=== PATIENT | male | born 1945 | race Caucasian/White ===

== ENCOUNTER → 2022-02-10 | Outpatient (CLI) | payer MEDICARE, SELFPAY ==
--- NOTE | 2022-02-10 10:10 | RAD_ITS ---
STUDY: X-RAY - LUMBAR SPINE REASON FOR EXAM: Male, 77 years old. RADICULOPATHY, LUMBAR REGION TECHNIQUE: 2 view(s) of the lumbar spine were obtained. COMPARISON: None FINDINGS: Normal lumbar lordosis. There is no substantial scoliosis. 2 mm of anterolisthesis of L3 on L4. There is multilevel endplate spondylosis of the lumbar vertebrae. There is multi-level degenerative disc disease with multi-level disc space narrowing. Facet hypertrophy in the lower lumbar spine. The soft tissue structures are unremarkable. RAD/Lumbar Spine 2 or 3 Views IMPRESSION: Degenerative changes of the spine, as detailed above. MRI would be useful. Electronically Signed: Curt Natarajan MD at 16:59 EDT ,
== END | disposition home or self-care (01) ==
PROVIDERS: PCP Internal Medicine; Visit Provider Anesthesiology Pain Medicine
DX: M47.26 Other spondylosis with radiculopathy, lumbar region (principal); M46.96 Unspecified inflammatory spondylopathy, lumbar region; M51.16 Intervertebral disc disorders with radiculopathy, lumbar region; M48.061 Spinal stenosis, lumbar region without neurogenic claudication
CPT/HCPCS: 72100

== ENCOUNTER → 2022-02-25 | Outpatient (CLI) | payer MEDICARE, SELFPAY ==
--- NOTE | 2022-02-25 16:12 | MRI_ITS ---
EXAM: MR LUMBAR SPINE WITHOUT INTRAVENOUS CONTRAST CLINICAL INDICATION: RADICULOPATHY, LUMBAR REGION TECHNIQUE: Multiplanar and multisequence MR images of the lumbar spine without intravenous contrast. Magnetic field strength 1.5 T. This report was created using [employer] report [employer] technology. COMPARISON: None. FINDINGS: VERTEBRAE: Unremarkable. Vertebral body heights are preserved. Normal vertebral bodies and posterior elements. Normal alignment. No spondylolisthesis. There is preservation of the normal lumbar lordosis. SPINAL CORD: Unremarkable. Normal position and signal intensity of the conus medullaris. SOFT TISSUES: Unremarkable. DISCS/SPINAL CANAL/NEURAL FORAMINA: L1-L2: Mild loss of disc height and disc signal. Mild generalized disc bulge. No spinal canal, foraminal, or lateral recess stenosis. L2-L3: Mild loss of disc height and disc signal. Mild generalized disc bulge. No spinal canal, foraminal, or lateral recess stenosis. L3-L4: Mild loss of disc signal. Mild generalized disc bulge. No spinal canal, foraminal, or lateral recess stenosis. Moderate facet arthropathy bilaterally. L4-L5: Mild loss of disc height and disc signal. Moderate generalized disc bulge. No spinal canal, foraminal, or lateral recess stenosis. AP diameter of the canal measures 11 mm. Moderate facet arthropathy bilaterally. L5-S1: Moderate loss of disc height and disc signal. Mild generalized disc bulge. No spinal canal, foraminal, or lateral recess stenosis. MRI/Spine Lumbar (Routine) IMPRESSION: 1. Diffuse spondylitic changes. No spinal stenosis or nerve root impingement. 2. Moderate bilateral facet arthropathy L3-4 and L4-5. Electronically Signed: Connor Gould MD at 17:03 EDT ,
== END | disposition home or self-care (01) ==
LOC: MRI 15:56
PROVIDERS: PCP Internal Medicine; Visit Provider Anesthesiology Pain Medicine
DX: M47.26 Other spondylosis with radiculopathy, lumbar region (principal); M46.96 Unspecified inflammatory spondylopathy, lumbar region
CPT/HCPCS: 72148

== ENCOUNTER 2025-07-14 02:11 | Observation (INO) | payer MEDICARE, OTHER, SELFPAY ==
[2025-07-14] VITALS (11 sets, daily range): BP systolic 132–160; BP diastolic 64–85; PULSE 62–70; RESP 13–22; TEMP 36.5–36.7; O2SAT 95–99; BMI 29.8; BMI 29.5
--- NOTE | 2025-07-14 02:17 | EKG12_ITS ---
Test Reason : NEURO Blood Pressure : */* mmHG Vent. Rate : 73 BPM Atrial Rate : 73 BPM P-R Int : 176 ms QRS Dur : 96 ms QT Int : 390 ms P-R-T Axes : 61 84 44 degrees QTcB Int : 429 ms Normal sinus rhythm Nonspecific ST abnormality Abnormal ECG Confirmed by Connor Rodarte ([id number]), photograph editor CHETAN MMCILLAN ([id number]) on 07/14/2025 8:35:58 AM Referred By: Confirmed By: Connor Rodarte
--- NOTE | 2025-07-14 02:17 | CT_ITS ---
PROCEDURE: STROKE CTA HEAD AND NECK W/CON 07/13/2025 REASON FOR EXAM: NEURO DEFICIT, ACUTE, STROKE SUSPECTED TECHNIQUE: Procedure Code: CTCTA.ST.HN Modality: CT Procedure: STROKE CTA HEAD AND NECK W/CON Multiplanar Sagittal and Coronal images were obtained. CONTRAST: 100 cc of Isovue 370 One or more dose reduction techniques were used (e.g., Automated exposure control, adjustment of the mA and/or kV according to patient size, use of iterative reconstruction technique). COMPARISON: Same-day CT head FINDINGS: Aortic Arch: Normal size and branching pattern. No significant atherosclerotic plaque. Brachiocephalic and Subclavians: Unremarkable RIGHT Carotid: Right CCA: Unremarkable. Right ICA: Unremarkable. Maximum stenosis (NASCET): n/a Right ECA: Unremarkable. LEFT Carotid: Left CCA: Unremarkable. Left ICA: Unremarkable. Maximum stenosis (NASCET): n/a Left ECA: Unremarkable. Vertebrals: Codominant. Arise from the subclavians. Both vertebrals form the basilar. RIGHT Vertebral: Unremarkable. LEFT Vertebral: Unremarkable. Anatomy: [place] anatomy is normal. Aneurysm or avm: No intracranial aneurysms or large vascular malformations are identified. Anterior cerebral arteries: Unremarkable: Middle cerebral arteries: Unremarkable. Basilar artery: Unremarkable. Posterior cerebral arteries: Unremarkable. Other major branches of the posterior circulation: Unremarkable. Major venous structures: Unremarkable. Other findings: Neck: No lymphadenopathy. Lungs: Lung apices are clear. Bones: Bones are unremarkable. CT/STROKE CTA Head AND Neck W/Con IMPRESSION: Unremarkable CT angiogram of the head and neck with evidence of stenosis or occ lusion. Reading [facility]
--- NOTE | 2025-07-14 02:17 | CT_ITS ---
PROCEDURE: STROKE BRAIN/HEAD WITHOUT CONT N/A REASON FOR EXAM: NEURO DEFICIT, ACUTE, STROKE SUSPECTED TECHNIQUE: Procedure Code: CTBR.ST Modality: CT Procedure: STROKE BRAIN/HEAD WITHOUT CONT Coronal and Sagittal reconstruction series were provided. One or more dose reduction techniques were used (e.g., Automated exposure control, adjustment of the mA and/or kV according to patient size, use of iterative reconstruction technique. COMPARISON: None available. FINDINGS: There is no extra-axial or intra-axial intracranial hemorrhage. No mass effect or midline shift is seen. Generalized intracranial volume loss and findings compatible with chronic microvascular white matter ischemia. Isodense extra-axial lesion abutting the high right anterior falx measuring 1.9 x 2.9 x 1.6 cm may represent a meningioma. There is normal echeverria-white matter differentiation. The posterior fossa is grossly unremarkable. The skull is unremarkable. Visualized paranasal sinuses are clear. The mastoid air cells show normal translucency. CT/STROKE Brain/Head without Cont IMPRESSION: 1. No intracranial hemorrhage. No mass effect or midline shift. 2. Chronic involutional and ischemic gliotic white matter changes. 3. Possible high right meningioma abutting the anterior falx. Further evaluati on with contrast-enhanced MRI would be more helpful. 4. CT is insensitive for early evaluation of acute stroke. If there is clinical concern for acute ischemia, an MRI may be considered. Stroke Alert: The critical findings in the findings and impression above were relayed directl y by me by telephone to Sulaiman Robison on 07/14/2025 at 2:42 am with readback verification. Reading [facility]
--- NOTE | 2025-07-14 02:19 | ED.VIS.STROK ---
HPI History of Present Illness Chief Complaint: Stroke Alert Detail of Chief Complaint: Left leg weakness and numbness. Informant: patient and spouse/S.O. Onset/Context/Timing Onset: Today Context: - (Awoke with the symptoms.) Timing: Continuous Quality and Location: Positive for Left Leg Parasthesia and Left Leg Weakness Current Severity: Moderate Maximum Severity: Moderate Associated Symptoms Associated Symptoms: Negative for Headache, Nausea, Vomiting or Chest Pain Narrative Narrative: Healthy 80-year-old male history of diabetes and hypertension. Went to bed around 20:45 Monday night. Patient states he felt fine when he went to bed. He got up around 1 AM. Went to go to the bathroom his left leg was weak and numb. He fell. Denies any injury. He has never had a stroke or mini stroke. He denies a headache or head trauma he is on no blood thinners. He denies any new visual change or change in his speech. He denies any numbness or weakness to his arms. Prior similar symptoms: No Recent Illness[facility] Medical History (Updated 07/14/25 @ 02:[address] Sulaiman Robison MD) Brain tumor Diabetes Hypertension Hyperlipidemia Home Medications ?Medication ?Instructions ?Recorded ?Last Taken ?Type ascorbic acid (vitamin C) 500 mg 500 mg PO DAILY@0800 01/26/16 01/26/16 History tablet (Vitamin C) lovastatin 40 mg tablet 40 mg PO QHS 01/26/16 01/25/16 History pantoprazole 40 mg tablet,delayed 40 mg PO DAILY PRN gerd 01/26/16 01/26/16 History release lisinopril 20 mg tablet 20 mg PO DAILY ##30 01/27/16 Unknown Rx meclizine 25 mg tablet 25 mg PO 4X/DAY PRN PRN Vertigo 01/27/16 Unknown Rx ##12 metformin 500 mg tablet 500 mg PO DAILY 07/14/25 Unknown History Allergy/AdvReac Type Severity Reaction Status Date / Time amoxicillin Allergy Rash Verified 07/14/25 02:26 ampicillin Allergy Rash Verified 07/14/25 02:26 Social History Smoking Status: Former smoker ROS ROS ED ROS Narrative Denies recent illness. Constitutional Constitutional ED: Denies chills or fever(s) Eyes Eyes: Denies blurry vision ENT ENT ED: Denies ear pain Cardiovascular Cardiovascular: Denies chest pain Respiratory/Chest Respiratory/Chest: Denies cough or dyspnea Gastrointestinal Gastrointestinal: Denies abdominal pain Genitourinary Genitourinary ED: Denies dysuria or hematuria Musculoskeletal Musculoskeletal: Denies arthralgias Integumentary Denies abscess Neurologic Neurologic: Denies headache(s) Psychiatric Psychiatric: Denies anxiety or depression Endocrine Endocrinology: Denies polydipsia Hematologic/Lymphatic Hematologic/Lymphatic: Denies easy bleeding Allergic/Immunologic Allergic/Immunologic ED: Denies mouth swelling EXAM Physical Exam Narrative Exam Narrative: Well-appearing 80-year-old male. Vital signs stable and afebrile. He does not look septic or toxic. at bedside. H EENT exam pupils round react light. Extra motions are intact. No facial droop. Normal speech. No trauma. Nontender. Neck nontender. Lungs clear to auscultation bilaterally. Heart regular rhythm no murmur. Chest wall ribs nontender. Abdomen soft nontender. No pulsatile mass. Moving all 4 extremities. 5-5 fluid designer strength. Bilaterally. Equal symmetrical. Equal radial pulses. Left leg is significantly weak but he can lift it off the bed but has a definite drift. Has decreased dorsi and plantarflexion about 3 out of 5. Right leg is normal strength. No drift. 5 out of 5 dorsi plantarflexion. There is no reproducible leg tenderness. He complains of numbness in his left leg but he does have sensation to touch. NIH score is 3. For weakness of the left leg, drift and left leg ataxia. Const Vital Signs: 07/14/25 02:11 07/14/25 02:11 07/14/25 02:17 Temperature 98.1 F Temperature Source Oral Pulse Rate 64 70 Respiratory Rate 18 18 Blood Pressure 132/76 H 135/72 H Blood Pressure Mean 94 93 Pulse Ox 99 95 98 Oxygen Delivery Method Room Air Room Air Room Air 07/14/25 02:17 07/14/25 02:46 Temperature Temperature Source Pulse Rate 70 69 Respiratory Rate 18 22 H Blood Pressure 135/72 H 144/84 H Blood Pressure Mean 93 104 Pulse Ox 95 96 Oxygen Delivery Method Room Air Room Air MDM MDM MDM Narrative Medical decision making narrative: 80-year-old male onset of left leg weakness and subjective numbness but has sensation. NIH score 3 with left leg weakness, drift and ataxia. Patient was made a stroke team. Onset of his symptoms was when he awoke with the symptoms. He went to bed around 8:45 PM Monday night awoke and had the symptoms around 1 PM. Patient was made a stroke team and has been made stroke team protocol. He will have a CT and CTA head and neck. [facility] neurology will be contacted. Patient is aware and his is aware at bedside. Repeat exam patient is doing well at 2:45 AM. He is awake and alert. We discussed his CAT scan results. We discussed he is not a TNK candidate. He is getting strength back in his left leg. On repeat exam he has a palpable DP pulse. His dorsi and plantarflexion is now about 4 out of 5 and he can lift it off the bed and hold it for 3 seconds. He does not have normal strength there is probably a 4 out of 5 now initially was a 3 out of 5. He is definitely showing improvement. Once his labs are all back I will speak to the hospitalist for admission. Patient doing well at 3:09 AM. I spoke to the hospitalist he will be admitted to PCU. History & Record Review Discussion w/independent historian: Patient and Family Lab Data Attestation: I reviewed the patient's lab results. Lab results narrative: Radiologist called me about his CAT scan of his brain there was no acute abnormality. Potentially a meningioma. No bleed. I also spoke to the [facility] neurologist who reviewed his CT brain and CTA head and neck and they do not see any acute bleed or large vessel occlusion. He is not a TNK candidate after discussion with the neurologist. Further discussion with the patient he does have a known meningioma. CBC unremarkable. White count of 7. H&H 15 and 44. Platelets 268. PT, INR and PTT are 13, 1 and 29. Chemistries unremarkable. Gap 14. BUN and creatinine 25 and 1.2. Glucose 115. Initial troponin 13. Labs: Laboratory Results - last 24 hr 07/14/25 07/14/25 02:17 02:20 WBC 7.9 RBC 4.72 Hgb 15.4 Hct 44.4 MCV 94.1 H MCH 32.6 H MCHC 34.7 RDW Std Deviation 40.2 RDW Coeff of Omid 11.6 Plt Count 268 MPV 8.8 Immature Gran % (Auto) 0.300 Neut % (Auto) 49.9 Lymph % (Auto) 31.3 [place] % (Auto) 11.1 H Eos % (Auto) 6.6 H Baso % (Auto) 0.8 Absolute Neuts (auto) 3.9 Absolute Lymphs (auto) 2.46 Nucleated RBC % 0 PT 13.4 INR 1.0 APTT 29.8 Sodium 142 Potassium 3.9 Chloride 104 Carbon Dioxide 23.0 Anion Gap 14 BUN 25 H Creatinine 1.20 Estim Creat Clear Calc 58.53 Est GFR (MDRD) Non-Af 62 BUN/Creatinine Ratio 20.8 H Glucose 115 H Calcium 9.7 Troponin T High Sens 13 POC Glucose 111 H Radiography Diagnostic Testing: Clinical Impression(s) from Imaging Studies Brain CT 07/14/25 02:17 IMPRESSION: 1. No intracranial hemorrhage. No mass effect or midline shift. 2. Chronic involutional and ischemic gliotic white matter changes. 3. Possible high right meningioma abutting the anterior falx. Further evaluation with contrast-enhanced MRI would be more helpful. 4. CT is insensitive for early evaluation of acute stroke. If there is clinical concern for acute ischemia, an MRI may be considered. Stroke Alert: The critical findings in the findings and impression above were relayed directly by me by telephone to Sulaiman Robison on 07/14/2025 at 2:42 am with readback verification. Reading Location: [facility] Rhythm Strip Rhythm Strip: Sinus Rhythm Rate: 73 Ectopy: None EKG Initial EKG: Attestation: I personally reviewed and interpreted this EKG as follows: Interpretation: Sinus Rhythm and No Acute Injury Pattern Comments: Normal sinus rhythm rate of 73 no acute signs of DE or ischemia. No dysrhythmia. Critical Care Time Critical Care Time: Yes Critical care time (excluding procedures): 30-74 minutes, Including time spent:, Discussing w/Patient &/or Family/Manufacturing Shift Supervisor, Discussing w/Consultants, Arranging Admission or Transfer, Performing Direct Patient Care at Bedside and - (34 minutes.) Discharge Plan Dx/Rx/DC Orders Clinical Impression: Brain TIA, Left leg weakness, History of diabetes mellitus, History of hypertension Disposition Disposition: Acute Care Hospital [facility] NIHSS NIHSS 1a. Level of Consciousness: 0 - Alert; keenly responsive 1b. LOC Questions: 0 - Answers BOTH questions correctly 1c. LOC Commands: 0 - Performs BOTH tasks correctly 2. Best Gaze: 0 - Normal 3. Visual: 0 - No visual loss 4. Facial Palsy: 0 - Normal symmetrical movements 5a. Left Arm: 0 - No drift; arm holds 90 (or 45) degrees for full 10 seconds 5b. Right Arm: 0 - No drift; arm holds 90 (or 45) degrees for full 10 seconds 6a. Left Le - Some effort against gravity; 6b. Right Le - No drift; leg holds 30-degree position for full 5 seconds 7. Limb Ataxia: 1 - Present in 1 limb 8. Sensory: 0 - Normal; no sensory loss 9. Best Language: 0 - No aphasia; normal 11. Extinction and Inattention: 0 - No abnormality Total: 3 Stroke Questions Stroke Team Activated: Yes Reviewed Inclusion/Exclusion criteria: Yes
--- OUTSIDE RECORDS SUMMARY | 2025-07-14 02:26 | XMS RPT_ITS | CCD ---
Author Organization [facility] Care Team Providers Care Miniature Model Maker Name Role Phone Dr. Lora Martinez Primary Care Provider Dr. Lora Martinez Referring Provider JEFF Rubin Attending Provider Lora Martinez MD Primary Care Provider Francisco Frank MD Unavailable Naeem OGDEN MD, Gerald Unavailable Lora Martinez MD Primary Care Provider Francisco Frank MD Unavailable Naeem OGDEN MD, Marlaung Unavailable Lora Martinez MD Primary Care Provider Francisco Frank MD Unavailable Naeem OGDEN MD, Everardoesung Unavailable Lora Martinez MD Primary Care Provider Naeem OGDEN, Gerald Unavailable ALEXANDRANENOI Referring Unavailable JOAQUINAMPHEATHER LORA Zack Primary Care Unavailable ALEXANDRA MINH Referring Unavailable ORIANA MARTINEZA Zack Primary Care Unavailable Alexandra PATENT LAW SPECIALIST.CLASSIFICATION OFFICER, Minh Unavailable Naomie PATENT LAW SPECIALIST.LAN SUPPORT SPECIALIST, Soco Unavailable Naomie PATENT LAW SPECIALIST.LAN SUPPORT SPECIALIST, Soco Unavailable Alexandra PATENT LAW SPECIALIST.CLASSIFICATION OFFICER, Minh Unavailable GERALD HARTLEY Referring Unavailable LORA MARTINEZ Primary Care Unavailable GERALD HARTLEY Attending Unavailable TALAMPAS, LORA D Primary Care Unavailable TALAMPAS, LORA D Referring Unavailable TALAMPAS, LORA D Primary Care Unavailable MINH ALEXANDRA Attending Unavailable TALAMPAS, LORA D Primary Care Unavailable ALXEANDRAMINH Referring Unavailable TALAMPAS, LORA D Primary Care Unavailable TALAMPAS, LORA D Attending Unavailable TALAMPAS, LORA D Primary Care Unavailable Allergies Allergy Classification Reported Allergen(s) Allergy Type Date of Onset Reaction(s) Facility (20 sources) Amoxicillin; Translations: [AMOXICILLIN] Drug Allergy 04-26-2005 Rash [facility] Work Phone: (20 sources) Ampicillin; Translations: [AMPICILLIN] Drug Allergy 07-18-2005 Rash [facility] Work Phone: (20 sources) Lisinopril; Translations: [LISINOPRIL] Drug Allergy 08-22-2016 Cough [facility] Work Phone: Medications Current Medications Medication Drug Class(es) Dates Sig (Normalized) Sig (Original) aluminum chloride 200 mg/ml topical solution (13 sources) Start: 08-30-2022 End: 11-28-2022 aluminum chloride (DRYSOL) 20 % external solution Apply to affected area daily at bedtime. 35 mL 2 08/30/2022 Active Comment on above: Apply to affected ar ea daily at bedtime. ascorbic acid 500 mg oral tablet (2 sources) Vitamin C Start: 01-26-2016 take 1 tablet by mouth once daily Ascorbic Acid (Vitamin C) (Vitamin C) 500 MG tablet Active 500 MG PO DAILY@0800 January 26, 2016 12:00am cholecalciferol 0.025 mg oral capsule (20 sources) Vitamin D Start: 03-06-2012 take 1 capsule by mouth once daily Cholecalciferol, Vitamin D3, 1,000 unit cap Take 1 capsule by mouth once daily. 0 03/06/2012 Active Comment on above: Take 1 capsule by [facility] once daily. ciclopirox 80 mg/ml topical solution (10 sources) Start: 04-30-2024 Ciclopirox (CICLODAN) 8 % solution Apply to affected area daily at bedtime. Apply to affected fingernail(s) and/or toenail(s) and adjacent skin once daily in combination with weekly nail trimming and periodic nail debridement. Remove with alcohol every 7 days.Do for up to 48 weeks 6.6 mL 3 04/30/2024 Active DAILY MULTIVITAMIN TAB (20 sources) Start: 04-21-2006 DAILY MULTIVITAMIN TAB Take one(1) tablet daily. 0 04/21/2006 Active Comment on above: Take one(1) tablet d aily. enteric contrast (will be provided with radiology test) (1 source) Start: 05-24-2024 End: 05-24-2024 take 1 dose by mouth once, then take 1 dose by mouth once enteric contrast (will be provided with radiology test) Take 1 Each by mouth one time only for [address] ABD/PEL WO Routine order Administer, As Directed One Time Only, via Oral, Rectal, both Oral and Rectal, Enteric Tube, Stoma or Indwelling Catheter, Enteric Contrast as designated per enteric contrast guidelines 1 Each 05/24/2024 05/24/2024 Active ibuprofen 200 mg oral tablet (20 sources) Nonsteroidal Anti-inflammatory Drug take 3 tablets by mouth every six hours as needed ibuprofen (MOTRIN) 200 mg tablet Take 600 mg by mouth every 6 hours as needed for Pain. Active Comment on above: Take 600 mg by mouth every 6 hours as needed for Pain. lisinopril 20 mg oral tablet (2 sources) Angiotensin Converting Enzyme Inhibitor Start: 01-27-2016 take 20 mg by mouth once daily Lisinopril Active 20 MG PO DAILY January 27, 2016 12:00am losartan potassium 50 mg oral tablet (20 sources) Angiotensin 2 Receptor Jay Start: 06-22-2023 End: 04-30-2024 take 1 tablet by mouth once daily losartan (COZAAR) 50 mg tablet Take 1 tablet by mouth once daily. 90 tablet 3 04/30/2024 Active Start: 06-29-2021 End: 07-06-2022 take 1 tablet by mouth once daily losartan (COZAAR) 50 mg tablet Take 1 tablet by mouth once daily. 90 tablet 3 07/06/2022 Active Comment on above: Take 1 tablet by wood th once daily. lovastatin 40 mg oral tablet (20 sources) HMG-CoA Reductase Inhibitor Start: 01-26-20 End: 04-30-20 24 take 1 tablet by mouth once daily at bedtime lovastatin 40 mg tablet Indications: Mixed hyperlipidemia Take 1 tablet by mouth daily at bedtime. 90 tablet 3 04/30/2024 Active Comment on above: Take 1 tablet by wood th daily at bedtime. meclizine hydrochloride 25 mg oral tablet (2 sources) Antiemetic Start: 01-27-20 16 take 25 mg by mouth four times daily as needed Meclizine Active 25 MG PO 4 TIMES DAILY NEEDED January 27, 2016 12:00am metFORMIN hydrochloride 500 mg oral tablet (20 sources) Biguanide Start: 10-30-19 25 take 1 tablet by mouth twice daily at mealtime for diabetes mellitus metFORMIN (GLUCOPHAGE) 500 mg tablet Indications: Type 2 diabetes mellitus without complication, without long-term current use of insulin (HCC) Take 1 tablet by mouth two times a day with meals. For blood sugar/diabetes. Do not take if not eating 180 tablet 3 10/29/2024 Active Start: 08-30-2022 End: 10-29-2024 take 1 tablet by mouth once daily at breakfast for diabetes mellitus metFORMIN (GLUCOPHAGE) 500 mg tablet Indications: Type 2 diabetes mellitus without complication, without long-term current use of insulin (HCC) Take 1 tablet by mouth daily with breakfast. For blood sugar/diabetes. Do not take if not eating 90 tablet 3 04/30/2024 10/29/2024 Discontinued Comment on above: Take 1 tablet by wood th daily with breakfast. For blood sugar/diabetes. Do not take if not eating mometasone furoate 1 mg/ml topical cream (20 sources) Corticosteroid Start: End: mometasone (ELOCON) 0.1 % cream Indications: Seborrheic dermatitis of scalp Apply 1 application to affected area once daily as needed. To affected skin in scalp as directed. 15 g 10/24/2023 Active Comment on above: Apply 1 application to affected area once daily as needed. To affected skin in scalp as directed. nirmatrelvir tablet 150 mg and ritonavir tablet 100 mg in a dose pack (PAXLOVID) (1 source) Start: End: nirmatrelvir tablet 150 mg and ritonavir tablet 100 mg in a dose pack (PAXLOVID) Administer TWO pink nirmatrelvir 150 mg tablets and ONE white ritonavir 100 mg tablet for a total of three tablets twice daily. 30 tablet 0 03/02/2022 03/07/2022 Active Comment on above: Administer TWO pink nirmatrelvir 150 mg tablets and ONE white ritonavir 100 mg tablet for a total of three tablets twice daily. OMEGA-3 FATTY ACIDS CAP (20 sources) Start: 008 OMEGA-3 FATTY ACIDS CAP Indications: Other and unspecified hyperlipidemia Fish oil capsule once daily 0 10/31/2007 Active Comment on above: Fish oil capsule onc e daily pantoprazole 40 mg delayed release oral tablet (20 sources) Proton Pump Inhibitor Start: 023 End: 024 take 1 tablet by mouth once daily pantoprazole DR (PROTONIX) 40 mg tablet Indications: Gastroesophageal reflux disease without esophagitis Take 1 tablet by mouth once daily. 180 tablet 1 05/24/2024 Active Start: 01-26-2016 End: 07-06-2022 take 1 tablet by mouth once daily pantoprazole DR (PROTONIX) 40 mg tablet Indications: Gastroesophageal reflux disease without esophagitis Take 1 tablet by mouth once daily. 90 tablet 3 07/06/2022 Active Comment on above: Take 1 tablet by wood th once daily. polyethylene glycol 3350 [id number] mg / potassium chloride 2970 mg / sodium bicarbonate 6740 mg / sodium chloride 5860 mg / sodium sulfate 68395 mg powder for oral solution (1 source) Osmotic Laxative Start: 05-31-2022 End: 05-31-2022 peg 3350-Electrolytes (GOLYTELY) 236-22.74-6.74 -5.86 gram suspension Take 4,000 mL by mouth one time only for 1 dose. 1 Each 0 05/31/2022 05/31/2022 Active Comment on above: Take 4,000 mL by wood th one time only for 1 dose. vitamin e 90 mg oral capsule (2 sources) Start: 01-26-2016 take 200 [IU] by mouth once daily Vitamin E Acetate Active 200 UNIT PO DAILY January 26, 2016 12:00am Completed/Discontinued Medications Medication Drug Class(es) Dates Sig (Normalized) Sig (Original) sensor 200 actuat albuterol 0.09 mg/actuat dry powder inhaler (2 sources) beta2-Adrenergic Agonist Start: 09-02-2019 End: 05-31-2022 take 2 puff(s) by inhalation every four hours as needed albuterol sulfate 90 mcg/actuation aebs Indications: SOB (shortness of breath) , Acute viral syndrome Inhale 2 Puffs as instructed every 4 hours as needed. 1 Inhaler 0 09/02/2019 05/31/2022 Discontinued Comment on above: Inhale 2 Puffs as in structed every 4 hours as needed. atenolol 25 mg oral tablet (2 sources) beta-Adrenergic Jay Start: 01-26-2016 End: 01-27-2016 take 25 mg by mouth once daily Atenolol Discontinued 25 MG PO DAILY January 26, 2016 12:00am January 27, 2016 11:02am Problems Active Problems Problem Classification Problem Date Documented Da te Episodic/Chronic Abdominal pain (4 sources) Left lower quadrant pain; Translations: [Left lower quadrant pain] Onset: 4 05-24-2024 Episodic Diabetes mellitus without complication (20 sources) Newly diagnosed diabetes; Translations: [Type 2 diabetes mellitus without complications] Onset: 3 Chronic Disorders of lipid metabolism (20 sources) Mixed hyperlipidemia; Translations: [Mixed hyperlipidemia] Onset: 6 10-23-2015 Chronic Esophageal disorders (20 sources) Laryngopharyngeal reflux; Translations: [Gastro-esophageal reflux disease without esophagitis] Onset: 0 08-18-2021 Chronic Essential hypertension (20 sources) Essential hypertension; Translations: [Essential (primary) hypertension] Onset: 6 10-23-2015 Chronic Other aftercare (1 source) Encounter for follow-up examination after completed treatment for conditions other than malignant neoplasm; Translations: [Radiotherapy follow-up] Onset: 5 Episodic Other and unspecified benign neoplasm (20 sources) Intracranial meningioma; Translations: [Benign neoplasm of cerebral meninges] Onset: 8 09-26-2017 Chronic Other and unspecified benign neoplasm (1 source) Benign neoplasm of cerebral meninges; Translations: [Intracranial meningioma (HCC)] Onset: 8 Chronic Other gastrointestinal disorders (1 source) Passing flatus; Translations: [Flatulence] 04-30-2024 Episodic Other inflammatory condition of skin (2 sources) Seborrheic dermatitis of scalp; Translations: [Seborrheic dermatitis, unspecified] Episodic Other nutritional; endocrine; and metabolic disorders (20 sources) Obese class I; Translations: [Obesity, unspecified] Onset: 9 11-26-2018 Chronic Other screening for suspected conditions (not mental disorders or infectious disease) (11 sources) Patient encounter status; Translations: [Encounter for screening for malignant neoplasm of colon] Episodic Other upper respiratory disease (1 source) Nasal congestion; Translations: [Nasal congestion] Episodic Viral infection (1 source) Disease caused by 2019-nCoV; Translations: [COVID-19] Episodic Past or Other Problems Problem Classification Problem Date Documented Da te Episodic/Chronic Diabetes mellitus without complication (20 sources) Impaired fasting glycemia; Translations: [Impaired fasting glucose] Onset: 10-24-2005 10-28-2016 Episodic Esophageal disorders (20 sources) Esophagitis; Translations: [Esophagitis, unspecified] Onset: 08-02-2012 08-02-2012 Episodic Mood disorders (12 sources) Depressive disorder; Translations: [Other specified depressive episodes] Resolved: 10-28-2016 10-28-2016 Chronic Osteoarthritis (12 sources) Degenerative joint disease of shoulder region; Translations: [Primary osteoarthritis, unspecified shoulder] Onset: 04-25-2007 Resolved: 10-28-2016 10-28-2016 Chronic Other aftercare (1 source) Other usp (current) drug therapy; Translations: [Encounter for long-term current use of medication] Onset: 10-05-2024 Episodic Other connective tissue disease (20 sources) Lateral epicondylitis of left humerus; Translations: [Lateral epicondylitis, left elbow] Onset: 03-09-2011 11-06-2020 Episodic Other connective tissue disease (12 sources) Lateral epicondylitis; Translations: [Lateral epicondylitis, unspecified elbow] Resolved: 10-28-2016 10-28-2016 Episodic Other connective tissue disease (12 sources) Pain in left thumb; Translations: [Pain in left finger(s)] Onset: 01-27-2015 Resolved: 10-28-2016 10-28-2016 Episodic Other gastrointestinal disorders (12 sources) Irritable bowel syndrome; Translations: [Irritable bowel syndrome without diarrhea] Resolved: 10-28-2016 10-28-2016 Chronic Spondylosis; intervertebral disc disorders; other back problems (20 sources) Neck pain; Translations: [Cervicalgia] Onset: 10-28-2016 10-28-2016 Episodic Results Test Name Value Interpretation Reference Range Facility [facility] 06-12-2025 CNOV Office Visit (RADTWS ) FREDRICK MAO ([id number]) 1945 M Date Time Provider Department 06/12/25 9:00 AM GERALD HARTLEY During your visit today, we recorded the following information about you: Temperature Pulse Respiration Blood pressure 98 degrees 61/minute 14/minute 134/73 Weight 92.5 kg Yessica Dent RN 06/16/2025 4:17 PM Signed Radiation Therapy - Nursing Note (Follow-up) PATIENT NAME: Fredrick Mao PATIENT June 12, 2025 [facility] FACILITY/LOCATION: [place] Reason for visit: Follow up. Subjective Data No complaints Additional Data Do you want to see a Exhibit Carpenter? No Nursing Assessment Fatigue: increased fatigue over baseline but not altering normal activities Appetite: good Weight Gain/Loss: No Last 6 Encounter Wt Readings: Date: Wt: 06/12/2025 92.5 kg (204 lb) 05/13/2025 91.2 kg (201 lb 1 oz) 10/29/2024 95 kg (209 lb 7 oz) 05/24/2024 94.6 kg (208 lb 8.9 oz) 04/30/2024 94.3 kg (207 lb 14.3 oz) 10/24/2023 92.1 kg (203 lb) Bowel Function: normal bowel movements Bone Pain: none Focused Assessment CLASSIFICATION OFFICER: Alopecia: severe. Headache: moderate. Vision changes: none. Arm/leg numbness: none. Limb coordination: none. Memory changes: none. Syncope: none. Disorientation: none. Seizures: none. Hearing changes: No. 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 INTERVAL HISTORY: He is here for a routine follow-up. He is doing well without any specific new complaints. He denies any changes in his vision. MRI brain on 05/27/25 showed, Stable appearance of the large cystic and solid parafalcine meningioma overlying the dorsal right frontal lobe with extension into the overlying parietal bone and superior sagittal sinus. ALLERGIES Allergen Reactions Amoxicillin Rash Ampicillin Lisinopril Cough Persistent cough--patient requested med be stopped and switched to something else for BP MEDICATIONS: losartan (COZAAR) 50 mg tablet Take 1 tablet by mouth once daily. lovastatin 40 mg tablet Take 1 tablet by mouth daily at bedtime. metFORMIN (GLUCOPHAGE) 500 mg tablet Take 1 tablet by mouth two times a day with meals. For blood sugar/diabetes. Do not take if not eating pantoprazole DR (PROTONIX) 40 mg tablet Take 1 tablet by mouth once daily. Ciclopirox (CICLODAN) 8 % solution Apply to affected area daily at bedtime. Apply to affected fingernail(s) and/or toenail(s) and adjacent skin once daily in combination with weekly nail trimming and periodic nail debridement. Remove with alcohol every 7 days.Do for up to 48 weeks ibuprofen (MOTRIN) 200 mg tablet Take 600 mg by mouth every 6 hours as needed for Pain. Cholecalciferol, Vitamin D3, 1,000 unit cap Take 1 capsule by mouth once daily. OMEGA-3 FATTY ACIDS CAP Fish oil capsule once daily DAILY MULTIVITAMIN TAB Take one(1) tablet daily. PHYSICAL EXAM: VS: BP 134/73 Pulse 61 Temp 36.7 ?C (98 ?F) (Temporal) Resp 14 Wt 92.5 kg (204 lb) SpO2 96% BMI 29.54 kg/m? KPS: 90 General Appearance: Alert and oriented. No acute distress. Neuro: CN II-XII grossly intact. ASSESSMENT AND PLAN: Clinically stable. I will get MRI brain in one year and then a follow-up with me. Signed by: Gerald Hartley MD cc: Lora Martinez MD [address] [place] [address] Allergies As of Date: 06/12/2025 Noted Allergy Reaction AMOXICILLIN 04/26/2005 2 - Rash AMPICILLIN 07/18/2005 LISINOPRIL 08/22/2016 3 - Cough Comments: Persistent cough--patient requested med be stopped and switched to something else for BP Date Reviewed: 06/12/2025 Reviewed by: Yessica Dent RN - Fully Assessed Reason for Visit: Recheck [92] Primary Visit Diagnosis:Intracrania l meningioma (HCC) [D32.0] Other Visit Diagnosis:Radiotherap y follow-up [Z09] Order(s):MRI BRAIN WO/W IVCON [[id number]] Order #: [id number] FUTURE [] iv contrast (will be provided with radiology test)MRI Brain Inject, intravenously, once for 1 dose.No IV access, insert saline lock prior to beginning of sedation, infusion, injection of imaging exam.Discontinue saline lock post exam. If Pt. has a central line or IVAD, may access for administration according to line specific nursing protocol.Once exam is complete flush line and de-access according to line specific nursing protocol in the MR contrast administration guidelines linkDisp: 1 eachRfl: 0 Prescriptions as of 06/16/2025 - losartan (COZAAR) 50 mg tablet Take 1 tablet by mouth once daily. - lovastatin 40 mg tablet Take 1 tablet by mout (more content not included)... Normal [facility] MRI BRAIN WO/W IVCONon 05-27 MRI BRAIN WO/W IVCON * * *Final Report* * * DATE OF EXAM: May 27 2025 8:51AM [facility] [id number] - MRI BRAIN WO/W IVCON / PROCEDURE REASON: Intracranial meningioma (HCC) * * * * Physician Interpretation * * * * EXAMINATION: MRI BRAIN WO/W IVCON CLINICAL HISTORY: Meningioma follow-up. TECHNIQUE: Routine brain MRI protocol without and with contrast including diffusion images. MQ: [id number] Contrast: 9 mL Elucirem IV COMPARISON: MRI brain from April 29, 2023. RESULT: Acute Change: There is no evidence of restricted diffusion to suggest an acute infarct. Hemorrhage: No evidence of prior parenchymal hemorrhage on the susceptibility weighted images. There is susceptibility artifact associated with the solid portion of the right parafalcine meningioma. Mass Lesion/ Mass Effect: Again noted is a cystic and solid mass arising from the right half of the falx abutting the right dorsal superior frontal gyrus. This meningioma is again seen to extend into the adjacent right parietal bone and also extend into the adjacent superior sagittal sinus. Overall size of the cystic and solid meningioma is 3.2 x 2.8 x 7.0 cm the cystic portion occupies the medial superior aspect of the meningioma in the cystic portion of the inferior lateral aspect. The solid portion measures approximately 1.8 x 2.0 x 6.7 cm. There is localized mass effect but no significant edema in the adjacent brain parenchyma. Chronic Change: Scattered patchy increased T2 and FLAIR signal is present in the supratentorial white matter, a nonspecific finding that most commonly represents mild chronic small vessel disease. Parenchyma: No significant volume loss for age. The brain parenchyma is otherwise within normal limits of signal intensity and morphology. Ventricles: Normal caliber and morphology. Skull Base: Hypothalamic and pituitary region are grossly normal. Craniocervical junction is normal. No significant marrow replacement process. Vasculature: Again noted are prominent cranial veins along the inferior aspect of the cystic portion of the meningioma. Major intracranial arterial structures, and dural venous sinuses show typical flow void, suggesting patency by spin echo criteria. Other: The visualized paranasal sinuses and mastoid air cells are clear. The orbits and extracranial soft tissues are unremarkable. IMPRESSION: Stable appearance of the large cystic and solid parafalcine meningioma overlying the dorsal right frontal lobe with extension into the overlying parietal bone and superior sagittal sinus. Telephone Diaphragm Assembler: [facility] Transcribe Date/Time: May 27 2025 9:02A Dictated by : AYAAN DE LA CRUZ MD This examination was interpreted and the report reviewed and electronically signed by: AYAAN DE LA CRUZ MD on May 27 2025 9:15AM EST [id number] Normal [facility] CNOVon 05-13-2025 CNOV Office Visit (INTMWS ) FREDRICK MAO ([id number]) 1945 M Date Time Provider Department 05/13/25 9:20 AM LORA MARTINEZ INTMWS During your visit today, we recorded the following information about you: Pulse Respiration Blood pressure Weight 65/minute 16/minute 128/70 91.2 kg Height 1.77 m Lora Martinez MD 05/13/2025 10:12 AM Signed Subjective Fredrick Mao is a 80 year old male. 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 For blood sugar/diabetes. Do not take if not eating pantoprazole DR (PROTONIX) 40 mg tablet Take 1 tablet by mouth once daily. Ciclopirox (CICLODAN) 8 % solution Apply to affected area daily at bedtime. Apply to affected fingernail(s) and/or toenail(s) and adjacent skin once daily in combination with weekly nail trimming and periodic nail debridement. Remove with alcohol every 7 days.Do for up to 48 weeks ibuprofen (MOTRIN) 200 mg tablet Take 600 mg by mouth every 6 hours as needed for Pain. Cholecalciferol, Vitamin D3, 1,000 unit cap Take 1 capsule by mouth once daily. OMEGA-3 FATTY ACIDS CAP Fish oil capsule once daily DAILY MULTIVITAMIN TAB Take one(1) tablet daily. losartan (COZAAR) 50 mg tablet Take 1 tablet by mouth once daily. lovastatin 40 mg tablet Take 1 tablet by mouth daily at bedtime. No current facility-administered medications for this visit. ALLERGIES Allergen Reactions Amoxicillin Rash Ampicillin Lisinopril Cough Persistent cough--patient requested med be stopped and switched to something else for BP FAMILY HISTORY Problem Relation Age of Onset Cancer Mother specific cance not noted/also had alzheimers GI Father of rupture of intestine No Known Problems Sister other (bladder cancer) Brother SOCIAL HISTORY[1] Review of Systems Objective BP 138/84 Pulse 65 Resp 16 Ht 177 cm (5' 9.69) Wt 91.2 kg (201 lb 1 oz) SpO2 98% BMI 29.11 kg/m? Last 5 Encounter Wt Readings: Date: Wt: 05/13/2025 91.2 kg (201 lb 1 oz) 10/29/2024 95 kg (209 lb 7 oz) 05/24/2024 94.6 kg (208 lb 8.9 oz) 04/30/2024 94.3 kg (207 lb 14.3 oz) 10/24/2023 92.1 kg (203 lb) No waist measurement recorded Estimated body mass index is 29.11 kg/m? as calculated from the following: Height as of this encounter: 177 cm (5' 9.69). Weight as of this encounter: 91.2 kg (201 lb 1 oz). Last 5 Encounter BP Readings: Date: BP: 05/13/2025 138/84 10/29/2024 130/74 05/24/2024 147/77 04/30/2024 120/74 10/24/2023 110/68 05/13/25 0904 05/13/25 1000 BP: 138/84 128/70 Pulse: 65 Resp: 16 SpO2: 98% Weight: 91.2 kg (201 lb 1 oz) Height: 177 cm (5' 9.69) Physical Exam Vitals reviewed. Constitutional: Appearance: Normal appearance. HENT: Head: Normocephalic. Right Ear: Tympanic membrane, ear canal and external ear normal. Left Ear: Tympanic membrane, ear canal and external ear normal. Mouth/Throat: Mouth: Mucous membranes are moist. Pharynx: Oropharynx is clear. Eyes: Extraocular Movements: Extraocular movements intact. Conjunctiva/sclera: Conjunctivae normal. Pupils: Pupils are equal, round, and reactive to light. Neck: Thyroid: No thyromegaly. Vascular: No carotid bruit. Cardiovascular: Rate and Rhythm: Normal rate and regular rhythm. Pulses: Normal pulses. Heart sounds: Normal heart sounds. Pulmonary: Effort: Pulmonary effort is normal. Breath sounds: Normal breath sounds. Abdominal: General: Abdomen is flat. There is no distension. Palpations: Abdomen is soft. There is no mass. Musculoskeletal: Cervical back: Normal range of motion. Right lower leg: No edema. Left lower leg: No edema. Skin: General: Skin is warm and dry. Neurological: General: No focal deficit present. Mental Status: He is alert and oriented to person, place, and time. Psychiatric: Attention and Perception: Attention and perception normal. Mood and Affect: Mood and affect normal. Speech: Speech normal. Behavior: Behavior normal. Thought Content: Thought content normal. Cognition and Memory: Cognition and memory normal. Judgment: Judgment normal. Fredrick Mao is a 80 year old male here for a Medicare wellness visit. Medicare Health Risk Assessment General Health Good Exercise: Minutes/Day 90 min; noted that gets functional exercise Exercise: Days/Week 2 days Alcohol: Daily Use Monthly or less Alcohol: Drinks/Day 1 or 2 Alcohol: 6 or more drinks Never Feel off liza (more content not included)... Normal [facility] CNPNon 05-13-2025 CNPN Telephone (RADTWS) FREDRICK MAO ([id number]) 1945 M Date Time Provider Department 05/13/25 GERALD HARTLEY RADTWS During your visit today, we recorded the following information about you: Vinay Mccloud 05/13/2025 10:50 AM Signed Spoke w pt and this has been scheduled as directed. Vinay Mccloud Allergies As of Date: 05/13/2025 Noted Allergy Reaction AMOXICILLIN 04/26/2005 2 - Rash AMPICILLIN 07/18/2005 LISINOPRIL 08/22/2016 3 - Cough Comments: Persistent cough--patient requested med be stopped and switched to something else for BP Date Reviewed: 05/13/2025 Reviewed by: My Morris LPN - Fully Assessed Primary Visit Diagnosis:Intracrania l meningioma (HCC) [D32.0] Order(s):MRI BRAIN WO/W IVCON [[id number]] Order #: [id number] FUTURE iv contrast (will be provided with radiology test)MRI Brain Inject, intravenously, once for 1 dose.No IV access, insert saline lock prior to beginning of sedation, infusion, injection of imaging exam.Discontinue saline lock post exam. If Pt. has a central line or IVAD, may access for administration according to line specific nursing protocol.Once exam is complete flush line and de-access according to line specific nursing protocol in the MR contrast administration guidelines linkDisp: 1 eachRfl: 0 Prescriptions as of 05/13/2025 - losartan (COZAAR) 50 mg tablet Take 1 tablet by mouth once daily. - lovastatin 40 mg tablet Take 1 tablet by mouth daily at bedtime. - iv contrast (will be provided with radiology test) MRI Brain Inject, intravenously, once for 1 dose.No IV access, insert saline lock prior to beginning of sedation, infusion, injection of imaging exam.Discontinue saline lock post exam. If Pt. has a central line or IVAD, may access for administration according to line specific nursing protocol.Once exam is complete flush line and de-access according to line specific nursing protocol in the MR contrast administration guidelines link - metFORMIN (GLUCOPHAGE) 500 mg tablet Take 1 tablet by mouth two times a day with meals. For blood sugar/diabetes. Do not take if not eating - pantoprazole DR (PROTONIX) 40 mg tablet Take 1 tablet by mouth once daily. - Ciclopirox (CICLODAN) 8 % solution Apply to affected area daily at bedtime. Apply to affected fingernail(s) and/or toenail(s) and adjacent skin once daily in combination with weekly nail trimming and periodic nail debridement. Remove with alcohol every 7 days.Do for up to 48 weeks - ibuprofen (MOTRIN) 200 mg tablet Take 600 mg by mouth every 6 hours as needed for Pain. - Cholecalciferol, Vitamin D3, 1,000 unit cap Take 1 capsule by mouth once daily. - OMEGA-3 FATTY ACIDS CAP Fish oil capsule once daily - DAILY MULTIVITAMIN TAB Take one(1) tablet daily. Meds Comments as of 06/14/2007: All medications have been reviewed today/June 14, 2007 Peri Gonsalves Ma Problem List As Of Date 05/13/2025 Noted Resolved Essential hypertension [I10] Mixed hyperlipidemia [E78.2] Irritable bowel syndrome [K58.9] 10/28/2016 Depressive disorder, not elsewhere classified [* 10/28/2016 Lateral epicondylitis of elbow [M77.10] 10/28/2016 IMPAIRED FASTING GLUCOSE [R73.01] 10/24/2005 DJD (DEGENERATIVE JOINT DISEASE) -- right ACjo*04/25/2007 10/28/2016 Lateral epicondylitis of left elbow [M77.12] 03/09/2011 Esophagitis, unspecified [K20.90] 08/02/2012 Pain of left thumb [M79.645] 01/27/2015 10/28/2016 Neck pain [M54.2] 10/28/2016 Intracranial meningioma (HCC) [D32.0] 09/26/2017 Obesity, Class I, BMI 30-34.9 [E66.811] 11/26/2018 LPRD (laryngopharyngeal reflux disease) [K21.9] 09/15/2019 Well controlled type 2 diabetes mellitus (HCC) *08/30/2022 Prescriptions ordered this encounter Disp Refills Start End IV CONTRAST (RADIOLOGY PROCEDURE) - * 1 ea* 0 05/13/2025 05/14/2025 Class: In Office Sig: MRI Brain Inject, intravenously, once for 1 dose.No IV access, insert saline lock prior to beginning of sedation, infusion, injection of imaging exam.Discontinue saline lock post exam. If Pt. has a central line or IVAD, may access for administration according to line specific nursing protocol.Once exam is complete flush line and de-access according to line specific nursing protocol in the MR contrast administration guidelines link Encounter Status:Closed by VINAY CMCLOUD on 05/13/25 Normal [facility] CBC W Auto Differential pane l (Bld)on 05-01-2025 Basophils (Bld) [#/Vol] 0.06 10*3/uL Normal <0.11 [facility] Comment on above: Order Comment: Speci men Type: BLOOD SPECIMENOrdering Facility: [facility] Address: [address] [place] [address] Performed By: #### 5 7021-8 ####[facility] LABCLIA [id number] [place] [address] [place] Basophils/100 WBC (Bld) 0.9 % Normal [facility] Comment on above: Order Comment: Speci men Type: BLOOD SPECIMENOrdering Facility: [facility] Address: [address] [place] [address] Performed By: #### 5 7021-8 ####[facility] LABCLIA [id number] [place] [address] [place] Differential cell count method Nom (Bld) Auto Normal [facility] Comment on above: Order Comment: Speci men Type: BLOOD SPECIMENOrdering Facility: [facility] Address: [address] [place] [address] Performed By: #### 5 7021-8 ####[facility] LABCLIA [id number] [place] [address] [place] Eosinophils (Bld) [#/Vol] 0.44 10*3/uL Normal <0.46 [facility] Comment on above: Order Comment: Speci men Type: BLOOD SPECIMENOrdering Facility: [facility] Address: [address] [place] [address] Performed By: #### 5 7021-8 ####[facility] LABCLIA [id number] [place] [address] [place] Eosinophils/100 WBC (Bld) 6.5 % Normal [facility] Comment on above: Order Comment: Speci men Type: BLOOD SPECIMENOrdering Facility: [facility] Address: [address] [place] [address] Performed By: #### 5 7021-8 ####[facility] LABIA [id number] [place] [address] [place] Erythrocyte distribution width (RBC) [Ratio] 12.0 % Normal 11.5-15.0 [facility] Comment on above: Order Comment: Speci men Type: BLOOD SPECIMENOrdering Facility: [facility] Address: [address] [place] [address] Performed By: #### 5 7021-8 ####[facility] LABCLIA [id number] [place] [address] [place] Hematocrit (Bld) [Volume fraction] 45.2 % Normal 39.0-51.0 [facility] Comment on above: Order Comment: Speci men Type: BLOOD SPECIMENOrdering Facility: [facility] Address: [address] [place] [address] Performed By: #### 5 7021-8 ####[facility] LABCLIA [id number] [place] [id number] [place] Hemoglobin (Bld) [Mass/Vol] 15.5 g/dL Normal 13.0-17.0 [facility] Comment on above: Order Comment: Speci men Type: BLOOD SPECIMENOrdering Facility: [facility] Address: [address] [place] [address] Performed By: #### 5 7021-8 ####[facility] LABCLIA [id number] [place] [address] [place] Immature granulocytes (Bld) [#/Vol] 10*3/uL Normal <0.10 [facility] Comment on above: Order Comment: Speci men Type: BLOOD SPECIMENOrdering Facility: [facility] Address: [address] [place] [address] Performed By: #### 5 7021-8 ####[facility] LABCLIA [id number] [place] [address] [place] Immature granulocytes/100 WBC (Bld) 0.1 % Normal [facility] Comment on above: Order Comment: Speci men Type: BLOOD SPECIMENOrdering Facility: [facility] Address: [address] [place] [address] Performed By: #### 5 7021-8 ####[facility] LABIA [id number] [place] [address] [place] Lymphocytes (Bld) [#/Vol] 1.81 10*3/uL Normal 1.00-4.00 [facility] Comment on above: Order Comment: Speci men Type: BLOOD SPECIMENOrdering Facility: [facility] Address: [address] [place] [address] Performed By: #### 5 7021-8 ####[facility] LABIA [id number] [place] [address] [place] Lymphocytes/100 WBC (Bld) 26.5 % Normal [facility] Comment on above: Order Comment: Speci men Type: BLOOD SPECIMENOrdering Facility: [facility] Address: [address] [place] [address] Performed By: #### 5 7021-8 ####[facility] LABIA [id number] [place] [address] [place] MCH (RBC) [Entitic mass] 32.6 pg Normal 26.0-34.0 [facility] Comment on above: Order Comment: Speci men Type: BLOOD SPECIMENOrdering Facility: [facility] Address: [address] [place] [address] Performed By: #### 5 7021-8 ####[facility] LABIA [id number] [place] [address] [place] MCHC (RBC) [Mass/Vol] 34.3 g/dL Normal 30.5-36.0 [facility] Comment on above: Order Comment: Speci men Type: BLOOD SPECIMENOrdering Facility: [facility] Address: [address] [place] [address] Performed By: #### 5 7021-8 ####[facility] LABIA [id number] [place] [address] [place] MCV (RBC) [Entitic vol] 95.2 fL Normal 80.0-100.0 [facility] Comment on above: Order Comment: Speci men Type: BLOOD SPECIMENOrdering Facility: [facility] Address: [address] [place] [address] Performed By: #### 5 7021-8 ####[facility] LABIA [id number] [id number] [place] [address] [place] Monocytes (Bld) [#/Vol] 0.71 10*3/uL Normal <0.87 [facility] Comment on above: Order Comment: Speci men Type: BLOOD SPECIMENOrdering Facility: [facility] Address: [address] [place] [address] Performed By: #### 5 7021-8 ####[facility] LABCLIA [id number] [facility] [place] [address] [place] Monocytes/100 WBC (Bld) 10.4 % Normal [facility] Comment on above: Order Comment: Speci men Type: BLOOD SPECIMENOrdering Facility: [facility] Address: [address] [place] [address] Performed By: #### 5 7021-8 ####[facility] LABCLIA [id number] [place] [address] [place] Neutrophils (Bld) [#/Vol] 3.79 10*3/uL Normal 1.45-7.50 [facility] Comment on above: Order Comment: Speci men Type: BLOOD SPECIMENOrdering Facility: [facility] Address: [address] [place] [address] Performed By: #### 5 7021-8 ####[facility] LABCLIA [id number] [place] [id number] [place] Neutrophils/100 WBC (Bld) 55.6 % Normal [facility] Comment on above: Order Comment: Speci men Type: BLOOD SPECIMENOrdering Facility: [facility] Address: [address] [place] [address] Performed By: #### 5 7021-8 ####[facility] LABCLIA [id number] [place] [id number] [place] Nucleated RBC (Bld) [#/Vol] 10*3/uL Normal <0.01 [facility] Comment on above: Order Comment: Speci men Type: BLOOD SPECIMENOrdering Facility: [facility] Address: [address] [place] [address] Performed By: #### 5 7021-8 ####[facility] LABCLIA [id number] [place] [address] [place] Nucleated RBC/100 WBC (Bld) [Ratio] 0.0 /100 WBC Normal [facility] Comment on above: Order Comment: Speci men Type: BLOOD SPECIMENOrdering Facility: [facility] Address: [address] [place] [address] Performed By: #### 5 7021-8 ####[facility] LABIA [id number] [place] [address] [place] Platelet mean volume (Bld) [Entitic vol] 9.3 fL Normal 9.0-12.7 [facility] Comment on above: Order Comment: Speci men Type: BLOOD SPECIMENOrdering Facility: [facility] Address: [address] [place] [address] Performed By: #### 5 7021-8 ####[facility] LABIA [id number] [place] [id number] [place] Platelets (Bld) [#/Vol] 282 10*3/uL Normal 150-400 [facility] Comment on above: Order Comment: Speci men Type: BLOOD SPECIMENOrdering Facility: [facility] Address: [address] [place] [address] Performed By: #### 5 7021-8 ####[facility] LABCLIA [id number] [place] [address] [place] RBC (Bld) [#/Vol] 4.75 10*6/uL Normal 4.20-6.00 [facility] Comment on above: Order Comment: Speci men Type: BLOOD SPECIMENOrdering Facility: [facility] Address: [address] [place] [address] Performed By: #### 5 7021-8 ####[facility] LABCLIA [id number] [address] [place] [address] [place] WBC (Bld) [#/Vol] 6.82 10*3/uL Normal 3.70-11.00 [facility] Comment on above: Order Comment: Speci men Type: BLOOD SPECIMENOrdering Facility: [facility] Address: [address] [place] [address] Performed By: #### 5 7021-8 ####[facility] LABCLIA [id number] [address], [facility]95 [place] Comprehensive metabolic 2000 panelon 05-01-2025 Albumin [Mass/Vol] 4.2 g/dL Normal 3.9-4.9 [facility] Comment on above: Order Comment: Speci men Type: BLOOD SPECIMENOrdering Facility: [facility] Address: [address] [place] [address] Performed By: #### 2 4323-8, 33530-6 ####[facility] LABCLIA [id number] [address], [facility]95 [place] ALP [Catalytic activity/Vol] 82 U/L Normal 38-113 [facility] Comment on above: Order Comment: Speci men Type: BLOOD SPECIMENOrdering Facility: [facility] Address: [address] [place] [address] Performed By: #### 2 4323-8, 85973-1 ####[facility] LABCLIA [id number] [address], [facility]95 [place] ALT [Catalytic activity/Vol] 21 U/L Normal 10-54 [facility] Comment on above: Order Comment: Speci men Type: BLOOD SPECIMENOrdering Facility: [facility] Address: [address] [place] [address] Performed By: #### 2 4323-8, 90422-1 ####[facility] LABCLIA [id number] [address] [place] [address] [place] Anion gap [Moles/Vol] 12 mmol/L Normal 8-15 [facility] Comment on above: Order Comment: Speci men Type: BLOOD SPECIMENOrdering Facility: [facility] Address: [address] [place] [address] Performed By: #### 2 4323-8, 84806-3 ####[facility] LABCLIA [id number] [facility] [place] [id number] [place] AST [Catalytic activity/Vol] 27 U/L Normal 14-40 [facility] Comment on above: Order Comment: Speci men Type: BLOOD SPECIMENOrdering Facility: [facility] Address: [address] [place] [address] Performed By: #### 2 4323-8, 70921-9 ####[facility] LABCLIA [id number] [place] [address] [place] Bilirubin [Mass/Vol] 0.3 mg/dL Normal 0.2-1.3 [facility] Comment on above: Order Comment: Speci men Type: BLOOD SPECIMENOrdering Facility: [facility] Address: [address] [place] [address] Performed By: #### 2 4323-8, 97729-8 ####[facility] LABCLIA [id number] [facility] [place] [address] [place] Calcium [Mass/Vol] 9.7 mg/dL Normal 8.5-10.2 [facility] Comment on above: Order Comment: Speci men Type: BLOOD SPECIMENOrdering Facility: [facility] Address: [address] [place], [place] [address] Performed By: #### 2 4323-8, 82934-0 ####[facility] LABCLIA [id number] [place] [id number] [place] Chloride [Moles/Vol] 105 mmol/L Normal 98-107 [facility] Comment on above: Order Comment: Speci men Type: BLOOD SPECIMENOrdering Facility: [facility] Address: [address] [place] [address] Performed By: #### 2 4323-8, 88793-4 ####[facility] LABIA [id number] [place] [id number] [place] CO2 [Moles/Vol] 24 mmol/L Normal 22-30 [facility] Comment on above: Order Comment: Speci men Type: BLOOD SPECIMENOrdering Facility: [facility] Address: [address] [place] [address] Performed By: #### 2 4323-8, 86620-2 ####[facility] LABIA [id number] [place] [address] [place] Creatinine [Mass/Vol] 1.12 mg/dL Normal 0.73-1.22 [facility] Comment on above: Order Comment: Speci men Type: BLOOD SPECIMENOrdering Facility: [facility] Address: [address] [place] [address] Performed By: #### 2 4323-8, 17756-1 ####[facility] [id number] [place] [address] [place] eGFRcr SerPlBld CKD-EPI 2020 67 mL/min/1.73m??? Normal >=60 [facility] Comment on above: Order Comment: Speci men Type: BLOOD SPECIMENOrdering Facility: [facility] Address: [address] [place] [address] Result Comment: Neela mated Glomerular Filtration Rate (eGFR) is calculated using the 2020 CKD-EPI creatinine equation. This equation utilizes serum creatinine, sex, and age as parameters. The creatinine assay has traceable calibration to isotope dilution-mass spectrometry. Refer to KDIGO guidelines for clinical interpretation. In patients with unstable renal function, e.g. those with acute kidney injury, the eGFR may not accurately reflect actual GFR. Performed By: #### 2 4323-8, 61197-1 ####[facility] LABIA [id number] [place] [id number] [place] Glucose [Mass/Vol] 122 mg/dL High 74-99 [facility] Comment on above: Order Comment: Speci men Type: BLOOD SPECIMENOrdering Facility: [facility] Address: [address] [place] [address] Result Comment: The [place] [employer] (ADA) provides guidance for cutoff values for fasting glucose and random glucose. The ADA defines fasting as no caloric intake for at least 8 hours. Fasting plasma glucose results between 100 to 125 mg/dL indicate increased risk for diabetes (prediabetes). Fasting plasma glucose results greater than or equal to 126 mg/dL meet the criteria for diagnosis of diabetes. In the absence of unequivocal hyperglycemia, results should be confirmed by repeat testing. In a patient with classic symptoms of hyperglycemia or hyperglycemic crisis, random plasma glucose results greater than or equal to 200 mg/dL meet the criteria for diagnosis of diabetes. Reference: Standards of Medical Care in Diabetes 2016, [place] [employer]. Diabetes Care. 2016.39(Suppl 1). Performed By: #### 2 4323-8, 47071-9 ####[facility] LABIA [id number] [place] [address] [place] Potassium [Moles/Vol] 4.7 mmol/L Normal 3.7-5.1 [facility] Comment on above: Order Comment: Speci men Type: BLOOD SPECIMENOrdering Facility: [facility] Address: [address] [place] [address] Performed By: #### 2 4323-8, 33654-7 ####[facility] LABCLIA [id number] [place] [address] [place] Protein [Mass/Vol] 7.1 g/dL Normal 6.3-8.0 [facility] Comment on above: Order Comment: Speci men Type: BLOOD SPECIMENOrdering Facility: [facility] Address: [address] [place] [address] Performed By: #### 2 4323-8, 36911-6 ####[facility] LABCLIA [id number] [address] [id number] [address] [place] Sodium [Moles/Vol] 141 mmol/L Normal 136-144 [facility] Comment on above: Order Comment: Speci men Type: BLOOD SPECIMENOrdering Facility: [facility] Address: [address] [place] [address] Performed By: #### 2 4323-8, 59372-1 ####[facility] [id number] [place] [id number] [place] Urea nitrogen [Mass/Vol] 25 mg/dL High 9-24 [facility] Comment on above: Order Comment: Elsiei men Type: BLOOD SPECIMENOrdering Facility: [facility] Address: [address] [place] [address] Performed By: #### 2 4323-8, 87714-3 ####[facility] [id number] [place] [address] [place] HbA1c (Bld)on 05-01-2025 Average glucose Estimated from glycated hemoglobin (Bld) [Mass/Vol] 126 mg/dL Normal [facility] Comment on above: Order Comment: Elsiei men Type: BLOOD SPECIMENOrdering Facility: [facility] Address: [address] [place] [address] Result Comment: eAG: (Estimated average glucose) is a calculated value from HgbA1c and is tour sales representative of the average blood glucose level in the last 2-3 month period. Performed By: #### 5 5454-3 ####[facility] [id number] [place] [id number] [place] HbA1c (Bld) [Mass fraction] 6.0 % High 4.3-5.6 [facility] Comment on above: Order Comment: Elsiei men Type: BLOOD SPECIMENOrdering Facility: [facility] Address: [address] [place] [address] Result Comment: Amer ican Diabetes Association guidelines indicate that patients with HgbA1c in the range 5.7-6.4% are at increased risk for development of diabetes, and intervention by lifestyle modification may be beneficial. HgbA1c greater or equal to 6.5% is considered diagnostic of diabetes. Performed By: #### 5 5454-3 ####[facility] LABCLIA [id number] [address] [place] Lipid 1996 panelon 5 Cholesterol [Mass/Vol] 146 mg/dL Normal <200 [facility] Comment on above: Order Comment: Speci men Type: BLOOD SPECIMENOrdering Facility: [facility] Address: [address] [place] [address] Result Comment: <200 mg/dL, Desirable 200-239 mg/dL, Borderline high >239 mg/dL, High Performed By: #### 2 4323-8, 61861-6 ####[facility] LABIA [id number] [address] Cholesterol in HDL [Mass/Vol] 43 mg/dL Normal >39 [facility] Comment on above: Order Comment: Jojo delarosa Type: BLOOD SPECIMENOrdering Facility: [facility] Address: [address] [place] [address] Result Comment: 40-5 9 mg/dL, Acceptable >59 mg/dL, High: Negative risk factor for coronary heart disease <40 mg/dL, Low: Positive risk factor for coronary heart disease Performed By: #### 2 4323-8, 54053-5 ####[facility] LABIA [id number] [address] OF [facility] Cholesterol in LDL [Mass/Vol] 84 mg/dL Normal <100 [facility] Comment on above: Order Comment: Jojo [facility] Type: BLOOD SPECIMENOrdering Facility: [facility] Address: [address] [place] [address] Result Comment: <100 mg/dL, Optimal 100-129 mg/dL, Near optimal/above optimal 130-159 mg/dL, Borderline high 160-189 mg/dL, High >189 mg/dL, Very high Secondary prevention optimal LDL Cholesterol levels are recommended to be <70 mg/dL LDL cholesterol is calculated using the De Leon-NIH equation. Performed By: #### 2 4323-8, 53462-2 ####[facility] LABCLIA [id number] [place] [id number] [place] Cholesterol in LDL/Cholesterol in HDL [Mass ratio] 1.95 {ratio} Normal <2.54 [facility] Comment on above: Order Comment: Speci men Type: BLOOD SPECIMENOrdering Facility: [facility] Address: [address] [place] [address] Result Comment: Refe rence: 1. National Cholesterol Education Program ATP III Guideline At-A-Glance Quick Desk Reference: National Heart, Lung, and Blood [place]. National Institutes of Health. 2001: NIH Publication No. 01-3305. 2. An International Atherosclerosis Society position paper: global recommendations for the management of dyslipidemia: executive summary, Atherosclerosis. 2014: 232(2):410-413. Performed By: #### 2 4323-8, 73813-7 ####[facility] LABCLIA [id number] [place] [id number] [place] Cholesterol in VLDL [Mass/Vol] 16 mg/dL Normal <30 [facility] Comment on above: Order Comment: Speci men Type: BLOOD SPECIMENOrdering Facility: [facility] Address: [address] [place] [address] Performed By: #### 2 4323-8, 78913-8 ####[facility] LABCLIA [id number] [address] [address] [place] Cholesterol non HDL [Mass/Vol] 103 mg/dL Normal <130 [facility] Comment on above: Order Comment: Speci men Type: BLOOD SPECIMENOrdering Facility: [facility] Address: [address] [place] [address] Result Comment: <130 mg/dL, Optimal 130-159 mg/dL, Near optimal/above optimal 160-189 mg/dL, Borderline high 190-219 mg/dL, High >219 mg/dL, Very high Secondary prevention optimal non HDL Cholesterol levels are recommended to be <100 mg/dL Performed By: #### 2 4323-8, 83359-8 ####[facility] LABCLIA [id number] [place] [address] [place] Cholesterol.total/Cho lesterol in HDL [Mass ratio] 3.40 {ratio} Normal <5.10 [facility] Comment on above: Order Comment: Speci men Type: BLOOD SPECIMENOrdering Facility: [facility] Address: [facility] [place] [address] Performed By: #### 2 4323-8, 54378-8 ####[facility] LABIA [id number] [place] [address] [place] FASTING TIME 13 hrs Normal [facility] Comment on above: Order Comment: Speci men Type: BLOOD SPECIMENOrdering Facility: [facility] Address: [address] [place] [address] Performed By: #### 2 4323-8, 81960-2 ####[facility] LABIA [id number] [place] [address] [place] Triglyceride [Mass/Vol] 101 mg/dL Normal <150 [facility] Comment on above: Order Comment: Speci men Type: BLOOD SPECIMENOrdering Facility: [facility] Address: [address] [place] [address] Result Comment: <150 mg/dL, Normal 150-199 mg/dL, Borderline high 200-499 mg/dL, High >499 mg/dL, Very high Performed By: #### 2 4323-8, 07334-6 ####[facility] LABIA [id number] [place] [id number] [place] CNOVon 10-29-2024 CNOV Office Visit (INTMWS ) FREDRICK MAO ([id number]) 1945 M Date Time Provider Department 10/29/24 9:40 AM MINH ALEXANDRA During your visit today, we recorded the following information about you: Pulse Respiration Blood pressure Weight 66/minute 16/minute 130/74 95 kg Minh Alexandra APRN.CLASSIFICATION OFFICER 10/29/2024 9:58 AM Signed Subjective ?Quick Links Last Note in Specialty Snapshot Edit RFV/CC Patient ID: Michael is a 79 year old male who presents for F/U 6 Month. HPI Recent Illness: - Recent episode of acute onset nausea, emesis, diarrhea, chills, and diaphoresis. - Symptoms began suddenly one evening, leading to emesis by 21:00 and persisting until 09:30 the following morning. - Reports nearly passing out three times during the episode. - Lost 8 lbs overnight. - experienced similar symptoms the following week. - Denies fever. - Took Pepto-Bismol with no relief. Diabetes Mellitus: - Taking metformin once daily. - Recent lab work showed a slight increase in hemoglobin A1c. - Has an eye doctor at [facility] and attends annual eye exams. Weight Management: - Attempting to reduce meal sizes to aid weight loss. - Current weight is stable; previously weighed around 200 lbs. - Goal weight is 185 lbs. - Reports hitting a plateau in weight loss efforts. GERD: - Reports that GERD is well-controlled. 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 Avoid pulling in long tables of results. Comment on relevant results to support your medical decision making. BP 130/74 Pulse 66 Resp 16 Wt 95 kg (209 lb 7 oz) BMI 29.84 kg/m? Physical Exam Vitals and nursing note reviewed. Constitutional: Appearance: Normal appearance. HENT: Head: Normocephalic and atraumatic. Eyes: Conjunctiva/sclera: Conjunctivae normal. Neck: Thyroid: No thyroid mass or thyromegaly. Vascular: Normal carotid pulses. No JVD. Cardiovascular: Rate and Rhythm: Normal rate and regular rhythm. Heart sounds: Normal heart sounds. Pulmonary: Effort: Pulmonary effort is normal. Breath sounds: Normal breath sounds. Abdominal: General: Bowel sounds are normal. Palpations: Abdomen is soft. Musculoskeletal: Right lower leg: No edema. Left lower leg: No edema. Skin: General: Skin is warm and dry. Neurological: General: No focal deficit present. Mental Status: He is alert and oriented to person, place, and time. Latest Ref Rng 10/14/2023 04/27/2024 10/05/2024 10/08/2024 WBC 3.70 - 11.00 k/uL 7.57 7.61 6.48 RBC 4.20 - 6.00 m/uL 5.03 4.89 4.89 Hemoglobin 13.0 - 17.0 g/dL 16.3 16.1 15.6 Hematocrit 39.0 - 51.0 % 47.8 47.4 47.0 MCV 80.0 - 100.0 fL 95.0 96.9 96.1 MCH 26.0 - 34.0 pg 32.4 32.9 31.9 MCHC 30.5 - 36.0 g/dL 34.1 34.0 33.2 RDW-CV 11.5 - 15.0 % 11.7 11.5 12.2 Platelet Count 150 - 400 k/uL 275 277 282 MPV 9.0 - 12.7 fL 9.3 9.7 9.3 Neut% % 58.0 Abs Neut (ANC) 1.45 - 7.50 k/uL 4.39 Lymph% % 23.8 Abs Lymph 1.00 - 4.00 k/uL 1.80 [place]% % 9.9 Abs [place] <0.87 k/uL 0.75 Eosin% % 7.4 Abs Eosin <0.46 k/uL 0.56 (H) Baso% % 0.8 Abs Baso <0.11 k/uL 0.06 Immature Gran % % 0.1 IMMATURE GRANS (ABS) <0.10 k/uL <0.03 NRBC /100 WBC 0.0 Absolute nRBC <0.01 k/uL <0.01 <0.01 <0.01 DTYPE Auto Protein, Total 6.3 - 8.0 g/dL 7.0 7.0 6.9 Albumin 3.9 - 4.9 g/dL 4.3 4.4 4.3 Calcium 8.5 - 10.2 mg/dL 9.8 10.0 10.0 Bilirubin, Total 0.2 - 1.3 mg/dL 0.5 0.6 0.3 Alkaline Phosphatase 38 - 113 U/L 76 71 99 AST 14 - 40 U/L 23 26 26 ALT 10 - 54 U/L 19 20 25 Glucose 74 - 99 mg/dL 136 (H) 142 (H) 137 (H) BUN 9 - 24 mg/dL 25 (H) 30 (H) 24 Creatinine 0.73 - 1.22 mg/dL 1.21 1.15 1.16 Sodium 136 - 144 mmol/L 141 139 141 Potassium 3.7 - 5.1 mmol/L 4.6 4.6 4.4 Chloride 98 - 107 mmol/L 104 103 104 CO2 22 - 30 mmol/L 26 23 27 Anion Gap 8 - 15 mmol/L 11 13 10 eGFR >=60 mL/min/1.73m? 62 66 65 Cholesterol, Total <200 mg/dL 149 162 145 Triglyceride <150 mg/dL 114 166 (H) 63 HDL Cholesterol >39 mg/dL 42 41 45 Non HDL Cholesterol <130 mg/dL 107 121 100 Fasting Time hrs 13 12 13 VLDL Cholesterol <30 mg/dL 23 33 (H) 13 TC:HDL Ratio <5.10 3.5 (more content not included)... Normal [facility] ALBUMIN/CREATININE RATIO, UR INEon 10-08-2024 Albumin Unsp time DL <= 20 mg/L (U) [Mass/Time] <12.0 Normal [facility] Comment on above: Order Comment: Speci men Type: URINE SPECIMENOrdering Facility: [facility] Address: [address] [place] [address] Performed By: #### U ACR ####[facility] LABORATORYCLIA [id number] [address] STATES [facility] Albumin/Creatinine (U) [Mass ratio] <14 Normal <30 [facility] Comment on above: Order Comment: Speci men Type: URINE SPECIMENOrdering Facility: [facility] Address: [address] [place] [address] Result Comment: Adul t Male and Female Nephrotic Criteria: <30 mg/g is considered normal to mildly increased 30-300 mg/g is considered moderately increased >300 mg/g is considered severely increased KDIGO. (2013). KDIGO 2012 Clinical Practice Guideline for the Evaluation and Management of Chronic Kidney Disease. Official Journal of the International Society of Nephrology, 3(1), 1-150. Performed By: #### U ACR ####[facility] LABORATORYCLIA [id number] [address] [place] Creatinine (U) [Mass/Vol] 82.9 mg/dL Normal 46.8-314.5 [facility] Comment on above: Order Comment: Speci men Type: URINE SPECIMENOrdering Facility: [facility] Address: [address] [place] [address] Performed By: #### U ACR ####[facility] LABORATORYCLIA [id number] [place] [id number] [place] CBC panel Auto (Bld)on 10-05 Erythrocyte distribution width (RBC) [Ratio] 12.2 % Normal 11.5-15.0 [facility] Comment on above: Order Comment: Speci men Type: BLOOD SPECIMEN [facility]: [facility] Address: [address] [place] [address] Performed By: #### 5 8410-2 #### [facility] CLIA [id number] [address] [place] [address] [place] Hematocrit (Bld) [Volume fraction] 47.0 % Normal 39.0-51.0 [facility] Comment on above: Order Comment: Speci men Type: BLOOD SPECIMEN [facility]: [facility] Address: [address] [place] [address] Performed By: #### 5 8410-2 #### [facility] CLIA [id number] [address] [place] [address] [place] Hemoglobin (Bld) [Mass/Vol] 15.6 g/dL Normal 13.0-17.0 [facility] Comment on above: Order Comment: Speci men Type: BLOOD SPECIMEN [facility]: [facility] Address: [address] [place] [address] Performed By: #### 5 8410-2 #### [facility] CLIA [id number] [address] [place] [address] [place] MCH (RBC) [Entitic mass] 31.9 pg Normal 26.0-34.0 [facility] Comment on above: Order Comment: Speci men Type: BLOOD SPECIMEN [facility]: [facility] Address: [address] [place] [address] Performed By: #### 5 8410-2 #### [facility] CLIA [id number] [address] [place] [address] [place] MCHC (RBC) [Mass/Vol] 33.2 g/dL Normal 30.5-36.0 [facility] Comment on above: Order Comment: Speci men Type: BLOOD SPECIMEN [facility]ing [facility]: [facility] Address: [address] [place] [address] Performed By: #### 5 8410-2 #### [facility] CLIA [id number] [address] [place] [address] [place] MCV (RBC) [Entitic vol] 96.1 fL Normal 80.0-100.0 [facility] Comment on above: Order Comment: Speci men Type: BLOOD SPECIMEN [facility]ing Facility: [facility] Address: [address] [place] [address] Performed By: #### 5 8410-2 #### [facility] CLIA [id number] [address] [place] [address] [place] Nucleated RBC (Bld) [#/Vol] 10*3/uL Normal <0.01 [facility] Comment on above: Order Comment: Speci men Type: BLOOD SPECIMEN [facility]ing [facility]: [facility] Address: [address] [place] [address] Performed By: #### 5 8410-2 #### [facility] CLIA [id number] [address] [place] [address] [place] Platelet mean volume (Bld) [Entitic vol] 9.3 fL Normal 9.0-12.7 [facility] Comment on above: Order Comment: Speci men Type: BLOOD SPECIMEN [facility]: [facility] Address: [address] [place] [address] Performed By: #### 5 8410-2 #### [facility] CLIA [id number] [address] [place] [address] [place] Platelets (Bld) [#/Vol] 282 10*3/uL Normal 150-400 [facility] Comment on above: Order Comment: Speci men Type: BLOOD SPECIMEN [facility]: [facility] Address: [address] [place] [address] Performed By: #### 5 8410-2 #### [facility] CLIA [id number] [address] [place] [address] [place] RBC (Bld) [#/Vol] 4.89 10*6/uL Normal 4.20-6.00 [facility] Comment on above: Order Comment: Speci men Type: BLOOD SPECIMEN [facility]ing [facility]: [facility] Address: [address] [place] [address] Performed By: #### 5 8410-2 #### [facility] CLIA [id number] [address] [place] [address] [place] WBC (Bld) [#/Vol] 6.48 10*3/uL Normal 3.70-11.00 [facility] Comment on above: Order Comment: Speci men Type: BLOOD SPECIMEN [facility]: [facility] Address: [address] [place] [address] Performed By: #### 5 8410-2 #### [facility] CLIA [id number] [address] [place] [address] [place] Comprehensive metabolic 2000 panelon 10-05-2024 Albumin [Mass/Vol] 4.3 g/dL Normal 3.9-4.9 [facility] Comment on above: Order Comment: Speci men Type: BLOOD SPECIMENOrdering Facility: [facility] Address: [address] [place] [address] Performed By: #### 2 4331-1, , ####[facility] LABCLIA [id number] [place] [address] [place] ALP [Catalytic activity/Vol] 99 U/L Normal 38-113 [facility] Comment on above: Order Comment: Speci men Type: BLOOD SPECIMENOrdering Facility: [facility] Address: [address] [place] [address] Performed By: #### 2 4331-1, , ####[facility] LABCLIA [id number] [place] [address] [place] ALT [Catalytic activity/Vol] 25 U/L Normal 10-54 [facility] Comment on above: Order Comment: Speci men Type: BLOOD SPECIMENOrdering Facility: [facility] Address: [address] [place] [address] Performed By: #### 2 4331-1, , ####[facility] LABCLIA [id number] [place] [id number] [place] Anion gap [Moles/Vol] 10 mmol/L Normal 8-15 [facility] Comment on above: Order Comment: Speci men Type: BLOOD SPECIMENOrdering Facility: [facility] Address: [address] [place] [address] Performed By: #### 2 4331-1, , ####[facility] LABCLIA [id number] [address] [address] [place] AST [Catalytic activity/Vol] 26 U/L Normal 14-40 [facility] Comment on above: Order Comment: Speci men Type: BLOOD SPECIMENOrdering Facility: [facility] Address: [address] [place] [address] Performed By: #### 2 4331-1, , ####[facility] LABCLIA [id number] [address] [address] [place] Bilirubin [Mass/Vol] 0.3 mg/dL Normal 0.2-1.3 [facility] Comment on above: Order Comment: Speci men Type: BLOOD SPECIMENOrdering Facility: [facility] Address: [address] [place] [address] Performed By: #### 2 4331-1, , ####[facility] LABCLIA [id number] [address] [address] [place] Calcium [Mass/Vol] 10.0 mg/dL Normal 8.5-10.2 [facility] Comment on above: Order Comment: Speci men Type: BLOOD SPECIMENOrdering Facility: [facility] Address: [address] [place] [address] Performed By: #### 2 4331-1, , ####[facility] LABCLIA [id number] [address] [address] [place] Chloride [Moles/Vol] 104 mmol/L Normal 98-107 [facility] Comment on above: Order Comment: Speci men Type: BLOOD SPECIMENOrdering Facility: [facility] Address: [address] [place], [place] [address] Performed By: #### 2 4331-1, , ####[facility] LABCLIA [id number] [address] [address] [place] CO2 [Moles/Vol] 27 mmol/L Normal 22-30 [facility] Comment on above: Order Comment: Speci men Type: BLOOD SPECIMENOrdering Facility: [facility] Address: [address] [place] [address] Performed By: #### 2 4331-1, , ####[facility] LABIA [id number] [place] [id number] [place] Creatinine [Mass/Vol] 1.16 mg/dL Normal 0.73-1.22 [facility] Comment on above: Order Comment: Speci men Type: BLOOD SPECIMENOrdering Facility: [facility] Address: [address] [place] [address] Performed By: #### 2 4331-1, , ####[facility] LABIA [id number] [place] [address] [place] Creatinine and Glomerular filtration rate.predicted panel (S/P/Bld) 65 mL/min/1.73m??? Normal >=60 [facility] Comment on above: Order Comment: Speci men Type: BLOOD SPECIMENOrdering Facility: [facility] Address: [address] [place] [address] Result Comment: Neela mated Glomerular Filtration Rate (eGFR) is calculated using the 2020 CKD-EPI creatinine equation. This equation utilizes serum creatinine, sex, and age as parameters. The creatinine assay has traceable calibration to isotope dilution-mass spectrometry. Refer to KDIGO guidelines for clinical interpretation. In patients with unstable renal function, e.g. those with acute kidney injury, the eGFR may not accurately reflect actual GFR. Performed By: #### 2 4331-1, , ####[facility] LABCLIA [id number] [address] [address] [place] Glucose [Mass/Vol] 137 mg/dL High 74-99 [facility] Comment on above: Order Comment: Speci men Type: BLOOD SPECIMENOrdering Facility: [facility] Address: [address] [place] [address] Result Comment: The [place] Diabetes Association (ADA) provides guidance for cutoff values for fasting glucose and random glucose. The ADA defines fasting as no caloric intake for at least 8 hours. Fasting plasma glucose results between 100 to 125 mg/dL indicate increased risk for diabetes (prediabetes). Fasting plasma glucose results greater than or equal to 126 mg/dL meet the criteria for diagnosis of diabetes. In the absence of unequivocal hyperglycemia, results should be confirmed by repeat testing. In a patient with classic symptoms of hyperglycemia or hyperglycemic crisis, random plasma glucose results greater than or equal to 200 mg/dL meet the criteria for diagnosis of diabetes. Reference: Standards of Medical Care in Diabetes 2016, [place] [employer]. Diabetes Care. 2016.39(Suppl 1). Performed By: #### 2 4331-1, , ####[facility] LABIA [id number] [address] [address] [place] Potassium [Moles/Vol] 4.4 mmol/L Normal 3.7-5.1 [facility] Comment on above: Order Comment: Speci men Type: BLOOD SPECIMENOrdering Facility: [facility] Address: [address] [place] [address] Performed By: #### 2 4331-1, , ####[facility] LABIA [id number] [address] [address] [place] Protein [Mass/Vol] 6.9 g/dL Normal 6.3-8.0 [facility] Comment on above: Order Comment: Speci men Type: BLOOD SPECIMENOrdering Facility: [facility] Address: [address] [place] [address] Performed By: #### 2 4331-1, , 13301-3 ####[facility] LABCLIA [id number] [place] [id number] [place] Sodium [Moles/Vol] 141 mmol/L Normal 136-144 [facility] Comment on above: Order Comment: Speci men Type: BLOOD SPECIMENOrdering Facility: [facility] Address: [address] [place] [address] Performed By: #### 2 4331-1, , ####[facility] LABIA [id number] [place] [address] [place] Urea nitrogen [Mass/Vol] 24 mg/dL Normal 9-24 [facility] Comment on above: Order Comment: Speci men Type: BLOOD SPECIMENOrdering Facility: [facility] Address: [address] [place] [address] Performed By: #### 2 4331-1, , ####[facility] [id number] [place] [address] [place] HbA1c (Bld)on 10-05-2024 Average glucose Estimated from glycated hemoglobin (Bld) [Mass/Vol] 134 mg/dL Normal [facility] Comment on above: Order Comment: Speci men Type: BLOOD SPECIMENOrdering Facility: [facility] Address: [address] [place] [address] Result Comment: eAG: (Estimated average glucose) is a calculated value from HgbA1c and is tour sales representative of the average blood glucose level in the last 2-3 month period. Performed By: #### 5 5454-3 ####[facility] LABIA [id number] [place] [address] [place] HbA1c (Bld) [Mass fraction] 6.3 % High 4.3-5.6 [facility] Comment on above: Order Comment: Speci men Type: BLOOD SPECIMENOrdering Facility: [facility] Address: [address] [place] [address] Result Comment: [place] Diabetes Association guidelines indicate that patients with HgbA1c in the range 5.7-6.4% are at increased risk for development of diabetes, and intervention by lifestyle modification may be beneficial. HgbA1c greater or equal to 6.5% is considered diagnostic of diabetes. Performed By: #### 5 5454-3 ####[facility] LABCLIA [id number] [place] [address] [place] Lipid 1996 panelon 5 Cholesterol [Mass/Vol] 145 mg/dL Normal <200 [facility] Comment on above: Order Comment: Speci men Type: BLOOD SPECIMENOrdering Facility: [facility] Address: [address] [place] [address] Result Comment: <200 mg/dL, Desirable 200-239 mg/dL, Borderline high >239 mg/dL, High Performed By: #### 2 4331-1, , 74310-4 ####[facility] LABCLIA [id number] [place] [address] [place] Cholesterol in HDL [Mass/Vol] 45 mg/dL Normal >39 [facility] Comment on above: Order Comment: Elsiei men Type: BLOOD SPECIMENOrdering Facility: [facility] Address: [address] [place] [address] Result Comment: 40-5 9 mg/dL, Acceptable >59 mg/dL, High: Negative risk factor for coronary heart disease <40 mg/dL, Low: Positive risk factor for coronary heart disease Performed By: #### 2 4331-1, , 82892-9 ####[facility] LABCLIA [id number] [place] [address] [place] Cholesterol in LDL [Mass/Vol] 87 mg/dL Normal <100 [facility] Comment on above: Order Comment: Speci men Type: BLOOD SPECIMENOrdering Facility: [facility] Address: [address] [place] [address] Result Comment: <100 mg/dL, Optimal 100-129 mg/dL, Near optimal/above optimal 130-159 mg/dL, Borderline high 160-189 mg/dL, High >189 mg/dL, Very high Secondary prevention optimal LDL Cholesterol levels are recommended to be < 70 mg/dL Performed By: #### 2 4331-1, , ####[facility] LABCLIA [id number] [place] [address] [place] Cholesterol in LDL/Cholesterol in HDL [Mass ratio] 1.93 {ratio} Normal <2.54 [facility] Comment on above: Order Comment: Speci men Type: BLOOD SPECIMENOrdering Facility: [facility] Address: [address] [place] [address] Result Comment: Refe dorace: 1. National Cholesterol Education Program ATP III Guideline At-A-Glance Quick Desk Reference: National Heart, Lung, and Blood [place]. National Institutes of Health. 2001: NIH Publication No. 01-3305. 2. An International Atherosclerosis Society position paper: global recommendations for the management of dyslipidemia: executive summary, Atherosclerosis. 2014: 232(2):410-413. Performed By: #### 2 4331-1, , ####[facility] LABCLIA [id number] [place] [address] [place] Cholesterol in VLDL [Mass/Vol] 13 mg/dL Normal <30 [facility] Comment on above: Order Comment: Speci men Type: BLOOD SPECIMENOrdering Facility: [facility] Address: [address] [place] [address] Performed By: #### 2 4331-1, , ####[facility] LABCLIA [id number] [place] [id number] [place] Cholesterol non HDL [Mass/Vol] 100 mg/dL Normal <130 [facility] Comment on above: Order Comment: Speci men Type: BLOOD SPECIMENOrdering Facility: [facility] Address: [address] [place] [address] Result Comment: <130 mg/dL, Optimal 130-159 mg/dL, Near optimal/above optimal 160-189 mg/dL, Borderline high 190-219 mg/dL, High >219 mg/dL, Very high Secondary prevention optimal non HDL Cholesterol levels are recommended to be <100 mg/dL Performed By: #### 2 4331-1, , ####[facility] LABCLIA [id number] [place] [address] [place] Cholesterol.total/Cho lesterol in HDL [Mass ratio] 3.22 {ratio} Normal <5.10 [facility] Comment on above: Order Comment: Speci men Type: BLOOD SPECIMENOrdering Facility: [facility] Address: [address] [place] [address] Performed By: #### 2 4331-1, , ####[facility] LABCLIA [id number] [place] [address] [place] FASTING TIME 13 hrs Normal [facility] Comment on above: Order Comment: Speci men Type: BLOOD SPECIMENOrdering Facility: [facility] Address: [address] [place] [address] Performed By: #### 2 4331-1, , ####[facility] LABCLIA [id number] [place] [address] [place] Triglyceride [Mass/Vol] 63 mg/dL Normal <150 [facility] Comment on above: Order Comment: Speci men Type: BLOOD SPECIMENOrdering Facility: [facility] Address: [address] [place] [address] Result Comment: <150 mg/dL, Normal 150-199 mg/dL, Borderline high 200-499 mg/dL, High >499 mg/dL, Very high Performed By: #### 2 4331-1, , ####[facility] LABCLIA [id number] [place] [address] [place] Magnesium SerPl-mCncon 10-05 Magnesium [Mass/Vol] 2.0 mg/dL Normal 1.7-2.3 [facility] Comment on above: Order Comment: Speci men Type: BLOOD SPECIMENOrdering Facility: [facility] Address: [address] [place] [address] Performed By: #### 2 4331-1, 99921-8, 73846-2 ####[facility] LABCLIA [id number] [place] [address] [place] ABD/PEL WO IVCONon 2023 CT ABD/PEL WO IVCON * * *Final Report* * * DATE OF EXAM: May 28 2024 10:04AM [facility] 0531 - CT ABD/PEL WO IVCON / PROCEDURE REASON: Left lower quadrant abdominal pain * * * * Physician Interpretation * * * * EXAMINATION: CT ABDOMEN AND PELVIS WITHOUT IV CONTRAST CLINICAL HISTORY: Left lower quadrant abdominal pain; possible diverticulitis TECHNIQUE: Non-IV contrast imaging of the abdomen and pelvis was performed using standard technique, scanning from just above the dome of the diaphragm to the symphysis pubis. Unenhanced imaging is limited for the evaluation of some intra-abdominal and pelvic pathology. MQ: CTAPWO_3 Contrast: IV: None Oral: 20 ml of Omni 240 10-25ml diluted with water CT Radiation dose: Integrated Dose-length product (DLP) for this visit = 725.55 mGy*cm. CT Dose Reduction Employed: Automated exposure control(AEC) and iterative recon COMPARISON: CT abdomen 10/03/2014 RESULT: Abdomen / Pelvis: Liver: Unremarkable. Biliary: Gallbladder is unremarkable. Spleen: No splenomegaly. Pancreas: Unremarkable. Adrenals: No mass. Kidneys: There is a 4.5 cm right renal cyst. No calculus or hydronephrosis is seen. Left kidney and ureter are unremarkable. GI Tract: Stomach, small bowel and appendix appear normal. No evidence of obstruction. There is moderate diverticulosis of the sigmoid colon. No evidence of acute diverticulitis. Small fat-containing right inguinal hernia. Lymph Nodes: No lymphadenopathy. Mesentery/peritoneum: No ascites. Retroperitoneum: No mass. Vasculature: No aortic aneurysm Pelvis: No mass or ascites. Bones/Soft Tissues: No acute abnormality. Lower thorax: Unremarkable. Localizer images: IMPRESSION: 1. Distal colonic diverticulosis. No evidence of acute diverticulitis. 2. Small fat-containing right inguinal hernia Telephone Diaphragm Assembler: TAMAR Transcribe Date/Time: May 28 2024 10:08A Dictated by : PEG MASCORRO MD This examination was interpreted and the report reviewed and electronically signed by: PEG MASCORRO MD on May 28 2024 10:14AM EST [id number] Normal [facility] CT Abdomen and Pelvis WO con traston 05-28-2024 IMPRESSION: 1. Distal colonic diverticulosis. No evidence of acute diverticulitis. 2. Small fat-containing right inguinal hernia Telephone Diaphragm Assembler: TAMAR Transcribe Date/Time: May 28 2024 10:08A Dictated by : PEG MASCORRO MD This examination was interpreted and the report reviewed and electronically signed by: PEG MASCORRO MD on May 28 2024 10:14AM EST [employer] [facility] * * *Final Report* * * DATE OF EXAM: May 28 2024 10:04AM [facility] 0531 - CT ABD/PEL WO IVCON / PROCEDURE REASON: Left lower quadrant abdominal pain * * * * Physician Interpretation * * * * EXAMINATION: CT ABDOMEN AND PELVIS WITHOUT IV CONTRAST CLINICAL HISTORY: Left lower quadrant abdominal pain; possible diverticulitis TECHNIQUE: Non-IV contrast imaging of the abdomen and pelvis was performed using standard technique, scanning from just above the dome of the diaphragm to the symphysis pubis. Unenhanced imaging is limited for the evaluation of some intra-abdominal and pelvic pathology. MQ: CTAPWO_3 Contrast: IV: None Oral: 20 ml of Omni 240 10-25ml diluted with water CT Radiation dose: Integrated Dose-length product (DLP) for this visit = 725.55 mGy*cm. CT Dose Reduction Employed: Automated exposure control(AEC) and iterative recon COMPARISON: CT abdomen 10/03/2014 RESULT: Abdomen / Pelvis: Liver: Unremarkable. Biliary: Gallbladder is unremarkable. Spleen: No splenomegaly. Pancreas: Unremarkable. Adrenals: No mass. Kidneys: There is a 4.5 cm right renal cyst. No calculus or hydronephrosis is seen. Left kidney and ureter are unremarkable. GI Tract: Stomach, small bowel and appendix appear normal. No evidence of obstruction. There is moderate diverticulosis of the sigmoid colon. No evidence of acute diverticulitis. Small fat-containing right inguinal hernia. Lymph Nodes: No lymphadenopathy. Mesentery/peritoneum: No ascites. Retroperitoneum: No mass. Vasculature: No aortic aneurysm Pelvis: No mass or ascites. Bones/Soft Tissues: No acute abnormality. Lower thorax: Unremarkable. Localizer images: [employer] [facility] * * *Final Report* * * DATE OF EXAM: May 28 2024 10:04AM [facility] 0531 - CT ABD/PEL WO IVCON / PROCEDURE REASON: Left lower quadrant abdominal pain * * * * Physician Interpretation * * * * EXAMINATION: CT ABDOMEN AND PELVIS WITHOUT IV CONTRAST CLINICAL HISTORY: Left lower quadrant abdominal pain; possible diverticulitis TECHNIQUE: Non-IV contrast imaging of the abdomen and pelvis was performed using standard technique, scanning from just above the dome of the diaphragm to the symphysis pubis. Unenhanced imaging is limited for the evaluation of some intra-abdominal and pelvic pathology. MQ: CTAPWO_3 Contrast: IV: None Oral: 20 ml of Omni 240 10-25ml diluted with water CT Radiation dose: Integrated Dose-length product (DLP) for this visit = 725.55 mGy*cm. CT Dose Reduction Employed: Automated exposure control(AEC) and iterative recon COMPARISON: CT abdomen 10/03/2014 RESULT: Abdomen / Pelvis: Liver: Unremarkable. Biliary: Gallbladder is unremarkable. Spleen: No splenomegaly. Pancreas: Unremarkable. Adrenals: No mass. Kidneys: There is a 4.5 cm right renal cyst. No calculus or hydronephrosis is seen. Left kidney and ureter are unremarkable. GI Tract: Stomach, small bowel and appendix appear normal. No evidence of obstruction. There is moderate diverticulosis of the sigmoid colon. No evidence of acute diverticulitis. Small fat-containing right inguinal hernia. Lymph Nodes: No lymphadenopathy. Mesentery/peritoneum: No ascites. Retroperitoneum: No mass. Vasculature: No aortic aneurysm Pelvis: No mass or ascites. Bones/Soft Tissues: No acute abnormality. Lower thorax: Unremarkable. Localizer images: IMPRESSION IMPRESSION: 1. Distal colonic diverticulosis. No evidence of acute diverticulitis. 2. Small fat-containing right inguinal hernia Telephone Diaphragm Assembler: PSCB Transcribe Date/Time: May 28 2024 10:08A Dictated by : PEG MASCORRO MD This examination was interpreted and the report reviewed and electronically signed by: PEG MASCORRO MD on May 28 2024 10:14AM EST [facility] Radiology Study observation (narrative) [facility] CT Abdomen and Pelvis WO con trastOrdered By: Ccf Provider on 05-28-2024 [facility] COLONOSCOPY SCREENINGon 0 [facility] Laboratory - Microbiology an d Antimicrobial susceptibilityon 03-01-2022 SARS-CoV-2 (COVID-19) RNA MARKELL+probe Ql (Unsp spec) Detected [facility] Work Phone: Office Visit Reporton 2021 Office Visit Report [facility] [address] [place] [address] OFFICE VISIT Date of Service: 03/01/22 MR#: [id number] Acct: [id number] Patient: FREDRICK MAO Rep #: [id number] : 1945 Provider: JEFF Allison Age/Sex: 77/M Location: [facility] Status: Signed Employer Purchased Covid Test Note: Patient here today for Covid Testing, requested by their Employer. Assessment and Plan Assessment and Plan Orders: Orders POC Cepheid GREG Cov-2 PCR EMP Today R09.81 - Nasal congestion 03/01/22 1710 Date Marino Dunn Signature: Date (if applicable) CC: Normal [facility] Spine Lumbar (Routine)on Spine Lumbar (Routine) [facility] [address] [place] [address] Spine Lumbar (Routine) MR#: [id number] Acct: [id number] Name: FREDRICK MAO Rep #: [id number] : 1945 M 77 From: Connor Dixon PCP: Dr. Lora Martinez MD Status: REG CLI Study: Spine Lumbar (Routine) Date of Exam: 02/25/22 Exam# [id number] Ordering Dr: Austin Angel MD EXAM: MR LUMBAR SPINE WITHOUT INTRAVENOUS CONTRAST CLINICAL INDICATION: RADICULOPATHY, LUMBAR REGION TECHNIQUE: Multiplanar and multisequence MR images of the lumbar spine without intravenous contrast. Magnetic field strength 1.5 T. This report was created using [employer] report [employer] technology. COMPARISON: None. FINDINGS: VERTEBRAE: Unremarkable. Vertebral body heights are preserved. Normal vertebral bodies and posterior elements. Normal alignment. No spondylolisthesis. There is preservation of the normal lumbar lordosis. SPINAL CORD: Unremarkable. Normal position and signal intensity of the conus medullaris. SOFT TISSUES: Unremarkable. DISCS/SPINAL CANAL/NEURAL FORAMINA: L1-L2: Mild loss of disc height and disc signal. Mild generalized disc bulge. No spinal canal, foraminal, or lateral recess stenosis. L2-L3: Mild loss of disc height and disc signal. Mild generalized disc bulge. No spinal canal, foraminal, or lateral recess stenosis. L3-L4: Mild loss of disc signal. Mild generalized disc bulge. No spinal canal, foraminal, or lateral recess stenosis. Moderate facet arthropathy bilaterally. L4-L5: Mild loss of disc height and disc signal. Moderate generalized disc bulge. No spinal canal, foraminal, or lateral recess stenosis. AP diameter of the canal measures 11 mm. Moderate facet arthropathy bilaterally. L5-S1: Moderate loss of disc height and disc signal. Mild generalized disc bulge. No spinal canal, foraminal, or lateral recess stenosis. MRI/Spine Lumbar (Routine) IMPRESSION: 1. Diffuse spondylitic changes. No spinal stenosis or nerve root impingement. 2. Moderate bilateral facet arthropathy L3-4 and L4-5. Electronically Signed: Connor Gould MD at 17:03 EDT , CC: Dr. Austin Angel MD; Dr. Lora Martinez MD Telephone Diaphragm Assembler: Signed Normal [facility] Lumbar Spine 2 or 3 Viewson 02-10-2022 Lumbar Spine 2 or 3 Views [facility] [address] [place] [address] Lumbar Spine 2 or 3 Views MR#: [id number] Acct: [id number] Name: FREDRICK MAO Rep #: [id number] : 1945 M 77 From: Curt Natarajan MD PCP: Dr. Lora Martinez MD Status: REG CLI Study: Lumbar Spine 2 or 3 Views Date of Exam: Exam# [id number] Ordering Dr: Austin Angel MD STUDY: X-RAY - LUMBAR SPINE REASON FOR EXAM: Male, 77 years old. RADICULOPATHY, LUMBAR REGION TECHNIQUE: 2 view(s) of the lumbar spine were obtained. COMPARISON: None FINDINGS: Normal lumbar lordosis. There is no substantial scoliosis. 2 mm of anterolisthesis of L3 on L4. There is multilevel endplate spondylosis of the lumbar vertebrae. There is multi-level degenerative disc disease with multi-level disc space narrowing. Facet hypertrophy in the lower lumbar spine. The soft tissue structures are unremarkable. RAD/Lumbar Spine 2 or 3 Views IMPRESSION: Degenerative changes of the spine, as detailed above. MRI would be useful. Electronically Signed: Curt Natarajan MD at 16:59 EDT , CC: Dr. Austin Angel MD; Dr. Lora Martinez MD Telephone Diaphragm Assembler: Signed Normal [facility] Vital Signs Date Time Vital Sign Value Performing Clinician Candida pearson 10-29-2024 09:27-0400 Body mass index (BMI) [Ratio] 29.84 kg/m2 Minh Alexandra PATENT LAW SPECIALIST.CLASSIFICATION OFFICER Work Phone: [facility] 10-29-2024 09:27-0400 Body weight 95 kg Minh Alexandra PATENT LAW SPECIALIST.CLASSIFICATION OFFICER Work Phone: [facility] 10-29-2024 09:27-0400 Diastolic blood pressure 74 mm[Hg] Minh Alexandra PATENT LAW SPECIALIST.CLASSIFICATION OFFICER Work Phone: [facility] 10-29-2024 09:27-0400 Heart rate 66 /min Minh Alexandra PATENT LAW SPECIALIST.CLASSIFICATION OFFICER Work Phone: [facility] 10-29-2024 09:27-0400 Respiratory rate 16 /min Minh Alexandra PATENT LAW SPECIALIST.CLASSIFICATION OFFICER Work Phone: [facility] 10-29-2024 09:27-0400 Systolic blood pressure 130 mm[Hg] Minh Alexandra PATENT LAW SPECIALIST.CLASSIFICATION OFFICER Work Phone: [facility] 05-24-2024 14:35-0400 Diastolic blood pressure 77 mm[Hg] Minh Alexandra PATENT LAW SPECIALIST.CLASSIFICATION OFFICER Work Phone: [facility] 05-24-2024 14:35-0400 Heart rate 65 /min Minh Alexandra PATENT LAW SPECIALIST.CLASSIFICATION OFFICER Work Phone: [facility] 05-24-2024 14:35-0400 Systolic blood pressure 147 mm[Hg] Minh Alexandra PATENT LAW SPECIALIST.CLASSIFICATION OFFICER Work Phone: [facility] 05-24-2024 14:34-0400 Body mass index (BMI) [Ratio] 29.71 kg/m2 Minh Alexandra PATENT LAW SPECIALIST.CLASSIFICATION OFFICER Work Phone: [facility] 05-24-2024 14:34-0400 Body weight 94.6 kg Minh Alexandra PATENT LAW SPECIALIST.CLASSIFICATION OFFICER Work Phone: [facility] 05-24-2024 14:34-0400 Respiratory rate 16 /min Minh Alexandra APRNRajiCLASSIFICATION OFFICER Work Phone: [facility] 04-30-2024 09:52-0400 Body mass index (BMI) [Ratio] 29.62 kg/m2 Lora Martinez MD Work Phone: [facility] 04-30-2024 09:52-0400 Body temperature 97.59 [degF] Lora Martinez MD Work Phone: [facility] 04-30-2024 09:52-0400 Body weight 94.3 kg Lora Martinez MD Work Phone: [facility] 04-30-2024 09:52-0400 Diastolic blood pressure 74 mm[Hg] Lora Martinez MD Work Phone: [facility] 04-30-2024 09:52-0400 Heart rate 61 /min Lora Martinez MD Work Phone: [facility] 04-30-2024 09:52-0400 Respiratory rate 16 /min Lora Martinez MD Work Phone: [facility] 04-30-2024 09:52-0400 SaO2% (BldA) [Mass fraction] 96 % Lora Martinez MD Work Phone: [facility] 04-30-2024 09:52-0400 Systolic blood pressure 120 mm[Hg] Lora Martinez MD Work Phone: [facility] 10-24-2023 13:55-0400 Body mass index (BMI) [Ratio] 28.92 kg/m2 Lora Martinez MD Work Phone: [facility] 10-24-2023 13:55-0400 Body weight 92.08 kg Lora Martinez MD Work Phone: [facility] 10-24-2023 13:55-0400 Diastolic blood pressure 68 mm[Hg] Lora Martinez MD Work Phone: [facility] 10-24-2023 13:55-0400 Heart rate 68 /min Lora Martinez MD Work Phone: [facility] 10-24-2023 13:55-0400 Respiratory rate 16 /min Lora Martinez MD Work Phone: [facility] 10-24-2023 13:55-0400 Systolic blood pressure 110 mm[Hg] Lora Martinez MD Work Phone: [facility] 04-18-2023 13:43-0400 Body temperature 97.39 [degF] Minh Alexandra PATENT LAW SPECIALIST.CLASSIFICATION OFFICER Work Phone: [facility] 04-18-2023 13:43-0400 Body weight 88 kg Minh Alexandra PATENT LAW SPECIALIST.CLASSIFICATION OFFICER Work Phone: [facility] 04-18-2023 13:43-0400 Diastolic blood pressure 66 mm[Hg] Minh Alexandra PATENT LAW SPECIALIST.CLASSIFICATION OFFICER Work Phone: [facility] 04-18-2023 13:43-0400 Heart rate 70 /min Minh Alexandra PATENT LAW SPECIALIST.CLASSIFICATION OFFICER Work Phone: [facility] 04-18-2023 13:43-0400 Respiratory rate 18 /min Minh Alexandra PATENT LAW SPECIALIST.CLASSIFICATION OFFICER Work Phone: [facility] 04-18-2023 13:43-0400 SaO2% (BldA) [Mass fraction] 97 % Minh Alexandra PATENT LAW SPECIALIST.CLASSIFICATION OFFICER Work Phone: [facility] 04-18-2023 13:43-0400 Systolic blood pressure 108 mm[Hg] Minh Alexandra PATENT LAW SPECIALIST.CLASSIFICATION OFFICER Work Phone: [facility] 08-30-2022 09:02-0500 Diastolic blood pressure 74 mm[Hg] Minh Alexandra PATENT LAW SPECIALIST.CLASSIFICATION OFFICER Work Phone: [facility] 08-30-2022 09:02-0500 Heart rate 73 /min Minh Alexandra PATENT LAW SPECIALIST.CLASSIFICATION OFFICER Work Phone: [facility] 08-30-2022 09:02-0500 Systolic blood pressure 137 mm[Hg] Minh Alexandra PATENT LAW SPECIALIST.CLASSIFICATION OFFICER Work Phone: [facility] 08-30-2022 08:58-0500 Body height 178.4 [facility] PAT[facility] SPECIALIST.CLASSIFICATION OFFICER Work Phone: [facility] 08-30-2022 08:58-0500 Body weight 100.7 [facility] PATENT LAW SPECIALIST.CLASSIFICATION OFFICER Work Phone: [facility] 08-30-2022 08:58-0500 Respiratory rate 16 /min [facility] PATENT LAW SPECIALIST.CLASSIFICATION OFFICER Work Phone: [facility] 08-16-2022 10:25-0500 Diastolic blood pressure 80 mm[Hg] Elizabeth Hernandez MD Work Phone: [facility] 08-16-2022 10:25-0500 Heart rate 62 /min Elizabeth Hernandez MD Work Phone: [facility] 08-16-2022 10:25-0500 SaO2% (BldA) [Mass fraction] 95 % Elizabeth Hernandez MD Work Phone: [facility] 08-16-2022 10:25-0500 Systolic blood pressure 136 mm[Hg] Elizabeth Hernandez MD Work Phone: [facility] 08-16-2022 09:55-0500 Respiratory rate 16 /min Elizabeth Hernandez MD Work Phone: [facility] 08-16-2022 08:24-0500 Body temperature 97.59 [degF] Elizabeth Hernandez MD Work Phone: [facility] 05-31-2022 09:17-0400 Body height 177.8 cm Vandana Aleisha PA-C Work Phone: [facility] 05-31-2022 09:17-0400 Body temperature 97.7 [degF] Vandana [place] PA-C Work Phone: [facility] 05-31-2022 09:17-0400 Body weight 101.15 kg Vandana Aleisha PA-C Work Phone: [facility] 05-31-2022 09:17-0400 Diastolic blood pressure 84 mm[Hg] Vandana Aleisha PA-C Work Phone: [facility] 05-31-2022 09:17-0400 Heart rate 64 /min Vandana Moraes PA-C Work Phone: [facility] 05-31-2022 09:17-0400 SaO2% (BldA) [Mass fraction] 96 % Vandana Moraes PA-C Work Phone: [facility] 05-31-2022 09:17-0400 Systolic blood pressure 148 mm[Hg] Vandana Moraes PA-C Work Phone: [facility] Encounters Encounter Date Encounter Type Care Provider Facility Start: 06-12-2025 End: 06-12-2025 [facility] [place] Start: 05-27-2025 ambulatory GERALD HARTLEY Facility:[facility] Start: 05-13-2025 End: 05-13-2025 ambulatory LORA MARTINEZ Facility:[facility] [place] Start: 05-13-2025 Patient encounter procedure LORA Zack NUÑEZAMPAS [facility] Start: 05-01-2025 End: 05-01-2025 ambulatory MINH ALEXANDRA Facility:[facility] [place] Start: 01-21-2025 End: 01-21-2025 ambulatory Nancie Patel MA [facility] Start: 01-21-2025 End: 01-21-2025 Patient encounter procedure Nancie Patel MA [facility] Comment on above: Population Health Na vigation Outreach (JUDY ALCALA ) Start: 10-29-2024 End: 10-29-2024 ambulatory MINH ALEXANDRA Facility:[facility] [place] Start: 10-29-2024 End: 10-29-2024 Office outpatient visit 25 minutes Minh Alexandra PATENT LAW SPECIALIST.CLASSIFICATION OFFICER Work Phone: [facility] [place] Comment on above: Type 2 diabetes atilio itus without complication, without long- term current use of insulin (HCC) (Primary Dx); Essential hypertension; Encounter for immunization; Screening for diabetic retinopathy; Gastroesophageal reflux disease without esophagitis; Mixed hyperlipidemia Start: 10-05-2024 End: 10-05-2024 ambulatory LORA D TALAMPAS Facility:[facility] [place] Start: 06-12-2024 End: 06-13-2024 Telephone encounter Lora Martinez MD Work Phone: [facility] [place] Comment on above: Patient Update Start: 05-28-2024 End: 05-28-2024 Telephone encounter Minh Alexandra APRN.CLASSIFICATION OFFICER Work Phone: [facility] [place] Comment on above: Results Start: 05-28-2024 ambulatory MINH ALEXANDRA Facility[facility] Start: 05-28-2024 End: 05-28-2024 Subsequent hospital visit by physician [facility] Comment on above: Left lower quadrant pain [R10.32] Left lower quadrant abdominal pain [R10.32] Start: 05-24-2024 End: 05-24-2024 Office outpatient visit 25 minutes Minh Alexandra APRN.CLASSIFICATION OFFICER Work Phone: [facility] [place] Comment on above: Left lower quadrant abdominal pain (Primary Dx); Gastroesophageal reflux disease without esophagitis Start: 05-24-2024 End: 05-24-2024 ambulatory Lora Martinez MD Work Phone: [facility] [place] Comment on above: Abdominal Pain Start: 05-15-2024 End: 05-16-2024 Telephone encounter Lora Martinez MD Work Phone: [facility] [place] Start: 04-30-2024 End: 04-30-2024 Office outpatient visit 25 minutes Lora Martinez MD Work Phone: [facility] [place] Comment on above: Type 2 diabetes atilio itus without complication, without long- term current use of insulin (HCC) (Primary Dx); Gastroesophageal reflux disease without esophagitis; Mixed hyperlipidemia; Flatulence; Encounter for immunization; Screening for depression; Encounter for screening examination for other mental health and behavioral disorders Start: 12-07-2023 Telephone encounter Lora garcia MD Work Phone: [facility] [place] Comment on above: Appointment Start: 10-24-2023 End: 10-24-2023 Office outpatient visit 25 minutes Lora Martinez MD Work Phone: [facility] [place] Comment on above: Type 2 diabetes atilio itus without complication, without long- term current use of insulin (HCC) (Primary Dx); Seborrheic dermatitis of scalp; Mixed hyperlipidemia; Intracranial meningioma (HCC); Encounter for immunization; Encounter for long-term current use of medication Start: 04-18-2023 End: 04-18-2023 Office outpatient visit 25 minutes Minh Alexandra APRN.CLASSIFICATION OFFICER Work Phone: [facility] [place] Comment on above: Well controlled type 2 diabetes mellitus (HCC) (Primary Dx); Primary hypertension; Mixed hyperlipidemia; Encounter for immunization Start: 10-03-2022 Telephone encounter Gerald Desai MD Work Phone: Radiation Oncology Comment on above: Results Start: 09-25-2022 Refill Minh Alexandra APRN.CLASSIFICATION OFFICER Work Phone: [facility] [place] Comment on above: Refill Request Start: 08-30-2022 End: 08-30-2022 Patient encounter procedure Minh Alexandra APRN.CLASSIFICATION OFFICER Work Phone: [facility] [place] Comment on above: Medicare annual well ness visit, subsequent (Primary Dx); Newly diagnosed diabetes (HCC); Intracranial meningioma (HCC) Start: 08-23-2022 Telephone encounter Lora garcia MD Work Phone: [facility] [place] Comment on above: Orders Start: 08-16-2022 End: 08-16-2022 Subsequent hospital visit by physician Elizabeth Hernandez MD Work Phone: Ambulatory Surgery Comment on above: Special screening fo r malignant neoplasms, colon [Z12.11] Start: 07-13-2022 Refill Lora ty MD Work Phone: [facility] [place] Comment on above: Refill Request Start: 07-06-2022 Refill Lora ty MD Work Phone: [facility] [place] Comment on above: Refill Request Start: 05-31-2022 End: 05-31-2022 Patient encounter procedure Vandana Moraes PA-C Work Phone: General Surgery Comment on above: Encounter for screen ing for malignant neoplasm of colon (Primary Dx) Start: 03-02-2022 End: 03-02-2022 ambulatory Alexa No APRN.CNP Work Phone: [facility] [place] Comment on above: Telehealth encounter for confirmed COVID-19 (Primary Dx) Start: 03-02-2022 End: 03-02-2022 Telemedicine consultation with patient Alexa No APRN.CNP Work Phone: [facility] Start: 03-01-2022 End: 03-01-[address] Lora Martinez Work Phone: [facility] Start: 02-25-2022 End: 02-25-[address] Lora Martinez Work Phone: [facility] Start: 02-10-2022 End: 02-10-2022 Patient encounter procedure [facility] Procedures Date Procedure Procedure Detail Performing Clinician Start: 05-28-2024 Ct abdomen & pelvis w/o contrast material Minh Alexandra PATENT LAW SPECIALIST.CLASSIFICATION OFFICER Work Phone: Start: 04-30-2024 Adult depression scr eening assessment Lora Martinez MD Work Phone: Start: 08-16-2022 Colonoscopy flx dx w /collj spec when pfrmd Vandana Moraes PA-C Work Phone: Start: 08-16-2022 Colonoscopy Lora awad MD Work Phone: Start: 02-25-2022 MRI of lumbar spine Dr. Lora Martinez Work Phone: Start: 02-10-2022 X-ray of lumbar spin e, two or three views Start: 08-18-2021 Adult depression scr eening assessment Alexa No APRN.ROOPA Work Phone: Start: 08-02-2012 Colonoscopy Alexa bojorquez APRN.CNP Work Phone: Plan of Treatment Date Care Activity Detail Author Start: 08-16-2032 Colonoscopy COLONOSCOPY [facility] Start: 08-16-2032 COLORECTAL CANCER SCREENING COLORECTAL CANCER SCREENING [facility] Start: 09-06-2026 Urine microalbumin profile [facility] Start: 08-04-2026 LIPID SCREEN LIPID SCREEN [facility] Start: 10-29-2025 BP Controlled (<130/80) BP Controlle d (<130/80) [facility] Start: 10-29-2025 zzBP Controlled (<130/80) (Retired) zzBP Controlled (<130/80) (Retired) [facility] Start: 10-08-2025 Hepatitis B screening Urine Al bumin:Creatinine Ratio [facility] Start: 10-05-2025 Hepatitis B surface antibody level LDL Cholesterol [facility] Start: 05-24-2025 Diabetic foot examination Diabetic Foot Exam [facility] Start: 05-13-2025 End: 05-13-2025 Patient encounter procedure 05/13/2025 9:20 AM EDT Office Visit [facility] [place] [address] [place], [place] [id number] Lora Martinez MD [address] [place], [place] [address] 6 month follow up [facility] [place] Comment on above: 6 month follow up Start: 05-01-2025 End: 07-31-2025 CBC W Auto Differential panel - Blood COMPLETE BLOOD COUNT AND DIFFERENTIAL Lab Routine Type 2 diabetes mellitus without complication, without long-term current use of insulin (HCC) Expected: 05/01/2025 (Approximate), Expires: 07/31/2025 [facility] Work Phone: Comment on above: Expected: 05/01/2025 (Approximate), Expires: 07/31/2025 Start: 05-01-2025 End: 07-31-2025 Comprehensive metabolic 2000 panel - Serum or Plasma COMPREHENSIVE METABOLIC PANEL Lab Routine Type 2 diabetes mellitus without complication, without long-term current use of insulin (HCC) Expected: 05/01/2025 (Approximate), Expires: 07/31/2025 [facility] Comment on above: Expected: 05/01/2025 (Approximate), Expires: 07/31/2025 Start: 05-01-2025 End: 07-31-2025 Hemoglobin A1c in Blood HEMOGLOBIN A1C Lab Routine Type 2 diabetes mellitus without complication, without long-term current use of insulin (HCC) Expected: 05/01/2025 (Approximate), Expires: 07/31/2025 [facility] Comment on above: Expected: 05/01/2025 (Approximate), Expires: 07/31/2025 Start: 05-01-2025 End: 07-31-2025 Lipid 1996 panel - Serum or Plasma LIPID PANEL, FASTING Lab Routine Type 2 diabetes mellitus without complication, without long-term current use of insulin (HCC) Expected: 05/01/2025 (Approximate), Expires: 07/31/2025 [facility] Comment on above: Expected: 05/01/2025 (Approximate), Expires: 07/31/2025 Start: 04-30-2025 Annual PCP Team Sink Maker jackie Disease Visit Annual PCP Team Chronic Disease Visit [facility] Start: 04-30-2025 Anxiety Screening Anxiety Screening [facility] Start: 04-30-2025 BP Controlled (<130/80) BP Controlle d (<130/80) [facility] Start: 04-30-2025 Covid-19 Vaccine () Covid-19 Vaccine () [facility] Comment on above: Postponed from 04/14 (Not Currently Available) Start: 04-30-2025 Covid-19 Vaccine () Covid-19 Vaccine () [facility] Comment on above: Postponed from 04/14 (Not Currently Available) Start: 04-30-2025 Depression Screening Depression Scre ening [facility] Start: 04-30-2025 Diabetic foot examination Diabetic Foot Exam [facility] Start: 04-27-2025 Hepatitis B surface antibody level LDL Cholesterol [facility] Start: 04-04-2025 Hemoglobin A1c measurement HbA1C [facility] Start: 10-29-2024 End: 10-29-2024 Patient encounter procedure 10/29/2024 9:40 AM EDT Office Visit [facility] [place] [address] [place] [address] Minh Alexandra, PATENT LAW SPECIALIST.CLASSIFICATION OFFICER [address] [facility] [place] [address] 6 month follow up [facility] [place] Comment on above: 6 month follow up Start: 10-25-2024 Hemoglobin A1c measurement HbA1C [facility] Start: 10-23-2024 Annual PCP Team Sink Maker jackie Disease Visit Annual PCP Team Chronic Disease Visit [facility] Start: 10-23-2024 BP Controlled (<130/80) BP Controlle d (<130/80) [facility] Start: 10-23-2024 Covid-19 Vaccine () Covid-19 Vaccine () [facility] Comment on above: Postponed from 04/14 (Declined at this time) Start: 10-13-2024 Hepatitis B screening Urine Al bumin:Creatinine Ratio [facility] Start: 10-13-2024 Hepatitis B surface antibody level LDL Cholesterol [facility] Start: 09-14-2024 End: 12-14-2024 Microalbumin/Creatinine [Mass Ratio] in Urine ALBUMIN/CREATININE RATIO, URINE Lab Routine Type 2 diabetes mellitus without complication, without long-term current use of insulin (HCC) Expected: 09/14/2024 (Approximate), Expires: 12/14/2024 [facility] Comment on above: Expected: 09/14/2024 (Approximate), Expires: 12/14/2024 Start: 08-04-2024 DIABETES SCREEN DIABETES SCREEN [facility] Start: 05-28-2024 End: 05-28-2024 Patient encounter procedure [facility] Comment on above: Left lower quadrant abdominal pain [R10.32] Start: 05-24-2024 End: 05-24-2024 Patient encounter procedure 05/24/2024 2:20 PM EDT Office Visit [facility] [place] [address] [place] [address] Mnih Alexandra APRN.CLASSIFICATION OFFICER [address] [place] [place] [place] [id number] Left lower abdominal pain. See triage [facility] [place] Comment on above: Left lower abdominal pain. See triage Start: 05-24-2024 End: 01-10-2025 CBC W Auto Differential panel - Blood COMPLETE BLOOD COUNT AND DIFFERENTIAL Lab Routine Gastroesophageal reflux disease without esophagitis Left lower quadrant abdominal pain Expected: 05/24/2024, Expires: 08/23/2024 [facility] Comment on above: Expected: 05/24/2024 , Expires: 08/23/2024 Start: 05-24-2024 End: 08-23-2024 Comprehensive metabolic 2000 panel - Serum or Plasma COMPREHENSIVE METABOLIC PANEL Lab Routine Gastroesophageal reflux disease without esophagitis Left lower quadrant abdominal pain Expected: 05/24/2024, Expires: 08/23/2024 [facility] Comment on above: Expected: 05/24/2024 , Expires: 08/23/2024 Start: 05-24-2024 End: 08-23-2024 URINALYSIS, REFLEX MICROSCOPIC URINALYSIS, REFLEX MICROSCOPIC Lab Routine Gastroesophageal reflux disease without esophagitis Left lower quadrant abdominal pain Expected: 05/24/2024, Expires: 08/23/2024 [facility] Comment on above: Expected: 05/24/2024 , Expires: 08/23/2024 Start: 05-21-2024 End: 05-21-2024 Patient encounter procedure 05/21/2024 2:20 PM EDT Office Visit [facility] [place] [address] [place] [address] Minh Alexandra APRN.CLASSIFICATION OFFICER [address] [place] [address] follow up abdominal pain [facility] [place] Comment on above: follow up abdominal pain Start: 04-30-2024 End: 04-30-2024 Patient encounter procedure 04/30/2024 9:40 AM EDT Office Visit [facility] [place] [address] [place] [address] Lora Martinez MD [address] [place] [address] 6 month follow up [facility] [place] Comment on above: 6 month follow up Start: 04-18-2024 3 comp foot exam completed DIABETIC FOOT EXAM [facility] Start: 04-18-2024 ANNUAL PCP TEAM CEO AND FOUNDER JACKIE DISEASE VISIT ANNUAL PCP TEAM CHRONIC DISEASE VISIT [facility] Start: 04-18-2024 BP CONTROLLED (<130/80) BP CONTROLLE D (<130/80) [facility] Start: 04-18-2024 Diabetic foot examination Diabetic Foot Exam [facility] Start: 04-15-2024 Hemoglobin A1c measurement HbA1C [facility] Start: 04-11-2024 Hepatitis B screening URINE AL BUMIN:CREATININE RATIO [facility] Start: 11-30-2023 BP Controlled (<130/80) BP Controlle d (<130/80) [facility] Start: 11-30-2023 Glaucoma screening Dilated Retinal E xam [facility] Start: 11-30-2023 Hepatitis C antibody , confirmatory test DILATED RETINAL EXAM [facility] Start: 10-13-2023 End: 04-15-2024 ALBUMIN/CREAT RATIO RND UR ALBUMIN/CREAT RATIO RND UR Lab Routine Well controlled type 2 diabetes mellitus (HCC) Expected: 10/13/2023 (Approximate), Expires: 04/15/2024 [facility] Work Phone: Comment on above: Expected: 10/13/2023 (Approximate), Expires: 04/15/2024 Start: 10-13-2023 End: 04-15-2024 CBC W Auto Differential panel - Blood CBC + DIFF Lab Routine Well controlled type 2 diabetes mellitus (HCC) Expected: 10/13/2023 (Approximate), Expires: 04/15/2024 [facility] Work Phone: Comment on above: Expected: 10/13/2023 (Approximate), Expires: 04/15/2024 Start: 10-13-2023 End: 04-15-2024 Comprehensive metabolic 2000 panel - Serum or Plasma COMP METABOLIC PANEL Lab Routine Well controlled type 2 diabetes mellitus (HCC) Expected: 10/13/2023 (Approximate), Expires: 04/15/2024 [facility] Work Phone: Comment on above: Expected: 10/13/2023 (Approximate), Expires: 04/15/2024 Start: 10-13-2023 End: 04-15-2024 Hemoglobin A1c in Blood HGB A1C Lab Routine Well controlled type 2 diabetes mellitus (HCC) Expected: 10/13/2023 (Approximate), Expires: 04/15/2024 [facility] Work Phone: Comment on above: Expected: 10/13/2023 (Approximate), Expires: 04/15/2024 Start: 10-13-2023 End: 04-15-2024 Lipid 1996 panel - Serum or Plasma LIPID PANEL BASIC Lab Routine Well controlled type 2 diabetes mellitus (HCC) Expected: 10/13/2023 (Approximate), Expires: 04/15/2024 [facility] Work Phone: Comment on above: Expected: 10/13/2023 (Approximate), Expires: 04/15/2024 Start: 10-12-2023 Hemoglobin A1c/Hemoglobin.total in Blood HBA1C [facility] Start: 08-23-2023 Hepatitis B surface antibody level LDL CHOLESTEROL [facility] Start: 08-14-2023 Advance Directive Discussion Advance Directive Discussion [facility] Start: 08-14-2023 Behavioral Health Screening Behavioral Health Screening [facility] Start: 04-14-2023 Covid-19 Vaccine () Covid-19 Vaccine () [facility] Start: 04-14-2023 Influenza vaccination INFLUENZA (#1) [facility] Start: 03-02-2023 ANNUAL PCP TEAM CEO AND FOUNDER JACKIE DISEASE VISIT ANNUAL PCP TEAM CHRONIC DISEASE VISIT [facility] Start: 02-20-2023 Hemoglobin A1c/Hemoglobin.total in Blood HBA1C [facility] Start: 11-28-2022 End: 01-28-2023 Hemoglobin A1c in Blood HGB A1C Lab Routine Newly diagnosed diabetes (HCC) Expected: 11/28/2022 (Approximate), Expires: 01/28/2023 [facility] Work Phone: Comment on above: Expected: 11/28/2022 (Approximate), Expires: 01/28/2023 Start: 10-03-2022 COVID-19 VACCINE (6 - Moderna series) COVID-19 VACCINE (6 - Moderna series) [facility] Start: 08-23-2022 End: 10-23-2022 Comprehensive metabolic 2000 panel - Serum or Plasma [facility] Work Phone: Comment on above: Expected: 08/23/2022 , Expires: 10/23/2022 Start: 08-23-2022 End: 10-23-2022 Hemoglobin A1c in Blood [facility] Work Phone: Comment on above: Expected: 08/23/2022 , Expires: 10/23/2022 Start: 08-23-2022 End: 10-23-2022 Lipid 1996 panel - Serum or Plasma [facility] Work Phone: Comment on above: Expected: 08/23/2022 , Expires: 10/23/2022 Start: 08-23-2022 End: 10-23-2022 Magnesium [Mass/volume] in Serum or Plasma [facility] Work Phone: Comment on above: Expected: 08/23/2022 , Expires: 10/23/2022 Start: 08-18-2022 Adult depression screening assessment DEPRESSION SCREENING [facility] Start: 08-18-2022 BP CONTROLLED (<130/80) BP CONTROLLE D (<130/80) [facility] Start: 08-14-2022 ADVANCE DIRECTIVE DISCUSSION ADVANCE DIRECTIVE DISCUSSION [facility] Start: 08-14-2022 DEPRESSION ASSESSMENT DEPRESSION ASS ESSMENT [facility] Start: 08-02-2022 Colonoscopy COLONOSCOPY [facility] Start: 08-02-2022 COLORECTAL CANCER SCREENING COLORECTAL CANCER SCREENING [facility] Start: 04-14-2022 Influenza vaccination INFLUENZA (#1) [facility] Start: 02-08-2022 COVID-19 VACCINE (5 - Booster for Moderna series) COVID-19 VACCINE (5 - Booster for Moderna series) [facility] Start: 2022 RSV Vaccine (1 - 1-d ose 75+ series) RSV Vaccine (1 - 1-dose 75+ series) [facility] Start: 08-18-2021 BP CONTROLLED (<130/80) BP CONTROLLE D (<130/80) [facility] Start: 08-14-2021 ADVANCE DIRECTIVE DISCUSSION ADVANCE DIRECTIVE DISCUSSION [facility] Start: 08-14-2021 DEPRESSION ASSESSMENT DEPRESSION ASS ESSMENT [facility] Start: 2007 Hepatitis B Vaccine (1 of 3 - Risk 3-dose series) Hepatitis B Vaccine (1 of 3 - Risk 3-dose series) [facility] Start: 2007 RSV Vaccine (1 - 1-d ose 60+ series) RSV Vaccine (1 - 1-dose 60+ series) [facility] Start: 01-13-1992 COLOGUARD (FIT-DNA) COLOGUARD (FIT-D NA) [facility] Start: 01-13-[address] COLONOGRAPHY [facility] Start: 01-13-1992 FECAL OCCULT BLOOD FECAL OCCULT BLOO D [facility] Start: 01-13-1992 SIGMOIDOSCOPY SIGMOIDOSCOPY [facility] Start: 1957 3 comp foot exam completed DIABETIC FOOT EXAM [facility] Start: 1957 Hepatitis B screening URINE AL BUMIN:CREATININE RATIO [facility] Start: 1957 Hepatitis C antibody , confirmatory test DILATED RETINAL EXAM [facility] End: 12-06-2024 CBC panel - Blood by Automated count COMPLETE BLOOD COUNT Lab Routine Type 2 diabetes mellitus without complication, without long-term current use of insulin (HCC) Encounter for long-term current use of medication Every 6 months for 30 Occurrences starting 12/07/2023 until 12/06/2024 [facility] Comment on above: Every 6 months for 3 0 Occurrences starting 12/07/2023 until 12/06/2024 End: 12-06-2024 Comprehensive metabolic 2000 panel - Serum or Plasma COMPREHENSIVE METABOLIC PANEL Lab Routine Type 2 diabetes mellitus without complication, without long-term current use of insulin (HCC) Encounter for long-term current use of medication Every 6 months for 30 Occurrences starting 12/07/2023 until 12/06/2024 [facility] Comment on above: Every 6 months for 3 0 Occurrences starting 12/07/2023 until 12/06/2024 End: 06-23-2025 CT Abdomen and Pelvis WO contrast CT ABD/PEL WO IVCON Radiology STAT Left lower quadrant abdominal pain 1 Occurrences starting 05/24/2024 until 06/23/2025 [facility] Work Phone: Comment on above: 1 Occurrences starti ng 05/24/2024 until 06/23/2025 End: 12-06-2024 Hemoglobin A1c in Blood HEMOGLOBIN A1C Lab Routine Type 2 diabetes mellitus without complication, without long-term current use of insulin (HCC) Encounter for long-term current use of medication Every 6 months for 30 Occurrences starting 12/07/2023 until 12/06/2024 [facility] Work Phone: Comment on above: Every 6 months for 3 0 Occurrences starting 12/07/2023 until 12/06/2024 INFLUENZA VACCINE, P RSV FREE, AGE 65+ YR, HIGH DOSE, QUADRIVALENT (FLUZONE HIGH-DOSE) INFLUENZA VACCINE, PRSV FREE, AGE 65+ YR, HIGH DOSE, QUADRIVALENT (FLUZONE HIGH-DOSE) Immunization/Injection Routine Encounter for immunization 1 Occurrences starting 04/18/2023 [facility] Work Phone: Comment on above: 1 Occurrences starti ng 04/18/2023 End: 12-06-2024 Lipid 1996 panel - Serum or Plasma LIPID PANEL BASIC Lab Routine Type 2 diabetes mellitus without complication, without long-term current use of insulin (HCC) Mixed hyperlipidemia Encounter for long-term current use of medication Every 6 months for 30 Occurrences starting 12/07/2023 until 12/06/2024 [facility] Comment on above: Every 6 months for 3 0 Occurrences starting 12/07/2023 until 12/06/2024 End: 12-06-2024 Magnesium [Mass/volume] in Serum or Plasma MAGNESIUM Lab Routine Type 2 diabetes mellitus without complication, without long-term current use of insulin (HCC) Encounter for long-term current use of medication Every 6 months for 30 Occurrences starting 12/07/2023 until 12/06/2024 [facility] Comment on above: Every 6 months for 3 0 Occurrences starting 12/07/2023 until 12/06/2024 PFIZER-BIONTECH COVID-19 BIVALENT VACCINE, AGE 12+ YR PFIZER-BIONTECH COVID-19 BIVALENT VACCINE, AGE 12+ YR Immunization/Injection Routine Encounter for immunization 1 Occurrences starting 04/18/2023 [facility] Work Phone: Comment on above: 1 Occurrences starti ng 04/18/2023 [facility] Immunizations Immunization Date Immunization Notes Care Provider Sergei shaffer 04-30-2024 influenza, high dose seasonal, preservative-free Lora Martinez MD Work Phone: [facility] 04-29-2023 influenza, injectabl e, quadrivalent, contains preservative Lora Martinez MD Work Phone: [facility] 06-02-2022 COVID-19 booster vaccine, age 12+ yr, bivalent (PFIZER-BIONTECH) Lora Martinez MD Work Phone: [facility] Work Phone: 12-14-2021 COVID-19 vaccine, ag e 12+ yr (PFIZER-BIONTECH - PURPLE TOP) Alexa Podlogar PATENT LAW SPECIALIST.[facility] Work Phone: [facility] Work Phone: 05-07-2021 influenza, high-dose , quadrivalent vaccine (FLUZONE HIGH DOSE QUADRIVALENT) Alexa Podlogar PATENT LAW SPECIALIST.[facility] Work Phone: [facility] 11-09[facility]2020 [facility] Work Phone: 10-12-2020 [facility] Work Phone: 05-01-2020 influenza, high dose seasonal, preservative-free Alexa Podlogar PATENT LAW SPECIALIST.[facility] Work Phone: [facility] Work Phone: 05-07-2019 influenza, high dose seasonal, preservative-free Alexa Podlogar PATENT LAW SPECIALIST.[facility] Work Phone: [facility] 04-27-2018 influenza, high dose seasonal, preservative-free Alexa Podlogar PATENT LAW SPECIALIST.[facility] Work Phone: [facility] Work Phone: 04-25-2018 zoster vaccine recombinant Alexa Podlogar PATENT LAW SPECIALIST.[employer] SPECIALIST Work Phone: [facility] Work Phone: 11-29-2017 zoster vaccine recombinant Alexa Podlogar PATENT LAW SPECIALIST.[facility] Work Phone: [facility] Work Phone: 06-02-2017 influenza, injectabl e, quadrivalent, contains preservative Alexa Podlogar PATENT LAW SPECIALIST.[facility] Work Phone: [facility] Work Phone: 05-03-2017 influenza, high dose seasonal, preservative-free Alexa Podlogar PATENT LAW SPECIALIST.[facility] Work Phone: [facility] 09-06-2016 tetanus toxoid, redu shereen diphtheria toxoid, and acellular pertussis vaccine, adsorbed Alexa Podlogar PATENT LAW SPECIALIST.[facility] Work Phone: [facility] Work Phone: 04-18-2016 influenza, high dose seasonal, preservative-free Alexa Podlogar PATENT LAW SPECIALIST.[facility] Work Phone: [facility] Work Phone: 10-23-2015 pneumococcal conjuga te vaccine, 13 valent Alexa Podlogar PATENT LAW SPECIALIST.[facility] Work Phone: [facility] 05-01-2015 influenza, high dose seasonal, preservative-free Alexa Podlogar PATENT LAW SPECIALIST.[facility] Work Phone: [facility] 03-06-2012 pneumococcal polysaccharide vaccine, 23 valent Alexa Podlogar PATENT LAW SPECIALIST.[facility] Work Phone: [facility] 06-23-2005 influenza virus vacc ine, unspecified formulation Alexa Podlogar PATENT LAW SPECIALIST.[facility] Work Phone: [facility] Work Phone: 03-18-2002 tetanus and diphther ia toxoids, adsorbed, preservative free, for adult use (2 Lf of tetanus toxoid and 2 Lf of diphtheria toxoid) Alexa Podlogar PATENT LAW SPECIALIST.[facility] Work Phone: [facility] Payers Date Payer Category Payer Private Health Insurance MMO MED ICARE SUPPLEMENT Member Subscriber Plan / Payer (Effective 2022-Present) Name: Fredrick Mao Relation to Subscriber: Self Name: Fredrick Mao Payer ID: Not on file Type: [employer] Address: [place] [id number] 2022 Unknown MMO MMO MEDICARE SUPPLEMENT [id number] 2022-Present [phone] [address] [place] [address] Indemnity [id number] 2022 Medicare [id number] 2021 Medicare [employer] MED[employer] RE ADVANTAGE [place] MEDICARE [id number] 2021-Present [phone] [address] [place] [address] HMO [id number] 2014 Unknown [facility] [id number] 2011 Medicare [facility] [id number] 0A [id number] 2011 Medicare [id number] 2011 Medicare [id number] Medicare [facility] [id number] 100 [id number] Social History Date Type Detail Facility Start: 03-16-2017 Tobacco smoking stat [facility] Unknown if ever smoked [facility] Work Phone: Start: 1945 Sex Assigned At Male [facility] Start: 05-31-2022 End: 05-24-2024 Tobacco smoking status NHIS Ex-smoker [facility] Work Phone: Start: 12-05-1970 End: 12-06-1995 History of tobacco use Current smoker [facility] Start: 12-05-1970 End: 12-06-1995 History of tobacco use Cigarette Smoker [facility] Start: 09-19-2021 End: 10-29-2024 Alcohol intake Current non-drinker of alcohol (finding) [facility] Start: 03-02-2022 History SDOH Social Connections Phone 98 [facility] Start: 03-02-2022 End: 08-23-2022 History SDOH Social Connections Membership 1 [facility] Start: 03-02-2022 End: 08-23-2022 History SDOH Social Connections Meetings 3 [facility] Start: 03-02-2022 History SDOH Physica l Activity MPS 7 [facility] Start: 03-02-2022 End: 08-23-2022 History SDOH Financial 5 [facility] Start: 03-02-2022 End: 08-23-2022 History SDOH Transport Med 2 [facility] Start: 02-20-2022 End: 03-02-2022 Exposure to SARS-CoV-2 (event) Yes [facility] Start: 05-31-2022 End: 04-18-2023 Cigarettes smoked current (pack per day) - Reported 1 [facility] Start: 05-31-2022 End: 05-24-2024 Tobacco use and exposure Smokeless tobacco non-user [facility] Start: 05-21-2022 End: 05-31-2022 Exposure to SARS-CoV-2 (event) Not sure [facility] Start: 08-23-2022 History SDOH Social Connections Phone 4 [facility] Start: 08-23-2022 End: 04-18-2023 Social connection and isolation panel [facility] Are you now , , , , never or living with a partner? [facility] How often to you hav e a drink containing alcohol? Monthly or less [facility] How many standard dr inks containing alcohol do you have on a typical day? 1 or 2 [facility] How often do you hav e 6 or more drinks on 1 occasion? Never [facility] How hard is it for y ou to pay for the very basics like food, housing, medical care, and heating Not hard at all [facility] Do you feel stress - tense, restless, nervous, or anxious, or unable to sleep at night because your mind is troubled all the time - these days [OSQ] To some extent [facility] (I/We) worried wheth er (my/our) food would run out before (I/we) got money to buy more. Never true [facility] In the past 12 month s, was there a time when you were not able to pay the mortgage or rent on time? No [facility] Start: 09-04-2020 Gender identity Identifies as male gender (finding) [facility] (I/We) worried wheth er (my/our) food would run out before (I/we) got money to buy more. DK or Refused [facility] Do you feel stress - tense, restless, nervous, or anxious, or unable to sleep at night because your mind is troubled all the time - these days [OSQ] Not at all [facility] Functional Status Date Assessment Result Facility 01-27-2015 Are you deaf, or do you have serious difficulty hearing No 01/27/2015 12:55 PM EDT Elizabteh Elias MA [facility] 01-27-2015 Are you blind, or do you have serious difficulty seeing, even when wearing glasses No 01/27/2015 12:55 PM EDT Elizabeth Elias MA [facility] 01-27-2015 Do you have serious difficulty walking or climbing stairs No 01/27/2015 12:55 PM EDT Elizabeth Elias MA [facility] 01-27-2015 Do you have difficul ty dressing or bathing No 01/27/2015 12:55 PM EDT Elizabeth Elias MA [facility] 01-27-2015 Because of a physica l, mental, or emotional condition, do you have difficulty doing errands alone such as visiting a physician's office or shopping No 01/27/2015 12:55 PM EDT Elizabeth Elias MA [facility] Mental Status Date Assessment Result Facility 01-27-2015 Because of a physica l, mental, or emotional condition, do you have serious difficulty concentrating, remembering, or making decisions No 01/27/2015 12:55 PM EDT Elizabeth Elias MA [facility] Clinical Notes 01-27-2015 to 06-12-2025 Nancie Patel MA - 01/21/2025 2:22 PM Minh Amaro APRN.CNS - 10/29/2024 9:19 AM EDTTelephone Encounter - AmeliaVandana bowen RN - 06/13/2024 10:35 AM EDTPatient Instructions Note Date & Type Note Facility 06-12-2025 Note HNO ID: [id number] Author: GERALD HARTLEY MD Service: ? 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 INTERVAL HISTORY: He is here for a routine follow-up. He is doing well without any specific new complaints. He denies any changes in his vision. MRI brain on 05/27/25 showed, Stable appearance of the large cystic and solid parafalcine meningioma overlying the dorsal right frontal lobe with extension into the overlying parietal bone and superior sagittal sinus. ALLERGIES Allergen Reactions Amoxicillin Rash Ampicillin Lisinopril Cough Persistent cough--patient requested med be stopped and switched to something else for BP MEDICATIONS: losartan (COZAAR) 50 mg tablet Take 1 tablet by mouth once daily. lovastatin 40 mg tablet Take 1 tablet by mouth daily at bedtime. metFORMIN (GLUCOPHAGE) 500 mg tablet Take 1 tablet by mouth two times a day with meals. For blood sugar/diabetes. Do not take if not eating pantoprazole DR (PROTONIX) 40 mg tablet Take 1 tablet by mouth once daily. Ciclopirox (CICLODAN) 8 % solution Apply to affected area daily at bedtime. Apply to affected fingernail(s) and/or toenail(s) and adjacent skin once daily in combination with weekly nail trimming and periodic nail debridement. Remove with alcohol every 7 days.Do for up to 48 weeks ibuprofen (MOTRIN) 200 mg tablet Take 600 mg by mouth every 6 hours as needed for Pain. Cholecalciferol, Vitamin D3, 1,000 unit cap Take 1 capsule by mouth once daily. OMEGA-3 FATTY ACIDS CAP Fish oil capsule once daily DAILY MULTIVITAMIN TAB Take one(1) tablet daily. PHYSICAL EXAM: VS: BP 134/73 Pulse 61 Temp 36.7 ?C (98 ?F) (Temporal) Resp 14 Wt 92.5 kg (204 lb) SpO2 96% BMI 29.54 kg/m? KPS: 90 General Appearance: Alert and oriented. No acute distress. Neuro: CN II-XII grossly intact. ASSESSMENT AND PLAN: Clinically stable. I will get MRI brain in one year and then a follow-up with me. Signed by: Gerald Hartley MD cc: Lora Martinez MD [address] [place] [address] [facility] 06-12-2025 Note HNO ID: [id number] Author: YESSICA DENT RN Service: ? Author Type: Registered Nurse Type: Progress Notes Filed: 06/16/2025 16:17 Note Text: Radiation Therapy - Nursing Note (Follow-up) PATIENT NAME: Fredrick Mao PATIENT June 12, 2025 [facility] FACILITY/LOCATION: [place] Reason for visit: Follow up. Subjective Data No complaints Additional Data Do you want to see a Exhibit Carpenter? No Nursing Assessment Fatigue: increased fatigue over baseline but not altering normal activities Appetite: good Weight Gain/Loss: No Last 6 Encounter Wt Readings: Date: Wt: 06/12/2025 92.5 kg (204 lb) 05/13/2025 91.2 kg (201 lb 1 oz) 10/29/2024 95 kg (209 lb 7 oz) 05/24/2024 94.6 kg (208 lb 8.9 oz) 04/30/2024 94.3 kg (207 lb 14.3 oz) 10/24/2023 92.1 kg (203 lb) Bowel Function: normal bowel movements Bone Pain: none Focused Assessment CLASSIFICATION OFFICER: Alopecia: severe. Headache: moderate. Vision changes: none. Arm/leg numbness: none. Limb coordination: none. Memory changes: none. Syncope: none. Disorientation: none. Seizures: none. Hearing changes: No. W SIGNED by: Yessica Dent RN [facility] 05-27-2025 Note HNO ID: [id number] Author: ERIKA LOUISE RT(R) Service: ? Author Type: Technologist Type: Progress Notes Filed: 05/27/2025 08:26 Note Text: Radiology Service Progress Note DATE OF SERVICE: May 27, 2025 TIME: 8:25 AM PATIENT IDENTITY VERIFICATION COMPLETED USING TWO (2) STANDARD IDENTIFIERS: Name and Date of confirmed by patient verbally. FALL SCREENING: Has the patient had 2 falls in the last year or 1 fall with injury or currently using an Ambulatory Assistive Device (Walker, Cane, Wheelchair, Crutches, etc.)? No PATIENT GENDER DATA: Assigned male at PATIENT RELEVANT IMPLANT DATA REVIEWED: Yes PATIENT PRESENTS WITH AN IMPLANTABLE OR ATTACHED SOCIAL WORK SPECIALIST: No ALLERGIES: Reviewed and unchanged CONTRAST ALLERGY: NO. EXAM: MRI - CONTRAST TYPE: GROUP II PERIPHERAL IV DATA: Ambulatory: A peripheral IV was started in the Left antecubital site with a Angio cath: 22 gauge. RADIOLOGY DEPARTMENT: MR; Exam(s) Completed: Head: Routine Brain. Anesthesia: No. Aromatherapy Administered: No SIGNATURE: RT Mikhail(R) PATIENT NAME: Fredrick Mao DATE: May 27, 2025 TIME: 8:25 AM [facility] 05-13-2025 Note HNO ID: [id number] Author: LORA MARTINEZ MD Service: ? Author Type: Physician Type: Progress Notes Filed: 05/13/2025 10:12 Note Text: Subjective Fredrick Mao is a 80 year old male. 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 For blood sugar/diabetes. Do not take if not eating pantoprazole DR (PROTONIX) 40 mg tablet Take 1 tablet by mouth once daily. Ciclopirox (CICLODAN) 8 % solution Apply to affected area daily at bedtime. Apply to affected fingernail(s) and/or toenail(s) and adjacent skin once daily in combination with weekly nail trimming and periodic nail debridement. Remove with alcohol every 7 days.Do for up to 48 weeks ibuprofen (MOTRIN) 200 mg tablet Take 600 mg by mouth every 6 hours as needed for Pain. Cholecalciferol, Vitamin D3, 1,000 unit cap Take 1 capsule by mouth once daily. OMEGA-3 FATTY ACIDS CAP Fish oil capsule once daily DAILY MULTIVITAMIN TAB Take one(1) tablet daily. losartan (COZAAR) 50 mg tablet Take 1 tablet by mouth once daily. lovastatin 40 mg tablet Take 1 tablet by mouth daily at bedtime. No current facility-administered medications for this visit. ALLERGIES Allergen Reactions Amoxicillin Rash Ampicillin Lisinopril Cough Persistent cough--patient requested med be stopped and switched to something else for BP FAMILY HISTORY Problem Relation Age of Onset Cancer Mother specific cance not noted/also had alzheimers GI Father of rupture of intestine No Known Problems Sister other (bladder cancer) Brother SOCIAL HISTORY[1] Review of Systems Objective BP 138/84 Pulse 65 Resp 16 Ht 177 cm (5' 9.69) Wt 91.2 kg (201 lb 1 oz) SpO2 98% BMI 29.11 kg/m? Last 5 Encounter Wt Readings: Date: Wt: 05/13/2025 91.2 kg (201 lb 1 oz) 10/29/2024 95 kg (209 lb 7 oz) 05/24/2024 94.6 kg (208 lb 8.9 oz) 04/30/2024 94.3 kg (207 lb 14.3 oz) 10/24/2023 92.1 kg (203 lb) No waist measurement recorded Estimated body mass index is 29.11 kg/m? as calculated from the following: Height as of this encounter: 177 cm (5' 9.69). Weight as of this encounter: 91.2 kg (201 lb 1 oz). Last 5 Encounter BP Readings: Date: BP: 05/13/2025 138/84 10/29/2024 130/74 05/24/2024 147/77 04/30/2024 120/74 10/24/2023 110/68 05/13/25 0904 05/13/25 1000 BP: 138/84 128/70 Pulse: 65 Resp: 16 SpO2: 98% Weight: 91.2 kg (201 lb 1 oz) Height: 177 cm (5' 9.69) Physical Exam Vitals reviewed. Constitutional: Appearance: Normal appearance. HENT: Head: Normocephalic. Right Ear: Tympanic membrane, ear canal and external ear normal. Left Ear: Tympanic membrane, ear canal and external ear normal. Mouth/Throat: Mouth: Mucous membranes are moist. Pharynx: Oropharynx is clear. Eyes: Extraocular Movements: Extraocular movements intact. Conjunctiva/sclera: Conjunctivae normal. Pupils: Pupils are equal, round, and reactive to light. Neck: Thyroid: No thyromegaly. Vascular: No carotid bruit. Cardiovascular: Rate and Rhythm: Normal rate and regular rhythm. Pulses: Normal pulses. Heart sounds: Normal heart sounds. Pulmonary: Effort: Pulmonary effort is normal. Breath sounds: Normal breath sounds. Abdominal: General: Abdomen is flat. There is no distension. Palpations: Abdomen is soft. There is no mass. Musculoskeletal: Cervical back: Normal range of motion. Right lower leg: No edema. Left lower leg: No edema. Skin: General: Skin is warm and dry. Neurological: General: No focal deficit present. Mental Status: He is alert and oriented to person, place, and time. Psychiatric: Attention and Perception: Attention and perception normal. Mood and Affect: Mood and affect normal. Speech: Speech normal. Behavior: Behavior normal. Thought Content: Thought content normal. Cognition and Memory: Cognition and memory normal. Judgment: Judgment normal. Fredrick Mao is a 80 year old male here for a Medicare wellness visit. Medicare Health Risk Assessment General Health Good Exercise: Minutes/Day 90 min; noted that gets functional exercise Exercise: Days/Week 2 days Alcohol: Daily Use Monthly or less Alcohol: Drinks/Day 1 or 2 Alcohol: 6 or more drinks Never Feel off balance Yes--after standing up after sitting for a while Concerns: Teeth/Dentures No Concerns: Sexual function No Troubled by feelings None of the above Frequency: Eating healthy diet More than half the days ADLs requiring help None of the above Safety precautions in home/vehicle Yes Smo (more content not included)... [facility] 01-21-2025 Note HNO ID: [id number] Author: NANCIE PATEL MA Service: ? Author Type: Nut And Bolt Assembler Type: Progress Notes Filed: 01/21/2025 14:25 Note Text: POPULATION HEALTH NAVIGATION OUTREACH Action/FYI UPDATED APPOINTMENT NOTE HCC CLOSURE Topic Due (Y or N) Comments Medicare Wellness Y PCP Follow up Colorectal Cancer Screening Controlling Blood Pressure A1C HCC Y Flu Vaccine Care Everywhere Reviewed MyChart Activation Updated Appointment Note Y Reason for Outreach Care Gap/HCC or Scheduling Wellness Visits Care Gaps due: Medicare Annual Wellness Visit Patient Contacted: Unable or unnecessary to reach patient: HCC related Patient already scheduled Updated appointment notes Navigation Signature: Nancie Patel MA January 21, 2025 2:23 PM [facility] 01-21-2025 History of Present illness Narrative POPULATION HEALTH NAVIGATION OUTREACH Action/FYI UPDATED APPOINTMENT NOTE HCC CLOSURE Topic Due (Y or N) Comments Medicare Wellness Y PCP Follow up Colorectal Cancer Screening Controlling Blood Pressure A1C HCC Y Flu Vaccine Care Everywhere Reviewed MyChart Activation Updated Appointment Note Y Reason for Outreach Care Gap/HCC or Scheduling Wellness Visits Care Gaps due: Medicare Annual Wellness Visit Patient Contacted: Unable or unnecessary to reach patient: HCC related Patient already scheduled Updated appointment notes Navigation Signature: Nancie Patel MA January 21, 2025 2:23 PM documented in this encounter [facility] 01-21-2025 Note Patient Outreach (NE TNAV) FREDRICK MAO ([id number]) 1945 M Date Time Provider Department 01/21/25 NANCIE APTEL NETNAV During your visit today, we recorded the following information about you: Nancie Patel MA 01/21/2025 2:25 PM Signed POPULATION HEALTH NAVIGATION OUTREACH Action/FYI UPDATED APPOINTMENT NOTE [facility] CLOSURE Topic Due (Y or N) Comments Medicare Wellness Y PCP Follow up Colorectal Cancer Screening Controlling Blood Pressure A1C HCC Y Flu Vaccine Care Everywhere Reviewed MyChart Activation Updated Appointment Note Y Reason for Outreach Care Gap/HCC or Scheduling Wellness Visits Care Gaps due: Medicare Annual Wellness Visit Patient Contacted: Unable or unnecessary to reach patient: HCC related Patient already scheduled Updated appointment notes Navigation Signature: Nancie Patel MA January 21, 2025 2:23 PM Allergies As of Date: 01/21/2025 Noted Allergy Reaction AMOXICILLIN 04/26/2005 2 - Rash AMPICILLIN 07/18/2005 LISINOPRIL 08/22/2016 3 - Cough Comments: Persistent cough--patient requested med be stopped and switched to something else for BP Date Reviewed: 10/29/2024 Reviewed by: My Morris LPN - Fully Assessed Reason for Visit: Population Health Navigation Outreach [3910] Cmt: ACO CHELIDEVONElan ORDAZ PCSA Prescriptions as of 01/21/2025 - metFORMIN (GLUCOPHAGE) 500 mg tablet Take 1 tablet by mouth two times a day with meals. For blood sugar/diabetes. Do not take if not eating - pantoprazole DR (PROTONIX) 40 mg tablet Take 1 tablet by mouth once daily. - losartan (COZAAR) 50 mg tablet Take 1 tablet by mouth once daily. - lovastatin 40 mg tablet Take 1 tablet by mouth daily at bedtime. - Ciclopirox (CICLODAN) 8 % solution Apply to affected area daily at bedtime. Apply to affected fingernail(s) and/or toenail(s) and adjacent skin once daily in combination with weekly nail trimming and periodic nail debridement. Remove with alcohol every 7 days.Do for up to 48 weeks - mometasone (ELOCON) 0.1 % cream Apply 1 application to affected area once daily as needed. To affected skin in scalp as directed. - aluminum chloride (DRYSOL) 20 % external solution Apply to affected area daily at bedtime. - ibuprofen (MOTRIN) 200 mg tablet Take 600 mg by mouth every 6 hours as needed for Pain. - Cholecalciferol, Vitamin D3, 1,000 unit cap Take 1 capsule by mouth once daily. - OMEGA-3 FATTY ACIDS CAP Fish oil capsule once daily - DAILY MULTIVITAMIN TAB Take one(1) tablet daily. Meds Comments as of 06/14/2007: All medications have been reviewed /June 14, 2007 ePri Gonsalves Ma Problem List As Of Date 01/21/2025 Noted Resolved Essential hypertension [I10] Mixed hyperlipidemia [E78.2] Irritable bowel syndrome [K58.9] 10/28/2016 Depressive disorder, not elsewhere classified [* 10/28/2016 Lateral epicondylitis of elbow [M77.10] 10/28/2016 IMPAIRED FASTING GLUCOSE [R73.01] 10/24/2005 DJD (DEGENERATIVE JOINT DISEASE) -- right ACjo*04/25/2007 10/28/2016 Lateral epicondylitis of left elbow [M77.12] 03/09/2011 Esophagitis, unspecified [K20.90] 08/02/2012 Pain of left thumb [M79.645] 01/27/2015 10/28/2016 Neck pain [M54.2] 10/28/2016 Intracranial meningioma (HCC) [D32.0] 09/26/2017 Obesity, Class I, BMI 30-34.9 [E66.811] 11/26/2018 LPRD (laryngopharyngeal reflux disease) [K21.9] 09/15/2019 Well controlled type 2 diabetes mellitus (HCC) *08/30/2022 Encounter Status:Closed by NANCIE PATEL on 01/21/25 [facility] 10-29-2024 Note HNO ID: [id number] Author: MINH ALEXANDRA APRN.CLASSIFICATION OFFICER Service: ? Author Type: Nurse Specialist Type: Progress Notes Filed: 10/29/2024 09:58 Note Text: Subjective ?Quick Links Last Note in Specialty Snapshot Edit RFV/CC Patient ID: Michael is a 79 year old male who presents for F/U 6 Month. HPI Recent Illness: - Recent episode of acute onset nausea, emesis, diarrhea, chills, and diaphoresis. - Symptoms began suddenly one evening, leading to emesis by 21:00 and persisting until 09:30 the following morning. - Reports nearly passing out three times during the episode. - Lost 8 lbs overnight. - experienced similar symptoms the following week. - Denies fever. - Took Pepto-Bismol with no relief. Diabetes Mellitus: - Taking metformin once daily. - Recent lab work showed a slight increase in hemoglobin A1c. - Has an eye doctor at [facility] and attends annual eye exams. Weight Management: - Attempting to reduce meal sizes to aid weight loss. - Current weight is stable; previously weighed around 200 lbs. - Goal weight is 185 lbs. - Reports hitting a plateau in weight loss efforts. GERD: - Reports that GERD is well-controlled. 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 Avoid pulling in long tables of results. Comment on relevant results to support your medical decision making. BP 130/74 Pulse 66 Resp 16 Wt 95 kg (209 lb 7 oz) BMI 29.84 kg/m? Physical Exam Vitals and nursing note reviewed. Constitutional: Appearance: Normal appearance. HENT: Head: Normocephalic and atraumatic. Eyes: Conjunctiva/sclera: Conjunctivae normal. Neck: Thyroid: No thyroid mass or thyromegaly. Vascular: Normal carotid pulses. No JVD. Cardiovascular: Rate and Rhythm: Normal rate and regular rhythm. Heart sounds: Normal heart sounds. Pulmonary: Effort: Pulmonary effort is normal. Breath sounds: Normal breath sounds. Abdominal: General: Bowel sounds are normal. Palpations: Abdomen is soft. Musculoskeletal: Right lower leg: No edema. Left lower leg: No edema. Skin: General: Skin is warm and dry. Neurological: General: No focal deficit present. Mental Status: He is alert and oriented to person, place, and time. Latest Ref Rng 10/14/2023 04/27/2024 10/05/2024 10/08/2024 WBC 3.70 - 11.00 k/uL 7.57 7.61 6.48 RBC 4.20 - 6.00 m/uL 5.03 4.89 4.89 Hemoglobin 13.0 - 17.0 g/dL 16.3 16.1 15.6 Hematocrit 39.0 - 51.0 % 47.8 47.4 47.0 MCV 80.0 - 100.0 fL 95.0 96.9 96.1 MCH 26.0 - 34.0 pg 32.4 32.9 31.9 MCHC 30.5 - 36.0 g/dL 34.1 34.0 33.2 RDW-CV 11.5 - 15.0 % 11.7 11.5 12.2 Platelet Count 150 - 400 k/uL 275 277 282 MPV 9.0 - 12.7 fL 9.3 9.7 9.3 Neut% % 58.0 Abs Neut (ANC) 1.45 - 7.50 k/uL 4.39 Lymph% % 23.8 Abs Lymph 1.00 - 4.00 k/uL 1.80 [place]% % 9.9 Abs [place] <0.87 k/uL 0.75 Eosin% % 7.4 Abs Eosin <0.46 k/uL 0.56 (H) Baso% % 0.8 Abs Baso <0.11 k/uL 0.06 Immature Gran % % 0.1 IMMATURE GRANS (ABS) <0.10 k/uL <0.03 NRBC /100 WBC 0.0 Absolute nRBC <0.01 k/uL <0.01 <0.01 <0.01 DTYPE Auto Protein, Total 6.3 - 8.0 g/dL 7.0 7.0 6.9 Albumin 3.9 - 4.9 g/dL 4.3 4.4 4.3 Calcium 8.5 - 10.2 mg/dL 9.8 10.0 10.0 Bilirubin, Total 0.2 - 1.3 mg/dL 0.5 0.6 0.3 Alkaline Phosphatase 38 - 113 U/L 76 71 99 AST 14 - 40 U/L 23 26 26 ALT 10 - 54 U/L 19 20 25 Glucose 74 - 99 mg/dL 136 (H) 142 (H) 137 (H) BUN 9 - 24 mg/dL 25 (H) 30 (H) 24 Creatinine 0.73 - 1.22 mg/dL 1.21 1.15 1.16 Sodium 136 - 144 mmol/L 141 139 141 Potassium 3.7 - 5.1 mmol/L 4.6 4.6 4.4 Chloride 98 - 107 mmol/L 104 103 104 CO2 22 - 30 mmol/L 26 23 27 Anion Gap 8 - 15 mmol/L 11 13 10 eGFR >=60 mL/min/1.73m? 62 66 65 Cholesterol, Total <200 mg/dL 149 162 145 Triglyceride <150 mg/dL 114 166 (H) 63 HDL Cholesterol >39 mg/dL 42 41 45 Non HDL Cholesterol <130 mg/dL 107 121 100 Fasting Time hrs 13 12 13 VLDL Cholesterol <30 mg/dL 23 33 (H) 13 TC:HDL Ratio <5.10 3.55 3.95 3.22 LDL Cholesterol <100 mg/dL 84 88 87 LDL:HDL Ratio <2.54 2.00 2.15 1.93 Creatinine, Ur Random (UCRR) 46.8 - 314.5 mg/dL 149.1 82.9 Albumin, Urine Random mg/L <12.0 <12.0 Albumin/Creat Ratio <30 mg/g <8 <14 Hemoglobin A1C 4.3 - 5.6 % 5.7 (H (more content not included)... [facility] 10-29-2024 History of Present illness Narrative Subjective ?Quick Links Last Note in Specialty Snapshot Edit RFV/CC Patient ID: Michael is a 79 year old male who presents for F/U 6 Month. HPI Recent Illness: - Recent episode of acute onset nausea, emesis, diarrhea, chills, and diaphoresis. - Symptoms began suddenly one evening, leading to emesis by 21:00 and persisting until 09:30 the following morning. - Reports nearly passing out three times during the episode. - Lost 8 lbs overnight. - experienced similar symptoms the following week. - Denies fever. - Took Pepto-Bismol with no relief. Diabetes Mellitus: - Taking metformin once daily. - Recent lab work showed a slight increase in hemoglobin A1c. - Has an eye doctor at [facility] and attends annual eye exams. Weight Management: - Attempting to reduce meal sizes to aid weight loss. - Current weight is stable; previously weighed around 200 lbs. - Goal weight is 185 lbs. - Reports hitting a plateau in weight loss efforts. GERD: - Reports that GERD is well-controlled. 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 Avoid pulling in long tables of results. Comment on relevant results to support your medical decision making. BP 130/74 Pulse 66 Resp 16 Wt 95 kg (209 lb 7 oz) BMI 29.84 kg/m Physical Exam Vitals and nursing note reviewed. Constitutional: Appearance: Normal appearance. HENT: Head: Normocephalic and atraumatic. Eyes: Conjunctiva/sclera: Conjunctivae normal. Neck: Thyroid: No thyroid mass or thyromegaly. Vascular: Normal carotid pulses. No JVD. Cardiovascular: Rate and Rhythm: Normal rate and regular rhythm. Heart sounds: Normal heart sounds. Pulmonary: Effort: Pulmonary effort is normal. Breath sounds: Normal breath sounds. Abdominal: General: Bowel sounds are normal. Palpations: Abdomen is soft. Musculoskeletal: Right lower leg: No edema. Left lower leg: No edema. Skin: General: Skin is warm and dry. Neurological: General: No focal deficit present. Mental Status: He is alert and oriented to person, place, and time. Latest Ref Rng 10/14/2023 04/27/2024 10/05/2024 10/08/2024 WBC 3.70 - 11.00 k/uL 7.57 7.61 6.48 RBC 4.20 - 6.00 m/uL 5.03 4.89 4.89 Hemoglobin 13.0 - 17.0 g/dL 16.3 16.1 15.6 Hematocrit 39.0 - 51.0 % 47.8 47.4 47.0 MCV 80.0 - 100.0 fL 95.0 96.9 96.1 MCH 26.0 - 34.0 pg 32.4 32.9 31.9 MCHC 30.5 - 36.0 g/dL 34.1 34.0 33.2 RDW-CV 11.5 - 15.0 % 11.7 11.5 12.2 Platelet Count 150 - 400 k/uL 275 277 282 MPV 9.0 - 12.7 fL 9.3 9.7 9.3 Neut% % 58.0 Abs Neut (ANC) 1.45 - 7.50 k/uL 4.39 Lymph% % 23.8 Abs Lymph 1.00 - 4.00 k/uL 1.80 [place]% % 9.9 Abs [place] <0.87 k/uL 0.75 Eosin% % 7.4 Abs Eosin <0.46 k/uL 0.56 (H) Baso% % 0.8 Abs Baso <0.11 k/uL 0.06 Immature Gran % % 0.1 IMMATURE GRANS (ABS) <0.10 k/uL <0.03 NRBC /100 WBC 0.0 Absolute nRBC <0.01 k/uL <0.01 <0.01 <0.01 DTYPE Auto Protein, Total 6.3 - 8.0 g/dL 7.0 7.0 6.9 Albumin 3.9 - 4.9 g/dL 4.3 4.4 4.3 Calcium 8.5 - 10.2 mg/dL 9.8 10.0 10.0 Bilirubin, Total 0.2 - 1.3 mg/dL 0.5 0.6 0.3 Alkaline Phosphatase 38 - 113 U/L 76 71 99 AST 14 - 40 U/L 23 26 26 ALT 10 - 54 U/L 19 20 25 Glucose 74 - 99 mg/dL 136 (H) 142 (H) 137 (H) BUN 9 - 24 mg/dL 25 (H) 30 (H) 24 Creatinine 0.73 - 1.22 mg/dL 1.21 1.15 1.16 Sodium 136 - 144 mmol/L 141 139 141 Potassium 3.7 - 5.1 mmol/L 4.6 4.6 4.4 Chloride 98 - 107 mmol/L 104 103 104 CO2 22 - 30 mmol/L 26 23 27 Anion Gap 8 - 15 mmol/L 11 13 10 eGFR >=60 mL/min/1.73m 62 66 65 Cholesterol, Total <200 mg/dL 149 162 145 Triglyceride <150 mg/dL 114 166 (H) 63 HDL Cholesterol >39 mg/dL 42 41 45 Non HDL Cholesterol <130 mg/dL 107 121 100 Fasting Time hrs 13 12 13 VLDL Cholesterol <30 mg/dL 23 33 (H) 13 TC:HDL Ratio <5.10 3.55 3.95 3.22 LDL Cholesterol <100 mg/dL 84 88 87 LDL:HDL Ratio <2.54 2.00 2.15 1.93 Creatinine, Ur Random (UCRR) 46.8 - 314.5 mg/dL 149.1 82.9 Albumin, Urine Random mg/L <12.0 <12.0 Albumin/Creat Ratio <30 mg/g <8 <14 Hemoglobin A1C 4.3 - 5.6 % 5.7 (H) 6.1 (H) 6.3 (H) Estimated Average Glucose mg/dL 117 128 134 Magnesium 1.7 - 2.3 mg/dL 2.0 2.0 Legend: (H) High Assessment & Plan Type 2 diabetes mellitus without complication, without long-term current use of insulin (HCC) ASSESSMENT/PLAN: 1. Type 2 diabetes mellitus without complication, without long-term current use of insulin (HCC) - ICD9: 250.00, ICD10: E11.9 (primary diagnosis) - Controlled - Increase metformin from once to twice daily - METFORMIN 500 MG TABLET - COMPLETE BLOOD COUNT AND DIFFERENTIAL - COMPREHENSIVE METABOLIC PANEL - LIPID PANEL, FASTING - HEMOGLOBIN A1C Essential hypertension Essential hypertension - ICD9: 401.9, ICD10: I10 controlled - Continue current medications - Encouraged sodium restriction, DASH or Mediterranean diet - Recommend regular aerobic exercise Encounter for immunization Encounter for immunization - ICD9: V03.89, ICD10: Z23 - RSV PRINTED PHARMACY INSTRUCTIONS Screening for diabetic retinopathy Screening for diabetic retinopathy - ICD9: V80.2, ICD10: Z13.5 - CONSULT TO OPHTHALMOLOGY- routine visits at outside coordinator of rehabilitation services Gastroesophageal reflux disease without esophagitis Gastroesophageal reflux disease without esophagitis - ICD9: 530.81, ICD10: K21.9 - Discussed lifestyle modifications including losing weight, limiting caffeine, no meals three hours before sleep, and head of bed elevation - Continue treatment unchanged Mixed hyperlipidemia Mixed hyperlipidemia - ICD9: 272.2, ICD10: E78.2 controlled - Continue current medications - Counseled on healthy diet and regular exercise OV Lora Martinez MD and labs 6 months Minh Alexandra APRN.CLASSIFICATION OFFICER Medical Decision Making: Problems: Moderate: 2+ stable chronic illnesses Data: Unique test result(s) reviewed: 3+ Unique test(s) ordered: 3+ Risk: Moderate: Drug management Medical Decision Making Level: 4 - Moderate documented in this encounter [facility] 06-13-2024 Telephone encounter Note Pt called and is notified of providers message and instructions. Pt voices understanding. Vandana Taylor RN [facility] 06-13-2024 Miscellaneous Notes Pt called and is notified of providers message and instructions. Pt voices understanding. Vandana Taylor RN If he is feeling improved and wants to resume metformin to see if he is tolerating it may do so. If any problems / recurrence then recommend discontinuing it again and letting us know. Patient reports he was having abdominal issues a couple weeks ago and was evaluated by MARGARETTE Bello on 05/24/24. Patient was advised then, to continue on with pantoprazole twice daily and stay off metformin for another week.. Patient reports he has improved and is better. Asking if he should resume the metformin? Please advise patient. Thank you. documented in this encounter [facility] 06-13-2024 Telephone encounter Note If he is feeling improved and wants to resume metformin to see if he is tolerating it may do so. If any problems / recurrence then recommend discontinuing it again and letting us know. [facility] 06-12-2024 Telephone encounter Note Patient reports he was having abdominal issues a couple weeks ago and was evaluated by MARGARETTE Bello on 05/24/24. Patient was advised then, to continue on with pantoprazole twice daily and stay off metformin for another week.. Patient reports he has improved and is better. Asking if he should resume the metformin? Please advise patient. Thank you. [facility] 05-28-2024 Telephone encounter Note Telephone call with Michael to review results. CT without concerning findings.Notes symptoms about the same. Continue on with pantoprazole twice daily and stay off metformin for another week. If not noting improvement consider dicyclomine or recheck in office. [facility] 05-28-2024 Miscellaneous Notes Telephone call with Michael to review results. CT without concerning findings.Notes symptoms about the same. Continue on with pantoprazole twice daily and stay off metformin for another week. If not noting improvement consider dicyclomine or recheck in office. documented in this encounter [facility] 05-28-2024 Miscellaneous Notes 4.5 cm right renal cyst, no calculus or hydronephrosis. GI tract shows no evidence of obstruction, moderate diverticulosis without evidence of acute diverticulitis. Small fat-containing right inguinal hernia documented in this encounter [facility] 05-28-2024 Progress note Formatting of t his note might be different from the original. 4.5 cm right renal cyst, no calculus or hydronephrosis. GI tract shows no evidence of obstruction, moderate diverticulosis without evidence of acute diverticulitis. Small fat-containing right inguinal hernia [facility] 05-24-2024 Instructions Minh Alexandra APRN.CNS - 05/24/2024 3:11 PM EDT Increase your Protonix to twice daily to see if this helps with symptoms Stop taking you metformin for now to see if this helps. Stick with a mostly liquid diet for the next day or so. Broth, soup,mashed potatoes yogurt to see if this helps with abdominal pain. Drink sufficient fluids, aim for 64 ounces per day Drink at least 8 ounces of Pedialyte, broth or Gatorade daily until feeling improved. Eat a mild diet as tolerated, try smaller meals while feeling ill. Try eating saltine crackers, broth soups, starches/cereals (potatoes, noodles, rice, wheat, and oat) with some salt are excellent foods to consider. In addition, crackers, bananas, yogurt, soups, and boiled vegetables are also good choices Let us know if not feeling improved. Go to ER for any severe concerning symptoms. documented in this encounter [facility] 05-24-2024 History of Present illness Narrative SUBJECTIVE: RSV Vaccine(1 - 1-dose 75+ series) Never done Dilated Retinal Exam due on 11/30/2023 BP Controlled (<130/80) due on 11/30/2023 HPI Fredrick Mao is a 79 year old male. PMH significant for ACTIVE PROBLEM LIST Essential Hypertension Mixed Hyperlipidemia Impaired Fasting Glucose Lateral Epicondylitis of Left Elbow Esophagitis, Unspecified Neck Pain Intracranial Meningioma (Hcc) Obesity, Class I, Bmi 30-34.9 Lprd (Laryngopharyngeal Reflux Disease) Well Controlled Type 2 Diabetes Mellitus (Hcc) Returns to clinic today for recheck. Seen by PCP April 30, 2024. Recommended dietary changes and Gas-X or simethicone up to 4 times daily if gas is bothersome. Continued on Protonix. He contacted the office on May 15, 2024 noting continued abdominal pain. Noted pain more consistent, mostly in the morning. Today reports daily left lower quadrant abdominal pain. Notes worse with lying on his side. Constant now with a dull ache all the time, sharp with pressing on it, otherwise dull, moderate severity. Radiates to lower back. Not alleviated by anything. Heartburn: no but burp-like sensation that he feels in epigastric area, not improved with burping Reflux: no Abdominal pain: LLQ, radiates to low back on left side, no CVA tenderness Nausea: no Vomiting: no Diarrhea: no Constipation: no BRBPR: no Black tarry: no but darker than normal, not taking iron No change in bowel habits, QD-QOD. No remedies Tums, Pepto bismol, amirah selzer, simethicone none are helpful Colonoscopy completed August 16, 2022 showed nonbleeding internal hemorrhoids diverticulosis in the sigmoid colon. Patient's last HgA1C was Hemoglobin A1C (%) Date Value 04/27/2024 6.1 10/14/2023 5.7 08/04/2021 6.3 08/11/2020 5.7 ) Review of Systems Constitutional: Negative. Gastrointestinal: Positive for abdominal pain. Objective BP 147/77 Pulse 65 Resp 16 Wt 94.6 kg (208 lb 8.9 oz) BMI 29.71 kg/m Physical Exam Vitals and nursing note reviewed. Constitutional: Appearance: Normal appearance. HENT: Head: Normocephalic and atraumatic. Eyes: Conjunctiva/sclera: Conjunctivae normal. Cardiovascular: Rate and Rhythm: Normal rate and regular rhythm. Heart sounds: Normal heart sounds. Pulmonary: Effort: Pulmonary effort is normal. Breath sounds: Normal breath sounds. Abdominal: General: Bowel sounds are normal. There is no distension. Palpations: Abdomen is soft. There is no mass. Tenderness: There is abdominal tenderness. There is no guarding or rebound. Musculoskeletal: Lumbar back: Tenderness present. Right lower leg: No edema. Left lower leg: No edema. Feet: Right foot: Protective Sensation: 10 sites tested. 10 sites sensed. Left foot: Protective Sensation: 10 sites tested. 10 sites sensed. Skin: General: Skin is warm and dry. Neurological: General: No focal deficit present. Mental Status: He is alert and oriented to person, place, and time. ALLERGIES Allergen Reactions Amoxicillin Rash Ampicillin Lisinopril Cough Persistent cough--patient requested med be stopped and switched to something else for BP Medications losartan (COZAAR) 50 mg tablet Take 1 tablet by mouth once daily. lovastatin 40 mg tablet Take 1 tablet by mouth daily at bedtime. metFORMIN (GLUCOPHAGE) 500 mg tablet Take 1 tablet by mouth daily with breakfast. For blood sugar/diabetes. Do not take if not eating mometasone (ELOCON) 0.1 % cream Apply 1 application to affected area once daily as needed. To affected skin in scalp as directed. ibuprofen (MOTRIN) 200 mg tablet Take 600 mg by mouth every 6 hours as needed for Pain. Cholecalciferol, Vitamin D3, 1,000 unit cap Take 1 capsule by mouth once daily. OMEGA-3 FATTY ACIDS CAP Fish oil capsule once daily DAILY MULTIVITAMIN TAB Take one(1) tablet daily. pantoprazole DR (PROTONIX) 40 mg tablet Take 1 tablet by mouth once daily. enteric contrast (will be provided with radiology test) Take 1 Each by mouth one time only for [address] ABD/PEL WO Routine order Administer, As Directed One Time Only, via Oral, Rectal, both Oral and Rectal, Enteric Tube, Stoma or Indwelling Catheter, Enteric Contrast as designated per enteric contrast guidelines Ciclopirox (CICLODAN) 8 % solution Apply to affected area daily at bedtime. Apply to affected fingernail(s) and/or toenail(s) and adjacent skin once daily in combination with weekly nail trimming and periodic nail debridement. Remove with alcohol every 7 days.Do for up to 48 weeks aluminum chloride (DRYSOL) 20 % external solution Apply to affected area daily at bedtime. 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 Left lower quadrant abdominal pain - ICD9: 789.04, ICD10: R10.32 (primary diagnosis) Differential Diagnosis includes Diverticulitis or medication effect of metformin-7% with abdominal pain as adverse effect per Uptodate. - Labs of CBC with Diff, CMP, and Urinanalysis - Work up with CT Abdomen - CT ABD/PEL WO IVCON - COMPREHENSIVE METABOLIC PANEL - COMPLETE BLOOD COUNT AND DIFFERENTIAL - URINALYSIS, REFLEX MICROSCOPIC 2. Gastroesophageal reflux disease without esophagitis - ICD9: 530.81, ICD10: K21.9 - PANTOPRAZOLE 40 MG TABLET,DELAYED RELEASE - COMPREHENSIVE METABOLIC PANEL - COMPLETE BLOOD COUNT AND DIFFERENTIAL - URINALYSIS, REFLEX MICROSCOPIC Increase your Protonix to twice daily to see if this helps with symptoms Stop taking you metformin for now to see if this helps. Stick with a mostly liquid diet for the next day or so. Broth, soup,mashed potatoes yogurt to see if this helps with abdominal pain. Drink sufficient fluids, aim for 64 ounces per day Drink at least 8 ounces of Pedialyte, broth or Gatorade daily until feeling improved. Eat a mild diet as tolerated, try smaller meals while feeling ill. Try eating saltine crackers, broth soups, starches/cereals (potatoes, noodles, rice, wheat, and oat) with some salt are excellent foods to consider. In addition, crackers, bananas, yogurt, soups, and boiled vegetables are also good choices Let us know if not feeling improved. Go to ER for any severe concerning symptoms. Minh Alexandra APRN.MARGARETTE Declines follow up visit at this time. If blood pressure is not sufficient recommend CBC CMP urinalysis. Can refer to gastroenterology if needed. Minh Alexandra APRN.CNS Medical Decision Making: Problems: Moderate: New problem with uncertain prognosis Data: Unique test(s) ordered: 1 Risk: Moderate: Drug management Medical Decision Making Level: 4 - Moderate documented in this encounter [facility] 05-24-2024 Telephone encounter Note Patient reports left lower quad ache since last night. Pain becomes sharp if in bed and rolls on left side. The ache has been constant since yesterday afternoon. Protocol recommends see provider in 4 hours. 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 Unable to come to appt until 2:20 pm. Scheduled same day appt. Advised patient to ER if condition worsens, or call 911 if becomes severe. Patient agreeable. Reason for Disposition [1] MILD-MODERATE pain AND [2] constant AND [3] age > 60 years Answer Assessment - Initial Assessment Questions 1. LOCATION: Left lower abdomen. 2. RADIATION: Radiates into lower back 3. ONSET: Yesterday afternoon. 4. SUDDEN: Started gradual, at times gets bad. Having trouble sleeping, when rolls on left side it wakes him up. 5. PATTERN Constant low level of pain, worst pain comes and goes. 6. SEVERITY: Moderate 7. RECURRENT SYMPTOM: Never had before. 8. CAUSE: Doesn't know. Dad years ago from bursted intestine, and mother stomach cancer. 9. RELIEVING/AGGRAVATING FACTORS: Taking advil for neck pain- hasn't helped for this. Taking Doans pills for back pain and doesn't help with this pain. Tried Xstrength antacids (pill)- doesn't help. 10. OTHER SYMPTOMS: Lower back pain. No diarrhea. No fever. 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 No nausea or vomiting. Pain is an ache becomes sharp if in bed and rolls on his left side. No bloating or swelling. BM passing ok. Protocols used: Abdominal Pain - [id number] 05-24-2024 Miscellaneous Notes Patient reports left lower quad ache since last night. Pain becomes sharp if in bed and rolls on left side. The ache has been constant since yesterday afternoon. Protocol recommends see provider in 4 hours. 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 Unable to come to appt until 2:20 pm. Scheduled same day appt. Advised patient to ER if condition worsens, or call 911 if becomes severe. Patient agreeable. Reason for Disposition [1] MILD-MODERATE pain AND [2] constant AND [3] age > 60 years Answer Assessment - Initial Assessment Questions 1. LOCATION: Left lower abdomen. 2. RADIATION: Radiates into lower back 3. ONSET: Yesterday afternoon. 4. SUDDEN: Started gradual, at times gets bad. Having trouble sleeping, when rolls on left side it wakes him up. 5. PATTERN Constant low level of pain, worst pain comes and goes. 6. SEVERITY: Moderate 7. RECURRENT SYMPTOM: Never had before. 8. CAUSE: Doesn't know. Dad years ago from bursted intestine, and mother stomach cancer. 9. RELIEVING/AGGRAVATING FACTORS: Taking advil for neck pain- hasn't helped for this. Taking Doans pills for back pain and doesn't help with this pain. Tried Xstrength antacids (pill)- doesn't help. 10. OTHER SYMPTOMS: Lower back pain. No diarrhea. No fever. 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 No nausea or vomiting. Pain is an ache becomes sharp if in bed and rolls on his left side. No bloating or swelling. BM passing ok. Protocols used: Abdominal Pain - [id number] documented in this encounter [facility] 05-16-2024 Telephone encounter Note Patient notified of providers message and verbalized understanding. Patient states has been taking Pepto and some other over the counter medications. States it states it doesn't happen all the time but difficult sleeping at night due to pain on L side. Patient made an appointment with Minh PFEIFFER for next Monday [facility] 05-16-2024 Miscellaneous Notes Patient notified of providers message and verbalized understanding. Patient states has been taking Pepto and some other over the counter medications. States it states it doesn't happen all the time but difficult sleeping at night due to pain on L side. Patient made an appointment with Minh PFEIFFER for next Monday He was seen by PCP April 30 and recommended making some dietary changes and adding simethicone 4 times daily as needed. If not currently doing this would recommend. Plan to see him in office if needed. C/O LL ABDOMINAL PAIN DURATION OF SYMPTOMS: FOR 2-3 wks. Dull pain comes & goes, mostly in the morning. LOCATION: LLQ ONSET:2-3 wks ago, becoming more consistent FEVER: No NAUSEA: No VOMITING: No GAS: Yes CHANGE IN BOWEL: No CHANGE IN BLADDER No L.M.P.: NA LIGHTHEADED:No BLOATING: No CHANGE IN DIET: No Pt rates pain a 4 on 0-10 pain scale with pain increasing to 8 when he pushes on his stomach. Appt offered but pt wanted pcp to review message first. Renetta Malone LPN documented in this encounter [facility] 05-16-2024 Telephone encounter Note He was seen by PCP April 30 and recommended making some dietary changes and adding simethicone 4 times daily as needed. If not currently doing this would recommend. Plan to see him in office if needed. [facility] 05-15-2024 Telephone encounter Note C/O LL ABDOMINAL PAIN DURATION OF SYMPTOMS: FOR 2-3 wks. Dull pain comes & goes, mostly in the morning. LOCATION: LLQ ONSET:2-3 wks ago, becoming more consistent FEVER: No NAUSEA: No VOMITING: No GAS: Yes CHANGE IN BOWEL: No CHANGE IN BLADDER No L.M.P.: NA LIGHTHEADED:No BLOATING: No CHANGE IN DIET: No Pt rates pain a 4 on 0-10 pain scale with pain increasing to 8 when he pushes on his stomach. Appt offered but pt wanted pcp to review message first. Renetta Malone LPN [facility] 04-30-2024 Instructions Lora Martinez MD - 04/30/2024 10:35 AM EDT -Drink a glass or two of water about an hour before your next lab tests to ensure accurate results. - Continue to maintain a healthy lifestyle, including a balanced diet and regular exercise. - Check your feet daily for any cuts, bruises, or changes, and report any concerns to your healthcare provider. - Schedule an eye exam with Dr. Gomes to monitor for any diabetic changes. - Consider using Gas-X or simethicone up to four times a day if gas becomes bothersome. - Flu vaccine has been ordered and will be administered today. - Your next appointment is scheduled for October 29. documented in this encounter [facility] 04-30-2024 History of Present illness Narrative This note was created using [email or web address]. Subjective Fredrick Mao is a 79 year old male. No chief complaint on file. SUBJECTIVE: Fredrick Mao is a 79 year old year old gentleman here today for 6 month follow up appointment for review of medical conditions. The patient is a 79-year-old male with a history of prediabetes, hyperlipidemia, GERD, and HTN, presenting for a 6-month follow-up visit. The patient completed fasting labs prior to today's visit. He reports drinking water prior to the labs. He denies any changes in diet or exercise routine. 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 He denies regular exercise but mentions that he tries to stay active on his days off. He reports experiencing increased flatulence over the past 6-8 months, without any significant changes in diet. He denies constipation, abdominal pain, or changes in bowel habits. He also denies any known food triggers for the gas. He reports occasional burping, particularly when driving the van. He denies any increase in caffeine intake, noting that he only drinks coffee on Monday mornings. He reports numbness in his feet and has been seen by a collections attorney in the past. He also reports thickened toenails, which have been treated with oral medication in the past. He denies any current foot pain but notes that one of his toenails is painful when pressure is applied. He denies any issues with his toenails. He is currently taking losartan, lovastatin, metformin, Protonix, a multivitamin, and vitamin D 1,000 units daily. He reports that his medications are managing his conditions well, including his reflux. He denies any side effects from his medications. He has not yet received his flu shot for the season and is considering whether to get the COVID-19 vaccine. He has had COVID-19 in the past and did not experience severe symptoms. He has not had an eye exam this year but plans to schedule one with Dr. Gomes. He has completed his advance directives and has a living will. Will check on [employer]. LW copies made today and will scan into [employer] & other things you bake. is surrogate decision maker Plans to follow up with Dr. Gomes . 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 To affected skin in scalp as directed. lovastatin 40 mg tablet Take 1 tablet by mouth daily at bedtime. metFORMIN (GLUCOPHAGE) 500 mg tablet Take 1 tablet by mouth daily with breakfast. For blood sugar/diabetes. Do not take if not eating pantoprazole DR (PROTONIX) 40 mg tablet Take 1 tablet by mouth once daily. losartan (COZAAR) 50 mg tablet Take 1 tablet by mouth once daily. aluminum chloride (DRYSOL) 20 % external solution Apply to affected area daily at bedtime. ibuprofen (MOTRIN) 200 mg tablet Take 600 mg by mouth every 6 hours as needed for Pain. Cholecalciferol, Vitamin D3, 1,000 unit cap Take 1 capsule by mouth once daily. OMEGA-3 FATTY ACIDS CAP Fish oil capsule once daily DAILY MULTIVITAMIN TAB Take one(1) tablet daily. No current facility-administered medications for this visit. Review of Systems Objective BP 120/74 Pulse 61 Temp 36.4 C (97.6 F) Resp 16 Wt 94.3 kg (207 lb 14.3 oz) SpO2 96% BMI 29.62 kg/m Physical Exam Vitals reviewed. Constitutional: Appearance: Normal appearance. Eyes: Conjunctiva/sclera: Conjunctivae normal. Cardiovascular: Rate and Rhythm: Normal rate and regular rhythm. Pulses: Dorsalis pedis pulses are 2+ on the right side and 2+ on the left side. Posterior tibial pulses are 2+ on the right side and 2+ on the left side. Heart sounds: Normal heart sounds. Pulmonary: Effort: Pulmonary effort is normal. Breath sounds: Normal breath sounds. Musculoskeletal: Right lower leg: No edema. Left lower leg: No edema. Right foot: No deformity, bunion, Charcot foot, foot drop or prominent metatarsal heads. Left foot: No deformity, bunion, Charcot foot, foot drop or prominent metatarsal heads. Feet: Right foot: Protective Sensation: 10 sites tested. 10 sites sensed. Skin integrity: Skin integrity normal. Toenail Condition: Right toenails are abnormally thick. Left foot: Protective Sensation: 10 sites tested. 10 sites sensed. Skin integrity: Skin integrity normal. Toenail Condition: Left toenails are abnormally thick. Comments: Feet:Shoes and socks removed, normal distal pulses, and not sensitive to monofilament except right lateral ball of foot. Thickened great toenails. Great toenails with thickening and discoloration consistent with fungal disease; other nails normal Skin: General: Skin is warm and dry. Neurological: General: No focal deficit present. Mental Status: He is alert and oriented to person, place, and time. Psychiatric: Mood and Affect: Mood normal. Speech: Speech normal. Behavior: Behavior normal. Thought Content: Thought content normal. Judgment: Judgment normal. Feet:Shoes and socks removed, normal distal pulses, and not sensitive to monofilament except right lateral ball of foot. Thickened great toenails. Latest Ref Rng 04/11/2023 10/14/2023 04/27/2024 WBC 3.70 - 11.00 k/uL 7.57 7.61 RBC 4.20 - 6.00 m/uL 5.03 4.89 Hemoglobin 13.0 - 17.0 g/dL 16.3 16.1 Hematocrit 39.0 - 51.0 % 47.8 47.4 MCV 80.0 - 100.0 fL 95.0 96.9 MCH 26.0 - 34.0 pg 32.4 32.9 MCHC 30.5 - 36.0 g/dL 34.1 34.0 RDW-CV 11.5 - 15.0 % 11.7 11.5 Platelet Count 150 - 400 k/uL 275 277 MPV 9.0 - 12.7 fL 9.3 9.7 Neut% % 58.0 Abs Neut (ANC) 1.45 - 7.50 k/uL 4.39 Lymph% % 23.8 Abs Lymph 1.00 - 4.00 k/uL 1.80 [place]% % 9.9 Abs [place] <0.87 k/uL 0.75 Eosin% % 7.4 Abs Eosin <0.46 k/uL 0.56 (H) Baso% % 0.8 Abs Baso <0.11 k/uL 0.06 Immature Gran % % 0.1 IMMATURE GRANS (ABS) <0.10 k/uL <0.03 NRBC /100 WBC 0.0 Absolute nRBC <0.01 k/uL <0.01 <0.01 DTYPE Auto Protein, Total 6.3 - 8.0 g/dL 7.0 7.0 Albumin 3.9 - 4.9 g/dL 4.3 4.4 Calcium 8.5 - 10.2 mg/dL 9.8 10.0 Bilirubin, Total 0.2 - 1.3 mg/dL 0.5 0.6 Alkaline Phosphatase 38 - 113 U/L 76 71 AST 14 - 40 U/L 23 26 ALT 10 - 54 U/L 19 20 Glucose 74 - 99 mg/dL 136 (H) 142 (H) BUN 9 - 24 mg/dL 25 (H) 30 (H) Creatinine 0.73 - 1.22 mg/dL 1.21 1.15 Sodium 136 - 144 mmol/L 141 139 Potassium 3.7 - 5.1 mmol/L 4.6 4.6 Chloride 98 - 107 mmol/L 104 103 CO2 22 - 30 mmol/L 26 23 Anion Gap 8 - 15 mmol/L 11 13 eGFR >=60 mL/min/1.73m 62 66 Cholesterol, Total <200 mg/dL 149 162 Triglyceride <150 mg/dL 114 166 (H) HDL Cholesterol >39 mg/dL 42 41 Non HDL Cholesterol <130 mg/dL 107 121 Fasting Time hrs 13 12 VLDL Cholesterol <30 mg/dL 23 33 (H) TC:HDL Ratio <5.10 3.55 3.95 LDL Cholesterol <100 mg/dL 84 88 LDL:HDL Ratio <2.54 2.00 2.15 Creatinine, Ur Random (UCRR) 20.0 - 300.0 mg/dL 134.8 149.1 Albumin, Urine Random mg/L <12.0 <12.0 Albumin/Creat Ratio <30 mg/g <9 <8 Hemoglobin A1C 4.3 - 5.6 % 5.7 (H) 5.7 (H) 6.1 (H) Estimated Average Glucose mg/dL 117 117 128 Magnesium 1.7 - 2.3 mg/dL 2.0 Legend: (H) High Hemoglobin A1C (%) Date Value 04/27/2024 6.1 10/14/2023 5.7 04/11/2023 5.7 11/24/2022 6.0 08/23/2022 7.9 08/04/2021 6.3 08/11/2020 5.7 04/30/2019 6.1 10/24/2018 6.2 10/24/2017 5.9 Assessment and Plan # Type 2 diabetes mellitus without complication, without long-term current use of insulin (HCC) (E11.9) - Recent labs show A1C at 6.1%, indicating well-controlled diabetes. - Continue current medication regimen: Metformin. - Encouraged regular exercise and maintaining a healthy diet. - Scheduled follow-up appointment on October 29. # Gastroesophageal reflux disease without esophagitis (K21.9) - Well-controlled with current medication: Protonix. - Refilled Protonix prescription. # Mixed hyperlipidemia (E78.2) - Recent labs show LDL at 88 mg/dL, HDL in the 40s, and triglycerides at 160 mg/dL. - Continue current medication regimen: Lovastatin. - Refilled Lovastatin prescription. # Flatulence (R14.3) - Discussed potential dietary causes and normal aging-related changes in digestion. - Recommended Simethicone (Gas-X) 125 mg up to four times daily as needed. - Advised monitoring for any red flag symptoms such as severe pain, unexplained weight loss, or changes in stool. # Encounter for immunization (Z23) - Administered flu shot. # Screening for depression (Z13.31) - Completed depression screening; all responses negative. # Encounter for screening examination for other mental health and behavioral disorders (Z13.39) - Discussed and confirmed advanced directives and living will. - Recommended annual eye exam with Dr. Gomes to monitor for diabetic retinopathy. - Performed diabetic foot exam; noted decreased sensation indicating possible neuropathy. - Prescribed Ciclopirox nail lacquer for onychomycosis, to be applied daily for up to 48 weeks. Lora Martinez MD documented in this encounter [facility] 12-07-2023 Telephone encounter Note Called patient and schedule appt in Apr with Dr. Martinez and Minh Alexandra in October 2024 [facility] 12-07-2023 Miscellaneous Notes Called patient and schedule appt in Sept with Dr. Martinez and Minh Alexandra in October 2024 Images from the original note were not included. L[facility] By[facility] Needs follow ups scheduled still (Alternate Minh and me). Looks like was also to have a yearly scheduled with Dr. Hartley in rad/onc. Please assist patient in scheduling appointment as indicated above by provider. Per AVS it seems two 6 month follow ups need scheduled, one with LDT around 04/25 and another with Margarita Alexandra around 10/23/24. Thank you. NORMA Ni documented in this encounter [facility] 12-07-2023 Telephone encounter Note Images from the original note were not included. Lora Martinez MD P [facility] Needs follow ups scheduled still (Alternate Minh and me). Looks like was also to have a yearly scheduled with Dr. Hartley in rad/onc. Please assist patient in scheduling appointment as indicated above by provider. Per AVS it seems two 6 month follow ups need scheduled, one with LDT around 04/25 and another with Margarita Alexandra around 10/23/24. Thank you. NORMA Ni [facility] 10-24-2023 History of Present illness Narrative This note was created using [email or web address]. Subjective Fredrcik Mao is a 78 year old male. Patient presents with: F/U 6 months SUBJECTIVE: Fredrick Mao is a 78 year old year old gentleman here today for 6 month follow up appointment for review of medical conditions. Overall doing well. Stable on current meds and management. Reviewed diagnosis of DM. Doing fine on metformin; also on statin and ARB. Blood pressure controlled without adverse effects from medications. Noted meningioma has been managed by Dr. Hartley. Last MRI showed decrease in size. Was to schedule 1 year follow up. 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 losartan (COZAAR) 50 mg tablet Take 1 tablet by mouth once daily. metFORMIN (GLUCOPHAGE) 500 mg tablet Take 1 tablet by mouth daily with breakfast. For blood sugar/diabetes. Do not take if not eating lovastatin 40 mg tablet Take 1 tablet by mouth daily at bedtime. mometasone (ELOCON) 0.1 % cream Apply 1 application to affected area once daily as needed. To affected skin in scalp as directed. ibuprofen (MOTRIN) 200 mg tablet Take 600 mg by mouth every 6 hours as needed for Pain. Cholecalciferol, Vitamin D3, 1,000 unit cap Take 1 capsule by mouth once daily. OMEGA-3 FATTY ACIDS CAP Fish oil capsule once daily DAILY MULTIVITAMIN TAB Take one(1) tablet daily. aluminum chloride (DRYSOL) 20 % external solution Apply to affected area daily at bedtime. No current facility-administered medications for this visit. Review of Systems Objective BP 110/68 (BP Site: Left Arm, BP Position: Sitting, BP Cuff Size: Large Adult) Pulse 68 Resp 16 Wt 92.1 kg (203 lb) BMI 28.92 kg/m Last 5 Encounter Wt Readings: Date: Wt: 10/24/2023 92.1 kg (203 lb) 04/18/2023 88 kg (194 lb) 11/29/2022 91.6 kg (202 lb) 09/01/2022 99.3 kg (219 lb) 08/30/2022 100.7 kg (222 lb) No waist measurement recorded Estimated body mass index is 28.92 kg/m as calculated from the following: Height as of 08/30/22: 178.4 cm (5' 10.25). Weight as of this encounter: 92.1 kg (203 lb). Last 5 Encounter BP Readings: Date: BP: 10/24/2023 110/68 04/18/2023 108/66 11/29/2022 132/72 09/01/2022 145/84[BP was WNL at PCP visit 08/30/22[ 08/30/2022 137/74 Physical Exam Vitals reviewed. Constitutional: Appearance: Normal appearance. Eyes: Conjunctiva/sclera: Conjunctivae normal. Cardiovascular: Rate and Rhythm: Normal rate and regular rhythm. Heart sounds: Normal heart sounds. Pulmonary: Effort: Pulmonary effort is normal. Breath sounds: Normal breath sounds. Musculoskeletal: Right lower leg: No edema. Left lower leg: No edema. Skin: General: Skin is warm and dry. Neurological: General: No focal deficit present. Mental Status: He is alert and oriented to person, place, and time. Psychiatric: Attention and Perception: Attention and perception normal. Mood and Affect: Mood and affect normal. Speech: Speech normal. Behavior: Behavior normal. Thought Content: Thought content normal. Cognition and Memory: Cognition normal. Judgment: Judgment normal. Latest Ref Rng 08/04/2021 08/23/2022 11/24/2022 04/11/2023 10/14/2023 WBC 3.70 - 11.00 k/uL 7.57 RBC 4.20 - 6.00 m/uL 5.03 Hemoglobin 13.0 - 17.0 g/dL 16.3 Hematocrit 39.0 - 51.0 % 47.8 MCV 80.0 - 100.0 fL 95.0 MCH 26.0 - 34.0 pg 32.4 MCHC 30.5 - 36.0 g/dL 34.1 RDW-CV 11.5 - 15.0 % 11.7 Platelet Count 150 - 400 k/uL 275 MPV 9.0 - 12.7 fL 9.3 Neut% % 58.0 Abs Neut (ANC) 1.45 - 7.50 k/uL 4.39 Lymph% % 23.8 Abs Lymph 1.00 - 4.00 k/uL 1.80 [place]% % 9.9 Abs [place] <0.87 k/uL 0.75 Eosin% % 7.4 Abs Eosin <0.46 k/uL 0.56 (H) Baso% % 0.8 Abs Baso <0.11 k/uL 0.06 Immature Gran % % 0.1 IMMATURE GRANS (ABS) <0.10 k/uL <0.03 NRBC /100 WBC 0.0 Absolute nRBC <0.01 k/uL <0.01 DTYPE Auto Protein, Total 6.3 - 8.0 g/dL 7.1 7.0 Albumin 3.9 - 4.9 g/dL 4.3 4.3 Calcium 8.5 - 10.2 mg/dL 10.1 10.0 9.8 Bilirubin, Total 0.2 - 1.3 mg/dL 0.6 0.5 Alkaline Phosphatase 38 - 113 U/L 96 76 AST 14 - 40 U/L 42 (H) 23 ALT 10 - 54 U/L 63 (H) 19 Glucose 74 - 99 mg/dL 126 (H) 190 (H) 136 (H) BUN 9 - 24 mg/dL 21 23 25 (H) Creatinine 0.73 - 1.22 mg/dL 1.12 1.12 1.21 Sodium 136 - 144 mmol/L 140 136 141 Potassium 3.7 - 5.1 mmol/L 3.9 4.4 4.6 Chloride 97 - 105 mmol/L 102 100 104 CO2 22 - 30 mmol/L 28 26 26 Anion Gap 9 - 18 mmol/L 10 10 11 eGFR >=60 mL/min/1.73m 69 62 eGFR- >60 eGFR-All Other Races . >60 Cholesterol, Total <200 mg/dL 166 176 149 Triglyceride <150 mg/dL 77 162 (H) 114 HDL Cholesterol >39 mg/dL 47 47 42 LDL Cholesterol <100 mg/dL 104 (H) 97 84 Non HDL Cholesterol <130 mg/dL 119 129 107 Fasting Time hrs 12 16 13 VLDL Cholesterol <30 mg/dL 15 32 (H) 23 TC:HDL Ratio <5.10 3.53 3.74 3.55 LDL:HDL Ratio <2.54 2.21 2.06 2.00 Creatinine, Ur Random (UCRR) 20.0 - 300.0 mg/dL 134.8 149.1 Albumin, Urine Random mg/L <12.0 <12.0 Albumin/Creat Ratio <30 mg/g <9 <8 Hemoglobin A1C 4.3 - 5.6 % 6.3 (H) 7.9 (H) 6.0 (H) 5.7 (H) 5.7 (H) Estimated Average Glucose mg/dL 134 180 126 117 117 Magnesium 1.7 - 2.3 mg/dL 1.9 Legend: (H) High Assessment and Plan Encounter Diagnosis ICD-10-CM 1. Type 2 diabetes mellitus without complication, without long-term current use of insulin (HCC) E11.9 metFORMIN (GLUCOPHAGE) 500 mg tablet Well controlled. Continue present management 2. Seborrheic dermatitis of scalp L21.9 mometasone (ELOCON) 0.1 % cream Continue present management. 3. Mixed hyperlipidemia E78.2 lovastatin 40 mg tablet Lipids to goals. Continue statin 4. Intracranial meningioma (HCC) D32.0 No noted symptoms. Noted messages that was to have yearly follow up 5. Encounter for immunization Z23 [employer] Above issues addressed with patient. Patient involved in shared decision making for management of medical issues. History and medications reviewed. Epic updated as needed Refills and/or prescriptions taken care of and meds adjusted as indicated after reviewed history, exam and labs. Health Maintenance reviewed. Updated record and/or ordered tests as recorded. Encouraged on efforts at healthy diet and regular exercise and adequate sleep. Lora Martinez MD documented in this encounter [facility] 04-18-2023 History of Present illness Narrative SUBJECTIVE: COVID-19 VACCINE(6 - Moderna series) due on 10/03/2022 INFLUENZA(1) due on 04/14/2023 HPI Fredrick Mao is a 78 year old male. PMH significant for ACTIVE PROBLEM LIST Essential Hypertension Mixed Hyperlipidemia Impaired Fasting Glucose Lateral Epicondylitis of Left Elbow Esophagitis, Unspecified Neck Pain Intracranial Meningioma (Hcc) Obesity, Class I, Bmi 30-34.9 Lprd (Laryngopharyngeal Reflux Disease) Well Controlled Type 2 Diabetes Mellitus (Hcc) Returns to clinic today for recheck of DM. Doing well on metformin. Feels it is helping with weight loss. Notes he has changed his diet and avoiding dietary indiscretions. Remains active. Has lost 8 lbs since last here, 25 lbs since August 2022.. He notes no problems with medication. Taking consistently. Without report of excessive thirst or increased frequency of urination, chest pain or dyspnea , numbness, tingling or pain in extremities, new or unusual visual symptoms, low sugar/hypoglycemic reactions, lightheadedness/dizziness, and bowel changes/loose stools. Patient's last HgA1C was Hemoglobin A1C (%) Date Value 04/11/2023 5.7 11/24/2022 6.0 08/04/2021 6.3 08/11/2020 5.7 ) Ophthalmology: Mireya October 2022 Last 14 Encounter BP Readings: Date: BP: 04/18/2023 108/66 11/29/2022 132/72 09/01/2022 145/84[BP was WNL at PCP visit 08/30/22[ 08/30/2022 137/74 08/16/2022 136/80 05/31/2022 148/84 08/18/2021 120/70 03/12/2021 137/76 08/18/2020 130/80 12/06/2019 128/74 09/12/2019 113/65 09/02/2019 132/78 08/23/2019 132/80 02/27/2019 137/70 Taking lovastatin. No AEs noted. Cholesterol, Total (mg/dL) Date Value 08/23/2022 176 08/04/2021 166 HDL Cholesterol (mg/dL) Date Value 08/23/2022 47 08/04/2021 47 LDL Cholesterol (mg/dL) Date Value 08/23/2022 97 08/04/2021 104 Triglyceride (mg/dL) Date Value 08/23/2022 162 08/04/2021 77 Review of Systems Constitutional: Negative. Objective BP 108/66 Pulse 70 Temp 36.3 C (97.4 F) Resp 18 Wt 88 kg (194 lb) SpO2 97% BMI 27.64 kg/m Physical Exam Vitals and nursing note reviewed. Constitutional: Appearance: Normal appearance. HENT: Head: Normocephalic and atraumatic. Eyes: Conjunctiva/sclera: Conjunctivae normal. Cardiovascular: Rate and Rhythm: Normal rate and regular rhythm. Heart sounds: Normal heart sounds. Pulmonary: Effort: Pulmonary effort is normal. Breath sounds: Normal breath sounds. Abdominal: General: Bowel sounds are normal. Palpations: Abdomen is soft. Musculoskeletal: Right lower leg: No edema. Left lower leg: No edema. Feet: Right foot: Protective Sensation: 10 sites tested. 10 sites sensed. Left foot: Protective Sensation: 10 sites tested. 10 sites sensed. Skin: General: Skin is warm and dry. Neurological: General: No focal deficit present. Mental Status: He is alert and oriented to person, place, and time. ALLERGIES Allergen Reactions Amoxicillin Rash Ampicillin Lisinopril Cough Persistent cough--patient requested med be stopped and switched to something else for BP Medications metFORMIN (GLUCOPHAGE) 500 mg tablet Take 1 tablet by mouth daily with breakfast. For blood sugar/diabetes. Do not take if not eating lovastatin 40 mg tablet Take 1 tablet by mouth daily at bedtime. mometasone (ELOCON) 0.1 % cream Apply 1 application to affected area once daily as needed. To affected skin in scalp as directed. pantoprazole DR (PROTONIX) 40 mg tablet Take 1 tablet by mouth once daily. losartan (COZAAR) 50 mg tablet Take 1 tablet by mouth once daily. ibuprofen (MOTRIN) 200 mg tablet Take 600 mg by mouth every 6 hours as needed for Pain. Cholecalciferol, Vitamin D3, 1,000 unit cap Take 1 capsule by mouth once daily. OMEGA-3 FATTY ACIDS CAP Fish oil capsule once daily DAILY MULTIVITAMIN TAB Take one(1) tablet daily. aluminum chloride (DRYSOL) 20 % external solution Apply to affected area daily at bedtime. 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 Esophagitis, unspecified Intestinal disaccharidase deficiencies and disaccharide malabsorption Irritable bowel syndrome Lateral epicondylitis of elbow right side Other and unspecified hyperlipidemia Unspecified essential hypertension Social History Tobacco Use Smoking status: Former Packs/day: 1.00 Years: 25.00 Additional pack years: 0.00 Total pack years: 25.00 Types: Cigarettes Quit date: 12/06/1995 Years since quittin.3 Smokeless tobacco: Never Vaping Use Vaping Use: Never used Substance Use Topics Alcohol use: No Drug use: No Component Latest Ref Rng & Units 08/23/2022 11/24/2022 Protein, Total 6.3 - 8.0 g/dL 7.1 Albumin 3.9 - 4.9 g/dL 4.3 Calcium 8.5 - 10.2 mg/dL 10.0 Bilirubin, Total 0.2 - 1.3 mg/dL 0.6 Alkaline Phosphatase 38 - 113 U/L 96 AST 14 - 40 U/L 42 (H) ALT 10 - 54 U/L 63 (H) Glucose 74 - 99 mg/dL 190 (H) BUN 9 - 24 mg/dL 23 Creatinine 0.73 - 1.22 mg/dL 1.12 Sodium 136 - 144 mmol/L 136 Potassium 3.7 - 5.1 mmol/L 4.4 Chloride 97 - 105 mmol/L 100 CO2 22 - 30 mmol/L 26 Anion Gap 9 - 18 mmol/L 10 eGFR >=60 mL/min/1.73m 69 Cholesterol, Total <200 mg/dL 176 Triglyceride <150 mg/dL 162 (H) HDL Cholesterol >39 mg/dL 47 Non HDL Cholesterol <130 mg/dL 129 Fasting Time hrs 16 VLDL Cholesterol <30 mg/dL 32 (H) TC:HDL Ratio <5.10 3.74 LDL Cholesterol <100 mg/dL 97 LDL:HDL Ratio <2.54 2.06 Hemoglobin A1C 4.3 - 5.6 % 7.9 (H) 6.0 (H) Estimated Average Glucose mg/dL 180 126 Magnesium 1.7 - 2.3 mg/dL 1.9 The 10-year ASCVD risk score (Emma DK, et al., 2019) is: 39.3% Values used to calculate the score: Age: 78 years Sex: Male Is Non- : No Diabetic: Yes Tobacco smoker: No Systolic Blood Pressure: 108 mmHg Is BP treated: Yes HDL Cholesterol: 47 mg/dL Total Cholesterol: 176 mg/dL ASSESSMENT/PLAN: 1. Well controlled type 2 diabetes mellitus (HCC) - ICD9: 250.00, ICD10: E11.9 (primary diagnosis) - Controlled - Continue current medications - Statin prescribed - lovastatin - Counseled on healthy diet and regular exercise - Follow up in 6 months, sooner should any other issues arise. 2. Primary hypertension - ICD9: 401.9, ICD10: I10 - Controlled - Continue current medications - Encouraged sodium restriction, DASH or Mediterranean diet - Recommend regular aerobic exercise 3. Mixed hyperlipidemia - ICD9: 272.2, ICD10: E78.2 Recommend a plant based diet such as Mediterranean diet with plenty of vegetables, fruits,whole grains, fish, chicken, turkey or plant proteins and routine exercise such as walking Continue current statin unchanged for now, he has lost considerable amount of weight. Consider change of dose or statin with next labwork if needed. 4. Encounter for immunization - ICD9: V03.89, ICD10: Z23 - [employer] COVID-19 BIVALENT VACCINE, AGE 12+ YR - INFLUENZA VACCINE, PRSV FREE, AGE 65+ YR, HIGH DOSE, QUADRIVALENT (FLUZONE HIGH-DOSE) 6 mo follow up with labs MD Minh Lyons APRN.CNS Medical Decision Making: Problems: Moderate: 2+ stable chronic illnesses Risk: Moderate: Drug management Medical Decision Making Level: 4 - Moderate documented in this encounter [facility] 10-04-2022 Miscellaneous Notes Pt returned call. He received the message from Dr. Hartley. He did not want to schedule the 1 year follow up call at the time of call. He will call back to schedule. Message was left for patient to call back to scheduled his follow-up phone visit with in 1 year and also receive the below information from . When patient calls back please schedule and relay information then note and close the encounter Lillie Houser Pss Per Dr Hartley...MRI Brain showed decrease in size of his meningioma . I left a message for pt to call for results. PSR please call him to schedule a phone visit follow-up with me in one year. Thanks! documented in this encounter [facility] 09-26-2022 Miscellaneous Notes Patient has been identified by name and date of : Yes, Provider Jadgish Date 09/26/22 Time 12:35pm Spoke to pharmacy. Patients insurance requiring 90 prescription Patient phones for refill(s): Requested Prescriptions Pending Prescriptions Disp Refills metFORMIN (GLUCOPHAGE) 500 mg tablet 90 tablet 3 Sig: Take 1 tablet by mouth daily with breakfast. For blood sugar/diabetes. Do not take if not eating Date of last office visit in primary care: 08/30/22 Last 2 Encounter Wt Readings: Date: Wt: 09/01/2022 99.3 kg (219 lb) 08/30/2022 100.7 kg (222 lb) Please advise. Thank you. 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 Esophagitis, unspecified Intestinal disaccharidase deficiencies and disaccharide malabsorption Irritable bowel syndrome Lateral epicondylitis of elbow right side Other and unspecified hyperlipidemia Unspecified essential hypertension PAST SURGICAL HISTORY Procedure Laterality Date COLONOSCOPY FLX DX W/COLLJ SPEC WHEN PFRMD 08/02/2012 Colonoscopy EGD TRANSORAL BIOPSY SINGLE/MULTIPLE 08/08/2007 EGD TRANSORAL BIOPSY SINGLE/MULTIPLE 11/29/2016 reflux esophagitis and reactive gastropathy ESOPHAGOGASTRODUODENOSCOPY TRANSORAL DIAGNOSTIC 08/02/2012 EGD PAST SURGICAL HISTORY OF tonsillectomy PNXR ASPIR HYDROCELE TUNICA VAGIS W/WO NJX MED 1996 SIGMOIDOSCOPY FLX DX W/COLLJ SPEC BR/WA IF PFRMD 08/1999 Sigmoidoscopy TONSILLECTOMY HX ALLERGIES: Amoxicillin, Ampicillin, and Lisinopril Medications reviewed: Yes FAMILY HISTORY Problem Relation Age of Onset GI Father of rupture of intestine Cancer Mother specific cance not noted/also had alzheimers other (bladder cancer) Brother SOCIAL HISTORY: Social History Tobacco Use Smoking status: Former Packs/day: 1.00 Years: 25.00 Pack years: 25.00 Types: Cigarettes Quit date: 12/06/1995 Years since quittin.7 Smokeless tobacco: Never Vaping Use Vaping Use: Never used Substance Use Topics Alcohol use: No Drug use: No Fredrick works daily and stays active. Not exercising as much as in the past. 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 Basali: pain management, two injections for sciatic nerve pain, left End of Live Planning discussed including patients advanced directive wishes: Yes I am willing to follow Fredrick's advanced directives. PHQ-2 / Depression screen He in the past two weeks denies having felt down, depressed, hopeless, or with little interest or pleasure in doing things. Depression screening tool completed and reviewed. Based on score and interview, patient is not at risk for depression. Screening tool discussed with patient, and I recommended no further intervention at this time. Functional Ability/Safety Screen 1. Was the patient's timed Up and Go test unsteady or longer than 30 seconds? No 2. Does the patient need help with the phone, transportation, shopping,preparing meals, housework, laundry, medications or managing money? No 3. Does your home have rugs in the hallway, lack of grab bars in the bathroom, lack of handrails on the stairs or have poor lighting? No Hearing Evaluation: mild hard of hearing and normal PHYSICAL EXAM BP 137/74 Pulse 73 Resp 16 Ht 178.4 cm (5' 10.25) Wt 100.7 kg (222 lb) BMI 31.63 kg/m Alert and oriented X 3: YES Body mass index is 31.63 kg/m . Visual acuity: OD: 20/20 OS: 20/ 25 OU: 20/25 Component Latest Ref Rng & Units 08/04/2021 08/23/2022 Protein, Total 6.3 - 8.0 g/dL 7.1 Albumin 3.9 - 4.9 g/dL 4.3 Calcium 8.5 - 10.2 mg/dL 10.1 10.0 Bilirubin, Total 0.2 - 1.3 mg/dL 0.6 Alkaline Phosphatase 38 - 113 U/L 96 AST 14 - 40 U/L 42 (H) ALT 10 - 54 U/L 63 (H) Glucose 74 - 99 mg/dL 126 (H) 190 (H) BUN 9 - 24 mg/dL 21 23 Creatinine 0.73 - 1.22 mg/dL 1.12 1.12 Sodium 136 - 144 mmol/L 140 136 Potassium 3.7 - 5.1 mmol/L 3.9 4.4 Chloride 97 - 105 mmol/L 102 100 CO2 22 - 30 mmol/L 28 26 Anion Gap 9 - 18 mmol/L 10 10 eGFR >=60 mL/min/1.73m 69 eGFR- >60 eGFR-All Other Races . >60 Cholesterol, Total <200 mg/dL 166 176 Triglyceride <150 mg/dL 77 162 (H) HDL Cholesterol >39 mg/dL 47 47 LDL Cholesterol <100 mg/dL 104 (H) 97 Non HDL Cholesterol <130 mg/dL 119 129 Fasting Time hrs 12 16 VLDL Cholesterol <30 mg/dL 15 32 (H) TC:HDL Ratio <5.10 3.53 3.74 LDL:HDL Ratio <2.54 2.21 2.06 Hemoglobin A1C 4.3 - 5.6 % 6.3 (H) 7.9 (H) Estimated Average Glucose mg/dL 134 180 Magnesium 1.7 - 2.3 mg/dL 1.9 Component Latest Ref Rng & Units 10/17/2014 10/25/2014 10/17/2015 10/19/2016 10/24/2017 10/24/2018 04/30/2019 08/11/2020 08/04/2021 08/23/2022 Hemoglobin A1C 4.3 - 5.6 % Unable to assay. Specimen improperly collected/handled. 5.9 5.8 (H) 5.8 (H) 5.9 (H) 6.2 (H) 6.1 (H) 5.7 (H) 6.3 (H) 7.9 (H) Estimated Average Glucose mg/dL Unable to assay. Specimen improperly collected/handled. 123 120 120 123 131 128 117 134 180 ASSESSMENT/PLAN: Medicare annual wellness visit subsequent Z00.00 77 year old male The following prevention plan was discussed during the office visit and provided to the patient: - Counseled on healthy diet and regular exercise - Lipid panel - Glaucoma screening 2. Newly diagnosed diabetes (HCC) - ICD9: 250.00, ICD10: E11.9 Controlled. Begin taking metformin once daily with breakfast. Defers testing supplies and diabetes education at this time. 3 mo recheck A1c, visit - METFORMIN 500 MG TABLET - CONSULT TO DIABETES EDUCATION - HGB A1C 3. Intracranial meningioma D32.0 Schedule follow up Gerald Hartley 3 mo labs and visit Minh Alexandra APRN.CNS 6-9 mo follow up MD Minh Lyons APRN.CNS documented in this encounter [facility] 08-23-2022 Miscellaneous Notes I see no orders filed.. Entering routine orders. Patient needing to have new orders placed for the labs filed 08/2021. He is in the building at this time. Elaina Chaudhari LPN documented in this encounter [facility] 08-16-2022 Nurse Note Pt received in PACU. Pt slightly drowsy. Denies pain or nausea. Abd soft and non distended. Noreen Lezama RN documented in this encounter [facility] 08-16-2022 History and physical note UPDATED PROCEDURAL SEDATION HISTORY AND PHYSICAL EXAMINATION SERVICE DATE: 08/16/2022 SERVICE TIME: 8:20 PHYSICAL EXAM MUST BE COMPLETED ON ADMISSION PROCEDURE: colonoscopy, possible biposies Procedure Indications: screening for colon cancer The History and Physical (completed in the past 30 days) has been reviewed and the patient has been examined. The contents accurately reflect the patient's condition with the following additions or revisions since the H&P was completed. ASA Class: ASA Class:: Patient with mild systemic disease Examination indicates no changes. AIRWAY: Airway Visualization of Uvula: Yes Mouth opening greater than 2 fingerbreadths: Yes Neck Full Range of Motion: Yes LUNGS: Lungs clear to auscultation CARDIAC: Regular rhythm,Regular rate Provisional Diagnosis/Treatment Plan: colonoscopy, possible biopsies SEDATION GOAL: Moderate This H&P can be found in the Electronic Medical Record . SIGNATURE: Elizabeth Hernandez MD PATIENT NAME: Fredrick Mao DATE: August 16, 2022 TIME: 8:20 AM Source Note - Elizabeth Hernandez MD - 08/16/2022 9:00 AM EST HISTORY AND PHYSICAL Fredrick Mao 1945 REFERRING PHYSICIAN: Lora Martinez MD CHIEF COMPLAINT: Consult (Colonoscopy consult, last colon 2011) HPI: The patient is a 77 year old male referred for endoscopy. Fredrick notes no colon complaints. Patient denies any change in bowel habits, weight changes, blood in stools, black tarry stools or abdominal pain. Denies family history of colon cancer. The patient notes no upper GI complaints. Fredrick has undergone prior endoscopy. Most recent colonoscopy July [address] Joy with findings of mild patchy colitis. Patient denies chest pain, shortness of breath or recent hospitalizations. Denies problems with sedation in the past. 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 Esophagitis, unspecified Intestinal disaccharidase deficiencies and disaccharide malabsorption Irritable bowel syndrome Lateral epicondylitis of elbow right side Other and unspecified hyperlipidemia Unspecified essential hypertension PAST SURGICAL HISTORY PAST SURGICAL HISTORY Procedure Laterality Date COLONOSCOPY FLX DX W/COLLJ SPEC WHEN PFRMD 08/02/2012 Colonoscopy EGD TRANSORAL BIOPSY SINGLE/MULTIPLE 08/08/2007 EGD TRANSORAL BIOPSY SINGLE/MULTIPLE 11/29/2016 reflux esophagitis and reactive gastropathy ESOPHAGOGASTRODUODENOSCOPY TRANSORAL DIAGNOSTIC 08/02/2012 EGD PAST SURGICAL HISTORY OF tonsillectomy PNXR ASPIR HYDROCELE TUNICA VAGIS W/WO NJX MED 1997 SIGMOIDOSCOPY FLX DX W/COLLJ SPEC BR/WA IF PFRMD 08/1999 Sigmoidoscopy CURRENT MEDICATIONS Current Outpatient Medications Medication Sig lovastatin 40 mg tablet Take 1 tablet by mouth daily at bedtime. losartan (COZAAR) 50 mg tablet Take 1 tablet by mouth once daily. pantoprazole DR (PROTONIX) 40 mg tablet Take 1 tablet by mouth once daily. ibuprofen (MOTRIN) 200 mg tablet Take 600 mg by mouth every 6 hours as needed for Pain. mometasone (ELOCON) 0.1 % cream Apply 1 application to affected area once daily as needed. To affected skin in scalp as directed. Cholecalciferol, Vitamin D3, 1,000 unit cap Take 1 capsule by mouth once daily. OMEGA-3 FATTY ACIDS CAP Fish oil capsule once daily DAILY MULTIVITAMIN TAB Take one(1) tablet daily. No current facility-administered medications for this visit. ALLERGIES: Amoxicillin, Ampicillin, and Lisinopril PERSONAL HISTORY: SOCIAL HISTORY Social History Tobacco Use Smoking status: Former Packs/day: 1.00 Years: 25.00 Pack years: 25.00 Types: Cigarettes Quit date: 12/06/1995 Years since quittin.5 Smokeless tobacco: Never Vaping Use Vaping Use: Never used Substance Use Topics Alcohol use: No Drug use: No FAMILY HISTORY: FAMILY HISTORY FAMILY HISTORY Problem Relation Age of Onset GI Father of rupture of intestine Cancer Mother specific cance not noted/also had alzheimers other (bladder cancer) Brother REVIEW OF SYMPTOMS: The review of systems data was entered by the nurse and reviewed by nj Nursing Notes: Manjula Reid RN 05/31/2022 9:21 AM Signed REVIEW OF SYSTEMS: General: The patient denies fatigue, denies weight loss, denies weight gain, denies feeling hot, and denies feelings of cold. Eyes: The patient denies glaucoma, denies eye injury/surgery, wears glasses or contacts. Ear/Nose/Throat: The patient NOTES allergies, denies hayfever, denies ear infections, and denies bloody noses. Cardiovascular: The patient denies chest pain, denies heart disease, NOTES high blood pressure,denies cardiac stent, denies prior heart attack, denies irregular heart beat, NOTES high cholesterol, denies poor circulation, denies heart failure, other cardiac issues, denies claudication, denies cold feet, denies peripheral arterial stent. Respiratory: The patient denies tuberculosis, denies pneumonia, denies frequent cough, denies pulmonary embolism, denies shortness of breath, and denies coughing up blood. Gastrointestinal: The patient denies difficulty swallowing, denies acid reflux, denies ulcers, denies vomiting, denies jaundice/hepatitis, denies gallbladder problems, denies black or tarry stools, denies hemorrhoids, denies bleeding from rectum, denies diverticulitis, denies constipation, denies diarrhea, denies loss of stool control, and denies hernias. Kidney/Bladder: The patient denies kidney stones, denies urine infections, and denies bloody urine. Skin: The patient denies a history of skin cancer, denies bleeding/changing moles, and denies a history of skin rash. Neurologic: The patient denies a history of epilepsy/convulsions, denies headaches, denies head/spinal injuries, and denies stroke/TIA. Psychiatric: The patient denies psychiatric medications, denies depression, and denies voices, denies substance abuse. Endocrine: The patient denies thyroid disorders, denies diabetes, and denies hormonal problems. Hematologic: The patient denies a history of bruising, denies bleeding, and denies anemia, denies blood clots. Infections: The patient denies a history of measles and mumps, denies rheumatic fever, and denies sexually transmitted diseases. Musculoskeletal: The patient denies back pain/injury, denies back problems, denies sciatica, denies knee/foot trouble, NOTES arthritis, or denies gout. When was patient's last Mammogram screening? N/A Last Colonoscopy: 2011 Manjula Reid RN I have confirmed and edited as necessary, the PFSH and ROS obtained by others. Vandana Moraes PA-C PHYSICAL EXAMINATION: General: The patient is 77 year old male, well nourished, well hydrated in no acute distress. The patient is oriented to time, place, and person. VITALS: Blood pressure 148/84, pulse 64, temperature 36.5 C (97.7 F), height 177.8 cm (5' 10), weight 101.2 kg (223 lb), SpO2 96 %. Body mass index is 32 kg/m . HEENT: Normal cephalic, ataumatic, pupils are equally round, sclera are anicteric, mucous membranes are moist, oropharynx is clear. Neck has no masses, asymmetry or lymphadenopathy. Respiratory: Clear to auscultation and percussion. Normal respiratory excursion and pattern. Cardiac: Examination is regular rate and rhythm. Normal S1/S2 Abdominal exam: Soft, nontender, with no palpable masses. No hepatosplenomegaly. No palpable hernias. Extremities: no clubbing, cyanosis or edema. No adenopathy. LABORATORY VALUES: As Noted RADIOLOGIC STUDIES: As Noted Assessment IMPRESSION: encounter for screening colonoscopy PLAN: I have reviewed my findings with the surgeon. Will plan for lower endoscopy. We discussed the risks and benefits of the planned endoscopy. I have informed the patient that complications can occur including failure to complete the endoscopy and perforation. The patient had the opportunity to ask questions concerning the planned endoscopy. My staff has also explained the procedure to the patient in understandable terms and has given the patient printed material concerning the procedure. The patient freely consents to surgery. The patient was offered a surgery/procedure at a [facility] facility. I have counseled the patient regarding the risk of exposure to and/or potential harm posed by the COVID-19 virus with having a surgery/procedure at this time versus the risk of delaying the surgery/procedure. It is not possible to know either the risk of delaying the surgery or procedure or chance of getting an infection with perfect accuracy, but a joint decision was made between the patient and myself to proceed at this time with endoscopy. I plan to use Golytely bowel preparation I have explained to the patient the difference between IV conscious sedation and MAC anesthesia - and I have offered either, according to the patient's wishes. I have explained that with IV conscious sedation there is no anesthesia provider available and therefore there is a limitation of the amount of IV medications that can be given and that the patient may wake up in the middle of the procedure and/or experience pain/discomfort during the procedure. Further discussion was done and the patient was given the opportunity to ask questions and all questions were answered. The patient chooses IV conscious sedation, has tolerated well previously Diagnoses: (Z12.11) Encounter for screening for malignant neoplasm of colon (primary encounter diagnosis) Consultation requested by Dr. Martinez for an opinion regarding screening colonoscopy. My final recommendations will be communicated back to the requesting physician by way of shared Medical record or letter to requesting physician via US mail. Vandana Moraes PA-C HISTORY AND PHYSICAL Fredrick Mao 1945 REFERRING PHYSICIAN: Lora Martinez MD CHIEF COMPLAINT: Consult (Colonoscopy consult, last colon 2011) HPI: The patient is a 77 year old male referred for endoscopy. Fredrick notes no colon complaints. Patient denies any change in bowel habits, weight changes, blood in stools, black tarry stools or abdominal pain. Denies family history of colon cancer. The patient notes no upper GI complaints. Fredrick has undergone prior endoscopy. Most recent colonoscopy July [address] Joy with findings of mild patchy colitis. Patient denies chest pain, shortness of breath or recent hospitalizations. Denies problems with sedation in the past. 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 Esophagitis, unspecified Intestinal disaccharidase deficiencies and disaccharide malabsorption Irritable bowel syndrome Lateral epicondylitis of elbow right side Other and unspecified hyperlipidemia Unspecified essential hypertension PAST SURGICAL HISTORY PAST SURGICAL HISTORY Procedure Laterality Date COLONOSCOPY FLX DX W/COLLJ SPEC WHEN PFRMD 08/02/2012 Colonoscopy EGD TRANSORAL BIOPSY SINGLE/MULTIPLE 08/08/2007 EGD TRANSORAL BIOPSY SINGLE/MULTIPLE 11/29/2016 reflux esophagitis and reactive gastropathy ESOPHAGOGASTRODUODENOSCOPY TRANSORAL DIAGNOSTIC 08/02/2012 EGD PAST SURGICAL HISTORY OF tonsillectomy PNXR ASPIR HYDROCELE TUNICA VAGIS W/WO NJX MED 1996 SIGMOIDOSCOPY FLX DX W/COLLJ SPEC BR/WA IF PFRMD 08/1999 Sigmoidoscopy CURRENT MEDICATIONS Current Outpatient Medications Medication Sig lovastatin 40 mg tablet Take 1 tablet by mouth daily at bedtime. losartan (COZAAR) 50 mg tablet Take 1 tablet by mouth once daily. pantoprazole DR (PROTONIX) 40 mg tablet Take 1 tablet by mouth once daily. ibuprofen (MOTRIN) 200 mg tablet Take 600 mg by mouth every 6 hours as needed for Pain. mometasone (ELOCON) 0.1 % cream Apply 1 application to affected area once daily as needed. To affected skin in scalp as directed. Cholecalciferol, Vitamin D3, 1,000 unit cap Take 1 capsule by mouth once daily. OMEGA-3 FATTY ACIDS CAP Fish oil capsule once daily DAILY MULTIVITAMIN TAB Take one(1) tablet daily. No current facility-administered medications for this visit. ALLERGIES: Amoxicillin, Ampicillin, and Lisinopril PERSONAL HISTORY: SOCIAL HISTORY Social History Tobacco Use Smoking status: Former Packs/day: 1.00 Years: 25.00 Pack years: 25.00 Types: Cigarettes Quit date: 12/06/1995 Years since quittin.5 Smokeless tobacco: Never Vaping Use Vaping Use: Never used Substance Use Topics Alcohol use: No Drug use: No FAMILY HISTORY: FAMILY HISTORY FAMILY HISTORY Problem Relation Age of Onset GI Father of rupture of intestine Cancer Mother specific cance not noted/also had alzheimers other (bladder cancer) Brother REVIEW OF SYMPTOMS: The review of systems data was entered by the nurse and reviewed by nj Nursing Notes: Manjula Reid RN 05/31/2022 9:21 AM Signed REVIEW OF SYSTEMS: General: The patient denies fatigue, denies weight loss, denies weight gain, denies feeling hot, and denies feelings of cold. Eyes: The patient denies glaucoma, denies eye injury/surgery, wears glasses or contacts. Ear/Nose/Throat: The patient NOTES allergies, denies hayfever, denies ear infections, and denies bloody noses. Cardiovascular: The patient denies chest pain, denies heart disease, NOTES high blood pressure,denies cardiac stent, denies prior heart attack, denies irregular heart beat, NOTES high cholesterol, denies poor circulation, denies heart failure, other cardiac issues, denies claudication, denies cold feet, denies peripheral arterial stent. Respiratory: The patient denies tuberculosis, denies pneumonia, denies frequent cough, denies pulmonary embolism, denies shortness of breath, and denies coughing up blood. Gastrointestinal: The patient denies difficulty swallowing, denies acid reflux, denies ulcers, denies vomiting, denies jaundice/hepatitis, denies gallbladder problems, denies black or tarry stools, denies hemorrhoids, denies bleeding from rectum, denies diverticulitis, denies constipation, denies diarrhea, denies loss of stool control, and denies hernias. Kidney/Bladder: The patient denies kidney stones, denies urine infections, and denies bloody urine. Skin: The patient denies a history of skin cancer, denies bleeding/changing moles, and denies a history of skin rash. Neurologic: The patient denies a history of epilepsy/convulsions, denies headaches, denies head/spinal injuries, and denies stroke/TIA. Psychiatric: The patient denies psychiatric medications, denies depression, and denies voices, denies substance abuse. Endocrine: The patient denies thyroid disorders, denies diabetes, and denies hormonal problems. Hematologic: The patient denies a history of bruising, denies bleeding, and denies anemia, denies blood clots. Infections: The patient denies a history of measles and mumps, denies rheumatic fever, and denies sexually transmitted diseases. Musculoskeletal: The patient denies back pain/injury, denies back problems, denies sciatica, denies knee/foot trouble, NOTES arthritis, or denies gout. When was patient's last Mammogram screening? N/A Last Colonoscopy: 2011 Manjula Reid RN I have confirmed and edited as necessary, the PFSH and ROS obtained by others. Vandana Moraes PA-C PHYSICAL EXAMINATION: General: The patient is 77 year old male, well nourished, well hydrated in no acute distress. The patient is oriented to time, place, and person. VITALS: Blood pressure 148/84, pulse 64, temperature 36.5 C (97.7 F), height 177.8 cm (5' 10), weight 101.2 kg (223 lb), SpO2 96 %. Body mass index is 32 kg/m . HEENT: Normal cephalic, ataumatic, pupils are equally round, sclera are anicteric, mucous membranes are moist, oropharynx is clear. Neck has no masses, asymmetry or lymphadenopathy. Respiratory: Clear to auscultation and percussion. Normal respiratory excursion and pattern. Cardiac: Examination is regular rate and rhythm. Normal S1/S2 Abdominal exam: Soft, nontender, with no palpable masses. No hepatosplenomegaly. No palpable hernias. Extremities: no clubbing, cyanosis or edema. No adenopathy. LABORATORY VALUES: As Noted RADIOLOGIC STUDIES: As Noted Assessment IMPRESSION: encounter for screening colonoscopy PLAN: I have reviewed my findings with the surgeon. Will plan for lower endoscopy. We discussed the risks and benefits of the planned endoscopy. I have informed the patient that complications can occur including failure to complete the endoscopy and perforation. The patient had the opportunity to ask questions concerning the planned endoscopy. My staff has also explained the procedure to the patient in understandable terms and has given the patient printed material concerning the procedure. The patient freely consents to surgery. The patient was offered a surgery/procedure at a [facility] facility. I have counseled the patient regarding the risk of exposure to and/or potential harm posed by the COVID-19 virus with having a surgery/procedure at this time versus the risk of delaying the surgery/procedure. It is not possible to know either the risk of delaying the surgery or procedure or chance of getting an infection with perfect accuracy, but a joint decision was made between the patient and myself to proceed at this time with endoscopy. I plan to use Golytely bowel preparation I have explained to the patient the difference between IV conscious sedation and MAC anesthesia - and I have offered either, according to the patient's wishes. I have explained that with IV conscious sedation there is no anesthesia provider available and therefore there is a limitation of the amount of IV medications that can be given and that the patient may wake up in the middle of the procedure and/or experience pain/discomfort during the procedure. Further discussion was done and the patient was given the opportunity to ask questions and all questions were answered. The patient chooses IV conscious sedation, has tolerated well previously Diagnoses: (Z12.11) Encounter for screening for malignant neoplasm of colon (primary encounter diagnosis) Consultation requested by Dr. Martinez for an opinion regarding screening colonoscopy. My final recommendations will be communicated back to the requesting physician by way of shared Medical record or letter to requesting physician via US mail. Vandana Moraes PA-C documented in this encounter [facility] 07-13-2022 Miscellaneous Notes The following approved medication requests have been transmitted electronically. Requested Prescriptions Prescriptions Disp Refills mometasone (ELOCON) 0.1 % cream 15 g 0 Sig: Apply 1 application to affected area once daily as needed. To affected skin in scalp as directed. Lora Martinez MD Patient has been identified by name and date of : Yes Last office visit in this department: 08/18/2021 RX INSTRUCTIONS: Patient aware RX will be sent to pharmacy. No need to notify patient. Patient phones requesting refills as follows: Requested Prescriptions Pending Prescriptions Disp Refills mometasone (ELOCON) 0.1 % cream 15 g 0 Sig: Apply 1 application to affected area once daily as needed. To affected skin in scalp as directed. Please review and advise. Cristine Castellanos documented in this encounter [facility] 07-06-2022 Miscellaneous Notes Patient has been identified by name and date of : Yes Last office visit in this department: 08/18/2021 RX INSTRUCTIONS: Patient aware RX will be sent to pharmacy. No need to notify patient. Patient phones requesting refills as follows: Requested Prescriptions Pending Prescriptions Disp Refills pantoprazole DR (PROTONIX) 40 mg tablet 90 tablet 3 Sig: Take 1 tablet by mouth once daily. losartan (COZAAR) 50 mg tablet 90 tablet 3 Sig: Take 1 tablet by mouth once daily. Please review and advise. Rubi Pinto Pss documented in this encounter [facility] 05-31-2022 History of Present illness Narrative HISTORY AND PHYSICAL Fredrick Mao 1945 REFERRING PHYSICIAN: Lora Martinez MD CHIEF COMPLAINT: Consult (Colonoscopy consult, last colon 2011) HPI: The patient is a 77 year old male referred for endoscopy. Fredrick notes no colon complaints. Patient denies any change in bowel habits, weight changes, blood in stools, black tarry stools or abdominal pain. Denies family history of colon cancer. The patient notes no upper GI complaints. Fredrick has undergone prior endoscopy. Most recent colonoscopy July [address] Joy with findings of mild patchy colitis. Patient denies chest pain, shortness of breath or recent hospitalizations. Denies problems with sedation in the past. 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 Esophagitis, unspecified Intestinal disaccharidase deficiencies and disaccharide malabsorption Irritable bowel syndrome Lateral epicondylitis of elbow right side Other and unspecified hyperlipidemia Unspecified essential hypertension PAST SURGICAL HISTORY Procedure Laterality Date COLONOSCOPY FLX DX W/COLLJ SPEC WHEN PFRMD 08/02/2012 Colonoscopy EGD TRANSORAL BIOPSY SINGLE/MULTIPLE 08/08/2007 EGD TRANSORAL BIOPSY SINGLE/MULTIPLE 11/29/2016 reflux esophagitis and reactive gastropathy ESOPHAGOGASTRODUODENOSCOPY TRANSORAL DIAGNOSTIC 08/02/2012 EGD PAST SURGICAL HISTORY OF tonsillectomy PNXR ASPIR HYDROCELE TUNICA VAGIS W/WO NJX MED 1996 SIGMOIDOSCOPY FLX DX W/COLLJ SPEC BR/WA IF PFRMD 08/1999 Sigmoidoscopy Current Outpatient Medications Medication Sig lovastatin 40 mg tablet Take 1 tablet by mouth daily at bedtime. losartan (COZAAR) 50 mg tablet Take 1 tablet by mouth once daily. pantoprazole DR (PROTONIX) 40 mg tablet Take 1 tablet by mouth once daily. ibuprofen (MOTRIN) 200 mg tablet Take 600 mg by mouth every 6 hours as needed for Pain. mometasone (ELOCON) 0.1 % cream Apply 1 application to affected area once daily as needed. To affected skin in scalp as directed. Cholecalciferol, Vitamin D3, 1,000 unit cap Take 1 capsule by mouth once daily. OMEGA-3 FATTY ACIDS CAP Fish oil capsule once daily DAILY MULTIVITAMIN TAB Take one(1) tablet daily. No current facility-administered medications for this visit. ALLERGIES: Amoxicillin, Ampicillin, and Lisinopril PERSONAL HISTORY: Social History Tobacco Use Smoking status: Former Packs/day: 1.00 Years: 25.00 Pack years: 25.00 Types: Cigarettes Quit date: 12/06/1995 Years since quittin.5 Smokeless tobacco: Never Vaping Use Vaping Use: Never used Substance Use Topics Alcohol use: No Drug use: No FAMILY HISTORY: FAMILY HISTORY Problem Relation Age of Onset GI Father of rupture of intestine Cancer Mother specific cance not noted/also had alzheimers other (bladder cancer) Brother REVIEW OF SYMPTOMS: The review of systems data was entered by the nurse and reviewed by nj Nursing Notes: Manjula Reid RN 05/31/2022 9:21 AM Signed REVIEW OF SYSTEMS: General: The patient denies fatigue, denies weight loss, denies weight gain, denies feeling hot, and denies feelings of cold. Eyes: The patient denies glaucoma, denies eye injury/surgery, wears glasses or contacts. Ear/Nose/Throat: The patient NOTES allergies, denies hayfever, denies ear infections, and denies bloody noses. Cardiovascular: The patient denies chest pain, denies heart disease, NOTES high blood pressure,denies cardiac stent, denies prior heart attack, denies irregular heart beat, NOTES high cholesterol, denies poor circulation, denies heart failure, other cardiac issues, denies claudication, denies cold feet, denies peripheral arterial stent. Respiratory: The patient denies tuberculosis, denies pneumonia, denies frequent cough, denies pulmonary embolism, denies shortness of breath, and denies coughing up blood. Gastrointestinal: The patient denies difficulty swallowing, denies acid reflux, denies ulcers, denies vomiting, denies jaundice/hepatitis, denies gallbladder problems, denies black or tarry stools, denies hemorrhoids, denies bleeding from rectum, denies diverticulitis, denies constipation, denies diarrhea, denies loss of stool control, and denies hernias. Kidney/Bladder: The patient denies kidney stones, denies urine infections, and denies bloody urine. Skin: The patient denies a history of skin cancer, denies bleeding/changing moles, and denies a history of skin rash. Neurologic: The patient denies a history of epilepsy/convulsions, denies headaches, denies head/spinal injuries, and denies stroke/TIA. Psychiatric: The patient denies psychiatric medications, denies depression, and denies voices, denies substance abuse. Endocrine: The patient denies thyroid disorders, denies diabetes, and denies hormonal problems. Hematologic: The patient denies a history of bruising, denies bleeding, and denies anemia, denies blood clots. Infections: The patient denies a history of measles and mumps, denies rheumatic fever, and denies sexually transmitted diseases. Musculoskeletal: The patient denies back pain/injury, denies back problems, denies sciatica, denies knee/foot trouble, NOTES arthritis, or denies gout. When was patient's last Mammogram screening? N/A Last Colonoscopy: 2011 Manjula Reid RN I have confirmed and edited as necessary, the PFSH and ROS obtained by others. Vandana Moraes PA-C PHYSICAL EXAMINATION: General: The patient is 77 year old male, well nourished, well hydrated in no acute distress. The patient is oriented to time, place, and person. VITALS: Blood pressure 148/84, pulse 64, temperature 36.5 C (97.7 F), height 177.8 cm (5' 10), weight 101.2 kg (223 lb), SpO2 96 %. Body mass index is 32 kg/m . HEENT: Normal cephalic, ataumatic, pupils are equally round, sclera are anicteric, mucous membranes are moist, oropharynx is clear. Neck has no masses, asymmetry or lymphadenopathy. Respiratory: Clear to auscultation and percussion. Normal respiratory excursion and pattern. Cardiac: Examination is regular rate and rhythm. Normal S1/S2 Abdominal exam: Soft, nontender, with no palpable masses. No hepatosplenomegaly. No palpable hernias. Extremities: no clubbing, cyanosis or edema. No adenopathy. LABORATORY VALUES: As Noted RADIOLOGIC STUDIES: As Noted Assessment IMPRESSION: encounter for screening colonoscopy PLAN: I have reviewed my findings with the surgeon. Will plan for lower endoscopy. We discussed the risks and benefits of the planned endoscopy. I have informed the patient that complications can occur including failure to complete the endoscopy and perforation. The patient had the opportunity to ask questions concerning the planned endoscopy. My staff has also explained the procedure to the patient in understandable terms and has given the patient printed material concerning the procedure. The patient freely consents to surgery. The patient was offered a surgery/procedure at a [facility] facility. I have counseled the patient regarding the risk of exposure to and/or potential harm posed by the COVID-19 virus with having a surgery/procedure at this time versus the risk of delaying the surgery/procedure. It is not possible to know either the risk of delaying the surgery or procedure or chance of getting an infection with perfect accuracy, but a joint decision was made between the patient and myself to proceed at this time with endoscopy. I plan to use Golytely bowel preparation I have explained to the patient the difference between IV conscious sedation and MAC anesthesia - and I have offered either, according to the patient's wishes. I have explained that with IV conscious sedation there is no anesthesia provider available and therefore there is a limitation of the amount of IV medications that can be given and that the patient may wake up in the middle of the procedure and/or experience pain/discomfort during the procedure. Further discussion was done and the patient was given the opportunity to ask questions and all questions were answered. The patient chooses IV conscious sedation, has tolerated well previously Diagnoses: (Z12.11) Encounter for screening for malignant neoplasm of colon (primary encounter diagnosis) Consultation requested by Dr. Martinez for an opinion regarding screening colonoscopy. My final recommendations will be communicated back to the requesting physician by way of shared Medical record or letter to requesting physician via [place] mail. Vandana Moraes PA-C documented in this encounter [facility] 05-31-2022 Nurse Note REVIEW OF SYSTEMS: General: The patient denies fatigue, denies weight loss, denies weight gain, denies feeling hot, and denies feelings of cold. Eyes: The patient denies glaucoma, denies eye injury/surgery, wears glasses or contacts. Ear/Nose/Throat: The patient NOTES allergies, denies hayfever, denies ear infections, and denies bloody noses. Cardiovascular: The patient denies chest pain, denies heart disease, NOTES high blood pressure,denies cardiac stent, denies prior heart attack, denies irregular heart beat, NOTES high cholesterol, denies poor circulation, denies heart failure, other cardiac issues, denies claudication, denies cold feet, denies peripheral arterial stent. Respiratory: The patient denies tuberculosis, denies pneumonia, denies frequent cough, denies pulmonary embolism, denies shortness of breath, and denies coughing up blood. Gastrointestinal: The patient denies difficulty swallowing, denies acid reflux, denies ulcers, denies vomiting, denies jaundice/hepatitis, denies gallbladder problems, denies black or tarry stools, denies hemorrhoids, denies bleeding from rectum, denies diverticulitis, denies constipation, denies diarrhea, denies loss of stool control, and denies hernias. Kidney/Bladder: The patient denies kidney stones, denies urine infections, and denies bloody urine. Skin: The patient denies a history of skin cancer, denies bleeding/changing moles, and denies a history of skin rash. Neurologic: The patient denies a history of epilepsy/convulsions, denies headaches, denies head/spinal injuries, and denies stroke/TIA. Psychiatric: The patient denies psychiatric medications, denies depression, and denies voices, denies substance abuse. Endocrine: The patient denies thyroid disorders, denies diabetes, and denies hormonal problems. Hematologic: The patient denies a history of bruising, denies bleeding, and denies anemia, denies blood clots. Infections: The patient denies a history of measles and mumps, denies rheumatic fever, and denies sexually transmitted diseases. Musculoskeletal: The patient denies back pain/injury, denies back problems, denies sciatica, denies knee/foot trouble, NOTES arthritis, or denies gout. When was patient's last Mammogram screening? N/A Last Colonoscopy: 2011 Manjula Reid RN documented in this encounter [facility] 03-02-2022 Instructions Alexa No APRN.[facility] - 03/02/2022 9:57 AM EDT FACT SHEET FOR PATIENTS, PARENTS, AND CAREGIVERS EMERGENCY USE AUTHORIZATION (EUA) OF PAXLOVID FOR CORONAVIRUS DISEASE 2019 (COVID-19) You are being given this Fact Sheet because your healthcare provider believes it is necessary to provide you with PAXLOVID for the treatment of xdts-cr-ghvjbdqn coronavirus disease (COVID-19) caused by the SARS-CoV-2 virus. This Fact Sheet contains information to help you understand the risks and benefits of taking the PAXLOVID you have received or may receive. The [place] Food and Drug Administration (FDA) has issued an Emergency Use Authorization (EUA) to make PAXLOVID available during the COVID-19 pandemic (for more details about an EUA please see What is an Emergency Use Authorization? at the end of this document). PAXLOVID is not an FDA-approved medicine in the [place]. Read this Fact Sheet for information about PAXLOVID. Talk to your healthcare provider about your options or if you have any questions. It is your choice to take PAXLOVID. What is COVID-19? COVID-19 is caused by a virus called a coronavirus. You can get COVID-19 through close contact with another person who has the virus. COVID-19 illnesses have ranged from very lvlp-to-ktjate, including illness resulting in . While information so far suggests that most COVID-19 illness is mild, serious illness can happen and may cause some of your other medical conditions to become worse. Older people and people of all ages with severe, long lasting (chronic) medical conditions like heart disease, lung disease, and diabetes, for example seem to be at higher risk of being hospitalized for COVID-19. What is PAXLOVID? PAXLOVID is an investigational medicine used to treat iicj-ma-bgjgwcuw COVID-19 in adults and children [12 years of age and older weighing at least 88 pounds (40 kg)] with positive results of direct SARS-CoV-2 viral testing, and who are at high risk for progression to severe COVID-19, including hospitalization or . PAXLOVID is investigational because it is still being studied. There is limited information about the safety and effectiveness of using PAXLOVID to treat people with uyrs-ox-punuxfcv COVID-19. The FDA has authorized the emergency use of PAXLOVID for the treatment of sfqq-do-euujckuh COVID-19 in adults and children [12 years of age and older weighing at least 88 pounds (40 kg)] with a positive test for the virus that causes COVID-19, and who are at high risk for progression to severe COVID-19, including hospitalization or , under an EUA. 1 Revised: 29 October 2021 What should I tell my healthcare provider before I take PAXLOVID? Tell your healthcare provider if you: Have any allergies Have liver or kidney disease Are or plan to become Are a child Have any serious illnesses Tell your healthcare provider about all the medicines you take, including prescription and wovg-eqo-pahwzwu medicines, vitamins, and herbal supplements. Some medicines may interact with PAXLOVID and may cause serious side effects. Keep a list of your medicines to show your healthcare provider and pharmacist when you get a new medicine. You can ask your healthcare provider or pharmacist for a list of medicines that interact with PAXLOVID. Do not start taking a new medicine without telling your healthcare provider. Your healthcare provider can tell you if it is safe to take PAXLOVID with other medicines. Tell your healthcare provider if you are taking combined hormonal contraceptive. PAXLOVID may affect how your control pills work. Females who are able to become should use another effective alternative form of contraception or an additional barrier method of contraception. Talk to your healthcare provider if you have any questions about contraceptive methods that might be right for you. How do I take PAXLOVID? PAXLOVID consists of 2 medicines: nirmatrelvir and ritonavir. Take 2 pink tablets of nirmatrelvir with 1 white tablet of ritonavir by mouth 2 times each day (in the morning and in the evening) for 5 days. For each dose, take all 3 tablets at the same time. If you have kidney disease, talk to your healthcare provider. You may need a different dose. Swallow the tablets whole. Do not chew, break, or crush the tablets. Take PAXLOVID with or without food. Do not stop taking PAXLOVID without talking to your healthcare provider, even if you feel better. If you miss a dose of PAXLOVID within 8 hours of the time it is usually taken, take it as soon as you remember. If you miss a dose by more than 8 hours, skip the missed dose and take the next dose at your regular time. Do not take 2 doses of PAXLOVID at the same time. If you take too much PAXLOVID, call your healthcare provider or go to the nearest hospital emergency room right away. If you are taking a ritonavir-or cobicistat-containing medicine to treat hepatitis C or Human Immunodeficiency Virus (HIV), you should continue to take your medicine as prescribed by your healthcare provider. Talk to your healthcare provider if you do not feel better or if you feel worse after 5 days. Who should generally not take PAXLOVID? Do not take PAXLOVID if: You are allergic to nirmatrelvir, ritonavir, or any of the ingredients in PAXLOVID You are taking any of the following medicines: Alfuzosin Pethidine, propoxyphene Ranolazine Amiodarone, dronedarone, flecainide, propafenone, quinidine Colchicine Lurasidone, pimozide, clozapine Dihydroergotamine, ergotamine, methylergonovine Lovastatin, simvastatin Sildenafil (Revatio ) for pulmonary arterial hypertension (PAH) Triazolam, oral midazolam Apalutamide Carbamazepine, phenobarbital, phenytoin Rifampin Sarahy s Wort (hypericum perforatum) Taking PAXLOVID with these medicines may cause serious or life-threatening side effects or affect how PAXLOVID works. These are not the only medicines that may cause serious side effects if taken with PAXLOVID. PAXLOVID may increase or decrease the levels of multiple other medicines. It is very important to tell your healthcare provider about all of the medicines you are taking because additional laboratory tests or changes in the dose of your other medicines may be necessary while you are taking PAXLOVID. Your healthcare provider may also tell you about specific symptoms to watch out for that may indicate that you need to stop or decrease the dose of some of your other medicines. What are the important possible side effects of PAXLOVID? Possible side effects of PAXLOVID are: Allergic Reactions. Allergic reactions can happen in people taking PAXLOVID, even after only 1 dose. Stop taking PAXLOVID and call your healthcare provider right away if you get any of the following symptoms of an allergic reaction: hives trouble swallowing or breathing swelling of the mouth, lips, or face throat tightness hoarseness skin rash Liver Problems. Tell your healthcare provider right away if you have any of these signs and symptoms of liver problems: loss of appetite, yellowing of your skin and the whites of eyes (jaundice), dark-colored urine, pale colored stools and itchy skin, stomach area (abdominal) pain. Resistance to HIV Medicines. If you have untreated HIV infection, PAXLOVID may lead to some HIV medicines not working as well in the future. Other possible side effects include: altered sense of taste diarrhea high blood pressure muscle aches These are not all the possible side effects of PAXLOVID. Not many people have taken PAXLOVID. Serious and unexpected side effects may happen. PAXLOVID is still being studied, so it is possible that all of the risks are not known at this time. What other treatment choices are there? Veklury (remdesivir) is FDA-approved for the treatment of oqyy-ff-dfygwgwl COVID-19 in certain adults and children. Talk with your doctor to see if Veklury is appropriate for you. Like PAXLOVID, FDA may also allow for the emergency use of other medicines to treat people with COVID-19. Go to https://www.fda.gov/emergency-pre paredness-andresponse/mcm-legal-r biksazycc-lns-iomonp-framework/em kqunpne-pbm-uqfcplisbksoa for information on the emergency use of other medicines that are authorized by FDA to treat people with COVID-19. Your healthcare provider may talk with you about clinical trials for which you may be eligible. It is your choice to be treated or not to be treated with PAXLOVID. Should you decide not to receive it or for your child not to receive it, it will not change your standard medical care. What if I am or ? There is regional agronomist treating women or mothers with PAXLOVID. For a mother and unborn baby, the benefit of taking PAXLOVID may be greater than the risk from the treatment. If you are , discuss your options and specific situation with your healthcare provider. It is recommended that you use effective barrier contraception or do not have sexual activity while taking PAXLOVID. If you are , discuss your options and specific situation with your healthcare provider. How do I report side effects with PAXLOVID? Contact your healthcare provider if you have any side effects that bother you or do not go away. Report side effects to [employer] at www.fda.gov/medRespect Your [employer]etch or call 8-433-EAZ6297 or you can report side effects to [employer]. at the contact information provided below. Website Fax number Telephone number [employer] How should I store PAXLOVID? Store PAXLOVID tablets at room temperature, between 68?F to 77?F (20?C to 25?C). How can I learn more about COVID-19? Ask your healthcare provider. Visit https://www.cdc.gov/COVID19. Contact your local or state public health department. What is an Emergency Use Authorization (EUA)? The [place] FDA has made PAXLOVID available under an emergency access mechanism called an Emergency Use Authorization (EUA). The EUA is supported by a [place] of Health and Human Service (HHS) declaration that circumstances exist to justify the emergency use of drugs and biological products during the COVID-19 pandemic. PAXLOVID for the treatment of leya-sl-xxhvysvh COVID-19 in adults and children [12 years of age and older weighing at least 88 pounds (40 kg)] with positive results of direct SARS-CoV-2 viral testing, and who are at high risk for progression to severe COVID-19, including hospitalization or , has not undergone the same type of review as an FDA-approved product. In issuing an EUA under the COVID-19 public health emergency, the FDA has determined, among other things, that based on the total amount of scientific evidence available including data from adequate and well-controlled clinical trials, if available, it is reasonable to believe that the product may be effective for diagnosing, treating, or preventing COVID-19, or a serious or life-threatening disease or condition caused by COVID-19; that the known and potential benefits of the product, when used to diagnose, treat, or prevent such disease or condition, outweigh the known and potential risks of such product; and that there are no adequate, approved, and available alternatives. All of these criteria must be met to allow for the product to be used in the treatment of patients during the COVID-19 pandemic. The EUA for PAXLOVID is in effect for the duration of the COVID-19 declaration justifying emergency use of this product, unless terminated or revoked (after which the products may no longer be used under the EUA). Additional Information For general questions, visit the website or call the telephone number provided below. Website Telephone number [email or web address] (2-209-J83-QBRU) You can also go to www.[employer] or call for more information. Pfizer Distributed by [employer] [place] [address] [id number] Revised: 29 October 2021 documented in this encounter [facility] 03-02-2022 History of Present illness Narrative Telemedicine Evaluation for COVID-19 Infection Audio only was used for evaluation of this patient. Location of patient: [place] Phone visit SUBJECTIVE Fredrick Mao is a 77 year old male who presents with 2 days of symptoms that are stable. Test positive on Monday at [facility] Symptoms include: Fever (?100.4F): No or Chills: Yes Cough: Yes Shortness of breath: No or Difficulty breathing: No Fatigue: Yes Muscle aches: Yes Headache: Yes New loss of smell or taste: Yes Sore throat: No Nasal congestion: No or Rhinorrhea: Yes Nausea: No or Vomiting: No Diarrhea: No OTC meds/remedies that patient has tried: Advil. High risk category assessment Age > 60 years old Hypertension Exposures: Sick contacts? Yes Family or close contacts with confirmed/probable COVID-19 in last 14 days? Yes He reports that he quit smoking about 26 years ago. His smoking use included cigarettes. He has a 25.00 pack-year smoking history. He has never used smokeless tobacco. OBJECTIVE Pleasant sounding male. Able to answer all questions appropriately Audible coughing. No audible wheezing. Able to answer all questions appropriately. ASSESSMENT/PLAN 1. Telehealth encounter for confirmed COVID-19 - ICD9: 079.89, ICD10: U07.1 - no red flag symptoms - red flag symptos discussed. Verbalizes understanding - discussed CDC current isolation recommendations, verbalizes understanding - qualifies for paxlovid - discussed side effects, possible risks and potential benefits of Paxlovid and that medication is not FDA approved but is able under EUA, verbalizes undestanding - discussed with patient he needs to hold hsi lovastain while taking as it may cause serious life-thratening side eff Nirmatrelvir/Ritonavir (Paxlovid) Eligibility and Patient Discussion [facility] Formulary Restriction Criteria: Adult outpatients 18 years and older with ALL of the following: [x] Patient has positive SARS-COV-2 viral test (PCR or antigen test) during current illness [x] Patient has symptoms for 5 days or less [x] Not requiring hospitalization at any time for management of COVID-19 [x] Not requiring supplemental oxygen or a change in baseline supplemental oxygen[x] Not utilized for pre-exposure or post-exposure prophylaxis for prevention of COVID-19 [x] Patient does not have severe renal impairment (eGFR < 30 mL/min) or severe hepatic impairment (Child-Bolanos Class C) [x] Meeting at least one of the criteria for high risk of progression to severe COVID-19: [x] Age over 65 years [] Cancer [] Chronic kidney disease [] Chronic liver disease [] Chronic lung diseases, including cystic fibrosis [] Dementia or other neurological conditions [] Diabetes (type 1 or type 2) [] Disabilities, including Down syndrome and neurodevelopmental disorders [] Heart conditions [] HIV infection [] Immunocompromised state [] Mental health conditions [] Medical related technological dependence (tracheostomy, gastrostomy, or positive pressure ventilation (not related to COVID) [x] Overweight and obesity (BMI greater or equal to 25 for adults) [] Physical inactivity [] [] Sickle cell disease or thalassemia [] Smoking, current or former [] Solid organ or blood stem cell transplant [] Stroke or cerebrovascular disease [] Substance use disorders [] Tuberculosis [] People from racial and ethnic minority groups Criteria above are met: Yes Date of Positive Test:03/01/2022 Date of Symptom Onset: 03/01/2022 Patient received COVID vaccine: Yes Drug-Drug interactions reviewed: Yes. Drug interactions were identified and the following actions were taken told to stop lovastatin while taking. I have discussed the use of the investigational therapeutic, nirmatrelvir/ritonavir, for the treatment of mild to moderate COVID-19 and its use under Emergency Use Authorization with the patient. The patient was informed that nirmatrelvir/ritonavir is not an FDA approved drug and that it is authorized for use under this Emergency Use Authorization. The patient was also informed of the significant known benefits and potential risks of nirmatrelvir/ritonavir, and the extent to which such potential risks and benefits are unknown. The patient was informed that there is mandatory reporting of all medication errors and serious adverse events potentially related to nirmatrelvir/ritonavir treatment within 7 calendar days from the onset of the event and that events up to 28 days after completion of therapy need to be reported. The discussion included alternatives to receiving nirmatrelvir/ritonavir, including clinical trials, and potential the risks and benefits of those alternatives. The patient was provided electronically with the Fact Sheet for Patients, Parents and Caregivers. The patient was also instructed that in addition to the treatment with nirmatrelvir/ritonavir, he/she should continue to self-isolate and use infection control measures (e.g., wear mask, isolate, social distance, avoid sharing personal items, clean and disinfect high touch surfaces, and frequent handwashing) according to CDC guidelines. The patient stated understanding and gave verbal consent to proceeding with nirmatrelvir/ritonavir treatment. Alexa No APRN.CNP March 02, 2022 9:58 AM During this patient visit I have spent approximately 20 minutes in counseling regarding treatment options, medications and test results. documented in this encounter [facility] 01-27-2015 History of Past i llness Narrative Problem Noted Date Resolved Date Pain of left thumb 01/27/2015 10/28/2016 DJD (DEGENERATIVE JOINT DISEASE) -- right ACjoin t 04/25/2007 10/28/2016 Irritable bowel syndrome 017 Depressive disorder, not elsewhere classified 10/28/2016 Lateral epicondylitis of elbow 0 10/28/2016 Overview: right side documented as of this encounter (statuses as of 03/02/2022) [facility] History of Past illness Narrative* Problem Noted Date Resolved Date Pain of left thumb 01/27/2015 10/28/2016 DJD (DEGENERATIVE JOINT DISEASE) -- right ACjoin t 04/25/2007 10/28/2016 Irritable bowel syndrome 017 Depressive disorder, not elsewhere classified 10/28/2016 Lateral epicondylitis of elbow 0 10/28/2016 Overview: right side documented as of this encounter (statuses as of 05/31/2022) [facility] History of Past illness Narrative* Problem Noted Date Resolved Date Pain of left thumb 01/27/2015 10/28/2016 DJD (DEGENERATIVE JOINT DISEASE) -- right ACjoin t 04/25/2007 10/28/2016 Irritable bowel syndrome 017 Depressive disorder, not elsewhere classified 10/28/2016 Lateral epicondylitis of elbow 0 10/28/2016 Overview: right side documented as of this encounter (statuses as of 07/06/2022) [facility] History of Past illness Narrative* Problem Noted Date Resolved Date Pain of left thumb 01/27/2015 10/28/2016 DJD (DEGENERATIVE JOINT DISEASE) -- right ACjoin t 04/25/2007 10/28/2016 Irritable bowel syndrome 017 Depressive disorder, not elsewhere classified 10/28/2016 Lateral epicondylitis of elbow 0 10/28/2016 Overview: right side documented as of this encounter (statuses as of 07/14/2022) [facility] History of Past illness Narrative* Problem Noted Date Resolved Date Pain of left thumb 01/27/2015 10/28/2016 DJD (DEGENERATIVE JOINT DISEASE) -- right ACjoin t 04/25/2007 10/28/2016 Irritable bowel syndrome 017 Depressive disorder, not elsewhere classified 10/28/2016 Lateral epicondylitis of elbow 0 10/28/2016 Overview: right side documented as of this encounter (statuses as of 08/23/2022) [facility] History of Past illness Narrative* Problem Noted Date Resolved Date Pain of left thumb 01/27/2015 10/28/2016 DJD (DEGENERATIVE JOINT DISEASE) -- right ACjoin t 04/25/2007 10/28/2016 Irritable bowel syndrome 017 Depressive disorder, not elsewhere classified 10/28/2016 Lateral epicondylitis of elbow 0 10/28/2016 Overview: right side documented as of this encounter (statuses as of 08/30/2022) [facility] History of Past illness Narrative* Problem Noted Date Resolved Date Pain of left thumb 01/27/2015 10/28/2016 DJD (DEGENERATIVE JOINT DISEASE) -- right ACjoin t 04/25/2007 10/28/2016 Irritable bowel syndrome 017 Depressive disorder, not elsewhere classified 10/28/2016 Lateral epicondylitis of elbow 0 10/28/2016 Overview: right side documented as of this encounter (statuses as of 09/26/2022) [facility] History of Past illness Narrative* Problem Noted Date Resolved Date Pain of left thumb 01/27/2015 10/28/2016 DJD (DEGENERATIVE JOINT DISEASE) -- right ACjoin t 04/25/2007 10/28/2016 Irritable bowel syndrome 017 Depressive disorder, not elsewhere classified 10/28/2016 Lateral epicondylitis of elbow 0 10/28/2016 Overview: right side documented as of this encounter (statuses as of 10/13/2022) [facility] of Past illness Narrative* Problem Noted Date Diagnosed Date Resolved Date Pain of left thumb 01/27/2015 7 DJD (DEGENERATIVE JOINT DISE ASE) -- right ACjoint 04/25/2007 10/28/2016 Irritable bowel syndrome Depressive disorder, not elsewhere classified 10/28/2016 Lateral epicondylitis of elbow 10/28/2016 Overview: right side documented as of this encounter (statuses as of 04/19/2023) [facility] History of Past illness Narrative* Problem Noted Date Diagnosed Date Resolved Date Pain of left thumb 01/27/2015 7 DJD (DEGENERATIVE JOINT DISE ASE) -- right ACjoint 04/25/2007 10/28/2016 Irritable bowel syndrome Depressive disorder, not elsewhere classified 10/28/2016 Lateral epicondylitis of elbow 10/28/2016 Overview: right side documented as of this encounter (statuses as of 06/18/2023) [facility]No [facility]: Evaluation note* Diagnosis Telehealth encounter for confirmed COVID-19- Primary documented in this encounter [facility] note* Diagnosis Encounter for screening for malignant neoplasm of colon- Primary Special screening for malignant neoplasms, colon documented in this encounter [facility] note* Diagnosis Gastroesophageal reflux disease without esophagitis Esophageal reflux documented in this encounter [facility] note* Diagnosis Seborrheic dermatitis of scalp Other seborrheic dermatitis documented in this encounter [facility] note* Diagnosis Essential hypertension- Primary Unspecified essential hypertension Mixed hyperlipidemia Impaired fasting glucose LPRD (laryngopharyngeal reflux disease) Other diseases of larynx documented in this encounter [facility] note* Diagnosis Medicare annual wellness visit, subsequent- Primary Routine general medical examination at a health care facility Newly diagnosed diabetes (HCC) Type II or unspecified type diabetes mellitus without mention of complication, not stated as uncontrolled Intracranial meningioma (HCC) Benign neoplasm of cerebral meninges documented in this encounter [facility] note* Diagnosis Newly diagnosed diabetes (HCC) Type II or unspecified type diabetes mellitus without mention of complication, not stated as uncontrolled documented in this encounter [facility] note* Diagnosis Well controlled type 2 diabetes mellitus (HCC)- Primary Type II or unspecified type diabetes mellitus without mention of complication, not stated as uncontrolled Primary hypertension Unspecified essential hypertension Mixed hyperlipidemia Encounter for immunization Need for other specified prophylactic vaccination against single bacterial disease documented in this encounter [facility] note* Diagnosis Screening for colon cancer- Primary Special screening for malignant neoplasms, colon Special screening for malignant neoplasms, colon documented in this encounter [facility] note* Diagnosis Type 2 diabetes mellitus without complication, without long-term current use of insulin (HCC)- Primary Seborrheic dermatitis of scalp Other seborrheic dermatitis Mixed hyperlipidemia Intracranial meningioma (HCC) Benign neoplasm of cerebral meninges Encounter for immunization Need for other specified prophylactic vaccination against single bacterial disease Encounter for long-term current use of medication documented in this encounter [facility] note* Diagnosis Essential hypertension- Primary Unspecified essential hypertension Mixed hyperlipidemia Neck pain Cervicalgia Esophagitis, unspecified Impaired fasting glucose Type 2 diabetes mellitus without complication, without long-term current use of insulin (HCC)- Primary Gastroesophageal reflux disease without esophagitis Esophageal reflux Mixed hyperlipidemia Flatulence Flatulence, eructation, and gas pain Encounter for immunization Need for other specified prophylactic vaccination against single bacterial disease Screening for depression Encounter for screening examination for other mental health and behavioral disorders documented in this encounter [facility] note* Diagnosis Essential hypertension- Primary Unspecified essential hypertension Mixed hyperlipidemia Neck pain Cervicalgia Esophagitis, unspecified Impaired fasting glucose Left lower quadrant abdominal pain- Primary Gastroesophageal reflux disease without esophagitis Esophageal reflux documented in this encounter [facility] note* Diagnosis Essential hypertension- Primary Unspecified essential hypertension Mixed hyperlipidemia Neck pain Cervicalgia Esophagitis, unspecified Impaired fasting glucose Left lower quadrant abdominal pain documented in this encounter [facility] note* Diagnosis Essential hypertension- Primary Unspecified essential hypertension Mixed hyperlipidemia Neck pain Cervicalgia Esophagitis, unspecified Impaired fasting glucose Type 2 diabetes mellitus without complication, without long-term current use of insulin (HCC)- Primary Essential hypertension Unspecified essential hypertension Encounter for immunization Need for other specified prophylactic vaccination against single bacterial disease Screening for diabetic retinopathy Screening for other eye conditions Gastroesophageal reflux disease without esophagitis Esophageal reflux Mixed hyperlipidemia * Assessment & Plan Note - Minh Alexandra APRN.CNS - 10/29/2024 9:58 AM EDT Associated Problem(s): Essential hypertension Essential hypertension - ICD9: 401.9, ICD10: I10 controlled - Continue current medications - Encouraged sodium restriction, DASH or Mediterranean diet - Recommend regular aerobic exercise * Assessment & Plan Note - Minh Alexandra APRN.CNS - 10/29/2024 9:58 AM EDT Associated Problem(s): Mixed hyperlipidemia Mixed hyperlipidemia - ICD9: 272.2, ICD10: E78.2 controlled - Continue current medications - Counseled on healthy diet and regular exercise documented in this encounter [facility] for referral (narrative)* Outpatient Procedure (Routine) - Closed Specialty Diagnoses / Procedures Referred By Baldomero guzman Referred To Contact [facility] [place] Diagnoses Special screening for malignant neoplasms, colon Procedures COLONOSCOPY SCREENING COLONOSCOPY FLX DX W/COLLJ SPEC WHEN Vandana Bashir PA-C [address] [place] [address] [facility] [place] [id number] Referral ID Status Reason Start Date Expiration Date V isits Requested Visits Authorized [id number] Closed Auto-Generate d Referral 05/31/2022 05/31/2023 1 1 [facility] for visit Narrative* Outpatient Procedure (Routine) - Closed Specialty Diagnoses / Procedures Referred By Baldomero guzman Referred To Contact [facility] [place] Diagnoses Special screening for malignant neoplasms, colon Procedures COLONOSCOPY SCREENING COLONOSCOPY FLX DX W/COLLJ SPEC WHEN Vandana Bashir PA-C [address] [place] [address] [address] Referral ID Status Reason Start Date Expiration Date V isits Requested Visits Authorized [id number] Closed Auto-Generate d Referral 05/31/2022 05/31/2023 1 1 [facility] Advance Directives No Advanced Directives Records Found Advance Directive Response Recorded Date/ Time Advance Directives Yes January 25 6:11pm Living Will Yes March 16, 2017 8:59pm Power of Portfolio Manager Yes March 16 8:59pm Documents on File Type Date Recorded Patient Computer Peripheral Equipment Operator Expl anation Advance Directive(s) 11/29/2016 12:32 PM Advance Directive(s) 03/29/2011 12:00 AM Advance Directive(s) 03/17/2008 12:00 AM Documents on File Type Date Recorded Patient Computer Peripheral Equipment Operator Expl anation Advance Directive(s) 03/29/2011 Advance Directive(s) 03/17/2008 Documents on File Type Date Recorded Patient Computer Peripheral Equipment Operator Expl anation Advance Directive(s) 03/29/2011 Advance Directive(s) 03/17/2008 Documents on File Type Date Recorded Patient Computer Peripheral Equipment Operator Expl anation Advance Directive(s) 05/08/2024 8:43 AM Advance Directive(s) 03/29/2011 Advance Directive(s) 03/17/2008 Documents on File Type Date Recorded Patient Computer Peripheral Equipment Operator Expl anation Advance Directive(s) 05/08/2024 8:43 AM Advance Directive(s) 03/29/2011 Advance Directive(s) 03/17/2008 Chief Complaint and Reason for Visit Chief Complaint LUMBAR RADICULOPATHY COVID TEST/[facility] Summary Purpose Family History No Family History Records FoundNo Family History Records FoundNo Family History Records Found Reason for Referral Specialty Diagnoses / Procedures Referred By Baldomero guzman Referred To Contact Diagnoses Newly diagnosed diabetes (HCC) Procedures CONSULT TO DIABETES EDUCATION OFFICE/OUTPATIENT NEW HIGH MDM 60-74 MINUTES Minh Alexandra, PATENT LAW SPECIALIST.CLASSIFICATION OFFICER [address] [place] [address] Referral ID Status Reason Start Date Expiration Date Visits Requested Visits Authorized [id number] Authorized PCP Requested Referral 08/30/2022 08/30/2023 1 1 Specialty Diagnoses / Procedures Referred By Baldomero guzman Referred To Contact CT IMAGING Diagnoses Left lower quadrant abdominal pain Procedures CT ABD/PEL WO IVCON CT ABD & PELVIS W/O CONTRAST Minh Alexandra, PATENT LAW SPECIALIST.CLASSIFICATION OFFICER [address] [place] [address] [place] [address] Referral ID Status Reason Start Date Expiration Date Visits Requested Visits Authorized [id number] Authorized Auto-Generat ed Referral 06/23/2025 2 2 Referral ID Status Reason Start Date Expiration Date V isits Requested Visits Authorized [id number] Closed Auto-Generate d Referral 05/24/2024 06/23/2025 2 2 Medications Administered Section Inactive Administered Medications - up to 3 most recent administrations Medication Order MAR Action Action Date Dose Rate Site diphenhydrAMINE 12.5-50 mg injection (BENADRYL) 12.5-50 mg, INTRAVENOUS, DIRECTED, Starting on Mon08/16/22 at 0930, Until Mon08/16/22 at 1329, DOSING DIRECTED BY PHYSICIAN FOR PROCEDURAL SEDATION ONLY, Intraprocedure Given 08/16/2022 9:28 AM EST 50 mg fentaNYL 50 mcg/mL 25-100 mcg injection (SUBLIMAZE) 25-100 mcg, INTRAVENOUS, DIRECTED, Starting on Mon08/16/22 at 0930, Until Mon08/16/22 at 1329, DOSING DIRECTED BY PHYSICIAN FOR PROCEDURAL SEDATION ONLY, Intraprocedure Given 08/16/2022 9:37 AM EST 50 mcg Given 08/16/2022 9:25 AM EST 50 mcg lactated ringers iv infusion 75 mL/hr, INTRAVENOUS, CONTINUOUS, Starting on Mon08/16/22 at 0830, Until Mon08/16/22 at 0959, Preprocedure New Bag/Syringe/Bottle 08/16/2022 8:30 AM EST 75 mL/hr 75 mL/hr midazolam 1-5 mg injection (VERSED) 1-5 mg, INTRAVENOUS, DIRECTED, Starting on Mon08/16/22 at 0930, Until Mon08/16/22 at 1329, DOSING DIRECTED BY PHYSICIAN FOR PROCEDURAL SEDATION ONLY, Intraprocedure Given 08/16/2022 9:25 AM EST 3 mg Additional Source Comments Goals (unrecognized section and content) Goals may be documented in a n alternate sectionGoals may be documented in an alternate section Source Comments (unrecognize d section and content) In the event this informatio n is protected by the Federal Confidentiality of Alcohol and Drug Abuse Patient Records regulations: The Federal rules restrict any use of the information to criminally investigate or prosecute any alcohol or drug abuse patient.[facility] the event this information is protected by the Federal Confidentiality of Alcohol and Drug Abuse Patient Records regulations: The Federal rules restrict any use of the information to criminally investigate or prosecute any alcohol or drug abuse patient.[facility]In the event this information is protected by the Federal Confidentiality of Alcohol and Drug Abuse Patient Records regulations: The Federal rules restrict any use of the information to criminally investigate or prosecute any alcohol or drug abuse patient.[facility] the event this information is protected by the Federal Confidentiality of Alcohol and Drug Abuse Patient Records regulations: The Federal rules restrict any use of the information to criminally investigate or prosecute any alcohol or drug abuse patient.[facility]In the event this information is protected by the Federal Confidentiality of Alcohol and Drug Abuse Patient Records regulations: The Federal rules restrict any use of the information to criminally investigate or prosecute any alcohol or drug abuse patient.[facility]In the event this information is protected by the Federal Confidentiality of Alcohol and Drug Abuse Patient Records regulations: The Federal rules restrict any use of the information to criminally investigate or prosecute any alcohol or drug abuse patient.[facility]In the event this information is protected by the Federal Confidentiality of Alcohol and Drug Abuse Patient Records regulations: The Federal rules restrict any use of the information to criminally investigate or prosecute any alcohol or drug abuse patient.[facility]In the event this information is protected by the Federal Confidentiality of Alcohol and Drug Abuse Patient Records regulations: The Federal rules restrict any use of the information to criminally investigate or prosecute any alcohol or drug abuse patient.[facility]In the event this information is protected by the Federal Confidentiality of Alcohol and Drug Abuse Patient Records regulations: The Federal rules restrict any use of the information to criminally investigate or prosecute any alcohol or drug abuse patient.[facility]In the event this information is protected by the Federal Confidentiality of Alcohol and Drug Abuse Patient Records regulations: The Federal rules restrict any use of the information to criminally investigate or prosecute any alcohol or drug abuse patient.[facility]In the event this information is protected by the Federal Confidentiality of Alcohol and Drug Abuse Patient Records regulations: The Federal rules restrict any use of the information to criminally investigate or prosecute any alcohol or drug abuse patient.[facility]In the event this information is protected by the Federal Confidentiality of Alcohol and Drug Abuse Patient Records regulations: The Federal rules restrict any use of the information to criminally investigate or prosecute any alcohol or drug abuse patient.[facility]In the event this information is protected by the Federal Confidentiality of Alcohol and Drug Abuse Patient Records regulations: The Federal rules restrict any use of the information to criminally investigate or prosecute any alcohol or drug abuse patient.[facility]In the event this information is protected by the Federal Confidentiality of Alcohol and Drug Abuse Patient Records regulations: The Federal rules restrict any use of the information to criminally investigate or prosecute any alcohol or drug abuse patient.[facility]In the event this information is protected by the Federal Confidentiality of Alcohol and Drug Abuse Patient Records regulations: The Federal rules restrict any use of the information to criminally investigate or prosecute any alcohol or drug abuse patient.[facility]In the event this information is protected by the Federal Confidentiality of Alcohol and Drug Abuse Patient Records regulations: The Federal rules restrict any use of the information to criminally investigate or prosecute any alcohol or drug abuse patient.[facility]In the event this information is protected by the Federal Confidentiality of Alcohol and Drug Abuse Patient Records regulations: The Federal rules restrict any use of the information to criminally investigate or prosecute any alcohol or drug abuse patient.[facility]In the event this information is protected by the Federal Confidentiality of Alcohol and Drug Abuse Patient Records regulations: The Federal rules restrict any use of the information to criminally investigate or prosecute any alcohol or drug abuse patient.[facility]In the event this information is protected by the Federal Confidentiality of Alcohol and Drug Abuse Patient Records regulations: The Federal rules restrict any use of the information to criminally investigate or prosecute any alcohol or drug abuse patient.[facility] HospitalIn the event this information is protected by the Federal Confidentiality of Alcohol and Drug Abuse Patient Records regulations: The Federal rules restrict any use of the information to criminally investigate or prosecute any alcohol or drug abuse patient.[facility] HospitalIn the event this information is protected by the Federal Confidentiality of Alcohol and Drug Abuse Patient Records regulations: The Federal rules restrict any use of the information to criminally investigate or prosecute any alcohol or drug abuse patient.[facility] HospitalIn the event this information is protected by the Federal Confidentiality of Alcohol and Drug Abuse Patient Records regulations: The Federal rules restrict any use of the information to criminally investigate or prosecute any alcohol or drug abuse patient.[facility] Reason for Visit (unrecogniz ed section and content) Reason Comments Covid Test Result Reason Comments Consult Colonoscopy consult, last colon 2011 Reason Onset Date Comments Refill Request 07/06/2022 Reason Comments Refill Request Reason Comments Orders Reason Comments Medicare Wellness Exam Reason Onset Date Comments Refill Request 09/25/2022 Reason Comments Results Reason Comments F/U 3 Month Labs prior Reason Comments F/U 6 months Reason Comments Appointment Reason Comments F/U 6 months Labs prior Reason Comments Abdominal Pain Reason Comments Abdominal Pain LLQ pain radiates to back Specialty Diagnoses / Procedures Referred By Contac t Referred To Contact CT IMAGING Diagnoses Left lower quadrant abdominal pain Procedures CT ABD/PEL WO IVCON CT ABD & PELVIS W/O CONTRAST Minh Alexandra, PATENT LAW SPECIALIST.CLASSIFICATION OFFICER [address] [facility] [place] [address] [place] [address] Referral ID Status Reason Start Date Expiration Date V isits Requested Visits Authorized [id number] Closed Auto-Generate d Referral 05/24/2024 06/23/2025 2 2 Reason Comments Patient Update Reason Comments F/U 6 Month Reason Onset Date Comments Population Health Navigation Outreach 01/21/2025 [facility] Care Teams (unrecognized sec tion and content) Miniature Model Maker Relationship Specialty Start Date End Date Lora Martinez MD [address] [facility] [place] [address] PCP - General 06/07/02 [place] [address] [place] [address] Radiation Oncology 09/28/18 Gerald Hartley MD, [address] [place] [address] Physician Radiation Oncology 11/30/18 Miniature Model Maker Relationship Specialty Start Date End Date Lora Martinez MD [address] [place] [address] PCP - General 06/07/02 [place] [address] [place] [address] Radiation Oncology 09/28/18 Gerald Hartley MD, MD [address] [place] [address] Physician Radiation Oncology 11/30/18 Miniature Model Maker Relationship Specialty Start Date End Date Lora Martinez MD [address] [place] [address] PCP - General 06/07/02 [place] [address] [place] [address] Radiation Oncology 09/28/18 Gerald Hartley MD, [address] [place] [address] Physician Radiation Oncology 11/30/18 Miniature Model Maker Relationship Specialty Start Date End Date Lora Martinez MD [address] [facility] [place] [address] PCP - General 06/07/02 [place] [address] [place] [address] Radiation Oncology 09/28/18 Gerald Hartley MD, [address] [facility] [place] [address] Physician Radiation Oncology 11/30/18 Miniature Model Maker Relationship Specialty Start Date End Date Lora Martinez MD [address] [facility] [place] [address] PCP - General 06/07/02 [place] [address] [place] [address] Radiation Oncology 09/28/18 Gerald Hartley MD, [address] [place] [address] Physician Radiation Oncology 11/30/18 Miniature Model Maker Relationship Specialty Start Date End Date Lora Martinez MD [address] [facility] [place] [address] PCP - General 06/07/02 [place] [address] [place] [address] Radiation Oncology 09/28/18 Gerald Hartley MD, [address] [place] [address] Physician Radiation Oncology 11/30/18 Miniature Model Maker Relationship Specialty Start Date End Date Lora Martinez MD [address] [facility] [place] [address] PCP - General 06/07/02 [place] [address] [place] [address] Radiation Oncology 09/28/18 Gerald Hartley MD, [address] [place] [address] Physician Radiation Oncology 11/30/18 Miniature Model Maker Relationship Specialty Start Date End Date Lora Martinez MD [address] [place] [address] PCP - General 06/07/02 [place] [address] [place] [address] Radiation Oncology 09/28/18 Gerald Hartley MD, [address] [place] [address] Physician Radiation Oncology 11/30/18 Miniature Model Maker Relationship Specialty Start Date End Date Lora Martinez MD [address] [place] [address] PCP - General 06/07/02 [place] [address] [place] [address] Radiation Oncology 09/28/18 Gerald Hartley MD, [address] [place] [address] Physician Radiation Oncology 11/30/18 Miniature Model Maker Relationship Specialty Start Date End Date Lora Martinez MD [address] [place], [place] [address] PCP - General 06/07/02 [place] [address] [place] [address] Radiation Oncology 09/28/18 Gerald Hartley MD [address] [place] [address] Physician Radiation Oncology 11/30/18 Miniature Model Maker Relationship Specialty Start Date End Date Lora Martinez MD [address] [place] [address] PCP - General 06/07/02 [place] [address] [place] [address] Radiation Oncology 09/28/18 Gerald Hartley MD [address] [place] [address] Physician Radiation Oncology 11/30/18 Miniature Model Maker Relationship Specialty Start Date End Date Lora Martinez MD [address] [place] [address] PCP - General 06/07/02 [place] [address] [facility] [place] [address] Radiation Oncology 09/28/18 Gerald Hartley MD [address] [place] [address] Physician Radiation Oncology 11/30/18 Miniature Model Maker Relationship Specialty Start Date End Date Lora Martinez MD [address] [facility] [place] [place] [address] PCP - General 06/07/02 [place] [address] [place] [address] Radiation Oncology 09/28/18 Gerald Hartley MD [address] [place] [address] Physician Radiation Oncology 11/30/18 Miniature Model Maker Relationship Specialty Start Date End Date Lora Martinez MD [address] [facility] [place] [address] PCP - General 06/07/02 [place] [address] [place] [address] Radiation Oncology 09/28/18 Gerald Hartley MD [address] [place] [address] Physician Radiation Oncology 11/30/18 Miniature Model Maker Relationship Specialty Start Date End Date Lora Martinez MD [address] [facility] [place] [address] PCP - General 06/07/02 [place] [address] [facility] [place] [address] Radiation Oncology 09/28/18 Gerald Hartley MD [address] [place] [address] Physician Radiation Oncology 11/30/18 Miniature Model Maker Relationship Specialty Start Date End Date Loar Martinez MD [address] [facility] [place] [address] PCP - General 06/07/02 [place] [address] [place] [address] Radiation Oncology 09/28/18 Gerald Hartley MD [address] [place] [address] Physician Radiation Oncology 11/30/18 Miniature Model Maker Relationship Specialty Start Date End Date Lora Martinez MD [address] [facility] [place] [address] PCP - General 06/07/02 [place] [address] [place] [address] Radiation Oncology 09/28/18 Gerald Hartley MD [address] [place] [address] Physician Radiation Oncology 11/30/18 Miniature Model Maker Relationship Specialty Start Date End Date Lora Martinez MD [address] [facility] [place] [address] PCP - General 06/07/02 [place] [address] [place] [address] Radiation Oncology 09/28/18 Gerald Hartley MD [address] [place] [address] Physician Radiation Oncology 11/30/18 Miniature Model Maker Relationship Specialty Start Date End Date Lora Martinez MD [address] [place] [address] PCP - General 06/07/02 [place] [address] [place] [address] Radiation Oncology 09/28/18 Gerald Hartley MD [address] [place] [address] Physician Radiation Oncology 11/30/18 Minh Alexandra APRN.CLASSIFICATION OFFICER [address] [place] [address] Management Development Specialist Internal Medicine 07/22/24 Soco Akbar APRN.LAN SUPPORT SPECIALIST [address] [place] [address] Management Development Specialist Internal Medicine 07/22/24 Miniature Model Maker Relationship Specialty Start Date End Date Lora Martinez MD [address] [place] [address] PCP - General 06/07/02 [place] [address] [place] [address] Radiation Oncology 09/28/18 Gerald Hartley MD [address] [place] [address] Physician Radiation Oncology 11/30/18 Soco Akbar APRN.LAN SUPPORT SPECIALIST [address] [place] [address] Management Development Specialist Internal Medicine 11/05/24 Minh Alexandra APRN.CLASSIFICATION OFFICER [address] [place] [address] Management Development Specialist Internal Medicine 01/01/25 (unrecognized sect ion and content) No Status Records FoundNo Status Records FoundNo Status Records Found INFORMATION SOURCE (unrecogn ized section and content) DATE CREATED AUTHOR 03/21/2022 [facility] DATE CREATED AUTHOR AUTHOR'S ORGANIZ ATION 05/30/2024 [facility] DATE CREATED AUTHOR AUTHOR'S ORGANIZ ATION 06/17/2025 [facility] FOR RECORDS PERTAINING TO PATIENTS WHO ARE OR HAVE BEEN ENROLLED IN A CHEMICAL DEPENDENCY/SUBSTANCEABUSE PROGRAM, SOME INFORMATION MAY BE OMITTED. This clinical summary was aggregated from multiple sources. Caution should be exercised in using it in the provision of clinical care. This summary normalizes information from multiple sources, and as a consequence, information in this document may materially change the coding, format and clinical context of patient data. In addition, data may be omitted in some cases. CLINICAL DECISIONS SHOULD BE BASED ON THE PRIMARY CLINICAL RECORDS. [employer] [facility]. provides no warranty or guarantee of the accuracy or completeness of information in this document.
[2025-07-14 02:31] LABS: Hematocrit 44.4 % (40-54); Hemoglobin 15.4 g/dL (13.0-16.5); Immature Granulocytes Count 0.020 X10^3/uL (0.0-0.0); Mean Corp Hgb Conc 34.7 g/dL (32-36); Mean Corpuscular Volume 94.1 fL (80-94); Mean Platelet Vol. 8.8 fl (6.2-12.0); NRBC Flagged by Analyzer 0 % (0-5); Platelet Count 268 K/mm3 (150-450); RBC Distribution Width CV 11.6 % (11.6-14.6); RBC Distribution Width SD 40.2 fl (35.1-43.9); Red Blood Count 4.72 M/mm3 (4.6-6.2); White Blood Count 7.9 K/mm3 (4.4-11.0)
[2025-07-14 02:40] LABS: Prothrombin Time (Protime)PT. 13.4 SECONDS (11.7-14.9)
[2025-07-14 02:41] LABS: Partial Thromboplast Time 29.8 Seconds (24.1-36.2)
[2025-07-14 03:01] LABS: Anion Gap 14 (5-15); BUN 25 mg/dL (4-19); BUN/Creat Ratio 20.8 RATIO (10-20); Calcium,Total 9.7 mg/dL (7.6-11.0); Carbon Dioxide 23.0 mmol/L (21.0-32.0); Chloride 104 mmol/L (98-108); Estimated Creatinine Clearance 58.53 ml/min (50-250); Glucose 115 mg/dL (70-99); Potassium 3.9 mmol/L (3.3-5.1); Troponin T High Sensitivity 13 ng/L (<=22)
--- NOTE | 2025-07-14 04:11 | PCM.HP.STD ---
HPI - General General Date of Admission: 07/14/25 Date of Service: 07/14/25 Chief Complaint: Left leg weakness and numbness HPI Narrative FREDRICK MAO, is a 80 M who presents with sudden onset left leg weakness and numbness. Patient has history of [id number] diabetes, hypertension and hypercholesterolemia controlled on medications who presents with sudden onset weakness and numbness of the left lower extremity after he woke up at 1 AM to go to the bathroom. He went to bed around 9 PM and he was fine. Denies any speech difficulty, changes in vision, dizziness, upper extremity deficits or changes in mentation. Not on aspirin or blood thinners at home. Never had a stroke or CAD. In the ED, stroke alert was called. CT showed no bleed, CTA head and neck showed no large vessel occlusion. Initial NIH stroke scale was around 3 which improved over few hours while in the ED. He was not a tPA candidate because of low NIH stroke scale and rapid improvement. Case was discussed with [facility] neurology. When seen, patient had no deficits and NIH stroke scale was 0. He needs an observation for MRI to rule out stroke otherwise he will be labeled as TIA Aspirin 325 mg is ordered [facility] Medical History (Updated 07/14/25 @ 04:[address] Jeremy Eduardo MD) Brain tumor Diabetes Hypertension Hyperlipidemia Home Medications ?Medication ?Instructions ?Recorded ?Last Taken ?Type ascorbic acid (vitamin C) 500 mg 500 mg PO DAILY@0800 01/26/16 01/26/16 History tablet (Vitamin C) lovastatin 40 mg tablet 40 mg PO QHS 01/26/16 01/25/16 History pantoprazole 40 mg tablet,delayed 40 mg PO DAILY PRN gerd 01/26/16 01/26/16 History release lisinopril 20 mg tablet 20 mg PO DAILY ##30 01/27/16 Unknown Rx meclizine 25 mg tablet 25 mg PO 4X/DAY PRN PRN Vertigo 01/27/16 Unknown Rx ##12 metformin 500 mg tablet 500 mg PO DAILY 07/14/25 Unknown History Allergy/AdvReac Type Severity Reaction Status Date / Time amoxicillin Allergy Rash Verified 07/14/25 02:26 ampicillin Allergy Rash Verified 07/14/25 02:26 Social History Smoking Status: Former smoker ROS Constitutional Constitutional: Denies fever(s) or poor appetite ENT HEENT: Reports none Cardiovascular Cardiovascular: Denies chest pain or dyspnea Respiratory/Chest Respiratory/Chest: Denies cough or wheezing Gastrointestinal Gastrointestinal: Denies abdominal pain or change in bowel habits Genitourinary Genitourinary: Denies change in urinary stream or dysuria Musculoskeletal Musculoskeletal: Denies arthralgias or myalgias Integumentary Integumentary: Reports none Neurologic Neurologic: Reports focal weakness and numbness; Denies abnormal speech, dizziness or loss of vision Hematologic/Lymphatic Hematologic/Lymphatic: Reports none Vital Signs Vital Signs Vital Signs: 07/14/25 02:11 07/14/25 02:11 07/14/25 02:17 Temperature 98.1 F Temperature Source Oral Pulse Rate 64 70 Respiratory Rate 18 18 Blood Pressure 132/76 H 135/72 H Blood Pressure Mean 94 93 Pulse Ox 99 95 98 Oxygen Delivery Method Room Air Room Air Room Air 07/14/25 02:17 07/14/25 02:46 07/14/25 03:17 Temperature Temperature Source Pulse Rate 70 69 68 Respiratory Rate 18 22 H 18 Blood Pressure 135/72 H 144/84 H 148/81 H Blood Pressure Mean 93 104 103 Pulse Ox 95 96 97 Oxygen Delivery Method Room Air Room Air Room Air 07/14/25 03:29 07/14/25 04:00 07/14/25 04:05 Temperature 98.1 F Temperature Source Pulse Rate 70 62 67 Respiratory Rate 19 H 16 13 Blood Pressure 148/82 H 139/64 H 139/82 H Blood Pressure Mean 104 89 101 Pulse Ox 97 98 97 Oxygen Delivery Method Room Air Room Air Weight Weight: 94.4 kg Body Mass Index (BMI) 29.8 Physical Exam Const alert and oriented x3 HEENT normocephalic and head/scalp atraumatic Eyes EOMs intact bilaterally; Negative for no scleral icterus Neck supple Resp normal respiratory effort and clear to auscultation bilaterally Cardio regular rate and regular rhythm; Negative for no murmurs GI normal to inspection, nondistended, normoactive bowel sounds; Negative for non-tender no CVA tenderness Extremity no joint enlargement and no pedal edema Skin no rashes or lesions noted Neuro oriented x3 and moves all extremities Results Lab / Micro Data 07/14/25 02:20 07/14/25 02:20 Labs: Laboratory Results - last 24 hr 07/14/25 02:17: POC Glucose 111 H 07/14/25 02:20: WBC 7.9, RBC 4.72, Hgb 15.4, Hct 44.4, MCV 94.1 H, MCH 32.6 H, MCHC 34.7, RDW Std Deviation 40.2, RDW Coeff of Omid 11.6, Plt Count 268, MPV 8.8, Immature Gran % (Auto) 0.300, Neut % (Auto) 49.9, Lymph % (Auto) 31.3, [place] % (Auto) 11.1 H, Eos % (Auto) 6.6 H, Baso % (Auto) 0.8, Absolute Neuts (auto) 3.9, Absolute Lymphs (auto) 2.46, Nucleated RBC % 0, PT 13.4, INR 1.0, APTT 29.8, Sodium 142, Potassium 3.9, Chloride 104, Carbon Dioxide 23.0, Anion Gap 14, BUN 25 H, Creatinine 1.20, Estim Creat Clear Calc 58.53, Est GFR (MDRD) Non-Af 62, BUN/Creatinine Ratio 20.8 H, Glucose 115 H, Calcium 9.7, Troponin T High Sens 13 Rhythm Strip Rhythm Strip: Sinus Rhythm Rate: 73 Ectopy: None Imaging Radiology Impression Brain CT 07/14/25 02:17 IMPRESSION: 1. No intracranial hemorrhage. No mass effect or midline shift. 2. Chronic involutional and ischemic gliotic white matter changes. 3. Possible high right meningioma abutting the anterior falx. Further evaluation with contrast-enhanced MRI would be more helpful. 4. CT is insensitive for early evaluation of acute stroke. If there is clinical concern for acute ischemia, an MRI may be considered. Stroke Alert: The critical findings in the findings and impression above were relayed directly by me by telephone to Sulaiman Robison on 07/14/2025 at 2:42 am with readback verification. Reading Location: [facility] Head/Neck CTA 07/14/25 02:17 IMPRESSION: Unremarkable CT angiogram of the head and neck with evidence of stenosis or occlusion. [facility] Assessment & Plan Assessment/Plan (1) Left leg weakness: (2) Diabetes: QUALIFIERS: Diabetes mellitus complication status: without complication Diabetes mellitus buttermaker helper insulin use: without buttermaker helper use Diabetes mellitus type: type 2 Qualified Code(s): E11.9 - Type 2 diabetes mellitus without complications (3) Hypertension: QUALIFIERS: Hypertension type: primary hypertension Qualified Code(s): I10 - Essential (primary) hypertension (4) Hyperlipidemia: QUALIFIERS: Hyperlipidemia type: pure hypercholesterolemia Qualified Code(s): E78.00 - Pure hypercholesterolemia, unspecified PLAN: Plan 80-year-old man with hypertension, diabetes and cholesterolemia presents with transient left lower extremity weakness and numbness. Stroke alert, CT showed no bleed and CTA showed no LVO. Place in observation for TIA/CVA workup Left leg weakness: Initial NIH stroke scale 3, currently 0. No bleed. No large vessel occlusion or stenosis. No A-fib on EKG or telemetry. No symptoms suggestive of lumbar radiculopathy MRI brain without contrast As 325 mg x 1 then maintenance 81 daily. On lovastatin, switch to Lipitor because of higher intensity Permissive hypertension, up to 220/120 Lipid panel, A1c, TSH, B12, magnesium PT/OT/ST Diabetes: Not on insulin. Start ACHS sliding scale lispro Hypertension: Well-controlled, hold home medications for permissive hypertension Hyperlipidemia: On lovastatin. Switch to Lipitor as above Charges/Coding Visit Charges OBSV E&M: 09219 Observ/hosp same date L3
--- OUTSIDE RECORDS SUMMARY | 2025-07-14 04:24 | XMS RPT_ITS | CCD ---
Author Organization [facility] Care Team Providers Care Pediatric Registered Nurse Name Role Phone Dr. Lora Martinez Primary [...] ORIANA MARTINEZA Zack Primary Care Unavailable Alexandra MARINE MECHANIC.COOLING SYSTEM OPERATOR, Minh Unavailable Naomie MARINE MECHANIC.RADIO INTERFERENCE EXPERT, Soco Unavailable Naomie MARINE MECHANIC.RADIO INTERFERENCE EXPERT, Soco Unavailable Alexandra MARINE MECHANIC.COOLING SYSTEM OPERATOR, Minh Unavailable GERALD HARTLEY Referring Unavailable LORA MARTINEZ Primary Care Unavailable GERALD HARTLEY Attending Unavailable TALAMPAS, LORA D Primary Care Unavailable TALAMPAS, LORA D Referring Unavailable TALAMPAS, LORA D Primary Care Unavailable MINH ALEXANDRA Attending Unavailable TALAMPAS, LORA D Primary Care Unavailable ALEXANDRAMINH Referring Unavailable TALAMPAS, LORA D Primary Care Unavailable TALAMPAS, LORA D Attending Unavailable TALAMPAS, LORA D Primary Care Unavailable Allergies Allergy Classification Reported Allergen(s) Allergy Type Date of Onset Reaction(s) Facility (20 sources) Amoxicillin; Translations: [AMOXICILLIN] Drug Allergy 04-26-2005 Rash [facility] Work Phone: (20 sources) Ampicillin; Translations: [AMPICILLIN] Drug Allergy 07-18-2005 Rash [facility] Work Phone: (20 sources) Lisinopril; Translations: [LISINOPRIL] Drug Allergy 08-22-2016 Cough [facility] Work Phone: Medications Current Medications Medication [...] Comment on above: Take 1 capsule by [facility] once daily. ciclopirox 80 mg/ml topical solution [...] wood th once daily. polyethylene glycol 3350 [id number] mg / potassium chloride 2970 mg / sodium bicarbonate 6740 mg / sodium chloride 5860 mg / sodium sulfate 42066 mg powder for oral solution (1 source) [...] 10-28-2016 Chronic Other aftercare (1 source) Other assisted (current) drug therapy; Translations: [Encounter for long-term [...] Test Name Value Interpretation Reference Range Facility [facility] 06-12-2025 CNOV Office Visit (RADTWS ) FREDRICK MAO ([id number]) 1945 M Date Time Provider Department 06/12/25 9:00 AM GERALD HARTLEY During your visit today, we recorded the following information about you: Temperature Pulse Respiration Blood pressure 98 degrees 61/minute 14/minute 134/73 Weight 92.5 kg Yessica Dent RN 06/16/2025 4:17 PM Signed Radiation Therapy - Nursing Note (Follow-up) PATIENT NAME: Fredrick Mao PATIENT June 12, 2025 [facility] FACILITY/LOCATION: [place] Reason for visit: Follow up. Subjective Data No complaints Additional Data Do you want to see a Manager Scheduling? No Nursing Assessment Fatigue: increased fatigue over [...] bowel movements Bone Pain: none Focused Assessment COOLING SYSTEM OPERATOR: Alopecia: severe. Headache: moderate. Vision changes: none. [...] Gerald Hartley MD cc: Lora Martinez MD [address] [place] [address] Allergies As of Date: 06/12/2025 Noted Allergy [...] y follow-up [Z09] Order(s):MRI BRAIN WO/W IVCON [[id number]] Order #: [id number] FUTURE [] iv contrast (will be provided [...] by mout (more content not included)... Normal [facility] MRI BRAIN WO/W IVCONon 05-27 MRI BRAIN WO/W IVCON * * *Final Report* * * DATE OF EXAM: May 27 2025 8:51AM [facility] 0295 - MRI BRAIN WO/W IVCON [...] overlying parietal bone and superior sagittal sinus. Aoc Director Intelligence Officer: [facility] Transcribe Date/Time: May 27 2025 9:02A Dictated by : AYAAN DE LA CRUZ MD This examination was interpreted and the report reviewed and electronically signed by: AYAAN DE LA CRUZ MD on May 27 2025 9:15AM EST [id number] Normal [facility] CNOVon 05-13-2025 CNOV Office Visit (INTMWS ) FREDRICK MAO ([id number]) 1945 M Date Time Provider Department 05/13/25 [...] off liza (more content not included)... Normal [facility] CNPNon 05-13-2025 CNPN Telephone (RADTWS) FREDRICK MAO ([id number]) 1945 M Date Time Provider Department 05/13/25 [...] meningioma (HCC) [D32.0] Order(s):MRI BRAIN WO/W IVCON [[id number]] Order #: [id number] FUTURE iv contrast (will be provided with [...] administration guidelines link Encounter Status:Closed by VINAY MCCLOUD on 05/13/25 Normal [facility] CBC W Auto Differential pane l (Bld)on 05-01-2025 Basophils (Bld) [#/Vol] 0.06 10*3/uL Normal <0.11 [facility] Comment on above: Order Comment: Speci men Type: BLOOD SPECIMENOrdering Facility: [facility] Address: [address] [place] [address] Performed By: #### 5 7021-8 ####[facility] LABCLIA [id number] [place] [address] [place] Basophils/100 WBC (Bld) 0.9 % Normal [facility] Comment on above: Order Comment: Speci men Type: BLOOD SPECIMENOrdering Facility: [facility] Address: [address] [place] [address] Performed By: #### 5 7021-8 ####[facility] LABCLIA [id number] [place] [address] [place] Differential cell count method Nom (Bld) Auto Normal [facility] Comment on above: Order Comment: Speci men Type: BLOOD SPECIMENOrdering Facility: [facility] Address: [address] [place] [address] Performed By: #### 5 7021-8 ####[facility] LABCLIA [id number] [place] [address] [place] Eosinophils (Bld) [#/Vol] 0.44 10*3/uL Normal <0.46 [facility] Comment on above: Order Comment: Speci men Type: BLOOD SPECIMENOrdering Facility: [facility] Address: [address] [place] [address] Performed By: #### 5 7021-8 ####[facility] LABCLIA [id number] [place] [address] [place] Eosinophils/100 WBC (Bld) 6.5 % Normal [facility] Comment on above: Order Comment: Speci men Type: BLOOD SPECIMENOrdering Facility: [facility] Address: [address] [place] [address] Performed By: #### 5 7021-8 ####[facility] LABIA [id number] [place] [address] [place] Erythrocyte distribution width (RBC) [Ratio] 12.0 % Normal 11.5-15.0 [facility] Comment on above: Order Comment: Speci men Type: BLOOD SPECIMENOrdering Facility: [facility] Address: [address] [place] [address] Performed By: #### 5 7021-8 ####[facility] LABCLIA [id number] [place] [address] [place] Hematocrit (Bld) [Volume fraction] 45.2 % Normal 39.0-51.0 [facility] Comment on above: Order Comment: Speci men Type: BLOOD SPECIMENOrdering Facility: [facility] Address: [address] [place] [address] Performed By: #### 5 7021-8 ####[facility] LABCLIA [id number] [place] [id number] [place] Hemoglobin (Bld) [Mass/Vol] 15.5 g/dL Normal 13.0-17.0 [facility] Comment on above: Order Comment: Speci men Type: BLOOD SPECIMENOrdering Facility: [facility] Address: [address] [place] [address] Performed By: #### 5 7021-8 ####[facility] LABCLIA [id number] [place] [address] [place] Immature granulocytes (Bld) [#/Vol] 10*3/uL Normal <0.10 [facility] Comment on above: Order Comment: Speci men Type: BLOOD SPECIMENOrdering Facility: [facility] Address: [address] [place] [address] Performed By: #### 5 7021-8 ####[facility] LABCLIA [id number] [place] [address] [place] Immature granulocytes/100 WBC (Bld) 0.1 % Normal [facility] Comment on above: Order Comment: Speci men Type: BLOOD SPECIMENOrdering Facility: [facility] Address: [address] [place] [address] Performed By: #### 5 7021-8 ####[facility] LABIA [id number] [place] [address] [place] Lymphocytes (Bld) [#/Vol] 1.81 10*3/uL Normal 1.00-4.00 [facility] Comment on above: Order Comment: Speci men Type: BLOOD SPECIMENOrdering Facility: [facility] Address: [address] [place] [address] Performed By: #### 5 7021-8 ####[facility] LABIA [id number] [place] [address] [place] Lymphocytes/100 WBC (Bld) 26.5 % Normal [facility] Comment on above: Order Comment: Speci men Type: BLOOD SPECIMENOrdering Facility: [facility] Address: [address] [place] [address] Performed By: #### 5 7021-8 ####[facility] LABIA [id number] [place] [address] [place] MCH (RBC) [Entitic mass] 32.6 pg Normal 26.0-34.0 [facility] Comment on above: Order Comment: Speci men Type: BLOOD SPECIMENOrdering Facility: [facility] Address: [address] [place] [address] Performed By: #### 5 7021-8 ####[facility] LABIA [id number] [place] [address] [place] MCHC (RBC) [Mass/Vol] 34.3 g/dL Normal 30.5-36.0 [facility] Comment on above: Order Comment: Speci men Type: BLOOD SPECIMENOrdering Facility: [facility] Address: [address] [place] [address] Performed By: #### 5 7021-8 ####[facility] LABIA [id number] [place] [address] [place] MCV (RBC) [Entitic vol] 95.2 fL Normal 80.0-100.0 [facility] Comment on above: Order Comment: Speci men Type: BLOOD SPECIMENOrdering Facility: [facility] Address: [address] [place] [address] Performed By: #### 5 7021-8 ####[facility] LABIA [id number] [id number] [address] [place] Monocytes (Bld) [#/Vol] 0.71 10*3/uL Normal <0.87 [facility] Comment on above: Order Comment: Speci men Type: BLOOD SPECIMENOrdering Facility: [facility] Address: [address] [place] [address] Performed By: #### 5 7021-8 ####[facility] LABCLIA [id number] [facility] [place] [address] [place] Monocytes/100 WBC (Bld) 10.4 % Normal [facility] Comment on above: Order Comment: Speci men Type: BLOOD SPECIMENOrdering Facility: [facility] Address: [address] [place] [address] Performed By: #### 5 7021-8 ####[facility] LABCLIA [id number] [place] [address] [place] Neutrophils (Bld) [#/Vol] 3.79 10*3/uL Normal 1.45-7.50 [facility] Comment on above: Order Comment: Speci men Type: BLOOD SPECIMENOrdering Facility: [facility] Address: [address] [place] [address] Performed By: #### 5 7021-8 ####[facility] LABCLIA [id number] [place] [id number] [place] Neutrophils/100 WBC (Bld) 55.6 % Normal [facility] Comment on above: Order Comment: Speci men Type: BLOOD SPECIMENOrdering Facility: [facility] Address: [address] [place] [address] Performed By: #### 5 7021-8 ####[facility] LABCLIA [id number] [place] [id number] [place] Nucleated RBC (Bld) [#/Vol] 10*3/uL Normal <0.01 [facility] Comment on above: Order Comment: Speci men Type: BLOOD SPECIMENOrdering Facility: [facility] Address: [address] [place] [address] Performed By: #### 5 7021-8 ####[facility] LABCLIA [id number] [place] [address] [place] Nucleated RBC/100 WBC (Bld) [Ratio] 0.0 /100 WBC Normal [facility] Comment on above: Order Comment: Speci men Type: BLOOD SPECIMENOrdering Facility: [facility] Address: [address] [place] [address] Performed By: #### 5 7021-8 ####[facility] LABIA [id number] [place] [address] [place] Platelet mean volume (Bld) [Entitic vol] 9.3 fL Normal 9.0-12.7 [facility] Comment on above: Order Comment: Speci men Type: BLOOD SPECIMENOrdering Facility: [facility] Address: [address] [place] [address] Performed By: #### 5 7021-8 ####[facility] LABIA [id number] [place] [id number] [place] Platelets (Bld) [#/Vol] 282 10*3/uL Normal 150-400 [facility] Comment on above: Order Comment: Speci men Type: BLOOD SPECIMENOrdering Facility: [facility] Address: [address] [place] [address] Performed By: #### 5 7021-8 ####[facility] LABCLIA [id number] [place] [address] [place] RBC (Bld) [#/Vol] 4.75 10*6/uL Normal 4.20-6.00 [facility] Comment on above: Order Comment: Speci men Type: BLOOD SPECIMENOrdering Facility: [facility] Address: [address] [place] [address] Performed By: #### 5 7021-8 ####[facility] LABCLIA [id number] [address] [place] [address] [place] WBC (Bld) [#/Vol] 6.82 10*3/uL Normal 3.70-11.00 [facility] Comment on above: Order Comment: Speci men Type: BLOOD SPECIMENOrdering Facility: [facility] Address: [address] [place] [address] Performed By: #### 5 7021-8 ####[facility] LABCLIA [id number] [address], [facility]95 [place] Comprehensive metabolic 2000 panelon 05-01-2025 Albumin [Mass/Vol] 4.2 g/dL Normal 3.9-4.9 [facility] Comment on above: Order Comment: Speci men Type: BLOOD SPECIMENOrdering Facility: [facility] Address: [address] [place] [address] Performed By: #### 2 4323-8, 75114-8 ####[facility] LABCLIA [id number] [address], [facility] [place] ALP [Catalytic activity/Vol] 82 U/L Normal 38-113 [facility] Comment on above: Order Comment: Speci men Type: BLOOD SPECIMENOrdering Facility: [facility] Address: [address] [place] [address] Performed By: #### 2 4323-8, 00163-7 ####[facility] LABCLIA [id number] [address], [facility] [place] ALT [Catalytic activity/Vol] 21 U/L Normal 10-54 [facility] Comment on above: Order Comment: Speci men Type: BLOOD SPECIMENOrdering Facility: [facility] Address: [address] [place] [address] Performed By: #### 2 4323-8, 82565-5 ####[facility] LABCLIA [id number] [address] [place] [address] [place] Anion gap [Moles/Vol] 12 mmol/L Normal 8-15 [facility] Comment on above: Order Comment: Speci men Type: BLOOD SPECIMENOrdering Facility: [facility] Address: [address] [place] [address] Performed By: #### 2 4323-8, 46232-0 ####[facility] LABCLIA [id number] [facility] [place] [id number] [place] AST [Catalytic activity/Vol] 27 U/L Normal 14-40 [facility] Comment on above: Order Comment: Speci men Type: BLOOD SPECIMENOrdering Facility: [facility] Address: [address] [place] [address] Performed By: #### 2 4323-8, 32675-2 ####[facility] LABCLIA [id number] [place] [address] [place] Bilirubin [Mass/Vol] 0.3 mg/dL Normal 0.2-1.3 [facility] Comment on above: Order Comment: Speci men Type: BLOOD SPECIMENOrdering Facility: [facility] Address: [address] [place] [address] Performed By: #### 2 4323-8, 00355-5 ####[facility] LABCLIA [id number] [facility] [place] [address] [place] Calcium [Mass/Vol] 9.7 mg/dL Normal 8.5-10.2 [facility] Comment on above: Order Comment: Speci men Type: BLOOD SPECIMENOrdering Facility: [facility] Address: [address] [place], [place] [address] Performed By: #### 2 4323-8, 36385-6 ####[facility] LABCLIA [id number] [place] [id number] [place] Chloride [Moles/Vol] 105 mmol/L Normal 98-107 [facility] Comment on above: Order Comment: Speci men Type: BLOOD SPECIMENOrdering Facility: [facility] Address: [address] [place] [address] Performed By: #### 2 4323-8, 65792-4 ####[facility] LABIA [id number] [place] [id number] [place] CO2 [Moles/Vol] 24 mmol/L Normal 22-30 [facility] Comment on above: Order Comment: Speci men Type: BLOOD SPECIMENOrdering Facility: [facility] Address: [address] [place] [address] Performed By: #### 2 4323-8, 02382-7 ####[facility] LABIA [id number] [place] [address] [place] Creatinine [Mass/Vol] 1.12 mg/dL Normal 0.73-1.22 [facility] Comment on above: Order Comment: Speci men Type: BLOOD SPECIMENOrdering Facility: [facility] Address: [address] [place] [address] Performed By: #### 2 4323-8, 65555-0 ####[facility] [id number] [place] [address] [place] eGFRcr SerPlBld CKD-EPI 2020 67 mL/min/1.73m??? Normal >=60 [facility] Comment on above: Order Comment: Speci men Type: BLOOD SPECIMENOrdering Facility: [facility] Address: [address] [place] [address] Result Comment: Neela mated Glomerular Filtration Rate [...] actual GFR. Performed By: #### 2 4323-8, 13078-1 ####[facility] LABIA [id number] [place] [id number] [place] Glucose [Mass/Vol] 122 mg/dL High 74-99 [facility] Comment on above: Order Comment: Speci men Type: BLOOD SPECIMENOrdering Facility: [facility] Address: [address] [place] [address] Result Comment: The [place] Diabetes Association (ADA) provides guidance for cutoff [...] Standards of Medical Care in Diabetes 2016, [place] Diabetes Association. Diabetes Care. 2016.39(Suppl 1). Performed By: #### 2 4323-8, 09544-8 ####[facility] LABIA [id number] [place] [address] [place] Potassium [Moles/Vol] 4.7 mmol/L Normal 3.7-5.1 [facility] Comment on above: Order Comment: Speci men Type: BLOOD SPECIMENOrdering Facility: [facility] Address: [address] [place] [address] Performed By: #### 2 4323-8, 20266-3 ####[facility] LABCLIA [id number] [place] [address] [place] Protein [Mass/Vol] 7.1 g/dL Normal 6.3-8.0 [facility] Comment on above: Order Comment: Speci men Type: BLOOD SPECIMENOrdering Facility: [facility] Address: [address] [place] [address] Performed By: #### 2 4323-8, 50869-2 ####[facility] LABCLIA [id number] [id number] [address] [place] Sodium [Moles/Vol] 141 mmol/L Normal 136-144 [facility] Comment on above: Order Comment: Speci men Type: BLOOD SPECIMENOrdering Facility: [facility] Address: [address] [place] [address] Performed By: #### 2 4323-8, 99999-7 ####[facility] [id number] [place] [id number] [place] Urea nitrogen [Mass/Vol] 25 mg/dL High 9-24 [facility] Comment on above: Order Comment: Elsiei men Type: BLOOD SPECIMENOrdering Facility: [facility] Address: [address] [place] [address] Performed By: #### 2 4323-8, 11219-3 ####[facility] [id number] [place] [address] [place] HbA1c (Bld)on 05-01-2025 Average glucose Estimated from glycated hemoglobin (Bld) [Mass/Vol] 126 mg/dL Normal [facility] Comment on above: Order Comment: Elsiei men Type: BLOOD SPECIMENOrdering Facility: [facility] Address: [address] [place] [address] Result Comment: eAG: (Estimated average glucose) is a calculated value from HgbA1c and is financial services representative of the average blood glucose level in the last 2-3 month period. Performed By: #### 5 5454-3 ####[facility] [id number] [place] [id number] [place] HbA1c (Bld) [Mass fraction] 6.0 % High 4.3-5.6 [facility] Comment on above: Order Comment: Elsiei men Type: BLOOD SPECIMENOrdering Facility: [facility] Address: [address] [place] [address] Result Comment: [place] Diabetes Association guidelines indicate that patients with HgbA1c in the range 5.7-6.4% are at increased risk for development of diabetes, and intervention by lifestyle modification may be beneficial. HgbA1c greater or equal to 6.5% is considered diagnostic of diabetes. Performed By: #### 5 5454-3 ####[facility] LABCLIA [id number] [address] [place] Lipid 1996 panelon 5 Cholesterol [Mass/Vol] 146 mg/dL Normal <200 [facility] Comment on above: Order Comment: Speci men Type: BLOOD SPECIMENOrdering Facility: [facility] Address: [address] [place] [address] Result Comment: <200 mg/dL, Desirable 200-239 mg/dL, Borderline high >239 mg/dL, High Performed By: #### 2 4323-8, 81004-5 ####[facility] LABIA [id number] [address] Cholesterol in HDL [Mass/Vol] 43 mg/dL Normal >39 [facility] Comment on above: Order Comment: Jojo delarosa Type: BLOOD SPECIMENOrdering Facility: [facility] Address: [address] [place] [address] Result Comment: 40-5 9 mg/dL, Acceptable >59 mg/dL, High: Negative risk factor for coronary heart disease <40 mg/dL, Low: Positive risk factor for coronary heart disease Performed By: #### 2 4323-8, 53718-7 ####[facility] LABIA [id number] [address] OF [facility] Cholesterol in LDL [Mass/Vol] 84 mg/dL Normal <100 [facility] Comment on above: Order Comment: Jojo [facility] Type: BLOOD SPECIMENOrdering Facility: [facility] Address: [address] [place] [address] Result Comment: <100 mg/dL, Optimal 100-129 mg/dL, Near optimal/above optimal 130-159 mg/dL, Borderline high 160-189 mg/dL, High >189 mg/dL, Very high Secondary prevention optimal LDL Cholesterol levels are recommended to be <70 mg/dL LDL cholesterol is calculated using the De Leon-NIH equation. Performed By: #### 2 4323-8, 38536-7 ####[facility] LABCLIA [id number] [place] [id number] [place] Cholesterol in LDL/Cholesterol in HDL [Mass ratio] 1.95 {ratio} Normal <2.54 [facility] Comment on above: Order Comment: Speci men Type: BLOOD SPECIMENOrdering Facility: [facility] Address: [address] [place] [address] Result Comment: Refe rence: 1. National Cholesterol Education Program ATP III Guideline At-A-Glance Quick Desk Reference: National Heart, Lung, and Blood [place]. National Institutes of Health. 2001: NIH Publication No. 01-3305. 2. An International Atherosclerosis Society position paper: global recommendations for the management of dyslipidemia: executive summary, Atherosclerosis. 2014: 232(2):410-413. Performed By: #### 2 4323-8, 08240-8 ####[facility] [id number] [place] [id number] [place] Cholesterol in VLDL [Mass/Vol] 16 mg/dL Normal <30 [facility] Comment on above: Order Comment: Speci men Type: BLOOD SPECIMENOrdering Facility: [facility] Address: [address] [place] [address] Performed By: #### 2 4323-8, 95214-4 ####[facility] [id number] [address] [address] [place] Cholesterol non HDL [Mass/Vol] 103 mg/dL Normal <130 [facility] Comment on above: Order Comment: Speci men Type: BLOOD SPECIMENOrdering Facility: [facility] Address: [address] [place] [address] Result Comment: <130 mg/dL, Optimal 130-159 mg/dL, Near optimal/above optimal 160-189 mg/dL, Borderline high 190-219 mg/dL, High >219 mg/dL, Very high Secondary prevention optimal non HDL Cholesterol levels are recommended to be <100 mg/dL Performed By: #### 2 4323-8, 11925-5 ####[facility] [id number] [place] [address] [place] Cholesterol.total/Cho lesterol in HDL [Mass ratio] 3.40 {ratio} Normal <5.10 [facility] Comment on above: Order Comment: Speci men Type: BLOOD SPECIMENOrdering Facility: [facility] Address: [facility] [place] [address] Performed By: #### 2 4323-8, 31945-0 ####[facility] LABIA [id number] [place] [address] [place] FASTING TIME 13 hrs Normal [facility] Comment on above: Order Comment: Speci men Type: BLOOD SPECIMENOrdering Facility: [facility] Address: [address] [place] [address] Performed By: #### 2 4323-8, 60828-6 ####[facility] LABIA [id number] [place] [address] [place] Triglyceride [Mass/Vol] 101 mg/dL Normal <150 [facility] Comment on above: Order Comment: Speci men Type: BLOOD SPECIMENOrdering Facility: [facility] Address: [address] [place] [address] Result Comment: <150 mg/dL, Normal 150-199 mg/dL, Borderline high 200-499 mg/dL, High >499 mg/dL, Very high Performed By: #### 2 4323-8, 55045-7 ####[facility] LABIA [id number] [place] [id number] [place] CNOVon 10-29-2024 CNOV Office Visit (INTMWS ) FREDRICK MAO ([id number]) 1945 M Date Time Provider Department 10/29/24 9:40 AM MINH ALEXANDRA During your visit today, we recorded the following information about you: Pulse Respiration Blood pressure Weight 66/minute 16/minute 130/74 95 kg Minh Alexandra APRN.COOLING SYSTEM OPERATOR 10/29/2024 9:58 AM Signed Subjective ?Quick Links [...] A1c. - Has an eye doctor at [facility] and attends annual eye exams. Weight Management: [...] Abs Lymph 1.00 - 4.00 k/uL 1.80 Refugio% % 9.9 Abs Refugio <0.87 k/uL 0.75 Eosin% % 7.4 Abs [...] <5.10 3.5 (more content not included)... Normal [facility] ALBUMIN/CREATININE RATIO, UR INEon 10-08-2024 Albumin Unsp time DL <= 20 mg/L (U) [Mass/Time] <12.0 Normal [facility] Comment on above: Order Comment: Speci men Type: URINE SPECIMENOrdering Facility: [facility] Address: [address] [place] [address] Performed By: #### U ACR ####[facility]ORYCLIA [id number] [address] STATES [facility] Albumin/Creatinine (U) [Mass ratio] <14 Normal <30 [facility] Comment on above: Order Comment: Speci men Type: URINE SPECIMENOrdering Facility: [facility] Address: [address] [place] [address] Result Comment: Adul t Male and Female Nephrotic Criteria: <30 mg/g is considered normal to mildly increased 30-300 mg/g is considered moderately increased >300 mg/g is considered severely increased KDIGO. (2013). KDIGO 2012 Clinical Practice Guideline for the Evaluation and Management of Chronic Kidney Disease. Official Journal of the International Society of Nephrology, 3(1), 1-150. Performed By: #### U ACR ####[facility]ORATORYCLIA [id number] [address] [place] Creatinine (U) [Mass/Vol] 82.9 mg/dL Normal 46.8-314.5 [facility] Comment on above: Order Comment: Speci men Type: URINE SPECIMENOrdering Facility: [facility] Address: [address] [place] [address] Performed By: #### U ACR ####[facility]ORYCLIA [id number] [place] [id number] [place] CBC panel Auto (Bld)on 10-05 Erythrocyte distribution width (RBC) [Ratio] 12.2 % Normal 11.5-15.0 [facility] Comment on above: Order Comment: Speci men Type: BLOOD SPECIMEN Ordering Facility: [facility] Address: [address] [place] [address] Performed By: #### 5 8410-2 #### [facility] CLIA [id number] [address] [place] [address] [place] Hematocrit (Bld) [Volume fraction] 47.0 % Normal 39.0-51.0 [facility] Comment on above: Order Comment: Speci men Type: BLOOD SPECIMEN Ordering Facility: [facility] Address: [address] [place] [address] Performed By: #### 5 8410-2 #### [facility] CLIA [id number] [address] [place] [address] [place] Hemoglobin (Bld) [Mass/Vol] 15.6 g/dL Normal 13.0-17.0 [facility] Comment on above: Order Comment: Speci men Type: BLOOD SPECIMEN Ordering Facility: [facility] Address: [address] [place] [address] Performed By: #### 5 8410-2 #### [facility] CLIA [id number] [address] [place] [address] [place] MCH (RBC) [Entitic mass] 31.9 pg Normal 26.0-34.0 [facility] Comment on above: Order Comment: Speci men Type: BLOOD SPECIMEN Ordering Facility: [facility] Address: [address] [place] [address] Performed By: #### 5 8410-2 #### [facility] CLIA [id number] [address] [place] [address] [place] MCHC (RBC) [Mass/Vol] 33.2 g/dL Normal 30.5-36.0 [facility] Comment on above: Order Comment: Speci men Type: BLOOD SPECIMEN Ordering Facility: [facility] Address: [address] [place] [address] Performed By: #### 5 8410-2 #### [facility] CLIA [id number] [address] [place] [address] [place] MCV (RBC) [Entitic vol] 96.1 fL Normal 80.0-100.0 [facility] Comment on above: Order Comment: Speci men Type: BLOOD SPECIMEN Ordering Facility: [facility] Address: [address] [place] [address] Performed By: #### 5 8410-2 #### [facility] CLIA [id number] [address] [place] [address] [place] Nucleated RBC (Bld) [#/Vol] 10*3/uL Normal <0.01 [facility] Comment on above: Order Comment: Speci men Type: BLOOD SPECIMEN Ordering Facility: [facility] Address: [address] [place] [address] Performed By: #### 5 8410-2 #### [facility] CLIA [id number] [address] [place] [address] [place] Platelet mean volume (Bld) [Entitic vol] 9.3 fL Normal 9.0-12.7 [facility] Comment on above: Order Comment: Speci men Type: BLOOD SPECIMEN Ordering Facility: [facility] Address: [address] [place] [address] Performed By: #### 5 8410-2 #### [facility] CLIA [id number] [address] [place] [address] [place] Platelets (Bld) [#/Vol] 282 10*3/uL Normal 150-400 [facility] Comment on above: Order Comment: Speci men Type: BLOOD SPECIMEN Ordering Facility: [facility] Address: [address] [place] [address] Performed By: #### 5 8410-2 #### [facility] CLIA [id number] [address] [place] [address] [place] RBC (Bld) [#/Vol] 4.89 10*6/uL Normal 4.20-6.00 [facility] Comment on above: Order Comment: Speci men Type: BLOOD SPECIMEN Ordering Facility: [facility] Address: [address] [place] [address] Performed By: #### 5 8410-2 #### [facility] CLIA [id number] [address] [place] [address] [place] WBC (Bld) [#/Vol] 6.48 10*3/uL Normal 3.70-11.00 [facility] Comment on above: Order Comment: Speci men Type: BLOOD SPECIMEN Ordering Facility: [facility] Address: [address] [place] [address] Performed By: #### 5 8410-2 #### [facility] CLIA [id number] [address] [place] [address] [place] Comprehensive metabolic 2000 panelon 10-05-2024 Albumin [Mass/Vol] 4.3 g/dL Normal 3.9-4.9 [facility] Comment on above: Order Comment: Speci men Type: BLOOD SPECIMENOrdering Facility: [facility] Address: [address] [place] [address] Performed By: #### 2 4331-1, , ####[facility] LABCLIA [id number] [place] [address] [place] ALP [Catalytic activity/Vol] 99 U/L Normal 38-113 [facility] Comment on above: Order Comment: Speci men Type: BLOOD SPECIMENOrdering Facility: [facility] Address: [address] [place] [address] Performed By: #### 2 4331-1, , ####[facility]CLIA [id number] [place] [address] [place] ALT [Catalytic activity/Vol] 25 U/L Normal 10-54 [facility] Comment on above: Order Comment: Speci men Type: BLOOD SPECIMENOrdering Facility: [facility] Address: [address] [place] [address] Performed By: #### 2 4331-1, , ####[facility] LABCLIA [id number] [place] [id number] [place] Anion gap [Moles/Vol] 10 mmol/L Normal 8-15 [facility] Comment on above: Order Comment: Speci men Type: BLOOD SPECIMENOrdering Facility: [facility] Address: [address] [place] [address] Performed By: #### 2 4331-1, , ####[facility] LABCLIA [id number] [address] [address] [place] AST [Catalytic activity/Vol] 26 U/L Normal 14-40 [facility] Comment on above: Order Comment: Speci men Type: BLOOD SPECIMENOrdering Facility: [facility] Address: [address] [place] [address] Performed By: #### 2 4331-1, , ####[facility]CLIA [id number] [address] [address] [place] Bilirubin [Mass/Vol] 0.3 mg/dL Normal 0.2-1.3 [facility] Comment on above: Order Comment: Speci men Type: BLOOD SPECIMENOrdering Facility: [facility] Address: [address] [place] [address] Performed By: #### 2 4331-1, , ####[facility]CLIA [id number] [address] [address] [place] Calcium [Mass/Vol] 10.0 mg/dL Normal 8.5-10.2 [facility] Comment on above: Order Comment: Speci men Type: BLOOD SPECIMENOrdering Facility: [facility] Address: [address] [place] [address] Performed By: #### 2 4331-1, , ####[facility]CLIA [id number] [address] [address] [place] Chloride [Moles/Vol] 104 mmol/L Normal 98-107 [facility] Comment on above: Order Comment: Speci men Type: BLOOD SPECIMENOrdering Facility: [facility] Address: [address] [place], [place] [address] Performed By: #### 2 4331-1, , ####[facility]CLIA [id number] [address] [address] [place] CO2 [Moles/Vol] 27 mmol/L Normal 22-30 [facility] Comment on above: Order Comment: Speci men Type: BLOOD SPECIMENOrdering Facility: [facility] Address: [address] [place] [address] Performed By: #### 2 4331-1, , ####[facility] LABIA [id number] [place] [id number] [place] Creatinine [Mass/Vol] 1.16 mg/dL Normal 0.73-1.22 [facility] Comment on above: Order Comment: Speci men Type: BLOOD SPECIMENOrdering Facility: [facility] Address: [address] [place] [address] Performed By: #### 2 4331-1, , ####[facility] LABIA [id number] [place] [address] [place] Creatinine and Glomerular filtration rate.predicted panel (S/P/Bld) 65 mL/min/1.73m??? Normal >=60 [facility] Comment on above: Order Comment: Speci men Type: BLOOD SPECIMENOrdering Facility: [facility] Address: [address] [place] [address] Result Comment: Neela mated Glomerular Filtration Rate [...] GFR. Performed By: #### 2 4331-1, , ####[facility]CLIA [id number] [address] [address] [place] Glucose [Mass/Vol] 137 mg/dL High 74-99 [facility] Comment on above: Order Comment: Speci men Type: BLOOD SPECIMENOrdering Facility: [facility] Address: [address] [place] [address] Result Comment: The [place] Diabetes Association (ADA) provides guidance for cutoff [...] Standards of Medical Care in Diabetes 2016, [place] Diabetes Association. Diabetes Care. 2016.39(Suppl 1). Performed By: #### 2 4331-1, , ####[facility] LABIA [id number] [address] [address] [place] Potassium [Moles/Vol] 4.4 mmol/L Normal 3.7-5.1 [facility] Comment on above: Order Comment: Speci men Type: BLOOD SPECIMENOrdering Facility: [facility] Address: [address] [place] [address] Performed By: #### 2 4331-1, , ####[facility] LABIA [id number] [address] [address] [place] Protein [Mass/Vol] 6.9 g/dL Normal 6.3-8.0 [facility] Comment on above: Order Comment: Speci men Type: BLOOD SPECIMENOrdering Facility: [facility] Address: [address] [place] [address] Performed By: #### 2 4331-1, , 25366-7 ####[facility] LABCLIA [id number] [place] [id number] [place] Sodium [Moles/Vol] 141 mmol/L Normal 136-144 [facility] Comment on above: Order Comment: Speci men Type: BLOOD SPECIMENOrdering Facility: [facility] Address: [address] [place] [address] Performed By: #### 2 4331-1, , ####[facility] LABIA [id number] [place] [address] [place] Urea nitrogen [Mass/Vol] 24 mg/dL Normal 9-24 [facility] Comment on above: Order Comment: Speci men Type: BLOOD SPECIMENOrdering Facility: [facility] Address: [address] [place] [address] Performed By: #### 2 4331-1, , ####[facility] [id number] [place] [address] [place] HbA1c (Bld)on 10-05-2024 Average glucose Estimated from glycated hemoglobin (Bld) [Mass/Vol] 134 mg/dL Normal [facility] Comment on above: Order Comment: Speci men Type: BLOOD SPECIMENOrdering Facility: [facility] Address: [address] [place] [address] Result Comment: eAG: (Estimated average glucose) is a calculated value from HgbA1c and is financial services representative of the average blood glucose level in the last 2-3 month period. Performed By: #### 5 5454-3 ####[facility] LABIA [id number] [place] [address] [place] HbA1c (Bld) [Mass fraction] 6.3 % High 4.3-5.6 [facility] Comment on above: Order Comment: Speci men Type: BLOOD SPECIMENOrdering Facility: [facility] Address: [address] [place] [address] Result Comment: Amer [place] Diabetes Association guidelines indicate that patients with HgbA1c in the range 5.7-6.4% are at increased risk for development of diabetes, and intervention by lifestyle modification may be beneficial. HgbA1c greater or equal to 6.5% is considered diagnostic of diabetes. Performed By: #### 5 5454-3 ####[facility]CLIA [id number] [place] [address] [place] Lipid 1996 panelon 5 Cholesterol [Mass/Vol] 145 mg/dL Normal <200 [facility] Comment on above: Order Comment: Speci men Type: BLOOD SPECIMENOrdering Facility: [facility] Address: [address] [place] [address] Result Comment: <200 mg/dL, Desirable 200-239 mg/dL, Borderline high >239 mg/dL, High Performed By: #### 2 4331-1, , 44548-2 ####[facility]CLIA [id number] [place] [address] [place] Cholesterol in HDL [Mass/Vol] 45 mg/dL Normal >39 [facility] Comment on above: Order Comment: Elsiei men Type: BLOOD SPECIMENOrdering Facility: [facility] Address: [address] [place] [address] Result Comment: 40-5 9 mg/dL, Acceptable >59 mg/dL, High: Negative risk factor for coronary heart disease <40 mg/dL, Low: Positive risk factor for coronary heart disease Performed By: #### 2 4331-1, , 73743-9 ####[facility]IA [id number] [place] [address] [place] Cholesterol in LDL [Mass/Vol] 87 mg/dL Normal <100 [facility] Comment on above: Order Comment: Speci men Type: BLOOD SPECIMENOrdering Facility: [facility] Address: [address] [place] [address] Result Comment: <100 mg/dL, Optimal 100-129 mg/dL, Near optimal/above optimal 130-159 mg/dL, Borderline high 160-189 mg/dL, High >189 mg/dL, Very high Secondary prevention optimal LDL Cholesterol levels are recommended to be < 70 mg/dL Performed By: #### 2 4331-1, , ####[facility] [id number] [place] [address] [place] Cholesterol in LDL/Cholesterol in HDL [Mass ratio] 1.93 {ratio} Normal <2.54 [facility] Comment on above: Order Comment: Speci men Type: BLOOD SPECIMENOrdering Facility: [facility] Address: [address] [place] [address] Result Comment: Refe dorace: 1. National Cholesterol Education Program ATP III Guideline At-A-Glance Quick Desk Reference: National Heart, Lung, and Blood [place]. National Institutes of Health. 2001: NIH Publication No. 01-3305. 2. An International Atherosclerosis Society position paper: global recommendations for the management of dyslipidemia: executive summary, Atherosclerosis. 2014: 232(2):410-413. Performed By: #### 2 4331-1, , ####[facility]IA [id number] [place] [address] [place] Cholesterol in VLDL [Mass/Vol] 13 mg/dL Normal <30 [facility] Comment on above: Order Comment: Speci men Type: BLOOD SPECIMENOrdering Facility: [facility] Address: [address] [place] [address] Performed By: #### 2 4331-1, , ####[facility]CLIA [id number] [place] [id number] [place] Cholesterol non HDL [Mass/Vol] 100 mg/dL Normal <130 [facility] Comment on above: Order Comment: Speci men Type: BLOOD SPECIMENOrdering Facility: [facility] Address: [address] [place] [address] Result Comment: <130 mg/dL, Optimal 130-159 mg/dL, Near optimal/above optimal 160-189 mg/dL, Borderline high 190-219 mg/dL, High >219 mg/dL, Very high Secondary prevention optimal non HDL Cholesterol levels are recommended to be <100 mg/dL Performed By: #### 2 4331-1, , ####[facility]IA [id number] [place] [address] [place] Cholesterol.total/Cho lesterol in HDL [Mass ratio] 3.22 {ratio} Normal <5.10 [facility] Comment on above: Order Comment: Speci men Type: BLOOD SPECIMENOrdering Facility: [facility] Address: [address] [place] [address] Performed By: #### 2 4331-1, , ####[facility] [id number] [place] [address] [place] FASTING TIME 13 hrs Normal [facility] Comment on above: Order Comment: Speci men Type: BLOOD SPECIMENOrdering Facility: [facility] Address: [address] [place] [address] Performed By: #### 2 4331-1, , ####[facility]CLIA [id number] [place] [address] [place] Triglyceride [Mass/Vol] 63 mg/dL Normal <150 [facility] Comment on above: Order Comment: Speci men Type: BLOOD SPECIMENOrdering Facility: [facility] Address: [address] [place] [address] Result Comment: <150 mg/dL, Normal 150-199 mg/dL, Borderline high 200-499 mg/dL, High >499 mg/dL, Very high Performed By: #### 2 4331-1, , ####[facility] [id number] [place] [address] [place] Magnesium SerPl-mCncon 10-05 Magnesium [Mass/Vol] 2.0 mg/dL Normal 1.7-2.3 [facility] Comment on above: Order Comment: Speci men Type: BLOOD SPECIMENOrdering Facility: [facility] Address: [address] [place] [address] Performed By: #### 2 4331-1, 55856-2, 26115-2 ####[facility] [id number] [place] [address] [place] ABD/PEL WO IVCONon 2023 CT ABD/PEL WO IVCON * * *Final Report* * * DATE OF EXAM: May 28 2024 10:04AM [facility] 0531 - CT ABD/PEL WO IVCON / [...] diverticulitis. 2. Small fat-containing right inguinal hernia Aoc Director Intelligence Officer: TAMAR Transcribe Date/Time: May 28 2024 10:08A Dictated by : PEG MASCORRO MD This examination was interpreted and the report reviewed and electronically signed by: PEG MASCORRO MD on May 28 2024 10:14AM EST [id number] Normal [facility] CT Abdomen and Pelvis WO con traston 05-28-2024 IMPRESSION: 1. Distal colonic diverticulosis. No evidence of acute diverticulitis. 2. Small fat-containing right inguinal hernia Aoc Director Intelligence Officer: TAMAR Transcribe Date/Time: May 28 2024 10:08A Dictated by : PEG MASCORRO MD This examination was interpreted and the report reviewed and electronically signed by: PEG MASCORRO MD on May 28 2024 10:14AM EST [employer] [facility] * * *Final Report* * * DATE OF EXAM: May 28 2024 10:04AM [facility] 0531 - CT ABD/PEL WO IVCON / [...] acute abnormality. Lower thorax: Unremarkable. Localizer images: [email or web address] [facility] * * *Final Report* * [...] diverticulitis. 2. Small fat-containing right inguinal hernia Aoc Director Intelligence Officer: PSCB Transcribe Date/Time: May 28 2024 10:08A Dictated by : PEG MASCORRO MD This examination was interpreted and the report reviewed and electronically signed by: PEG MASCORRO MD on May 28 2024 10:14AM EST [facility] Radiology Study observation (narrative) [facility] CT Abdomen and Pelvis WO con trastOrdered By: Ccf Provider on 05-28-2024 [facility] COLONOSCOPY SCREENINGon 0 [facility] Laboratory - Microbiology an d Antimicrobial susceptibilityon 03-01-2022 SARS-CoV-2 (COVID-19) RNA MARKELL+probe Ql (Unsp spec) Detected [facility] Work Phone: Office Visit Reporton 2021 Office Visit Report [facility] [address] [place] [address] OFFICE VISIT Date of Service: 03/01/22 MR#: [id number] Acct: [id number] Patient: FREDRICK MAO Rep #: [id number] : 1945 Provider: JEFF Allison Age/Sex: 77/M Location: [facility] [place] Status: Signed Employer Purchased Covid Test Note: Patient here today for Covid Testing, requested by their Employer. Assessment and Plan Assessment and Plan Orders: Orders POC Cepheid GREG Cov-2 PCR EMP Today R09.81 - Nasal congestion 03/01/22 1710 Date Marino Dunn Signature: Date (if applicable) CC: Normal [facility] Spine Lumbar (Routine)on Spine Lumbar (Routine) [facility] Imaging Services [address] [place] [address] Spine Lumbar (Routine) MR#: [id number] Acct: [id number] Name: FREDRICK MAO Rep #: [id number] : 1945 M 77 From: Connor Dixon PCP: Dr. Lora Martinez MD Status: REG CLI Study: Spine Lumbar (Routine) Date of Exam: 02/25/22 Exam# [id number] Ordering Dr: Austin Angel MD EXAM: MR LUMBAR SPINE WITHOUT INTRAVENOUS CONTRAST CLINICAL INDICATION: RADICULOPATHY, LUMBAR REGION TECHNIQUE: Multiplanar and multisequence MR images of the lumbar spine without intravenous contrast. Magnetic field strength 1.5 T. This report was created using [employer] report Adre[employer] technology. COMPARISON: None. FINDINGS: VERTEBRAE: Unremarkable. Vertebral [...] Austin Angel MD; Dr. Lora Martinez MD Aoc Director Intelligence Officer: Signed Normal [facility] Lumbar Spine 2 or 3 Viewson 02-10-2022 Lumbar Spine 2 or 3 Views [facility] Imaging Services [address] [place] [address] Lumbar Spine 2 or 3 Views MR#: [id number] Acct: [id number] Name: FREDRICK MAO Rep #: [id number] : 1945 M 77 From: Curt Natarajan MD PCP: Dr. Lora Martinez MD Status: REG CLI Study: Lumbar Spine 2 or 3 Views Date of Exam: Exam# [id number] Ordering Dr: Austin Angel MD STUDY: X-RAY [...] Austin Angel MD; Dr. Lora Martinez MD Aoc Director Intelligence Officer: Signed Normal [facility] Vital Signs Date Time Vital Sign Value Performing Clinician Candida pearson 10-29-2024 09:27-0400 Body mass index (BMI) [Ratio] 29.84 kg/m2 Minh Alexandra MARINE MECHANIC.COOLING SYSTEM OPERATOR Work Phone: [facility] 10-29-2024 09:27-0400 Body weight 95 kg Minh Alexandra MARINE MECHANIC.COOLING SYSTEM OPERATOR Work Phone: [facility] 10-29-2024 09:27-0400 Diastolic blood pressure 74 mm[Hg] Minh Alexandra MARINE MECHANIC.COOLING SYSTEM OPERATOR Work Phone: [facility] 10-29-2024 09:27-0400 Heart rate 66 /min Minh Alexandra MARINE MECHANIC.COOLING SYSTEM OPERATOR Work Phone: [facility] 10-29-2024 09:27-0400 Respiratory rate 16 /min Minh Alexandra MARINE MECHANIC.COOLING SYSTEM OPERATOR Work Phone: [facility] 10-29-2024 09:27-0400 Systolic blood pressure 130 mm[Hg] Minh Alexandra MARINE MECHANIC.COOLING SYSTEM OPERATOR Work Phone: [facility] 05-24-2024 14:35-0400 Diastolic blood pressure 77 mm[Hg] Minh Alexandra MARINE MECHANIC.COOLING SYSTEM OPERATOR Work Phone: [facility] 05-24-2024 14:35-0400 Heart rate 65 /min Minh Alexandra MARINE MECHANIC.COOLING SYSTEM OPERATOR Work Phone: [facility] 05-24-2024 14:35-0400 Systolic blood pressure 147 mm[Hg] Minh Alexandra MARINE MECHANIC.COOLING SYSTEM OPERATOR Work Phone: [facility] 05-24-2024 14:34-0400 Body mass index (BMI) [Ratio] 29.71 kg/m2 Minh Alexandra MARINE MECHANIC.COOLING SYSTEM OPERATOR Work Phone: [facility] 05-24-2024 14:34-0400 Body weight 94.6 kg Minh Alexandra MARINE MECHANIC.COOLING SYSTEM OPERATOR Work Phone: [facility] 05-24-2024 14:34-0400 Respiratory rate 16 /min Minh Alexandra APRNRajiCOOLING SYSTEM OPERATOR Work Phone: [facility] 04-30-2024 09:52-0400 Body mass index (BMI) [Ratio] 29.62 kg/m2 Lora Martinez MD Work Phone: [facility] 04-30-2024 09:52-0400 Body temperature 97.59 [degF] Lora Martinez MD Work Phone: [facility] 04-30-2024 09:52-0400 Body weight 94.3 kg Lora Martinez MD Work Phone: [facility] 04-30-2024 09:52-0400 Diastolic blood pressure 74 mm[Hg] Lora Martinez MD Work Phone: [facility] 04-30-2024 09:52-0400 Heart rate 61 /min Lora Martinez MD Work Phone: [facility] 04-30-2024 09:52-0400 Respiratory rate 16 /min Lora Martinez MD Work Phone: [facility] 04-30-2024 09:52-0400 SaO2% (BldA) [Mass fraction] 96 % Lora Martinez MD Work Phone: [facility] 04-30-2024 09:52-0400 Systolic blood pressure 120 mm[Hg] Lora Martinez MD Work Phone: [facility] 10-24-2023 13:55-0400 Body mass index (BMI) [Ratio] 28.92 kg/m2 Lora Martinez MD Work Phone: [facility] 10-24-2023 13:55-0400 Body weight 92.08 kg Lora Martinez MD Work Phone: [facility] 10-24-2023 13:55-0400 Diastolic blood pressure 68 mm[Hg] Lora Martinez MD Work Phone: [facility] 10-24-2023 13:55-0400 Heart rate 68 /min Lora Martinez MD Work Phone: [facility] 10-24-2023 13:55-0400 Respiratory rate 16 /min Lora Martinez MD Work Phone: [facility] 10-24-2023 13:55-0400 Systolic blood pressure 110 mm[Hg] Lora Martinez MD Work Phone: [facility] 04-18-2023 13:43-0400 Body temperature 97.39 [degF] Minh Alexandra MARINE MECHANIC.COOLING SYSTEM OPERATOR Work Phone: [facility] 04-18-2023 13:43-0400 Body weight 88 kg Minh Alexandra MARINE MECHANIC.COOLING SYSTEM OPERATOR Work Phone: [facility] 04-18-2023 13:43-0400 Diastolic blood pressure 66 mm[Hg] Minh Alexandra MARINE MECHANIC.COOLING SYSTEM OPERATOR Work Phone: [facility] 04-18-2023 13:43-0400 Heart rate 70 /min Minh Alexandra MARINE MECHANIC.COOLING SYSTEM OPERATOR Work Phone: [facility] 04-18-2023 13:43-0400 Respiratory rate 18 /min Minh Alexandra MARINE MECHANIC.COOLING SYSTEM OPERATOR Work Phone: [facility] 04-18-2023 13:43-0400 SaO2% (BldA) [Mass fraction] 97 % Minh Alexandra MARINE MECHANIC.COOLING SYSTEM OPERATOR Work Phone: [facility] 04-18-2023 13:43-0400 Systolic blood pressure 108 mm[Hg] Minh Alexandra MARINE MECHANIC.COOLING SYSTEM OPERATOR Work Phone: [facility] 08-30-2022 09:02-0500 Diastolic blood pressure 74 mm[Hg] Minh Alexandra MARINE MECHANIC.COOLING SYSTEM OPERATOR Work Phone: [facility] 08-30-2022 09:02-0500 Heart rate 73 /min Minh Alexandra MARINE MECHANIC.COOLING SYSTEM OPERATOR Work Phone: [facility] 08-30-2022 09:02-0500 Systolic blood pressure 137 mm[Hg] Minh Alexandra MARINE MECHANIC.COOLING SYSTEM OPERATOR Work Phone: [facility] 08-30-2022 08:58-0500 [facility]INE MECHANIC.COOLING SYSTEM OPERATOR Work Phone: [facility] 08-30-2022 08:58-0500 Body weight 100.7 [facility] MARINE MECHANIC.COOLING SYSTEM OPERATOR Work Phone: [facility] 08-30-2022 08:58-0500 Respiratory rate 16 /min [facility] MARINE MECHANIC.COOLING SYSTEM OPERATOR Work Phone: [facility] 08-16-2022 10:25-0500 Diastolic blood pressure 80 mm[Hg] Elizabeth Hernandez MD Work Phone: [facility] 08-16-2022 10:25-0500 Heart rate 62 /min Elizabeth Hernandez MD Work Phone: [facility] 08-16-2022 10:25-0500 SaO2% (BldA) [Mass fraction] 95 % Elizabeth Hernandez MD Work Phone: [facility] 08-16-2022 10:25-0500 Systolic blood pressure 136 mm[Hg] Elizabeth Hernandez MD Work Phone: [facility] 08-16-2022 09:55-0500 Respiratory rate 16 /min Elizabeth Hernandez MD Work Phone: [facility] 08-16-2022 08:24-0500 Body temperature 97.59 [degF] Elizabeth Hernandez MD Work Phone: [facility] 05-31-2022 09:17-0400 Body height 177.8 cm Vandana Aleisha PA-C Work Phone: [facility] 05-31-2022 09:17-0400 Body temperature 97.7 [degF] Vandana [place] PA-C Work Phone: [facility] 05-31-2022 09:17-0400 Body weight 101.15 kg Vandana Aleisha PA-C Work Phone: [facility] 05-31-2022 09:17-0400 Diastolic blood pressure 84 mm[Hg] Vandana Aleisha PA-C Work Phone: [facility] 05-31-2022 09:17-0400 Heart rate 64 /min Vandana Moraes PA-C Work Phone: [facility] 05-31-2022 09:17-0400 SaO2% (BldA) [Mass fraction] 96 % Vandana Moraes PA-C Work Phone: [facility] 05-31-2022 09:17-0400 Systolic blood pressure 148 mm[Hg] Vandana Moraes PA-C Work Phone: [facility] Encounters Encounter Date Encounter Type Care Provider Facility Start: 06-12-2025 End: 06-12-2025 [facility] Start: 05-27-2025 ambulatory GERALD HARTLEY Facility:[facility] Start: 05-13-2025 End: 05-13-2025 ambulatory LORA MARITNEZ Facility:[facility] Start: 05-13-2025 Patient encounter procedure LORA Zack NUÑEZAMPAS [facility] Start: 05-01-2025 End: 05-01-2025 ambulatory MINH ALEXANDRA Facility:[facility] Start: 01-21-2025 End: 01-21-2025 ambulatory Nancie Patel MA [facility] Start: 01-21-2025 End: 01-21-2025 Patient encounter procedure Nancie Patel MA [facility] Comment on above: Population Health Na vigation Outreach (JUDY ALCALA ) Start: 10-29-2024 End: 10-29-2024 ambulatory MINH ALEXANDRA Facility:[facility] Start: 10-29-2024 End: 10-29-2024 Office outpatient visit 25 minutes Minh Alexandra MARINE MECHANIC.COOLING SYSTEM OPERATOR Work Phone: [facility] [place] Comment on above: Type 2 diabetes atilio itus without complication, without long- term current use of insulin (HCC) (Primary Dx); Essential hypertension; Encounter for immunization; Screening for diabetic retinopathy; Gastroesophageal reflux disease without esophagitis; Mixed hyperlipidemia Start: 10-05-2024 End: 10-05-2024 ambulatory LORA D TALAMPAS Facility:[facility] Start: 06-12-2024 End: 06-13-2024 Telephone encounter Lora Martinez MD Work Phone: [facility] [place] Comment on above: Patient Update Start: 05-28-2024 End: 05-28-2024 Telephone encounter Minh Alexandra APRN.COOLING SYSTEM OPERATOR Work Phone: [facility] [place] Comment on above: Results Start: 05-28-2024 ambulatory MINH ALEXANDRA Facility:[facility] Start: 05-28-2024 End: 05-28-2024 Subsequent hospital visit by physician [facility] Comment on above: Left lower quadrant pain [R10.32] Left lower quadrant abdominal pain [R10.32] Start: 05-24-2024 End: 05-24-2024 Office outpatient visit 25 minutes Minh Alexandra APRN.COOLING SYSTEM OPERATOR Work Phone: [facility] [place] Comment on above: Left lower quadrant abdominal pain (Primary Dx); Gastroesophageal reflux disease without esophagitis Start: 05-24-2024 End: 05-24-2024 ambulatory Lora Martinez MD Work Phone: [facility] [place] Comment on above: Abdominal Pain Start: 05-15-2024 End: 05-16-2024 Telephone encounter Lora Martinez MD Work Phone: [facility] [place] Start: 04-30-2024 End: 04-30-2024 Office outpatient visit 25 minutes Lora Martinez MD Work Phone: [facility] [place] Comment on above: Type 2 diabetes atilio [...] Office outpatient visit 25 minutes Minh Alexandra APRN.COOLING SYSTEM OPERATOR Work Phone: [facility] [place] Comment on above: Well controlled type 2 diabetes mellitus (HCC) (Primary Dx); Primary hypertension; Mixed hyperlipidemia; Encounter for immunization Start: 10-03-2022 Telephone encounter Gerald Desai MD Work Phone: Radiation Oncology Comment on above: Results Start: 09-25-2022 Refill Minh Alexandra APRN.COOLING SYSTEM OPERATOR Work Phone: [facility] [place] Comment on above: Refill Request Start: 08-30-2022 End: 08-30-2022 Patient encounter procedure Minh Alexandra APRN.COOLING SYSTEM OPERATOR Work Phone: [facility] [place] Comment on above: Medicare annual well ness visit, subsequent (Primary Dx); Newly diagnosed diabetes (HCC); Intracranial meningioma (HCC) Start: 08-23-2022 Telephone encounter Lora garcia MD Work Phone: [facility] [place] Comment on above: Orders Start: 08-16-2022 End: [...] Alexa No APRN.CNP Work Phone: [facility] [place] Comment on above: Telehealth encounter for confirmed COVID-19 (Primary Dx) Start: 03-02-2022 End: 03-02-2022 Telemedicine consultation with patient Alexa No APRN.CNP [facility] Phone[facility] Start: 03-01-2022 End: 03-01-[address] Lora Martinez Work Phone: [facility] Start: 02-25-2022 End: 02-25-[address] Lora Martinez Work Phone: [facility] Start: 02-10-2022 End: 02-10-2022 Patient encounter procedure [facility], [facility] Procedures Date Procedure Procedure Detail Performing Clinician Start: 05-28-2024 Ct abdomen & pelvis w/o contrast material Minh Alexandra MARINE MECHANIC.COOLING SYSTEM OPERATOR Work Phone: Start: 04-30-2024 Adult depression scr [...] Activity Detail Author Start: 08-16-2032 Colonoscopy COLONOSCOPY [facility] Start: 08-16-2032 COLORECTAL CANCER SCREENING COLORECTAL CANCER SCREENING [facility] Start: 09-06-2026 Urine microalbumin profile [facility] Start: 08-04-2026 LIPID SCREEN LIPID SCREEN [facility] Start: 10-29-2025 BP Controlled (<130/80) BP Controlle d (<130/80) [facility] Start: 10-29-2025 zzBP Controlled (<130/80) (Retired) zzBP Controlled (<130/80) (Retired) [facility] Start: 10-08-2025 Hepatitis B screening Urine Al bumin:Creatinine Ratio [facility] Start: 10-05-2025 Hepatitis B surface antibody level LDL Cholesterol [facility] Start: 05-24-2025 Diabetic foot examination Diabetic Foot Exam [facility] Start: 05-13-2025 End: 05-13-2025 Patient encounter procedure 05/13/2025 9:20 AM EDT Office Visit [facility] [address] [place], [place] [id number] Lora Martinez MD [address] [place], [place] [address] 6 month follow up [facility] [place] Comment on above: 6 month follow up Start: 05-01-2025 End: 07-31-2025 CBC W Auto Differential panel - Blood COMPLETE BLOOD COUNT AND DIFFERENTIAL Lab Routine Type 2 diabetes mellitus without complication, without long-term current use of insulin (HCC) Expected: 05/01/2025 (Approximate), Expires: 07/31/2025 [facility] Work Phone: Comment on above: Expected: 05/01/2025 (Approximate), Expires: 07/31/2025 Start: 05-01-2025 End: 07-31-2025 Comprehensive metabolic 2000 panel - Serum or Plasma COMPREHENSIVE METABOLIC PANEL Lab Routine Type 2 diabetes mellitus without complication, without long-term current use of insulin (HCC) Expected: 05/01/2025 (Approximate), Expires: 07/31/2025 [facility] Comment on above: Expected: 05/01/2025 (Approximate), Expires: 07/31/2025 Start: 05-01-2025 End: 07-31-2025 Hemoglobin A1c in Blood HEMOGLOBIN A1C Lab Routine Type 2 diabetes mellitus without complication, without long-term current use of insulin (HCC) Expected: 05/01/2025 (Approximate), Expires: 07/31/2025 [facility] Comment on above: Expected: 05/01/2025 (Approximate), Expires: 07/31/2025 Start: 05-01-2025 End: 07-31-2025 Lipid 1996 panel - Serum or Plasma LIPID PANEL, FASTING Lab Routine Type 2 diabetes mellitus without complication, without long-term current use of insulin (HCC) Expected: 05/01/2025 (Approximate), Expires: 07/31/2025 [facility] Comment on above: Expected: 05/01/2025 (Approximate), Expires: 07/31/2025 Start: 04-30-2025 Annual PCP Team Senior Logistics Manager jackie Disease Visit Annual PCP Team Chronic Disease Visit [facility] Start: 04-30-2025 Anxiety Screening Anxiety Screening [facility] Start: 04-30-2025 BP Controlled (<130/80) BP Controlle d (<130/80) [facility] Start: 04-30-2025 Covid-19 Vaccine () Covid-19 Vaccine () [facility] Comment on above: Postponed from 04/14 (Not Currently Available) Start: 04-30-2025 Covid-19 Vaccine () Covid-19 Vaccine () [facility] Comment on above: Postponed from 04/14 (Not Currently Available) Start: 04-30-2025 Depression Screening Depression Scre ening [facility] Start: 04-30-2025 Diabetic foot examination Diabetic Foot Exam [facility] Start: 04-27-2025 Hepatitis B surface antibody level LDL Cholesterol [facility] Start: 04-04-2025 Hemoglobin A1c measurement HbA1C [facility] Start: 10-29-2024 End: 10-29-2024 Patient encounter procedure 10/29/2024 9:40 AM EDT Office Visit [facility] [place] [address] [place] [address] Minh Alexandra, MARINE MECHANIC.COOLING SYSTEM OPERATOR [address] [facility] [place] [address] 6 month follow up [facility] [place] Comment on above: 6 month follow up Start: 10-25-2024 Hemoglobin A1c measurement HbA1C [facility] Start: 10-23-2024 Annual PCP Team Senior Logistics Manager jackie Disease Visit Annual PCP Team Chronic Disease Visit [facility] Start: 10-23-2024 BP Controlled (<130/80) BP Controlle d (<130/80) [facility] Start: 10-23-2024 Covid-19 Vaccine () Covid-19 Vaccine () [facility] Comment on above: Postponed from 04/14 (Declined at this time) Start: 10-13-2024 Hepatitis B screening Urine Al bumin:Creatinine Ratio [facility] Start: 10-13-2024 Hepatitis B surface antibody level LDL Cholesterol [facility] Start: 09-14-2024 End: 12-14-2024 Microalbumin/Creatinine [Mass Ratio] in Urine ALBUMIN/CREATININE RATIO, URINE Lab Routine Type 2 diabetes mellitus without complication, without long-term current use of insulin (HCC) Expected: 09/14/2024 (Approximate), Expires: 12/14/2024 [facility] Comment on above: Expected: 09/14/2024 (Approximate), Expires: 12/14/2024 Start: 08-04-2024 DIABETES SCREEN DIABETES SCREEN [facility] Start: 05-28-2024 End: 05-28-2024 Patient encounter procedure [facility] Comment on above: Left lower quadrant abdominal pain [R10.32] Start: 05-24-2024 End: 05-24-2024 Patient encounter procedure 05/24/2024 2:20 PM EDT Office Visit [facility] [place] [address] [place] [address] Minh Alexandra APRN.COOLING SYSTEM OPERATOR [address] [place] [address] Left lower abdominal pain. See triage [facility] [place] Comment on above: Left lower abdominal pain. See triage Start: 05-24-2024 End: 01-10-2025 CBC W Auto Differential panel - Blood COMPLETE BLOOD COUNT AND DIFFERENTIAL Lab Routine Gastroesophageal reflux disease without esophagitis Left lower quadrant abdominal pain Expected: 05/24/2024, Expires: 08/23/2024 [facility] Comment on above: Expected: 05/24/2024 , Expires: 08/23/2024 Start: 05-24-2024 End: 08-23-2024 Comprehensive metabolic 2000 panel - Serum or Plasma COMPREHENSIVE METABOLIC PANEL Lab Routine Gastroesophageal reflux disease without esophagitis Left lower quadrant abdominal pain Expected: 05/24/2024, Expires: 08/23/2024 [facility] Comment on above: Expected: 05/24/2024 , Expires: 08/23/2024 Start: 05-24-2024 End: 08-23-2024 URINALYSIS, REFLEX MICROSCOPIC URINALYSIS, REFLEX MICROSCOPIC Lab Routine Gastroesophageal reflux disease without esophagitis Left lower quadrant abdominal pain Expected: 05/24/2024, Expires: 08/23/2024 [facility] Comment on above: Expected: 05/24/2024 , Expires: 08/23/2024 Start: 05-21-2024 End: 05-21-2024 Patient encounter procedure 05/21/2024 2:20 PM EDT Office Visit [facility] [place] [address] [place] [address] Minh Alexandra APRN.COOLING SYSTEM OPERATOR [address] [place] [address] follow up abdominal pain [facility] [place] Comment on above: follow up abdominal pain Start: 04-30-2024 End: 04-30-2024 Patient encounter procedure 04/30/2024 9:40 AM EDT Office Visit [facility] [place] [address] [place] [address] Lora Martinez MD [address] [place] [address] 6 month follow up [facility] [place] Comment on above: 6 month follow up Start: 04-18-2024 3 comp foot exam completed DIABETIC FOOT EXAM [facility] Start: 04-18-2024 ANNUAL PCP TEAM BOOK EDITOR JACKIE DISEASE VISIT ANNUAL PCP TEAM CHRONIC DISEASE VISIT [facility] Start: 04-18-2024 BP CONTROLLED (<130/80) BP CONTROLLE D (<130/80) [facility] Start: 04-18-2024 Diabetic foot examination Diabetic Foot Exam [facility] Start: 04-15-2024 Hemoglobin A1c measurement HbA1C [facility] Start: 04-11-2024 Hepatitis B screening URINE AL BUMIN:CREATININE RATIO [facility] Start: 11-30-2023 BP Controlled (<130/80) BP Controlle d (<130/80) [facility] Start: 11-30-2023 Glaucoma screening Dilated Retinal E xam [facility] Start: 11-30-2023 Hepatitis C antibody , confirmatory test DILATED RETINAL EXAM [facility] Start: 10-13-2023 End: 04-15-2024 ALBUMIN/CREAT RATIO RND UR ALBUMIN/CREAT RATIO RND UR Lab Routine Well controlled type 2 diabetes mellitus (HCC) Expected: 10/13/2023 (Approximate), Expires: 04/15/2024 [facility] Work Phone: Comment on above: Expected: 10/13/2023 (Approximate), Expires: 04/15/2024 Start: 10-13-2023 End: 04-15-2024 CBC W Auto Differential panel - Blood CBC + DIFF Lab Routine Well controlled type 2 diabetes mellitus (HCC) Expected: 10/13/2023 (Approximate), Expires: 04/15/2024 [facility] Work Phone: Comment on above: Expected: 10/13/2023 (Approximate), Expires: 04/15/2024 Start: 10-13-2023 End: 04-15-2024 Comprehensive metabolic 2000 panel - Serum or Plasma COMP METABOLIC PANEL Lab Routine Well controlled type 2 diabetes mellitus (HCC) Expected: 10/13/2023 (Approximate), Expires: 04/15/2024 [facility] Work Phone: Comment on above: Expected: 10/13/2023 (Approximate), Expires: 04/15/2024 Start: 10-13-2023 End: 04-15-2024 Hemoglobin A1c in Blood HGB A1C Lab Routine Well controlled type 2 diabetes mellitus (HCC) Expected: 10/13/2023 (Approximate), Expires: 04/15/2024 [facility] Work Phone: Comment on above: Expected: 10/13/2023 (Approximate), Expires: 04/15/2024 Start: 10-13-2023 End: 04-15-2024 Lipid 1996 panel - Serum or Plasma LIPID PANEL BASIC Lab Routine Well controlled type 2 diabetes mellitus (HCC) Expected: 10/13/2023 (Approximate), Expires: 04/15/2024 [facility] Work Phone: Comment on above: Expected: 10/13/2023 (Approximate), Expires: 04/15/2024 Start: 10-12-2023 Hemoglobin A1c/Hemoglobin.total in Blood HBA1C [facility] Start: 08-23-2023 Hepatitis B surface antibody level LDL CHOLESTEROL [facility] Start: 08-14-2023 Advance Directive Discussion Advance Directive Discussion [facility] Start: 08-14-2023 Behavioral Health Screening Behavioral Health Screening [facility] Start: 04-14-2023 Covid-19 Vaccine () Covid-19 Vaccine () [facility] Start: 04-14-2023 Influenza vaccination INFLUENZA (#1) [facility] Start: 03-02-2023 ANNUAL PCP TEAM BOOK EDITOR JACKIE DISEASE VISIT ANNUAL PCP TEAM CHRONIC DISEASE VISIT [facility] Start: 02-20-2023 Hemoglobin A1c/Hemoglobin.total in Blood HBA1C [facility] Start: 11-28-2022 End: 01-28-2023 Hemoglobin A1c in Blood HGB A1C Lab Routine Newly diagnosed diabetes (HCC) Expected: 11/28/2022 (Approximate), Expires: 01/28/2023 [facility] Work Phone: Comment on above: Expected: 11/28/2022 (Approximate), Expires: 01/28/2023 Start: 10-03-2022 COVID-19 VACCINE (6 - Moderna series) COVID-19 VACCINE (6 - Moderna series) [facility] Start: 08-23-2022 End: 10-23-2022 Comprehensive metabolic 2000 panel - Serum or Plasma [facility] Work Phone: Comment on above: Expected: 08/23/2022 , Expires: 10/23/2022 Start: 08-23-2022 End: 10-23-2022 Hemoglobin A1c in Blood [facility] Work Phone: Comment on above: Expected: 08/23/2022 , Expires: 10/23/2022 Start: 08-23-2022 End: 10-23-2022 Lipid 1996 panel - Serum or Plasma [facility] Work Phone: Comment on above: Expected: 08/23/2022 , Expires: 10/23/2022 Start: 08-23-2022 End: 10-23-2022 Magnesium [Mass/volume] in Serum or Plasma [facility] Work Phone: Comment on above: Expected: 08/23/2022 , Expires: 10/23/2022 Start: 08-18-2022 Adult depression screening assessment DEPRESSION SCREENING [facility] Start: 08-18-2022 BP CONTROLLED (<130/80) BP CONTROLLE D (<130/80) [facility] Start: 08-14-2022 ADVANCE DIRECTIVE DISCUSSION ADVANCE DIRECTIVE DISCUSSION [facility] Start: 08-14-2022 DEPRESSION ASSESSMENT DEPRESSION ASS ESSMENT [facility] Start: 08-02-2022 Colonoscopy COLONOSCOPY [facility] Start: 08-02-2022 COLORECTAL CANCER SCREENING COLORECTAL CANCER SCREENING [facility] Start: 04-14-2022 Influenza vaccination INFLUENZA (#1) [facility] Start: 02-08-2022 COVID-19 VACCINE (5 - Booster for Moderna series) COVID-19 VACCINE (5 - Booster for Moderna series) [facility] Start: 2022 RSV Vaccine (1 - 1-d ose 75+ series) RSV Vaccine (1 - 1-dose 75+ series) [facility] Start: 08-18-2021 BP CONTROLLED (<130/80) BP CONTROLLE D (<130/80) [facility] Start: 08-14-2021 ADVANCE DIRECTIVE DISCUSSION ADVANCE DIRECTIVE DISCUSSION [facility] Start: 08-14-2021 DEPRESSION ASSESSMENT DEPRESSION ASS ESSMENT [facility] Start: 2007 Hepatitis B Vaccine (1 of 3 - Risk 3-dose series) Hepatitis B Vaccine (1 of 3 - Risk 3-dose series) [facility] Start: 2007 RSV Vaccine (1 - 1-d ose 60+ series) RSV Vaccine (1 - 1-dose 60+ series) [facility] Start: 01-13-1992 COLOGUARD (FIT-DNA) COLOGUARD (FIT-D NA) [facility] Start: 01-13-[address] COLONOGRAPHY [facility] Start: 01-13-1992 FECAL OCCULT BLOOD FECAL OCCULT BLOO D [facility] Start: 01-13-1992 SIGMOIDOSCOPY SIGMOIDOSCOPY [facility] Start: 1957 3 comp foot exam completed DIABETIC FOOT EXAM [facility] Start: 1957 Hepatitis B screening URINE AL BUMIN:CREATININE RATIO [facility] Start: 1957 Hepatitis C antibody , confirmatory test DILATED RETINAL EXAM [facility] End: 12-06-2024 CBC panel - Blood by Automated count COMPLETE BLOOD COUNT Lab Routine Type 2 diabetes mellitus without complication, without long-term current use of insulin (HCC) Encounter for long-term current use of medication Every 6 months for 30 Occurrences starting 12/07/2023 until 12/06/2024 [facility] Comment on above: Every 6 months for 3 0 Occurrences starting 12/07/2023 until 12/06/2024 End: 12-06-2024 Comprehensive metabolic 2000 panel - Serum or Plasma COMPREHENSIVE METABOLIC PANEL Lab Routine Type 2 diabetes mellitus without complication, without long-term current use of insulin (HCC) Encounter for long-term current use of medication Every 6 months for 30 Occurrences starting 12/07/2023 until 12/06/2024 [facility] Comment on above: Every 6 months for 3 0 Occurrences starting 12/07/2023 until 12/06/2024 End: 06-23-2025 CT Abdomen and Pelvis WO contrast CT ABD/PEL WO IVCON Radiology STAT Left lower quadrant abdominal pain 1 Occurrences starting 05/24/2024 until 06/23/2025 [facility] Work Phone: Comment on above: 1 Occurrences starti ng 05/24/2024 until 06/23/2025 End: 12-06-2024 Hemoglobin A1c in Blood HEMOGLOBIN A1C Lab Routine Type 2 diabetes mellitus without complication, without long-term current use of insulin (HCC) Encounter for long-term current use of medication Every 6 months for 30 Occurrences starting 12/07/2023 until 12/06/2024 [facility] Work Phone: Comment on above: Every 6 months for 3 0 Occurrences starting 12/07/2023 until 12/06/2024 INFLUENZA VACCINE, P RSV FREE, AGE 65+ YR, HIGH DOSE, QUADRIVALENT (FLUZONE HIGH-DOSE) INFLUENZA VACCINE, PRSV FREE, AGE 65+ YR, HIGH DOSE, QUADRIVALENT (FLUZONE HIGH-DOSE) Immunization/Injection Routine Encounter for immunization 1 Occurrences starting 04/18/2023 [facility] Work Phone: Comment on above: 1 Occurrences starti ng 04/18/2023 End: 12-06-2024 Lipid 1996 panel - Serum or Plasma LIPID PANEL BASIC Lab Routine Type 2 diabetes mellitus without complication, without long-term current use of insulin (HCC) Mixed hyperlipidemia Encounter for long-term current use of medication Every 6 months for 30 Occurrences starting 12/07/2023 until 12/06/2024 [facility] Comment on above: Every 6 months for 3 0 Occurrences starting 12/07/2023 until 12/06/2024 End: 12-06-2024 Magnesium [Mass/volume] in Serum or Plasma MAGNESIUM Lab Routine Type 2 diabetes mellitus without complication, without long-term current use of insulin (HCC) Encounter for long-term current use of medication Every 6 months for 30 Occurrences starting 12/07/2023 until 12/06/2024 [facility] Comment on above: Every 6 months for 3 0 Occurrences starting 12/07/2023 until 12/06/2024 PFIZER-BIONTECH COVID-19 BIVALENT VACCINE, AGE 12+ YR PFIZER-BIONTECH COVID-19 BIVALENT VACCINE, AGE 12+ YR Immunization/Injection Routine Encounter for immunization 1 Occurrences starting 04/18/2023 [facility] Work Phone: Comment on above: 1 Occurrences starti ng 04/18/2023 [facility] Immunizations Immunization Date Immunization Notes Care Provider Sergei shaffer 04-30-2024 influenza, high dose seasonal, preservative-free Lora Martinez MD Work Phone: [facility] 04-29-2023 influenza, injectabl e, quadrivalent, contains preservative Lora Martinez MD Work Phone: [facility] 06-02-2022 COVID-19 booster vaccine, age 12+ yr, bivalent (PFIZER-BIONTECH) Lora Martinez MD Work Phone: [facility] Work Phone: 12-14-2021 COVID-19 vaccine, ag e 12+ yr (PFIZER-BIONTECH - PURPLE TOP) Alexa Podlogar MARINE MECHANIC[facility] Work Phone: [facility] Work Phone: 05-07-2021 influenza, high-dose , quadrivalent vaccine (FLUZONE HIGH DOSE QUADRIVALENT) Alexa Podlogar [employer]INE [employer]CH[employer] Work Phone: [facility] Work Phone: [facility]12[facility] Work Phone: 05-01-2020 influenza, high dose seasonal, preservative-free Alexa Podlogar MARINE MECH[employer]IC[facility] Work Phone: [facility] Work Phone: 05-07-2019 influenza, high dose seasonal, preservative-free Alexa Podlogar [employer]INE MECH[employer]IC[facility] Work Phone: [facility] 04-27-2018 influenza, high dose seasonal, preservative-free Alexa Podlogar MARINE MECH[employer]IC[facility] Work Phone: [facility] Work Phone: 04-25-2018 zoster vaccine recombinant Alexa Podlogar MARINE MECHANIC[employer] Work Phone: [facility] Work Phone: 11-29-2017 zoster vaccine recombinant Alexa Podlogar MARINE MECH[employer]IC[facility] Work Phone: [facility] Work Phone: 06-02-2017 influenza, injectabl e, quadrivalent, contains preservative Alexa Podlogar [employer]INE MECH[employer]IC[facility] Work Phone: [facility] Work Phone: 05-03-2017 influenza, high dose seasonal, preservative-free Alexa Podlogar [employer]INE MECH[employer]IC[facility] Work Phone: [facility] 09-06-2016 tetanus toxoid, redu shereen diphtheria toxoid, and acellular pertussis vaccine, adsorbed Alexa Podlogar [employer] Work Phone: [facility] Work Phone: 04-18-2016 influenza, high dose seasonal, preservative-free Alexa Podlogar [employer]INE MECH[employer]IC[facility] Work Phone: [facility] Work Phone: 10-23-2015 pneumococcal conjuga te vaccine, 13 valent Alexa Podlogar [employer]IC[facility] Work Phone: [facility] 05-01-2015 influenza, high dose seasonal, preservative-free Alexa Podlogar [employer]INE MECH[employer]IC[facility] Work Phone: [facility] 03-06-2012 pneumococcal polysaccharide vaccine, 23 valent Alexa Podlogar [employer]INE MECH[employer]IC[facility] Work Phone: [facility] 06-23-2005 influenza virus vacc ine, unspecified formulation Alexa Podlogar MARINE MECH[employer]IC[facility] Work Phone: [facility] Work Phone: 03-18-2002 tetanus and diphther ia toxoids, adsorbed, preservative free, for adult use (2 Lf of tetanus toxoid and 2 Lf of diphtheria toxoid) Alexa Podlogar [employer]CH[employer]IC[facility] Work Phone: [facility] Payers Date Payer Category Payer Private Health Insurance MMO MED ICARE SUPPLEMENT Member Subscriber Plan / Payer (Effective 2022-Present) Name: Fredrick Mao Relation to Subscriber: Self Name: Fredrick Mao Payer ID: Not on file Type: [employer] Address: [place] [id number] 2022 Unknown MMO MMO MEDICARE SUPPLEMENT [id number] 2022-Present [phone] [address] [place] [address] Indemnity [id number] 2022 Medicare [id number] 2021 Medicare [employer] MED[place] [id number] 2021-Present [phone] [address] [place] [address] HMO [id number] 2014 [facility] [id number] 2011 Medicare [facility] [id number] 2011 Medicare [id number] 2011 Medicare [id number] [facility] [id number] 100 [id number] Social History Date Type Detail Facility Start: 03-16-2017 Tobacco smoking stat us [facility] Unknown if ever smoked [facility] Work Phone: Start: 1945 Sex Assigned At Male C [facility] Start: 05-31-2022 End: 05-24-2024 Tobacco smoking status NHIS Ex-smoker [facility] Work Phone: Start: 12-05-1970 End: 12-06-1995 History of tobacco use Current smoker [facility] Start: 12-05-1970 End: 12-06-1995 History of tobacco use Cigarette Smoker [facility] Start: 09-19-2021 End: 10-29-2024 Alcohol intake Current non-drinker of alcohol (finding) [facility] Start: 03-02-2022 History SDOH Social Connections Phone 98 [facility] Start: 03-02-2022 End: 08-23-2022 History SDOH Social Connections Membership 1 [facility] Start: 03-02-2022 End: 08-23-2022 History SDOH Social Connections Meetings 3 [facility] Start: 03-02-2022 History SDOH Physica l Activity MPS 7 [facility] Start: 03-02-2022 End: 08-23-2022 History SDOH Financial 5 [facility] Start: 03-02-2022 End: 08-23-2022 History SDOH Transport Med 2 [facility] Start: 02-20-2022 End: 03-02-2022 Exposure to SARS-CoV-2 (event) Yes [facility] Start: 05-31-2022 End: 04-18-2023 Cigarettes smoked current (pack per day) - Reported 1 [facility] Start: 05-31-2022 End: 05-24-2024 Tobacco use and exposure Smokeless tobacco non-user [facility] Start: 05-21-2022 End: 05-31-2022 Exposure to SARS-CoV-2 (event) Not sure [facility] Start: 08-23-2022 History SDOH Social Connections Phone 4 [facility] Start: 08-23-2022 End: 04-18-2023 Social connection and isolation panel [facility] Are you now , , , , never or living with a partner? [facility] How often to you hav e a drink containing alcohol? Monthly or less [facility] How many standard dr inks containing alcohol do you have on a typical day? 1 or 2 [facility] How often do you hav e 6 or more drinks on 1 occasion? Never [facility] How hard is it for y ou to pay for the very basics like food, housing, medical care, and heating Not hard at all [facility] Do you feel stress - tense, restless, nervous, or anxious, or unable to sleep at night because your mind is troubled all the time - these days [OSQ] To some extent [facility] (I/We) worried wheth er (my/our) food would run out before (I/we) got money to buy more. Never true [facility] In the past 12 month s, was there a time when you were not able to pay the mortgage or rent on time? No [facility] Start: 09-04-2020 Gender identity Identifies as male gender (finding) [facility] (I/We) worried wheth er (my/our) food would run out before (I/we) got money to buy more. DK or Refused [facility] Do you feel stress - tense, restless, nervous, or anxious, or unable to sleep at night because your mind is troubled all the time - these days [OSQ] Not at all [facility] Functional Status Date Assessment Result Facility 01-27-2015 Are you deaf, or do you have serious difficulty hearing No 01/27/2015 12:55 PM EDT Elizabeth Elias MA [facility] 01-27-2015 Are you blind, or do you have serious difficulty seeing, even when wearing glasses No 01/27/2015 12:55 PM EDT Elizabeth Elias MA [facility] 01-27-2015 Do you have serious difficulty walking or climbing stairs No 01/27/2015 12:55 PM EDT Elizabeth Elias MA [facility] 01-27-2015 Do you have difficul ty dressing or bathing No 01/27/2015 12:55 PM EDT Elizabeth Elias MA [facility] 01-27-2015 Because of a physica l, mental, or emotional condition, do you have difficulty doing errands alone such as visiting a physician's office or shopping No 01/27/2015 12:55 PM EDT Elizabeth Elias MA [facility] Mental Status Date Assessment Result Facility 01-27-2015 Because of a physica l, mental, or emotional condition, do you have serious difficulty concentrating, remembering, or making decisions No 01/27/2015 12:55 PM EDT Elizabeth Elias MA [facility] Clinical Notes 01-27-2015 to 06-12-2025 Nancie Patel MA - 01/21/2025 2:22 PM Minh Amaro APRN.CNS - 10/29/2024 9:19 AM EDTTelephone Encounter - AmeliaVandana bowen RN - 06/13/2024 10:35 AM EDTPatient Instructions Note Date & Type Note Facility 06-12-2025 Note HNO ID: [id number] Author: GERALD HARTLEY MD Service: ? Author [...] Gerald Hartley MD cc: Lora Martinez MD [address] [place] [address] [facility] 06-12-2025 Note HNO ID: [id number] Author: YESSICA DENT RN Service: ? Author Type: Registered Nurse Type: Progress Notes Filed: 06/16/2025 16:17 Note Text: Radiation Therapy - Nursing Note (Follow-up) PATIENT NAME: Fredrick Mao PATIENT June 12, 2025 [facility] FACILITY/LOCATION: [place] Reason for visit: Follow up. Subjective Data No complaints Additional Data Do you want to see a Manager Scheduling? No Nursing Assessment Fatigue: increased fatigue over [...] bowel movements Bone Pain: none Focused Assessment COOLING SYSTEM OPERATOR: Alopecia: severe. Headache: moderate. Vision changes: none. Arm/leg numbness: none. Limb coordination: none. Memory changes: none. Syncope: none. Disorientation: none. Seizures: none. Hearing changes: No. W SIGNED by: Yessica Dent RN [facility] 05-27-2025 Note HNO ID: [id number] Author: ERIKA LOUISE RT(R) Service: ? Author [...] PATIENT PRESENTS WITH AN IMPLANTABLE OR ATTACHED RESIST COATER DEVELOPER: No ALLERGIES: Reviewed and unchanged CONTRAST ALLERGY: NO. EXAM: MRI - CONTRAST TYPE: GROUP II PERIPHERAL IV DATA: Ambulatory: A peripheral IV was started in the Left antecubital site with a Angio cath: 22 gauge. RADIOLOGY DEPARTMENT: MR; Exam(s) Completed: Head: Routine Brain. Anesthesia: No. Aromatherapy Administered: No SIGNATURE: RT Mikhail(R) PATIENT NAME: Fredrick Mao DATE: May 27, 2025 TIME: 8:25 AM [facility] 05-13-2025 Note HNO ID: [id number] Author: LORA MARTINEZ MD Service: ? Author [...] home/vehicle Yes Smo (more content not included)... [facility] 01-21-2025 Note HNO ID: [id number] Author: NANCIE PATEL MA Service: ? Author Type: Plant Worker Type: Progress Notes Filed: 01/21/2025 14:25 Note [...] Patel MA January 21, 2025 2:23 PM [facility] 01-21-2025 History of Present illness Narrative [...] 2025 2:23 PM documented in this encounter [facility] 01-21-2025 Note Patient Outreach (NE TNAV) FREDRICK MAO ([id number]) 1945 M Date Time Provider Department 01/21/25 NANCIE PATEL NETNAV During your visit today, we recorded [...] medications have been reviewed /June 14, 2007 Peri Gonsalves Ma Problem List [...] Encounter Status:Closed by NANCIE PATEL on 01/21/25 [facility] 10-29-2024 Note HNO ID: [id number] Author: MINH ALEXANDRA APRN.COOLING SYSTEM OPERATOR Service: ? Author Type: Nurse Specialist Type: [...] A1c. - Has an eye doctor at [facility] and attends annual eye exams. Weight Management: [...] Abs Lymph 1.00 - 4.00 k/uL 1.80 Refugio% % 9.9 Abs Refugio <0.87 k/uL 0.75 Eosin% % 7.4 Abs [...] % 5.7 (H (more content not included)... [facility] 10-29-2024 History of Present illness Narrative [...] A1c. - Has an eye doctor at [facility] and attends annual eye exams. Weight Management: [...] Abs Lymph 1.00 - 4.00 k/uL 1.80 Refugio% % 9.9 Abs Refugio <0.87 k/uL 0.75 Eosin% % 7.4 Abs [...] CONSULT TO OPHTHALMOLOGY- routine visits at outside material control supervisor Gastroesophageal reflux disease without esophagitis Gastroesophageal reflux [...] MD and labs 6 months Minh Alexandra APRN.COOLING SYSTEM OPERATOR Medical Decision Making: Problems: Moderate: 2+ stable chronic illnesses Data: Unique test result(s) reviewed: 3+ Unique test(s) ordered: 3+ Risk: Moderate: Drug management Medical Decision Making Level: 4 - Moderate documented in this encounter [facility] 06-13-2024 Telephone encounter Note Pt called and is notified of providers message and instructions. Pt voices understanding. Vandana Taylor RN [facility] 06-13-2024 Miscellaneous Notes Pt called and [...] patient. Thank you. documented in this encounter [facility] 06-13-2024 Telephone encounter Note If he is feeling improved and wants to resume metformin to see if he is tolerating it may do so. If any problems / recurrence then recommend discontinuing it again and letting us know. [facility] 06-12-2024 Telephone encounter Note Patient reports he was having abdominal issues a couple weeks ago and was evaluated by MARGARETTE Bello on 05/24/24. Patient was advised then, to continue on with pantoprazole twice daily and stay off metformin for another week.. Patient reports he has improved and is better. Asking if he should resume the metformin? Please advise patient. Thank you. [facility] 05-28-2024 Telephone encounter Note Telephone call with Michael to review results. CT without concerning findings.Notes symptoms about the same. Continue on with pantoprazole twice daily and stay off metformin for another week. If not noting improvement consider dicyclomine or recheck in office. [facility] 05-28-2024 Miscellaneous Notes Telephone call with Michael to review results. CT without concerning findings.Notes symptoms about the same. Continue on with pantoprazole twice daily and stay off metformin for another week. If not noting improvement consider dicyclomine or recheck in office. documented in this encounter [facility] 05-28-2024 Miscellaneous Notes 4.5 cm right renal cyst, no calculus or hydronephrosis. GI tract shows no evidence of obstruction, moderate diverticulosis without evidence of acute diverticulitis. Small fat-containing right inguinal hernia documented in this encounter [facility] 05-28-2024 Progress note Formatting of t his note might be different from the original. 4.5 cm right renal cyst, no calculus or hydronephrosis. GI tract shows no evidence of obstruction, moderate diverticulosis without evidence of acute diverticulitis. Small fat-containing right inguinal hernia [facility] 05-24-2024 Instructions Minh Alexandra APRN.CNS - [...] severe concerning symptoms. documented in this encounter [facility] 05-24-2024 History of Present illness Narrative [...] 4 - Moderate documented in this encounter [facility] 05-24-2024 Telephone encounter Note Patient reports left lower quad ache since last night. Pain becomes sharp if in bed and rolls on left side. The ache has been constant since yesterday afternoon. Protocol recommends see provider in 4 hours. 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 No nausea or vomiting. Pain is an ache becomes sharp if in bed and rolls on his left side. No bloating or swelling. BM passing ok. Protocols used: Abdominal Pain - [id number] [facility] 05-24-2024 Miscellaneous Notes Patient reports left lower quad ache since last night. Pain becomes sharp if in bed and rolls on left side. The ache has been constant since yesterday afternoon. Protocol recommends see provider in 4 hours. 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 No nausea or vomiting. Pain is an ache becomes sharp if in bed and rolls on his left side. No bloating or swelling. BM passing ok. Protocols used: Abdominal Pain - [id number] documented in this encounter [facility] 05-16-2024 Telephone encounter Note Patient notified of providers message and verbalized understanding. Patient states has been taking Pepto and some other over the counter medications. States it states it doesn't happen all the time but difficult sleeping at night due to pain on L side. Patient made an appointment with Minh PFEIFFER for next Monday [facility] 05-16-2024 Miscellaneous Notes Patient notified of [...] Renetta Malone LPN documented in this encounter [facility] 05-16-2024 Telephone encounter Note He was seen by PCP April 30 and recommended making some dietary changes and adding simethicone 4 times daily as needed. If not currently doing this would recommend. Plan to see him in office if needed. [facility] 05-15-2024 Telephone encounter Note C/O LL [...] to review message first. Renetta Malone LPN [facility] 04-30-2024 Instructions Lora Martinez MD - [...] for October 29. documented in this encounter [facility] 04-30-2024 History of Present illness Narrative This note was created using [employer]. Subjective Fredrick Mao is a 79 year [...] feet and has been seen by a product/industry consultant in the past. He also reports thickened [...] has a living will. Will check on [employer]. LW copies made today and will scan into bluepulse. is surrogate decision maker Plans to follow [...] Abs Lymph 1.00 - 4.00 k/uL 1.80 Refugio% % 9.9 Abs Refugio <0.87 k/uL 0.75 Eosin% % 7.4 Abs [...] Lora Martinez MD documented in this encounter [facility] 12-07-2023 Telephone encounter Note Called patient and schedule appt in Apr with Dr. Martinez and Minh Alexandra in October 2024 [facility] 12-07-2023 Miscellaneous Notes Called patient and schedule appt in Sept with Dr. Martinez and Minh Alexandra in October 2024 Images from the original note were not included. [place] Jagdish Byers Needs follow ups scheduled still [...] you. NORMA Ni documented in this encounter [facility] 12-07-2023 Telephone encounter Note Images from the original note were not included. Lora Martinez MD P [facility] Needs follow ups scheduled still (Alternate Minh and me). Looks like was also to have a yearly scheduled with Dr. Hartley in rad/onc. Please assist patient in scheduling appointment as indicated above by provider. Per AVS it seems two 6 month follow ups need scheduled, one with LDT around 04/25 and another with Margarita Alexandra around 10/23/24. Thank you. NORMA Ni [facility] 10-24-2023 History of Present illness Narrative This note was created using [employer]. Subjective Fredrick Mao is a 78 year old [...] Abs Lymph 1.00 - 4.00 k/uL 1.80 Refugio% % 9.9 Abs Refugio <0.87 k/uL 0.75 Eosin% % 7.4 Abs [...] Lora Martinez MD documented in this encounter [facility] 04-18-2023 History of Present illness Narrative [...] 4 - Moderate documented in this encounter [facility] 10-04-2022 Miscellaneous Notes Pt returned call. [...] one year. Thanks! documented in this encounter [facility] 09-26-2022 Miscellaneous Notes Patient has been identified by name and date of : Yes, Provider Jagdish Date 09/26/22 Time 12:35pm Spoke to pharmacy. [...] My Almaraz LPN documented in this encounter [facility] 08-30-2022 History of Present illness Narrative [...] past. 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 Entering routine orders. Patient needing to have new orders placed for the labs filed 08/2021. He is in the building at this time. Elaina Chaudhari LPN documented in this encounter [facility] 08-16-2022 Nurse Note Pt received in PACU. Pt slightly drowsy. Denies pain or nausea. Abd soft and non distended. Noreen Lezama RN documented in this encounter [facility] 08-16-2022 History and physical note UPDATED [...] entered by the nurse and reviewed by fl Nursing Notes: Manjula Reid RN 05/31/2022 9:21 [...] patient was offered a surgery/procedure at a [facility] facility. I have counseled the patient [...] entered by the nurse and reviewed by fl Nursing Notes: Manjula Reid RN 05/31/2022 9:21 [...] patient was offered a surgery/procedure at a [facility] facility. I have counseled the patient [...] Vandana Moraes PA-C documented in this encounter [facility] 07-13-2022 Miscellaneous Notes The following approved [...] advise. Cristine Castellanos documented in this encounter [facility] 07-06-2022 Miscellaneous Notes Patient has been [...] Rubi Pinto Pss documented in this encounter [facility] 05-31-2022 History of Present illness Narrative [...] entered by the nurse and reviewed by fl Nursing Notes: Manjula Reid RN 05/31/2022 9:21 [...] patient was offered a surgery/procedure at a [facility] facility. I have counseled the patient [...] Vandana Moraes PA-C documented in this encounter [facility] 05-31-2022 Nurse Note REVIEW OF SYSTEMS: [...] Manjula Reid RN documented in this encounter [facility] 03-02-2022 Instructions Alexa No APRN.[facility] - 03/02/2022 9:57 AM EDT FACT SHEET FOR PATIENTS, PARENTS, AND CAREGIVERS EMERGENCY USE AUTHORIZATION (EUA) OF PAXLOVID FOR CORONAVIRUS DISEASE 2019 (COVID-19) You are being given this Fact Sheet because your healthcare provider believes it is necessary to provide you with PAXLOVID for the treatment of ycxg-wo-ybwfclkc coronavirus disease (COVID-19) caused by the SARS-CoV-2 [...] virus. COVID-19 illnesses have ranged from very qkhc-mh-mjaqom, including illness resulting in . While information [...] is an investigational medicine used to treat hvso-th-zvrmpudv COVID-19 in adults and children [12 years [...] of using PAXLOVID to treat people with pwdt-ti-johpcvvn COVID-19. The FDA has authorized the emergency use of PAXLOVID for the treatment of siqk-ro-sdufndda COVID-19 in adults and children [12 years [...] the medicines you take, including prescription and sgwe-jmu-yeisnwj medicines, vitamins, and herbal supplements. Some medicines [...] (remdesivir) is FDA-approved for the treatment of xmrb-ip-xwmeymdm COVID-19 in certain adults and children. Talk with your doctor to see if Veklury is appropriate for you. Like PAXLOVID, FDA may also allow for the emergency use of other medicines to treat people with COVID-19. Go to https://www.fda.gov/emergency-pre paredness-andresponse/mcm-legal-r ugyzvyqhl-ufx-zxqktl-framework/em dryvzgh-vgi-vnpvezirdbaok for information on the emergency use of [...] if I am or ? There is certified neurodiagnostic technologist treating women or mothers with PAXLOVID. For [...] not go away. Report side effects to [employer] at www.fda.gov/medRollertch or call 6-867-QFN5013 or you can report side effects to [employer] at the contact information provided below. Website Fax number Telephone number [employer] How should I store PAXLOVID? Store PAXLOVID [...] (EUA). The EUA is supported by a [place] of Health and Human Service (HHS) declaration that circumstances exist to justify the emergency use of drugs and biological products during the COVID-19 pandemic. PAXLOVID for the treatment of qgnp-ec-kluzemgu COVID-19 in adults and children [12 years [...] telephone number provided below. Website Telephone number www.[employer] (5-425-I18-JIEO) You can also go to www.[employer] or call for more information. Pfizer Distributed by [employer] [place] [address] [id number] Revised: 29 October 2021 documented in this encounter [facility] 03-02-2022 History of Present illness Narrative Telemedicine Evaluation for COVID-19 Infection Audio only was used for evaluation of this patient. Location of patient: [place] Phone visit SUBJECTIVE Fredrick Mao is a 77 year old male who presents with 2 days of symptoms that are stable. Test positive on Monday at [facility] Symptoms include: Fever (?100.4F): No or Chills: [...] eff Nirmatrelvir/Ritonavir (Paxlovid) Eligibility and Patient Discussion [facility] Formulary Restriction Criteria: Adult outpatients 18 [...] and test results. documented in this encounter [facility] 01-27-2015 History of Past i llness Narrative Problem Noted Date Resolved Date Pain of left thumb 01/27/2015 10/28/2016 DJD (DEGENERATIVE JOINT DISEASE) -- right ACjoin t 04/25/2007 10/28/2016 Irritable bowel syndrome 017 Depressive disorder, not elsewhere classified 10/28/2016 Lateral epicondylitis of elbow 0 10/28/2016 Overview: right side documented as of this encounter (statuses as of 03/02/2022) [facility] History of Past illness Narrative* Problem Noted Date Resolved Date Pain of left thumb 01/27/2015 10/28/2016 DJD (DEGENERATIVE JOINT DISEASE) -- right ACjoin t 04/25/2007 10/28/2016 Irritable bowel syndrome 017 Depressive disorder, not elsewhere classified 10/28/2016 Lateral epicondylitis of elbow 0 10/28/2016 Overview: right side documented as of this encounter (statuses as of 05/31/2022) [facility] History of Past illness Narrative* Problem Noted Date Resolved Date Pain of left thumb 01/27/2015 10/28/2016 DJD (DEGENERATIVE JOINT DISEASE) -- right ACjoin t 04/25/2007 10/28/2016 Irritable bowel syndrome 017 Depressive disorder, not elsewhere classified 10/28/2016 Lateral epicondylitis of elbow 0 10/28/2016 Overview: right side documented as of this encounter (statuses as of 07/06/2022) [facility] History of Past illness Narrative* Problem Noted Date Resolved Date Pain of left thumb 01/27/2015 10/28/2016 DJD (DEGENERATIVE JOINT DISEASE) -- right ACjoin t 04/25/2007 10/28/2016 Irritable bowel syndrome 017 Depressive disorder, not elsewhere classified 10/28/2016 Lateral epicondylitis of elbow 0 10/28/2016 Overview: right side documented as of this encounter (statuses as of 07/14/2022) [facility] History of Past illness Narrative* Problem Noted Date Resolved Date Pain of left thumb 01/27/2015 10/28/2016 DJD (DEGENERATIVE JOINT DISEASE) -- right ACjoin t 04/25/2007 10/28/2016 Irritable bowel syndrome 017 Depressive disorder, not elsewhere classified 10/28/2016 Lateral epicondylitis of elbow 0 10/28/2016 Overview: right side documented as of this encounter (statuses as of 08/23/2022) [facility] History of Past illness Narrative* Problem Noted Date Resolved Date Pain of left thumb 01/27/2015 10/28/2016 DJD (DEGENERATIVE JOINT DISEASE) -- right ACjoin t 04/25/2007 10/28/2016 Irritable bowel syndrome 017 Depressive disorder, not elsewhere classified 10/28/2016 Lateral epicondylitis of elbow 0 10/28/2016 Overview: right side documented as of this encounter (statuses as of 08/30/2022) [facility] History of Past illness Narrative* Problem Noted Date Resolved Date Pain of left thumb 01/27/2015 10/28/2016 DJD (DEGENERATIVE JOINT DISEASE) -- right ACjoin t 04/25/2007 10/28/2016 Irritable bowel syndrome 017 Depressive disorder, not elsewhere classified 10/28/2016 Lateral epicondylitis of elbow 0 10/28/2016 Overview: right side documented as of this encounter (statuses as of 09/26/2022) [facility] History of Past illness Narrative* Problem Noted Date Resolved Date Pain of left thumb 01/27/2015 10/28/2016 DJD (DEGENERATIVE JOINT DISEASE) -- right ACjoin t 04/25/2007 10/28/2016 Irritable bowel syndrome 017 Depressive disorder, not elsewhere classified 10/28/2016 Lateral epicondylitis of elbow 0 10/28/2016 Overview: right side documented as of this encounter (statuses as of 10/13/2022) [facility] History of Past illness Narrative* Problem Noted Date Diagnosed Date Resolved Date Pain of left thumb 01/27/2015 7 DJD (DEGENERATIVE JOINT DISE ASE) -- right ACjoint 04/25/2007 10/28/2016 Irritable bowel syndrome Depressive disorder, not elsewhere classified 10/28/2016 Lateral epicondylitis of elbow 10/28/2016 Overview: right side documented as of this encounter (statuses as of 04/19/2023) [facility] History of Past illness Narrative* Problem Noted Date Diagnosed Date Resolved Date Pain of left thumb 01/27/2015 7 DJD (DEGENERATIVE JOINT DISE ASE) -- right ACjoint 04/25/2007 10/28/2016 Irritable bowel syndrome Depressive disorder, not elsewhere classified 10/28/2016 Lateral epicondylitis of elbow 10/28/2016 Overview: right side documented as of this encounter (statuses as of 06/18/2023) [facility] noteNo assessment information availableWFort Hamilton Hospital Work Phone: Evaluation note* Diagnosis Telehealth encounter for confirmed COVID-19- Primary documented in this encounter [facility] note* Diagnosis Encounter for screening for malignant neoplasm of colon- Primary Special screening for malignant neoplasms, colon documented in this encounter [facility] note* Diagnosis Gastroesophageal reflux disease without esophagitis Esophageal reflux documented in this encounter [facility] note* Diagnosis Seborrheic dermatitis of scalp Other seborrheic dermatitis documented in this encounter [facility] note* Diagnosis Essential hypertension- Primary Unspecified essential hypertension Mixed hyperlipidemia Impaired fasting glucose LPRD (laryngopharyngeal reflux disease) Other diseases of larynx documented in this encounter [facility] note* Diagnosis Medicare annual wellness visit, subsequent- Primary Routine general medical examination at a health care facility Newly diagnosed diabetes (HCC) Type II or unspecified type diabetes mellitus without mention of complication, not stated as uncontrolled Intracranial meningioma (HCC) Benign neoplasm of cerebral meninges documented in this encounter [facility] note* Diagnosis Newly diagnosed diabetes (HCC) Type II or unspecified type diabetes mellitus without mention of complication, not stated as uncontrolled documented in this encounter [facility] note* Diagnosis Well controlled type 2 diabetes mellitus (HCC)- Primary Type II or unspecified type diabetes mellitus without mention of complication, not stated as uncontrolled Primary hypertension Unspecified essential hypertension Mixed hyperlipidemia Encounter for immunization Need for other specified prophylactic vaccination against single bacterial disease documented in this encounter [facility] note* Diagnosis Screening for colon cancer- Primary Special screening for malignant neoplasms, colon Special screening for malignant neoplasms, colon documented in this encounter [facility] note* Diagnosis Type 2 diabetes mellitus without complication, without long-term current use of insulin (HCC)- Primary Seborrheic dermatitis of scalp Other seborrheic dermatitis Mixed hyperlipidemia Intracranial meningioma (HCC) Benign neoplasm of cerebral meninges Encounter for immunization Need for other specified prophylactic vaccination against single bacterial disease Encounter for long-term current use of medication documented in this encounter [facility] note* Diagnosis Essential hypertension- Primary Unspecified essential [...] and behavioral disorders documented in this encounter [facility] note* Diagnosis Essential hypertension- Primary Unspecified essential hypertension Mixed hyperlipidemia Neck pain Cervicalgia Esophagitis, unspecified Impaired fasting glucose Left lower quadrant abdominal pain- Primary Gastroesophageal reflux disease without esophagitis Esophageal reflux documented in this encounter [facility] note* Diagnosis Essential hypertension- Primary Unspecified essential hypertension Mixed hyperlipidemia Neck pain Cervicalgia Esophagitis, unspecified Impaired fasting glucose Left lower quadrant abdominal pain documented in this encounter [facility] note* Diagnosis Essential hypertension- Primary Unspecified essential [...] and regular exercise documented in this encounter [facility] for referral (narrative)* Outpatient Procedure (Routine) - Closed Specialty Diagnoses / Procedures Referred By Baldomero guzman Referred To Contact DIGEST[facility] DISEASE FOSTER Diagnoses Special screening for malignant neoplasms, colon Procedures COLONOSCOPY SCREENING COLONOSCOPY FLX DX W/COLLJ SPEC WHEN Vandana Bashir PA-C [address] [place] [address] [facility] Disease [place] [id number] Referral ID Status Reason Start Date Expiration Date V isits Requested Visits Authorized [id number] Closed Auto-Generate d Referral 05/31/2022 05/31/2023 1 1 [facility] for visit Narrative* Outpatient Procedure (Routine) - Closed Specialty Diagnoses / Procedures Referred By Baldomero guzman Referred To Contact [facility] DISEASE FOSTER Diagnoses Special screening for malignant neoplasms, colon Procedures COLONOSCOPY SCREENING COLONOSCOPY FLX DX W/COLLJ SPEC WHEN Vandana Bashir PA-C [address] [place] [address] [address] Referral ID Status Reason Start Date Expiration Date V isits Requested Visits Authorized [id number] Closed Auto-Generate d Referral 05/31/2022 05/31/2023 1 1 [facility] Advance Directives No Advanced Directives Records Found Advance Directive Response Recorded Date/ Time Advance Directives Yes January 25 6:11pm Living Will Yes March 16, 2017 8:59pm Power of Outside Machinist Yes March 16 8:59pm Documents on File Type Date Recorded 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 Advance Directive(s) 11/29/2016 12:32 PM Advance Directive(s) 03/29/2011 12:00 AM Advance Directive(s) 03/17/2008 12:00 AM Documents on File Type Date Recorded 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 Advance Directive(s) 03/29/2011 Advance Directive(s) 03/17/2008 Documents on File Type Date Recorded 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 Advance Directive(s) 03/29/2011 Advance Directive(s) 03/17/2008 Documents on File Type Date Recorded 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 Advance Directive(s) 05/08/2024 8:43 AM Advance Directive(s) 03/29/2011 Advance Directive(s) 03/17/2008 Documents on File Type Date Recorded 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 Advance Directive(s) 05/08/2024 8:43 AM Advance Directive(s) 03/29/2011 Advance Directive(s) 03/17/2008 Chief Complaint and Reason for Visit Chief Complaint LUMBAR RADICULOPATHY COVID TEST/[employer] EMPLOYEE Summary Purpose Family History No Family History Records FoundNo Family History Records FoundNo Family History Records Found Reason for Referral Specialty Diagnoses / Procedures Referred By Baldomero guzman Referred To Contact Diagnoses Newly diagnosed diabetes (HCC) Procedures CONSULT TO DIABETES EDUCATION OFFICE/OUTPATIENT NEW HIGH MDM 60-74 MINUTES Minh Alexandra, MARINE MECHANIC.COOLING SYSTEM OPERATOR [address] [place] [address] Referral ID Status Reason Start Date Expiration Date Visits Requested Visits Authorized [id number] Authorized PCP Requested Referral 08/30/2022 08/30/2023 1 1 Specialty Diagnoses / Procedures Referred By Baldomero guzman Referred To Contact CT IMAGING Diagnoses Left lower quadrant abdominal pain Procedures CT ABD/PEL WO IVCON CT ABD & PELVIS W/O CONTRAST Minh Alexandra, MARINE MECHANIC.COOLING SYSTEM OPERATOR [address] [place] [address] [place] [address] Referral ID Status Reason Start Date Expiration Date Visits Requested Visits Authorized [id number] Authorized Auto-Generat ed Referral 06/23/2025 2 2 Referral ID Status Reason Start Date Expiration Date V isits Requested Visits Authorized [id number] Closed Auto-Generate d Referral 05/24/2024 06/23/2025 2 [...] or prosecute any alcohol or drug abuse patient.[facility] Hospital[facility] the event this information is protected by the Federal Confidentiality of Alcohol and Drug Abuse Patient Records regulations: The Federal rules restrict any use of the information to criminally investigate or prosecute any alcohol or drug abuse patient.[facility] HospitalIn the event this information is protected by the Federal Confidentiality of Alcohol and Drug Abuse Patient Records regulations: The Federal rules restrict any use of the information to criminally investigate or prosecute any alcohol or drug abuse patient.[facility] HospitalIn the event this information is protected by the Federal Confidentiality of Alcohol and Drug Abuse Patient Records regulations: The Federal rules restrict any use of the information to criminally investigate or prosecute any alcohol or drug abuse patient.[facility] HospitalIn the event this information is protected by the Federal Confidentiality of Alcohol and Drug Abuse Patient Records regulations: The Federal rules restrict any use of the information to criminally investigate or prosecute any alcohol or drug abuse patient.[facility] HospitalIn the event this information is protected by the Federal Confidentiality of Alcohol and Drug Abuse Patient Records regulations: The Federal rules restrict any use of the information to criminally investigate or prosecute any alcohol or drug abuse patient.[facility] HospitalIn the event this information is protected by the Federal Confidentiality of Alcohol and Drug Abuse Patient Records regulations: The Federal rules restrict any use of the information to criminally investigate or prosecute any alcohol or drug abuse patient.[facility] HospitalIn the event this information is protected by the Federal Confidentiality of Alcohol and Drug Abuse Patient Records regulations: The Federal rules restrict any use of the information to criminally investigate or prosecute any alcohol or drug abuse patient.[facility] HospitalIn the event this information is protected by the Federal Confidentiality of Alcohol and Drug Abuse Patient Records regulations: The Federal rules restrict any use of the information to criminally investigate or prosecute any alcohol or drug abuse patient.[facility] HospitalIn the event this information is protected by the Federal Confidentiality of Alcohol and Drug Abuse Patient Records regulations: The Federal rules restrict any use of the information to criminally investigate or prosecute any alcohol or drug abuse patient.[facility] HospitalIn the event this information is protected by the Federal Confidentiality of Alcohol and Drug Abuse Patient Records regulations: The Federal rules restrict any use of the information to criminally investigate or prosecute any alcohol or drug abuse patient.[facility] HospitalIn the event this information is protected by the Federal Confidentiality of Alcohol and Drug Abuse Patient Records regulations: The Federal rules restrict any use of the information to criminally investigate or prosecute any alcohol or drug abuse patient.[facility] HospitalIn the event this information is protected by the Federal Confidentiality of Alcohol and Drug Abuse Patient Records regulations: The Federal rules restrict any use of the information to criminally investigate or prosecute any alcohol or drug abuse patient.[facility] HospitalIn the event this information is protected by the Federal Confidentiality of Alcohol and Drug Abuse Patient Records regulations: The Federal rules restrict any use of the information to criminally investigate or prosecute any alcohol or drug abuse patient.[facility] HospitalIn the event this information is protected by the Federal Confidentiality of Alcohol and Drug Abuse Patient Records regulations: The Federal rules restrict any use of the information to criminally investigate or prosecute any alcohol or drug abuse patient.[facility] HospitalIn the event this information is protected by the Federal Confidentiality of Alcohol and Drug Abuse Patient Records regulations: The Federal rules restrict any use of the information to criminally investigate or prosecute any alcohol or drug abuse patient.[facility] HospitalIn the event this information is protected by the Federal Confidentiality of Alcohol and Drug Abuse Patient Records regulations: The Federal rules restrict any use of the information to criminally investigate or prosecute any alcohol or drug abuse patient.[facility] HospitalIn the event this information is protected by the Federal Confidentiality of Alcohol and Drug Abuse Patient Records regulations: The Federal rules restrict any use of the information to criminally investigate or prosecute any alcohol or drug abuse patient.[facility] HospitalIn the event this information is protected by the Federal Confidentiality of Alcohol and Drug Abuse Patient Records regulations: The Federal rules restrict any use of the information to criminally investigate or prosecute any alcohol or drug abuse patient.[facility] HospitalIn the event this information is protected by the Federal Confidentiality of Alcohol and Drug Abuse Patient Records regulations: The Federal rules restrict any use of the information to criminally investigate or prosecute any alcohol or drug abuse patient.[facility] HospitalIn the event this information is protected by the Federal Confidentiality of Alcohol and Drug Abuse Patient Records regulations: The Federal rules restrict any use of the information to criminally investigate or prosecute any alcohol or drug abuse patient.[facility] HospitalIn the event this information is protected by the Federal Confidentiality of Alcohol and Drug Abuse Patient Records regulations: The Federal rules restrict any use of the information to criminally investigate or prosecute any alcohol or drug abuse patient.[facility] Reason for Visit (unrecogniz ed section [...] ABD & PELVIS W/O CONTRAST Minh Alexandra, MARINE MECHANIC.COOLING SYSTEM OPERATOR [address] [place] [address] [place] [address] Referral ID Status Reason Start Date Expiration Date V isits Requested Visits Authorized [id number] Closed Auto-Generate d Referral 05/24/2024 06/23/2025 2 2 Reason Comments Patient Update Reason Comments F/U 6 Month Reason Onset Date Comments Population Health Navigation Outreach [facility]20[facility] Care Teams (unrecognized sec tion and content) Pediatric Registered Nurse Relationship Specialty Start Date End Date Lora Martinez MD [address] [facility] [place] [address] PCP - General 06/07/02 [place] [address] [place] [address] Radiation Oncology 09/28/18 Gerald Hartley MD, [address] [place] [address] Physician Radiation Oncology 11/30/18 Pediatric Registered Nurse Relationship Specialty Start Date End Date Lora Martinez MD [address] [place] [address] PCP - General 06/07/02 [place] [address] [place] [address] Radiation Oncology 09/28/18 Gerald Hartley MD, MD [address] [place] [address] Physician Radiation Oncology 11/30/18 Pediatric Registered Nurse Relationship Specialty Start Date End Date Lora Martinez MD [address] [place] [address] PCP - General 06/07/02 [place] [address] [place] [address] Radiation Oncology 09/28/18 Gerald Hartley MD, [address] [place] [address] Physician Radiation Oncology 11/30/18 Pediatric Registered Nurse Relationship Specialty Start Date End Date Lora Martinez MD [address] [facility] [place] [address] PCP - General 06/07/02 [place] [address] [place] [address] Radiation Oncology 09/28/18 Gerald Hartley MD, [address] [facility] [place] [address] Physician Radiation Oncology 11/30/18 Pediatric Registered Nurse Relationship Specialty Start Date End Date Lora Martinez MD [address] [facility] [place] [address] PCP - General 06/07/02 [place] [address] [place] [address] Radiation Oncology 09/28/18 Gerald Hartley MD, [address] [place] [address] Physician Radiation Oncology 11/30/18 Pediatric Registered Nurse Relationship Specialty Start Date End Date Lora Maritnez MD [address] [facility] [place] [address] PCP - General 06/07/02 [place] [address] [place] [address] Radiation Oncology 09/28/18 Gerald Hartley MD, [address] [place] [address] Physician Radiation Oncology 11/30/18 Pediatric Registered Nurse Relationship Specialty Start Date End Date Lora Martinez MD [address] [facility] [place] [address] PCP - General 06/07/02 [place] [address] [place] [address] Radiation Oncology 09/28/18 Gerald Hartley MD, [address] [place] [address] Physician Radiation Oncology 11/30/18 Pediatric Registered Nurse Relationship Specialty Start Date End Date Lora Martinez MD [address] [place] [address] PCP - General 06/07/02 [place] [address] [place] [address] Radiation Oncology 09/28/18 Gerald Hartley MD, [address] [place] [address] Physician Radiation Oncology 11/30/18 Pediatric Registered Nurse Relationship Specialty Start Date End Date Lora Martinez MD [address] [place] [address] PCP - General 06/07/02 [place] [address] [place] [address] Radiation Oncology 09/28/18 Gerald Hartley MD, [address] [place] [address] Physician Radiation Oncology 11/30/18 Pediatric Registered Nurse Relationship Specialty Start Date End Date Lora Martinez MD [address] [place], [place] [address] PCP - General 06/07/02 [place] [address] [place] [address] Radiation Oncology 09/28/18 Gerald Hartley MD [address] [place] [address] Physician Radiation Oncology 11/30/18 Pediatric Registered Nurse Relationship Specialty Start Date End Date Lora Martinez MD [address] [place] [address] PCP - General 06/07/02 [place] [address] [place] [address] Radiation Oncology 09/28/18 Gerald Hartley MD [address] [place] [address] Physician Radiation Oncology 11/30/18 Pediatric Registered Nurse Relationship Specialty Start Date End Date Lora Martinez MD [address] [place] [address] PCP - General 06/07/02 [place] [address] [facility] [place] [address] Radiation Oncology 09/28/18 Gerald Hartley MD [address] [place] [address] Physician Radiation Oncology 11/30/18 Pediatric Registered Nurse Relationship Specialty Start Date End Date Lora Martinez MD [address] [facility] [place] [address] PCP - General 06/07/02 [place] [address] [place] [address] Radiation Oncology 09/28/18 Gerald Hartley MD [address] [place] [address] Physician Radiation Oncology 11/30/18 Pediatric Registered Nurse Relationship Specialty Start Date End Date Lora Martinez MD [address] [facility] [place] [address] PCP - General 06/07/02 [place] [address] [place] [address] Radiation Oncology 09/28/18 Gerald Hartley MD [address] [place] [address] Physician Radiation Oncology 11/30/18 Pediatric Registered Nurse Relationship Specialty Start Date End Date Lora Martinez MD [address] [facility] [place] [address] PCP - General 06/07/02 [place] [address] [facility] [place] [address] Radiation Oncology 09/28/18 Gerald Hartley MD [address] [place] [address] Physician Radiation Oncology 11/30/18 Pediatric Registered Nurse Relationship Specialty Start Date End Date Lora Martinez MD [address] [facility] [place] [address] PCP - General 06/07/02 [place] [address] [place] [address] Radiation Oncology 09/28/18 Gerald Hartley MD [address] [place] [address] Physician Radiation Oncology 11/30/18 Pediatric Registered Nurse Relationship Specialty Start Date End Date Lora Martinez MD [address] [facility] [address] PCP - General 06/07/02 [place] [address] [place] [address] Radiation Oncology 09/28/18 Gerald Hartley MD [address] [place] [address] Physician Radiation Oncology 11/30/18 Pediatric Registered Nurse Relationship Specialty Start Date End Date Lora Martinez MD [address] [facility] [place] [address] PCP - General 06/07/02 [place] [address] [place] [address] Radiation Oncology 09/28/18 Gerald Hartley MD [address] [place] [address] Physician Radiation Oncology 11/30/18 Pediatric Registered Nurse Relationship Specialty Start Date End Date Lora Martinez MD [address] [place] [address] PCP - General 06/07/02 [place] [address] [place] [address] Radiation Oncology 09/28/18 Gerald Hartley MD [address] [place] [address] Physician Radiation Oncology 11/30/18 Minh Alexandra APRN.COOLING SYSTEM OPERATOR [address] [place] [address] Assistant Farm Operations Manager Internal Medicine 07/22/24 Soco Akbar APRN.RADIO INTERFERENCE EXPERT [address] [place] [address] Assistant Farm Operations Manager Internal Medicine 07/22/24 Pediatric Registered Nurse Relationship Specialty Start Date End Date Lora Martinez MD [address] [place] [address] PCP - General 06/07/02 [place] [address] [place] [address] Radiation Oncology 09/28/18 Gerald Hartley MD [address] [place] [address] Physician Radiation Oncology 11/30/18 Soco Akbar APRN.RADIO INTERFERENCE EXPERT [address] [place] [address] Assistant Farm Operations Manager Internal Medicine 11/05/24 Minh Alexandra APRN.COOLING SYSTEM OPERATOR [address] [place] [address] Assistant Farm Operations Manager Internal Medicine 01/01/25 (unrecognized sect ion and content) No Status Records FoundNo Status Records FoundNo Status Records Found INFORMATION SOURCE (unrecogn ized section and content) DATE CREATED AUTHOR 03/21/2022 [facility] DATE CREATED AUTHOR AUTHOR'S ORGANIZ ATION 05/30/2024 [facility] DATE CREATED AUTHOR AUTHOR'S ORGANIZ ATION 06/17/2025 [facility] FOR RECORDS PERTAINING TO PATIENTS WHO [...] BE BASED ON THE PRIMARY CLINICAL RECORDS. [employer] [facility]. provides no warranty or guarantee of the accuracy or completeness of information in this document.
[2025-07-14 05:07] LABS: Troponin T High Sens 2 HR 15 ng/L (<=22)
--- NOTE | 2025-07-14 05:13 | ECHOD_ITS ---
Reason For Study Reason For Study: Emboli Procedure This was a 2D Doppler, Color Flow transthoracic echocardiogram. Exam performed portable in patient room. Left Ventricle Normal LV size. Mild concentric left ventricular hypertrophy. The left ventricular ejection fraction is 60 %. Stage 1 diastolic dysfunction. Right Ventricle Normal right ventricle. Atria The left and right atria are normal. Mitral Valve Trivial mitral valve insufficiency. Tricuspid Valve Mild (1+) tricuspid valve insufficiency. Normal pulmonary artery pressure. Aortic Valve Mildly calcified aortic valve. Aortic valve sclerosis without stenosis. Pulmonic Valve The pulmonic valve is not well visualized. Great Vessels Normal sized aortic root. Pericardium/Pleural No pericardial effusion. MMode/2D Measurements & Calculations LVIDd: 5.0 cm IVSd: 1.2 cm Ao root diam: 3.5 cm LVIDs: 3.1 cm LVPWd: 0.97 cm RVDd: 4.1 cm FS: 37.5 % LAV(MOD-bp): 38.8 ml LVAd ap4: 22.8 cm2 SV(MOD-sp4): 31.8 ml LAV(MOD-bp) Indexed: 18.4 ml/m2 LVLd ap4: 7.4 cm SI(MOD-sp4): 15.1 ml/m2 LAV(MOD-sp2): 48.1 ml EDV(MOD-sp4): 58.4 ml LAV(MOD-sp4): 28.5 ml EDV(sp4-el): 59.6 ml LVAs ap4: 13.3 cm2 LVLs ap4: 6.3 cm ESV(MOD-sp4): 26.6 ml ESV(sp4-el): 24.0 ml EF(MOD-sp4): 54.4 % EF(sp4-el): 59.8 % SV(sp4-el): 35.6 ml LA A4 area: 12.6 cm2 LA dimension(2D): 4.1 cm RA A4 area: 19.9 cm2 TAPSE: 2.8 cm Time Measurements MV dec time: 0.28 sec Doppler Measurements & Calculations MV E max devin: 62.3 cm/sec Lat Peak E' Devin: 9.4 cm/sec Med Peak E' Devin: 8.2 cm/sec MV A max devin: 84.8 cm/sec E/E' lat: 6.7 E/E' med: 7.6 MV E/A: 0.73 MV V2 max: 94.9 cm/sec MV P1/2t max devin: 74.2 cm/sec Ao V2 max: 154.5 cm/sec MV max P.6 mmHg MV P1/2t: 81.0 msec Ao max P.6 mmHg MV V2 mean: 45.3 cm/sec MV mean P.99 mmHg MV dec slope: 268.3 cm/sec2 MV V2 VTI: 29.2 cm MVA(P1/2t): 2.7 cm2 LV V1 max: 110.5 cm/sec PA V2 max: 127.6 cm/sec TR max devin: 257.0 cm/sec LV V1 max P.9 mmHg TR max P.4 mmHg LV V1 mean P.3 mmHg LV V1 mean: 69.8 cm/sec LV V1 VTI: 24.9 cm ECHO/Echo Complete Interpretation Summary Mild concentric left ventricular hypertrophy. The left ventricular ejection fraction is 60 %. Stage 1 diastolic dysfunction. Mild (1+) tricuspid valve insufficiency. Mildly calcified aortic valve. Aortic valve sclerosis without stenosis. Ordering Physician: Jeremy Eduardo Performed By: Moe So RCS
[2025-07-14 05:24] LABS: Cholesterol 135 mg/dL (<=200); Low Density Lipoprotein Calc. 66 mg/dL; Magnesium 1.9 mg/dL (1.5-2.2); Triglycerides 143 mg/dL; Very Low Density Lipoprotein 29 mg/dL (5-40); Vitamin B12 574 pg/mL (180-914); cholesterol:hdl ratio screen 3.08
[2025-07-14 06:46] LABS: Troponin T High Sens 4 HR 17 ng/L (<=22)
--- NOTE | 2025-07-14 08:29 | MRI_ITS ---
PROCEDURE: BRAIN W/WO CONTRAST 07/14/2025 REASON FOR EXAM: POSSIBLE MENINGIOMA/TIA/STROKE RULE OUT TECHNIQUE: Procedure Code: [id number] Modality: MR Procedure: BRAIN W/WO CONTRAST Multiplanar and multisequence images were obtained. CONTRAST: Clariscan VOLUME: 19 mL COMPARISON: CT head July 14, 2025. FINDINGS: Brain: Foci of hyperintense signal on T2 and FLAIR which are nonspecific but most likely due to chronic small vessel ischemia. Parenchymal volume loss consistent with brain atrophy. No restricted diffusion. No hemorrhage. A 6.5 x 3.5 x 3 cm mixed cystic and solid right paramedian parietofrontal enhancing mass with invasion of the scalp and the superior sagittal vein. No midline shift. No additional enhancing lesion. He orbits are unremarkable. The midline structures and craniocervical junctions are within normal limits. No ventriculomegaly. Diffusion: No restricted diffusion Ventricles: No ventriculomegaly Major Intracranial Vessels: Patent. Sinuses: Clear. Mastoids: Clear. MRI/Brain W/WO Contrast IMPRESSION: A 6.5 x 3.5 x 3 cm mixed cystic and solid right paramedian parietofrontal enhan cing mass with invasion of the scalp and the superior sagittal vein. No midline shift. No additional enhancing lesion. The differential diagnosis may include atypical invasive meningioma or metastasis. Reading Location: [facility]
--- NOTE | 2025-07-14 11:51 | CON.PCM.NE_ITS ---
Assessment and Plan: Stroke Assessment/Plan FREDRICK MAO is a 80 M with a history of HLD, HTN who presents for evaluation of leg weakness. His symptoms are resolved. Neurological examination shows NIH 0. Neuroimaging shows MRI with known tumor. Has a oncologist he follows. Will treat as TIA. Already on Statin. Add ASA - Anti-platelet medication: Aspirin 81 mg daily - Occupational/ Physical therapy consults - DVT prophylaxis with SCDs and heparin SQ - Vascular risk factor modification. The following are the recommended guidelines: LDL Goal < 70 Smoking Cessation Diabetes Management assisted blood pressure control should achieve <130/80 mmHg. BP management should aim to achieve jail Control in a reasonable amount of time, taking into consideration the individual patient's requirements and characteristics. Weight Management: Goal for BMI is 18.5 -24.9 kg/m2 Alcohol: No more than 2 drinks/day for men or 1 drink/day for non- women - Promote lifestyle modification: weight control, physical activity, moderation of alcohol intake, moderate sodium intake. - Followup with PCP in 1-2 weeks, and in Neurology clinic in 6-12 weeks HPI Consult Data Date of Consult: 07/14/25 HPI Narrative HPI Narrative: FREDRICK MAO, is a 80 M who presents [ ] [facility] Medical History (Updated 07/14/25 @ 04:[address] Jeremy Eduardo MD) Brain tumor Diabetes Hypertension Hyperlipidemia Home Medications ?Medication ?Instructions ?Recorded ?Last Taken ?Type ascorbic acid (vitamin C) 500 mg 500 mg PO DAILY@0800 16 01/26/16 History tablet (Vitamin C) lovastatin 40 mg tablet 40 mg PO QHS 01/26/16 History pantoprazole 40 mg tablet,delayed 40 mg PO DAILY PRN g erd 01/26/16 01/26/16 History release lisinopril 20 mg tablet 20 mg PO DAILY ##30 01/27/16 Unknown Rx meclizine 25 mg tablet 25 mg PO 4X/DAY PRN PRN Vert igo 01/27/16 Unknown Rx ##12 metformin 500 mg tablet 500 mg PO DAILY 07/14/25 Unk nown History Allergy/AdvReac Type Severity Reaction Status Date / Time amoxicillin Allergy Rash Verified 07/14/25 02:26 ampicillin Allergy Rash Verified 07/14/25 02:26 Social History Smoking Status: Former smoker Vital Signs Vital Signs Vital Signs: 07/14/25 02:11 07/14/25 02:11 07/14/25 02:17 Temperature 98.1 F Temperature Source Oral Pulse Rate 64 70 Respiratory Rate 18 18 Blood Pressure 132/76 H 135/72 H Blood Pressure Mean 94 93 Blood Pressure Source Blood Pressure Position Blood Pressure Location Pulse Ox 99 95 98 Oxygen Delivery Method Room Air Room Air Room Air 07/14/25 02:17 07/14/25 02:46 07/14/25 03:17 Temperature Temperature Source Pulse Rate 70 69 68 Respiratory Rate 18 22 H 18 Blood Pressure 135/72 H 144/84 H 148/81 H Blood Pressure Mean 93 104 103 Blood Pressure Source Blood Pressure Position Blood Pressure Location Pulse Ox 95 96 97 Oxygen Delivery Method Room Air Room Air Room Air 07/14/25 03:29 07/14/25 04:00 07/14/25 04:05 Temperature 98.1 F Temperature Source Pulse Rate 70 62 67 Respiratory Rate 19 H 16 13 Blood Pressure 148/82 H 139/64 H 139/82 H Blood Pressure Mean 104 89 101 Blood Pressure Source Blood Pressure Position Blood Pressure Location Pulse Ox 97 98 97 Oxygen Delivery Method Room Air Room Air 07/14/25 04:31 07/14/25 08:02 07/14/25 10:09 Temperature 97.8 F 97.7 F L Temperature Source Oral Temporal Pulse Rate 70 67 Respiratory Rate 14 14 Blood Pressure 160/85 H 132/75 H Blood Pressure Mean 110 94 Blood Pressure Source Monitor Monitor Blood Pressure Position Semi-Fowlers Supine Blood Pressure Location Right Arm Right Arm Pulse Ox 97 95 95 Oxygen Delivery Method Room Air Room Air Room Air Weight Weight: 93.2 kg Body Mass Index (BMI) 29.5 EEG Results Procedure Details EEG Procedure Details: FREDRICK MAO is a 80 year old M with a past medical history of , who presents for evaluation of Electroencephalogram on DATE at TIME Lab / Micro Data 07/14/25 02:20 07/14/25 02:20 Labs: Laboratory Results - last 24 hr 07/14/25 02:17: POC Glucose 111 H 07/14/25 02:20: WBC 7.9, RBC 4.72, Hgb 15.4, Hct 44.4, MCV 94.1 H, MCH 32.6 H, MCHC 34.7, RDW Std Deviation 40.2, RDW Coeff of Omid 11.6, Plt Count 268, MPV 8.8, Immature Gran % (Auto) 0.300, Neut % (Auto) 49.9, Lymph % (Auto) 31.3, Wallace % (Auto) 11.1 H, Eos % (Auto) 6.6 H, Baso % (Auto) 0.8, Absolute Neuts (auto) 3.9, Absolute Lymphs (auto) 2.46, Nucleated RBC % 0, PT 13.4, INR 1.0, APTT 29.8, Sodium 142, Potassium 3.9, Chloride 104, Carbon Dioxide 23.0, Anion Gap 14, BUN 25 H, Creatinine 1.20, Estim Creat Clear Calc 58.53, Est GFR (MDRD) Non- Af 62, BUN/Creatinine Ratio 20.8 H, Glucose 115 H, Calcium 9.7, Troponin T High Sens 13 07/14/25 04:42: Hemoglobin A1c 6.0 H, Magnesium 1.9, Troponin T Hi Sens 2 Hr 15, Triglycerides 143, Cholesterol 135, LDL Cholesterol, Calc 66, VLDL Cholesterol 29, HDL Cholesterol 44, Cholesterol/HDL Ratio 3.08, Vitamin B12 574, TSH 5.310 H 07/14/25 06:12: Troponin T Hi Sens 4Hr 17 07/14/25 06:46: POC Glucose 159 H Rhythm Strip Rhythm Strip: Sinus Rhythm Rate: 73 Ectopy: None Imaging Radiology Impression Brain CT 07/14/25 02:17 IMPRESSION: 1. No intracranial hemorrhage. No mass effect or midline shift. 2. Chronic involutional and ischemic gliotic white matter changes. 3. Possible high right meningioma abutting the anterior falx. Further evaluation with contrast-enhanced MRI would be more helpful. 4. CT is insensitive for early evaluation of acute stroke. If there is clinical concern for acute ischemia, an MRI may be considered. Stroke Alert: The critical findings in the findings and impression above were relayed directly by me by telephone to Sulaiman Robison on 07/14/2025 at 2:42 am with readback verification. Reading Location: [facility] Head/Neck CTA 07/14/25 02:17 IMPRESSION: Unremarkable CT angiogram of the head and neck with evidence of stenosis or occlusion. Reading [facility] Brain MRI 07/14/25 08:29 IMPRESSION: A 6.5 x 3.5 x 3 cm mixed cystic and solid right paramedian parietofrontal enhancing mass with invasion of the scalp and the superior sagittal vein. No midline shift. No additional enhancing lesion. The differential diagnosis may include atypical invasive meningioma or metastasis. Reading Location: [facility] Active Medications Active Medications Active Medications: Current Medications Generic Name Dose Route Start Last Admin Trade Name Freq PRN Reason Stop Dose Admin Acetaminophen 650 mg 07/14/25 04:17 Acetaminophen 325 Mg Tablet PO Q4H PRN PRN Pain 1-10 Or Fever>99.6 Aspirin 81 mg 07/15/25 08:00 Aspirin 81 Mg Tab.Chew PO BREAKFAST CARISSA Atorvastatin Calcium 40 mg 07/14/25 22:00 Atorvastatin Calcium 40 Mg Tablet PO QHS CARISSA Enoxaparin Sodium 40 mg 07/14/25 10:00 07/14/25 10:17 Enoxaparin 40 Mg/0.4 Ml Syringe SC 40 mg DAILY CARISSA Administration Glucagon 1 mg 07/14/25 04:26 Glucagon 1 Mg/Ml Syringe IM X1 PRN Hypoglycemia Protocol Hydralazine HCl 5 mg 07/14/25 04:17 Hydralazine 20 Mg/Ml Vial IV 07/15/25 04:17 Q30M PRN maintain BP parameters with HR <60 Sodium Chloride 250 mls @ 15 mls/hr 07/14/25 04:25 IV .[id number] PRN Saline Flush Sodium Chloride 250 mls @ 15 mls/hr 07/14/25 04:25 IV .[id number] PRN Additional IVPB Infusion Dextrose 250 mls @ 0 mls/hr 07/14/25 04:26 Dextrose 10%-Water IV .Q0M PRN HYPOGLYCEMIA Protocol As Directed Insulin Human Lispro 0 unit 07/14/25 07:00 07/14/25 06:50 Insulin Lispro 100 Unit/Ml Insuln.Pen SC 1 units ACHS CARISSA Administration Protocol Labetalol HCl 10 - 20 mg 07/14/25 04:17 Labetalol 20 Mg/4 Ml Vial IV 07/15/25 04:17 Q10M PRN PRN maintain BP parameters with HR >/=60 Pantoprazole Sodium 40 mg 07/14/25 04:17 Pantoprazole Sodium 40 Mg Tablet PO DAILY PRN PRN gerd Sodium Chloride 10 - 40 ml 07/14/25 04:25 0.9% Saline Lock 10 Ml Syringe IV UD PRN SALINE FLUSH NIHSS NIHSS Nursing Documentation NIHSS Nursing Documentation: NIHSS: Ischemic Stroke/TIA Start: 07/14/25 04:17 Text: For PCU Patients: NIH and Neuro Check every 4 Status: Active hours, PRN and with change in RN caregiver. Freq: [id number] Protocol: Activity Type Activity Date Activity User E-sign Co-sign Detail Recorded Client Recorded Date Recorded By Document 07/14/25 10:09 ASHIA [id number] 07/14/25 10:10 ASHIA 07/14/25 10:09 NIH Stroke Scale [NIHSS] A score of 0 is normal or asymptomatic . Total possible score is 42. Inpatient: RN or Physician to activate a stroke alert for onset of new stroke symptoms or with NIHSS increase >/= 3 points. Following change in neurological status, NIHSS will be performed per physician order or more frequently PRN. -1a. Level of Consciousness 0 - Alert; keenly responsive -1b. LOC Questions 0 - Answers BOTH questions correctly -1c. LOC Commands 0 - Performs BOTH tasks correctly -2. Best Gaze 0 - Normal -3. Visual 0 - No visual loss -4. Facial Palsy 0 - Normal symmetrical movements -5a. Left Arm 0 - No drift; arm holds 90 ( or 45) degrees for full 10 seconds -5b. Right Arm 0 - No drift; arm holds 90 ( or 45) degrees for full 10 seconds -6a. Left Leg 0 - No drift; leg holds 30- degree position for full 5 seconds -6b. Right Leg 0 - No drift; leg holds 30- degree position for full 5 seconds -7. Limb Ataxia 0 - Absent -8. Sensory 0 - Normal; no sensory loss -9. Best Language 0 - No aphasia; normal -10. Dysarthria 0 - Normal -11. Extinction and Inattention 0 - No abnormality -Total 0 Query Text:A score of 0 is normal or asymptomatic. Total possible score is 42 . ED: Notify Physician for NIHSS increase by > / = 3 points. Inpatient: RN or Physician to activate a stroke alert for NIHSS increase of > / = 3 points. Coma Scale [Assess] -Eye Opening Spontaneous -Motor Obeys Commands -Verbal Oriented [Total] -Coma Scale Total 15
--- NOTE | 2025-07-14 13:01 | CASEMGMT ---
Social Work Patient scored a 0 on the PHQ9. ANTHONY Childs
--- NOTE | 2025-07-14 14:12 | PCM.DC.SUM ---
Providers Date of Admission: 07/14/25 Date of Discharge: 07/14/25 Primary Care Physician: Dr. Johana Dubon MD Consultations 07/14/25 04:17 Consult: Tele-Neurology Routine Consulting Provider: [facility] Reason for Consult: Acute Ischemic Stroke/TIA EMERGENT Consult: No MD Notified: Yes Date Notified: 07/14/25 Time Notified: 04:49 Method of Notification: Answering Service Nursing Unit Staff Notify [facility] of Tele-Neurology Consult: Yes Reason For Visit: TIA/CVA Diagnosis Discharge Diagnosis (1) Left leg weakness: Status: Acute Code(s): R29.898 - Other symptoms and signs involving the musculoskeletal system (2) Diabetes: Status: Acute Code(s): E11.9 - Type 2 diabetes mellitus without complications Qualifiers: Diabetes mellitus complication status: without complication Diabetes mellitus fdc insulin use: without fdc use Diabetes mellitus type: type 2 Qualified Code(s): E11.9 - Type 2 diabetes mellitus without complications (3) Hypertension: Status: Chronic Code(s): I10 - Essential (primary) hypertension Qualifiers: Hypertension type: primary hypertension Qualified Code(s): I10 - Essential (primary) hypertension (4) Hyperlipidemia: Status: Acute Code(s): E78.5 - Hyperlipidemia, unspecified Qualifiers: Hyperlipidemia type: pure hypercholesterolemia Qualified Code(s): E78.00 - Pure hypercholesterolemia, unspecified Medications at Discharge Home Medications ascorbic acid (vitamin C) 500 mg tablet (Vitamin C) 500 mg PO DAILY@0800 01/26/16 lovastatin 40 mg tablet 40 mg PO QHS 01/26/16 pantoprazole 40 mg tablet,delayed release 40 mg PO DAILY PRN gerd 01/26/16 lisinopril 20 mg tablet 20 mg PO DAILY ##30 01/27/16 meclizine 25 mg tablet 25 mg PO 4X/DAY PRN PRN Vertigo ##12 01/27/16 aspirin 81 mg chewable tablet 81 mg PO BREAKFAST #1 TAB 07/14/25 metformin 500 mg tablet 500 mg PO DAILY 07/14/25 Hospital Course Operations None Procedures 2-D Echocardiogram and - (CT brain/CTA head and neck/MRI brain with and without contrast) Summary of Care Provided Minutes Spent on Discharge: 37 Hospital Course: Mr. Gonzalez is a 80-year-old white male who presents emergency department at [facility] on 07/14/2025 with a chief complaint of left leg weakness and numbness. Patient has a past medical history of essential hypertension, hyperlipidemia, and diabetes all of which seem to be fairly well-controlled on medications who had abrupt onset of weakness and numbness in the left lower extremity at 1 AM when he woke up to go to the bathroom. He went to bed at 9 PM and had no symptoms at that time. He denies any speech difficulty, visual changes, dizziness or upper extremity deficits. He was at his baseline mental status. He does not take aspirin or blood thinners at baseline and has never had stroke or TIA. Stroke alert was called on arrival. CT of the brain showed no acute changes but does show history of right meningioma as well as chronic involutional ischemic gliotic white matter changes.. CTA of the head and neck was unremarkable. Initial NIH was 3 however this improved rapidly and by the time of admission it was 0. Vital signs on presentation showed a temperature of 98.1, heart rate 64, blood pressure was 132/76, respiratory rate was 18 and pulse ox was 99% on room air. CBC was overtly unremarkable. Chemistry panel was overtly unremarkable other than some mild CKD which was at baseline and hyperglycemia with a blood sugar of 115. This is nonfasting. He was admitted to the PCU. His blood pressure medications were held to allow for permissive hypertension. Lipid panel was obtained and his LDL was at goal at 66. He is already on a statin. He was placed on aspirin 81 mg daily and his hemoglobin A1c on his medications was 6.0. Patient's NIH remained stable. An echocardiogram was obtained and showed an EF of 60%. He had mild concentric trick LVH and stage I diastolic dysfunction as well as mild tricuspid valve insufficiency and aortic valve sclerosis without stenosis. He was seen by neurology after an MRI was done. MRI showed stable meningioma. Patient already follows with neurology for his meningioma so he is to continue outpatient follow-up. Neurology felt that this was likely a TIA and recommended ongoing aspirin therapy at discharge in addition to continuing his statin and antihyperglycemics. Blood pressure control long-term goal is 130/80 or lower. He was slightly higher than this during his hospitalization however we had held his lisinopril. We restarted his lisinopril at discharge and I have encouraged him to follow-up with his primary care physician for ongoing assessment with the intent to decrease his blood pressure consistently to less than 130/80. Again, he is to follow-up with his primary care physician as scheduled in August and his neurologist as scheduled. Patient was discharged home in stable condition on 07/14/2025. Discharge diagnoses: TIA with resolved left lower extremity tingling/numbness and weakness Diastolic dysfunction-stage I with concentric LVH [id number] with A1c of 6.0 Hyperlipidemia Euthyroid sick syndrome History of vertigo GERD Meningioma History of tobacco abuse Physical Exam Const alert, oriented x3, no apparent distress, no limitations, healthy appearing and well nourished Constitutional Narrative: Overweight, older, white male, sitting up in a chair at the bedside, appears comfortable, nontoxic, at bedside General Appearance: cooperative, comfortable, well kempt and well developed HEENT normocephalic, head/scalp atraumatic and moist oral mucous membranes HEENT Narrative: Mallampati 2, no thrush Neck supple Neck Narrative: Trachea midline Resp normal respiratory effort, no retractions, no use of accessory muscles and clear to auscultation bilaterally Auscultation: Negative for crackles, rhonchi or wheezes Cardio regular rate, regular rhythm, S1 normal heart sound, S2 normal heart sound, no murmurs, no rub, no gallops and no clicks GI normal to inspection, nondistended, normoactive bowel sounds, soft to palpation and non-tender Extremity no clubbing, cyanosis or edema Extremity Narrative: 2+ pedal and radial pulses Neuro moves all extremities and no focal motor deficits Neuro Narrative: No sensory deficits Speech: speech normal Psych affect normal Psych Narrative: Extremely pleasant, interacts appropriately Weight / BMI Weight Weight: 93.2 kg Body Mass Index (BMI) 29.5 ABG / Lab / Microbiology Data 07/14/25 02:20 07/14/25 02:20 Laboratory: Laboratory Results - last 24 hr 07/14/25 02:17: POC Glucose 111 H 07/14/25 02:20: WBC 7.9, RBC 4.72, Hgb 15.4, Hct 44.4, MCV 94.1 H, MCH 32.6 H, MCHC 34.7, RDW Std Deviation 40.2, RDW Coeff of Omid 11.6, Plt Count 268, MPV 8.8, Immature Gran % (Auto) 0.300, Neut % (Auto) 49.9, Lymph % (Auto) 31.3, [place] % (Auto) 11.1 H, Eos % (Auto) 6.6 H, Baso % (Auto) 0.8, Absolute Neuts (auto) 3.9, Absolute Lymphs (auto) 2.46, Nucleated RBC % 0, PT 13.4, INR 1.0, APTT 29.8, Sodium 142, Potassium 3.9, Chloride 104, Carbon Dioxide 23.0, Anion Gap 14, BUN 25 H, Creatinine 1.20, Estim Creat Clear Calc 58.53, Est GFR (MDRD) Non-Af 62, BUN/Creatinine Ratio 20.8 H, Glucose 115 H, Calcium 9.7, Troponin T High Sens 13 07/14/25 04:42: Hemoglobin A1c 6.0 H, Magnesium 1.9, Troponin T Hi Sens 2 Hr 15, Triglycerides 143, Cholesterol 135, LDL Cholesterol, Calc 66, VLDL Cholesterol 29, HDL Cholesterol 44, Cholesterol/HDL Ratio 3.08, Vitamin B12 574, TSH 5.310 H 07/14/25 06:12: Troponin T Hi Sens 4Hr 17 07/14/25 06:46: POC Glucose 159 H 07/14/25 11:14: POC Glucose 179 H Radiography Diagnostic Testing: Radiology Impression Brain CT 07/14/25 02:17 IMPRESSION: 1. No intracranial hemorrhage. No mass effect or midline shift. 2. Chronic involutional and ischemic gliotic white matter changes. 3. Possible high right meningioma abutting the anterior falx. Further evaluation with contrast-enhanced MRI would be more helpful. 4. CT is insensitive for early evaluation of acute stroke. If there is clinical concern for acute ischemia, an MRI may be considered. Stroke Alert: The critical findings in the findings and impression above were relayed directly by me by telephone to Sulaiman Robison on 07/14/2025 at 2:42 am with readback verification. Reading Location: [facility] Head/Neck CTA 07/14/25 02:17 IMPRESSION: Unremarkable CT angiogram of the head and neck with evidence of stenosis or occlusion. Reading Location: [facility] Echocardiogram 07/14/25 05:13 Interpretation Summary Mild concentric left ventricular hypertrophy. The left ventricular ejection fraction is 60 %. Stage 1 diastolic dysfunction. Mild (1+) tricuspid valve insufficiency. Mildly calcified aortic valve. Aortic valve sclerosis without stenosis. Ordering Physician: Jeremy Edurado Performed By: Moe So RCS Brain MRI 07/14/25 08:29 IMPRESSION: A 6.5 x 3.5 x 3 cm mixed cystic and solid right paramedian parietofrontal enhancing mass with invasion of the scalp and the superior sagittal vein. No midline shift. No additional enhancing lesion. The differential diagnosis may include atypical invasive meningioma or metastasis. Reading Location: [facility] D/C Instructions Discharge Activity: Return to Normal Activity DC O2, CPAP, BIPAP Needs Home O2 Discharge instructions: No DC home with Oxygen: No Meaningful Use Info Meaningful Use Meaningful Use Diagnoses (Choose all that apply): None applicable Discharge Plan Admission Admit Date/Time: 07/14/25 03:52 Primary Reason for Your Visit: Left leg weakness and numbness Attending Provider: Fely Hartley Primary Care Provider: Johana Dubon Consulting Providers: Ian Nuñez; Raquel Riley; Aurora Carmona; Venecia Sanchez; Romi Dillon; Omar Nguyen; Carey Crenshaw; Charlie Martinez; Corby Ryan; Tod Ogden; Emerita Roblero; Carolyn Oliva; Markel Boone; Kaitlyn Del Toro; Atuumn Scott; You Alvarenga; Evert Crowder; Amanda Roach; Luis Antonio Christianson; Elida Hartley; Dixie Valentine; Jeremy Eduardo Instructions Additional Instructions / Restrictions: 1. Your symptoms were suspicious for a TIA (transient ischemic attack). Per our discussion, this is essentially a stroke that did not stick and cause any sudden which would be noticed on an MRI. Your cholesterol is at goal. Goal for your blood pressure is less than 130/80 and you should have ongoing follow-up with your primary care physician with regards to this. Your diabetes is well-managed. The only new medication per neurology's recommendations is for aspirin 81 mg daily. 2. Please continue to follow-up with your neurologist as previously scheduled for your meningioma. Discharge Orders/Prescriptions Prescriptions: New aspirin 81 mg Tablet,Chewable 81 mg PO BREAKFAST Qty: 1 0RF Continued lovastatin 40 MG tablet 40 mg PO QHS Patient Comments: Cholesterol ascorbic acid (vitamin C) [Vitamin C] 500 MG tablet 500 mg PO DAILY@0800 Patient Comments: Supplement pantoprazole 40 MG tablet 40 mg PO DAILY PRN (Reason: gerd) Patient Comments: Acid reflux lisinopril 20 MG tablet 20 mg PO DAILY Qty: 30 0RF Patient Comments: Blood pressure meclizine 25 MG tablet 25 mg PO 4X/DAY PRN PRN (Reason: Vertigo) Qty: 12 0RF Patient Comments: Dizziness metformin 500 mg tablet 500 mg PO DAILY Patient Comments: TAKE 1 TABLET BY MOUTH DAILY WITH BREAKFAST. FOR BLOOD SUGAR/DIABETES. DO NOT TAKE IF NOT EATING Referrals / Follow Up: Johana Dubon MD [Primary Care Provider, Internal Medicine] - See Referral Note Referral Note: As scheduled for August Disposition Disposition (needs filled in before D/C Order can be placed): Home, Self Care Charges/Coding Visit Charges Inpatient E&M: 34245 Disch Hosp >30min
--- NOTE | 2025-07-14 14:24 | CASEMGMT ---
Patient has order for discharge. RN CM in to discuss needs at discharge, at bedside. Patient denies needs or help at discharge. Patient had no further questions or concerns.
--- NOTE | 2025-07-14 14:30 | PHA.DC_ITS ---
Pharmacy [facility] Counseling Pharmacy Service has performed discharge medication reconciliation and counseling for this patient. The patient's discharge medication list was reviewed for discrepancies and discrepancies were resolved. The patient was counseled on the following discharge medications and changes in medications for homegoing were reviewed. The Reason for Use, instructions for use, and potential side effects were reviewed for all new medications. The patient's questions regarding all of their medications were answered. 1. Aspirin 81 mg PO daily with breakfast The patient was able to verbally demonstrate an understanding of their discharge medications. Medications at Discharge Home Medications ascorbic acid (vitamin C) 500 mg tablet (Vitamin C) 500 mg PO DAILY@0800 01/26/16 lovastatin 40 mg tablet 40 mg PO QHS 01/26/16 pantoprazole 40 mg tablet,delayed release 40 mg PO DAILY PRN gerd 01/26/16 lisinopril 20 mg tablet 20 mg PO DAILY ##30 01/27/16 meclizine 25 mg tablet 25 mg PO 4X/DAY PRN PRN Vertigo ##12 01/27/16 aspirin 81 mg chewable tablet 81 mg PO BREAKFAST #1 TAB 07/14/25 metformin 500 mg tablet 500 mg PO DAILY 07/14/25
== END 2025-07-14 14:45 | disposition home or self-care (01) ==
LOC: ED 03:29 → PCU 04:06
PROVIDERS: Admitting Provider Internal Medicine; Emergency Provider Emergency Medicine; PCP Internal Medicine; Visit Provider Internal Medicine
DX: G45.9 Transient cerebral ischemic attack, unspecified (principal); D32.9 Benign neoplasm of meninges, unspecified; E11.22 Type 2 diabetes mellitus with diabetic chronic kidney disease; Z79.84 Long term (current) use of oral hypoglycemic drugs; N18.9 Chronic kidney disease, unspecified; R29.703 NIHSS score 3; K21.9 Gastro-esophageal reflux disease without esophagitis; I08.2 Rheumatic disorders of both aortic and tricuspid valves; E78.00 Pure hypercholesterolemia, unspecified; R29.898 Other symptoms and signs involving the musculoskeletal system; I12.9 Hypertensive chronic kidney disease with stage 1 through stage 4 chronic kidney disease, or unspecified chronic kidney disease; R27.0 Ataxia, unspecified; Z87.891 Personal history of nicotine dependence; Z79.899 Other long term (current) drug therapy; R20.0 Anesthesia of skin
CPT/HCPCS: 36415; 70450; 70496; 70498; 70553; 80048; 80061; 82607; 82962; 83036; 83735; 84443; 84484; 85025; 85610; 85730; 93005; 93306; 96372; 97161; 97165; 97802; 99221; 99285; A9575; Q9967; A4216; G0378